=== PATIENT | female | born 2000 | race Caucasian/White ===

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

== ENCOUNTER 2021-04-02 13:17 | Outpatient (REF) | payer MEDICAID, SELFPAY ==
[2021-04-04 16:42] LABS: COVID-19 RT-PCR UVMMC Result Positive (Negative)
== END 2021-04-02 13:18 | disposition home or self-care (01) ==
LOC: LBN 13:17
PROVIDERS: PCP Nurse Practitioner Family; Visit Provider Nurse Practitioner Family
DX: Z20.822 Contact with and (suspected) exposure to COVID-19 (principal); J06.9 Acute upper respiratory infection, unspecified
CPT/HCPCS: U0003

== ENCOUNTER 2021-04-24 16:16 | Emergency (ER) | payer MEDICAID, SELFPAY ==
--- NOTE | 2021-04-24 16:15 | DI.RAD_ITS ---
Exam(s) XR FOOT RT COMPLETE EXAM: XR FOOT RT COMPLETE CLINICAL HISTORY: dorsal pain and swelling after injury. TECHNIQUE: 2D digital imaging was performed of the right foot. Three images were obtained. AP, obl ique and lateral views were obtained. COMPARISON: CR RIGHT FOOT COMPLETE from 03/09/2015 CR RIGHT FOOT COMPLETE from 03/09/2015 FINDINGS: BONES: No acute fracture is present. No bony destructive lesion is seen. JOINTS: No dislocation present. SOFT TISSUE: Normal. IMPRESSION: Unremarkable radiographs of the right foot. DATA REPOSITORY: RADIATION DOSE DELIVERED:
[2021-04-24 16:19] VITALS: BP 133/80; PULSE 76; RESP 18; TEMP 36.6; O2SAT 100
--- NOTE | 2021-04-24 16:30 | ED.GENADUL_ITS ---
Discharge Plan Disposition Patient Disposition: HOME Condition: Stable Discharge Details Clinical Impression: Sprain of foot, right Primary Care Provider: Divine De Los Santos ED Provider: Amarjit Kang Home Meds and New Rx's Prescriptions: Continued dicyclomine 20 mg tablet 20 mg PO TID PRN (Reason: abdominal pain) Qty: 10 RF: 0 medroxyprogesterone [Depo-Provera] 150 mg/mL syringe 150 mg IM ONCE Qty: 1 RF: 2 albuterol sulfate [ProAir HFA] 90 mcg/actuation HFA aerosol inhaler 1 - 2 puff Inhalation DAILY Qty: 1 RF: 2 budesonide-formoterol [Symbicort] 80-4.5 mcg/actuation HFA aerosol inhaler 1 puff Inhalation BID Qty: 1 RF: 2 epinephrine [EpiPen] 0.3 mg/0.3 mL auto-injector 0.3 mg IJ ONCE PRN (Reason: Anaphylaxis) Qty: 1 RF: 1 (DME) Aerochamber MV Spacer See Rx Instructions .ROUTE .MEDSUPPLY Qty: 1 RF: 0 ibuprofen 600 mg tablet 600 mg PO Q6H PRNQty: 20 RF: 0 Discharge Instructions Instructions: Foot Sprain (ED) Additional Instructions: Elevate above the level of the heart to reduce pain and swelling. Apply ice to area to reduce discomfort. May use lace up ankle brace as needed for 5 to 10 days time. Tylenol and/or ibuprofen as needed for pain. Medical Decision Making 20-year-old female presents with right dorsal foot pain after injuring it this weekend and again falling in her driveway. She has been able to ambulate but with ongoing discomfort. She is tender along the dorsum of the right foot with no obvious laxity nor bony point discomfort. For for x-ray to rule out underlying fracture. X-ray is unremarkable. Patient placed in lace up ankle brace that she may use as needed. Discussed home management and she is stable for discharge. HPI General Mode of arrival: ambulatory . Date/Time Provider Initiated Documentation: 04/24/21 16:16 . Limitations to Documentation: no limitations . Information obtained by: patient . History of Present Illness 20 year old F presents to the emergency department with the chief complaint of Right foot pain and injury, described as moderate, Quality is described as dull, and is localized to the right. Patient reports no radiation. Patient started experiencing this day(s) and it has been constant. Rest improves symptom(s), Movement worsens symptoms . Patient notes no other symptoms.. Patient did receive the following treatments prior to arrival, none Related Data Home Medications Medication Instructions Recorded Confirmed inhalational spacing device #1 ea 02/14/20 04/24/21 dicyclomine 20 mg tablet 20 mg PO TID PRN #10 tab 03/16/20 04/24/21 epinephrine 0.3 mg/0.3 mL 0.3 mg IJ ONCE PRN #1 auto.injct 05/24/20 04/24/21 injection, auto-injector ibuprofen 600 mg PO Q6H PRN #20 tab 08/12/20 04/24/21 albuterol sulfate 90 mcg/actuation 1 - 2 puff INHALATION DAILY #1 10/04/20 04/24/21 aerosol inhaler inhaler budesonide-formoterol HFA 80 1 puff INHALATION BID #1 inhaler 10/04/20 04/24/21 mcg-4.5 mcg/actuation aerosol inhaler medroxyprogesterone 150 mg/mL 150 mg IM ONCE #1 syringe 10/04/20 04/24/21 intramuscular syringe Previous Rx's Medication Instructions Recorded inhalational spacing device #1 ea 02/14/20 dicyclomine 20 mg tablet 20 mg PO TID PRN #10 tab 03/16/20 epinephrine 0.3 mg/0.3 mL 0.3 mg IJ ONCE PRN #1 auto.injct 05/24/20 injection, auto-injector ibuprofen 600 mg PO Q6H PRN #20 tab 08/12/20 albuterol sulfate 90 mcg/actuation 1 - 2 puff INHALATION DAILY #1 10/04/20 aerosol inhaler inhaler budesonide-formoterol HFA 80 1 puff INHALATION BID #1 inhaler 10/04/20 mcg-4.5 mcg/actuation aerosol inhaler medroxyprogesterone 150 mg/mL 150 mg IM ONCE #1 syringe 10/04/20 intramuscular syringe Allergies Allergy/AdvReac Type Severity Reaction Status Date / Time tree nut Allergy Severe Verified 04/24/21 16:22 almond Allergy Intermediate Skin Rash Verified 04/24/21 16:22 No Known Drug Allergies Allergy Mild Verified 04/24/21 16:22 shellfish derived Allergy Verified 04/24/21 16:22 General Stated Complaint: Orthopedic RUBEN: 3 Review of Systems Narrative: No other injury. No knee or hip pain. No numbness or tingling. 4 systems reviewed and otherwise negative [facility] Active Problem List Scapular dyskinesis (Acute) Impingement syndrome of left shoulder (Acute) Concussion (Acute) Otitis externa (Acute) SLAP lesion of right shoulder (Acute) Tendinitis of long head of biceps brachii of both shoulders (Acute) Marijuana abuse (Acute) Hematuria (Acute) Depot contraception (Acute) Moderate persistent asthma without complication (Acute 08/23/16) Smoker (Chronic 11/28/17) Depression with anxiety (Chronic 12/25/15) Adolescent idiopathic scoliosis of thoracolumbar region (Chronic 08/23/16) ADHD (attention deficit hyperactivity disorder) (Chronic 11/23/14) Medical History Acute neck pain Chronic abdominal pain Eczema (11/23/14) Fracture of left wrist (08/23/09) Fracture of right clavicle (11/04/04) Sprain of medial collateral ligament of right knee, subsequent encounter (04/22/17) Surgical History ROOF OF MOUTH RECONSTRUCTED Family History Mother Substance abuse several female relatives Neoplasm breast CA Social History Smoking/Tobacco Use Status: Current every day Tobacco Type: cigarettes Smoking risk assessment performed?: Yes Alcohol Intake: current Alcohol Intake frequency: a few times a month Alcohol type: beer and hard liquor Drug use: Daily Substance use type: marijuana Household members: family Sexually active: Yes Do you think of yourself as: straight/heterosexual Current gender identity: female Seatbelt use: sometimes Do you feel safe at home: Yes Do you feel safe in your relationship?: Yes Exam Narrative Exam Narrative: GEN: awake, alert, oriented 3. Pleasant, well groomed, interactive. HEAD: Normocephalic, atraumatic EXT: Full ROM, right proximal dorsum of the foot is tender to palpation. 2+ DP bilaterally. Sensation intact throughout. Normal motor. Neuro: Grossly normal neurologic exam, conversant, interactive. Psych: Speech fluent, thoughts congruent, affect normal Course Vital Signs Vital signs: Vital Signs Temperature 36.6 C 04/24/21 16:19 Pulse 76 04/24/21 16:19 Respiratory Rate 18 04/24/21 16:19 Blood Pressure 133/80 04/24/21 16:19 Pulse Oximetry 100 04/24/21 16:19 Temperature 36.6 C 04/24/21 16:19 Temperature Source Temporal Artery Scan 04/24/21 16:19 Pulse 76 04/24/21 16:19 Respiratory Rate 18 04/24/21 16:19 Respiratory Effort Non-Labored 04/24/21 16:23 Blood Pressure 133/80 04/24/21 16:19 Pulse Oximetry 100 04/24/21 16:19 Oxygen Delivery Method Room Air 04/24/21 16:19 Oxygen Flow Rate 0 04/24/21 16:19 Pain Level 8 04/24/21 16:19 PAWSS Have you Been Recently Intoxicated or Drunk Within the Last 30 days?: No Have you Ever Experienced Previous Episodes of Alcohol Withdrawal?: No Have you ever Experienced Withdrawal Seizures?: No Have you ever Experienced Delirium Tremens(DT)s?: No Have you ever undergone Alcohol Rehabilitation Treatment (i.e, inpt ot outpatient treatment programs)?: No Have you ever Experienced Blackouts?: No Have you ever Combined Alcohol with other Downers within the last 90 days?: No Have you ever Combined Alcohol with any other Substance of Abuse during the last 90 days?: No Positive Blood Alcohol level on Presentation? [PCS.BAL]: No Evidence of Increased Autonomic Activity (i.e. HR>120, tremor, sweating, agitation, nausea)?: No Result: 0
--- NOTE | 2021-04-24 16:56 | DI.VRAD_ITS ---
PROCEDURE INFORMATION: Exam: XR Right Foot Exam date and time: 04/24/2021 4:24 PM Age: 20 years old Clinical indication: Other: Dorsal pain and swelling after injury TECHNIQUE: Imaging protocol: XR Right foot. Views: 3 or more views. COMPARISON: CR RIGHT FOOT COMPLETE 03/09/2015 3:16 PM FINDINGS: Bones/joints: No acute fracture or dislocation Soft tissues: Unremarkable IMPRESSION: No acute fracture or dislocation Dictated and Authenticated by: Maciel Cruz MD. Ordering:KENDY Ocasio MD
== END 2021-04-24 17:16 | disposition home or self-care (01) ==
PROVIDERS: Emergency Provider Emergency Medicine; PCP Nurse Practitioner Family
DX: S93.691A Other sprain of right foot, initial encounter (principal); W00.0XXA Fall on same level due to ice and snow, initial encounter
CPT/HCPCS: 29515; 99283; 73630

== ENCOUNTER 2021-08-10 01:29 | Outpatient (CLI) | payer MEDICAID, SELFPAY ==
--- NOTE | 2021-08-10 13:28 | DI.RAD_ITS ---
Exam(s) XR WRIST LT COMPLETE EXAM: XR WRIST LT COMPLETE CLINICAL HISTORY: LT WRIST PAIN, M25.532. TECHNIQUE: 2D digital imaging was performed of the left wrist. Three images were obtained. PA, obl ique and lateral views were obtained. COMPARISON: CR LEFT HAND COMPLETE from 11/11/2016 FINDINGS: BONES: No acute fracture is present. No bony destructive lesion is seen. JOINTS: The carpal bones are normally aligned. SOFT TISSUE: Normal. IMPRESSION: Unremarkable radiographs of the left wrist. DATA REPOSITORY: RADIATION DOSE DELIVERED:
== END 2021-08-10 01:49 ==
PROVIDERS: PCP Nurse Practitioner Family; Visit Provider Family Medicine
DX: M25.532 Pain in left wrist (principal)
CPT/HCPCS: 73110

== ENCOUNTER 2021-08-22 02:56 | Outpatient (CLI) | payer MEDICAID, SELFPAY ==
[2021-08-22 11:20] LABS: HCG Quant, Pregnancy 1 mIU/mL (1-3)
== END 2021-08-22 02:57 | disposition home or self-care (01) ==
LOC: LBO 02:56
PROVIDERS: PCP Nurse Practitioner Family; Visit Provider Nurse Practitioner Family
DX: N92.5 Other specified irregular menstruation (principal)
CPT/HCPCS: 36415; 84702

== ENCOUNTER → 2021-09-19 00:35 | Outpatient (CLI) | payer MEDICAID, SELFPAY ==
--- NOTE | 2021-09-19 | DI.MRI_ITS ---
Exam(s) MR ORBIT FACIAL NECK WO/W EXAM: MR ORBIT FACIAL NECK WO/W CLINICAL HISTORY: LT CHEEK MASS 1 CM TECHNIQUE: Multiplanar multisequence MRI was performed. CONTRAST MATERIAL: IV Contrast: 12 mL of Magnevist contrast administered. COMPARISON: No exams were available for comparison FINDINGS: ORBITS: The anterior and posterior chambers of the globes are intact. The retrobulbar fat is unremark able. Extraocular muscles are unremarkable. OPTIC NERVES: The intracranial and extracranial portions of the optic nerves are within normal limits . Optic chiasm is within normal limits. No MRI evidence of optic neuritis identified. SOFT TISSUES: The superior opthalmic veins are unremarkable. Remaining soft tissues are unremarkable. OTHER FINDINGS: A marker was placed over the palpable abnormality at the left side of the cheek at th e level of the mandible, anterior to the masseter muscle.. This corresponds to a homogeneous circums cribed nodule measuring 8 millimeters in greatest dimension. The features are consistent with a lymp h node. Parotids/submandibular/thyroid gland: Normal. Lymphadenopathy: There are scattered lymph nodes seen bilaterally level one to level three which are physiologic in nature. Carotids/Jugular: Within normal limits. Soft tissues: The floor the mouth is unremarkable where visualized. The epiglottis and vocal cords are within normal limits where visualized. IMPRESSION: Unremarkable MRI of the brain, orbits face, and neck. Palpable abnormality appears to correspond to a 8 millimeter lymph node without suspicious features. Other scattered lymph nodes are seen on both sides of the neck. No pathologically enlarged lymph no mitch. DATA REPOSITORY:
[2021-09-19] MEDS: Normal Saline Flush 10 ML SYR IVP (15:18)
[2021-09-19] MEDS: Gadoterate meglumine 20 ML VIAL 12 ML IVP (15:20)
== END ==
PROVIDERS: PCP Nurse Practitioner Family; Visit Provider Dentist Oral and Maxillofacial Surgery
DX: R22.0 Localized swelling, mass and lump, head (principal); R59.0 Localized enlarged lymph nodes
CPT/HCPCS: 70543; 82565

== ENCOUNTER 2021-11-22 10:21 | Outpatient (REF) | payer MEDICAID, SELFPAY ==
[2021-11-23 15:45] LABS: Chlamydia Result Negative (Negative); GC Result Negative (Negative)
== END 2021-11-22 10:22 | disposition home or self-care (01) ==
LOC: LBN 10:21
PROVIDERS: PCP Nurse Practitioner Family; Visit Provider Advanced Practice Midwife
DX: Z11.3 Encounter for screening for infections with a predominantly sexual mode of transmission (principal)
CPT/HCPCS: 87491; 87591

== ENCOUNTER 2021-11-26 15:41 | Outpatient (REF) | payer MEDICAID, SELFPAY ==
--- OUTSIDE RECORDS SUMMARY | 2021-11-26 15:44 | XMS_ITS | Clinical Summary ---
:2000 Author Organization [facility] [address] Care Team Providers Name Role Phone Amara Celis MD Primary Care Provider Allergies Active Allergy Reactions Severity Noted Date Comments Marlin High 10/26/2019 Penicillin Nausea And Vomiting 11/10/2015 Shellfish Derived 10/26/2019 Tree Nut High 10/26/2019 Medications Medication Sig Dispensed Refills Start Date End Date Status albuteroL 90 Daily 0 08/21/2015 Active mcg/actuation HFA Aerosol Inhaler medroxyPROGESTERone Inject 150 mg 0 Active (Depo-PROVERA) 150 mg/mL into the muscle Suspension once. Symbicort 80-4.5 INHALE 1 PUFF BY 0 02/11/2020 Active mcg/actuation HFA MOUTH TWICE A DAY Aerosol Inhaler EPINEPHrine 0.3 mg/0.3 INJECT 0.3MG INTO 0 1 Active mL Auto-Injector THE MUSCLE ONCE NEEDED FOR ANAPHYLAXSIS Active Problems Problem Noted Date Adolescent idiopathic scoliosis 11/10/2015 Encounters Date Type Specialty Care Team Description 11/08/2021 Telephone Gastroenterology Santhosh August [facility] 09/03/2021 Hospital Encounter Radiology Maciel Reilly a without vomiting; B, MD RUQ pain from Last 3 Months Family History Medical History Relation Comments Diabetes Neg Hx Social History Tobacco Use Types Packs/Day Years Used Date Current Every Day Smoker 0.5 Smokeless Tobacco: Never Used Alcohol Use Standard Drinks/Week Comments Never 0 (1 standard drink = 0.6 oz pure alcoho l) Alcohol Habits Answer Date Recorded How often do you have a drink containing alcohol? Never 06/16/2020 How many drinks containing alcohol do you have on a typical Not asked day when you are drinking? How often do you have six or more drinks on one occasion? No t asked Comment: Not asked Sex Assigned at Date Recorded Not on file Last Filed Vital Signs Vital Sign Reading Time Taken Comments Blood Pressure 101/80 07/10/2021 10:29 AM EST Pulse 71 07/10/2021 10:29 AM EST Temperature 36.6 ??C (97.9 ??F) 06/16/2020 2:01 PM EST Respiratory Rate 16 06/16/2020 3:50 PM EST Oxygen Saturation 99% 06/16/2020 3:45 PM EST Inhaled Oxygen Concentration - - Weight 64.3 kg (141 lb 12.8 oz) 07/10/2021 10:29 AM EST Height 167.6 cm (5' 6) 07/10/2021 10:29 AM EST Body Mass Index 22.89 07/10/2021 10:29 AM EST Plan of Treatment Upcoming Encounters Date Type Specialty Care Team Description 11/28/2021 Hospital Encounter Radiology Maciel Reilly MD [facility] [place] [address] 11/28/2021 Appointment Radiology Maciel Reilly MD [facility] DR MANDUJANO [place], [place] [address] 02/08/2022 Hospital Encounter Gastroenterology Awilda Israel MD [facility] [address] [place] [address] 02/08/2022 Surgery Gastroenterology Awilda Israel, EGD, UP PER GI ENDOSCOPY [facility] [address] [place], [place] [address] Scheduled Procedures Name Priority Associated Diagnoses Date/Time EGD, UPPER GI ENDOSCOPY Nausea without v omiting 02/08/2022 1:00 PM EDT RUQ pain Health Maintenance Due Date Last Done Comments Covid-19 Vaccine (#1) 2006 Pneumococcal Vaccine: At-Risk 5-64yrs (1 - PCV) 2007 HPV vaccine (1 - 2-dose series) 2012 Chlamydia Screening, female 15-25 2016 HIV screen 2019 Hepatitis C Screening 2019 Lipid Screening 2019 Tdap adult 2020 Tetanus vaccine 2020 Influenza (Flu) vaccine (1 of 1 - Influenza standard 01/17/2022 series) Procedures Procedure Name Priority Date/Time Associated Comments Diagnosis US ABDOMEN LIMITED Routine 09/03/2021 9:37 AM Nausea without R esults for this HEPATOLOGY PROTOCOL EDT vomiting procedure are in RUQ pain the results section. from Last 3 Months Results US Abdomen Limited Hepatology Protocol (09/03/2021 9:37 AM EDT) Anatomical Region Laterality Modality Abdomen Ultrasound Specimen (Source) Anatomical Collection Method Collection Time Re ceived Time Location / / Volume Laterality 09/03/2021 9:22 AM EDT Impressions 09/03/2021 9:47 AM EDT Normal right upper quadrant ultrasound. Specifically, the liver, gallbladder and biliary ductal system are normal. Electronically signed by: Osmel escobedo MD, [facility] ([phone]), at 9:40 AM Thank you for letting us participate in the care of this patient. If you are a [facility] and have any questions regarding this report, please contact the number above. For patients who have ques tions, please contact the [facility] profess[facility] nal that requested your imaging first. ? Osmel Huff, Staff Physician Electronically Signed Final Report ?? 09:47 am Narrative 09/03/2021 9:47 AM EDT Abdominal ? (Signed Final 09/03/2021 09:47 am) PATIENT INFO: ID #: ? [id number] ?: ??[birth year] (21 yrs)(F) Name: ? GRISELDA SHORT ?Visit Date: 09/03/2021 09:22 am PERFORMED BY: Performed By: ? Danya Cornejo RDMS Attending: ?Refugio PAZ, Kofi Curiel. Referred By: ?MACIEL REILLY Location: ? [place] SERVICE(S) PROVIDED: [facility]ABDLIM - Hepatology Protocol - Abdomin al ? [address]32 Limited Survey Single Organ or Quadrant - [id number] INDICATIONS: nausea, RUQ pain COMPARISON: Outside US 10/27/19 ------ LIVER: ------ Right Lobe Length: ?? 12.9 ?? cm Echogenicity/Echotexture: ?? Normal Portal Veins: ?Patent Comment: ?No focal lesion seen. GALLBLADDER: Cholelithiasis: ?No stones visua lized Wall Thickness: ?1. mm Focal Tenderness: ?Negative sonogra phic Galvez's sign BILIARY TRACT: Intrahepatic Ducts: ?? Normal Extrahepatic Ducts: ?? Normal Common Duct Size: ? 2.0 ? mm Procedure Note Osmel Huff MD - 09/03/2021Format ting of this note might be different from the original. Abdominal (Signed Final 09/03/2021 09:4 7 am) PATIENT INFO: ID #: [id number] : [birth year] (21 y rs)(F) Name: GRISELDA SHORT Visit Date: 09:22 am PERFORMED BY: Performed By: Danya Cornejo RDMS Attending: Osmel Huff MD Referred By: MACIEL REILLY Location: [place] [facility] Protocol - Abdomin al 11279 Limited Survey Single Organ or Quadrant - [id number] INDICATIONS: nausea, RUQ pain COMPARISON: Outside US 10/27/19 ------ LIVER: ------ Right Lobe Length: 12.9 cm Echogenicity/Echotexture: Normal Portal Veins: Patent Comment: No focal lesion seen. GALLBLADDER: Cholelithiasis: No stones visualized Wall Thickness: 1. mm Focal Tenderness: Negative sonographic Galvez's sign BILIARY TRACT: Intrahepatic Ducts: Normal Extrahepatic Ducts: Normal Common Duct Size: 2.0 mm IMPRESSION Normal right upper quadrant ultrasound. Specifically, the liver, gallbladder and biliary ductal system are normal. Electronically signed by: Osmel escobedo MD, Radiology [place] ([phone]), at 9:40 AM Thank you for letting us participate in the care of this patient. If you are a [facility] and have any questions regarding this report, please contact the number above. For patients who have ques tions, please contact the [facility] profess[facility] nal that requested your imaging first. Osmel Huff, Staff Physician Electronically Signed Final Report 09/03 09:47 am Maciel Reilly MD IMG US GEN ORDERABLES from Last 3 Months Insurance Payer Benefit Plan / Subscriber ID Effective Dates Phone Addre ss Type Group [place]ICA[place] [id number] 2019-Prese [phone] [address] [facility] [address] [place], [place] [id number] Care Teams Seasoner Hand Relationship Specialty Start Date End Date Amara Celis MD PCP - General Pediatrics 08/30/15 [address] [place] [address]
--- OUTSIDE RECORDS SUMMARY | 2021-11-26 15:44 | XMS_ITS | Encounter Summary ---
:2000 Author Organization [facility] [place] [address] Care Team Providers Name Role Phone Amara Celis MD Primary Care Provider Encounter Details Date Type Department Care Team Description 06/16/2020 Hospital Encounter Gastroenterology at [facility] Laz Vega [facility] [place] [address] [facility] [phone] DR GASTROENTEROLOGY [place], [place] [address] (Wo rk) Social History Tobacco Use Types Packs/Day Years [...] Assigned at Date Recorded Not on file documented as of this encounter Last Filed Vital Signs Vital Sign Reading Time Taken Comments Blood Pressure 113/67 06/16/2020 3:44 PM EST Pulse 58 06/16/2020 3:35 PM EST Temperature 36.6 ??C (97.9 ??F) 06/16/2020 2:01 PM EST Respiratory Rate 16 06/16/2020 3:50 PM EST Oxygen Saturation 99% 06/16/2020 3:45 PM EST Inhaled Oxygen Concentration - - Weight 61.2 kg (135 lb) 06/16/2020 2:01 PM EST Height 167.6 cm (5' 6) 06/16/2020 2:01 PM EST Body Mass Index 21.79 06/16/2020 2:01 PM EST documented in this encounter Discharge Instructions AttachmentsThe following attachments cannot be sent through Care Everywhere. COLONOSCOPY: POST-OP (NORWEGIAN)documented in this encounter Medications at Time of Discharge Medication Sig Dispensed Refills Start Date End Date Symbicort 80-4.5 INHALE 1 PUFF BY 0 02/11/2020 mcg/actuation HFA Aerosol MOUTH TWICE A DAY Inhaler EPINEPHrine 0.3 mg/0.3 mL INJECT 0.3MG INTO 0 10/2020 Auto-Injector THE MUSCLE ONCE NEEDED FOR ANAPHYLAXSIS medroxyPROGESTERone Inject 150 mg into 0 (Depo-PROVERA) 150 mg/mL the muscle once. Suspension albuteroL 90 mcg/actuation Daily 0 HFA Aerosol Inhaler citalopram (CeleXA) 10 mg TAKE ONE TABLET BY 0 07/10/2021 Tablet MOUTH EVERY DAY documented as of this encounter H&P Notes Laz Vega MD - 06/16/2020 2:52 PM EST Patient Name: Ny Short Patient Age: 20 y.o. Birthdate: 2000 Admit date: 06/16/2020 Attending Physician: Laz Vega MD Gastroenterology & Hepatology Pre-Procedure History and Physical Planned Procedure: Colonoscopy: Indication: abdominal pain Patient Active Problem List Diagnosis Code ??? Adolescent idiopathic scoliosis M41.129 Medications: Reviewed in EDH Allergies Allergen Reactions ??? [place] ??? Tree Nut ??? Penicillin Nausea And Vomiting ??? Shellfish Derived Social History/Family History: Reviewed in EDH. No changes Exam: Patient Vitals for the past 24 hrs: Temp Pulse Resp BP SpO2 O2 Device 06/16/20 1401 36.6 ??C (97.9 ??F) 62 18 112/66 99 % RA GEN: NAD, AAOX3 HEENT: NC/AT dryMM, anicteric Chest: CTAB Heart: RRR, nl s1, s2 Abdomen: normal bowel sounds, soft, non tender Assessment and Plan: Proceed with Colonoscopy: ASA Grade: ASA 1 - Normal health patient Mallampati: I (soft palate, uvula, fauces, tonsillar pillars visible) Sedation plan: IV Conscious Sedation Risks and benefits of the procedure were discussed with the patient. Risks discussed including bleeding, infection, reaction to anesthesia, perforation or other intraabdominal trauma, pancreatitis (if applicable), missing a cancer (if applicable) and/or other unforseen complication. Informed Consent signed by patient (or wire rope sales representative). documented in this encounter Plan of Treatment Upcoming Encounters Date Type Specialty Care Team Description 11/28/2021 Hospital Encounter Radiology Maciel Pearson MD [facility] GASTR[facility] [place], [place] [address] 11/28/2021 Appointment Radiology Maciel Pearson MD [facility] DR [place], [place] [address] 02/08/2022 Hospital Encounter Gastroenterology Awilda Israel MD [facility] [address] [place], [place] [address] 02/08/2022 Surgery Gastroenterology Awilda Israel, EGD, UP PER GI MD ENDOSCOPY [facility] [address] [place], [place] [address] Scheduled Procedures Name Priority Associated Diagnoses Date/Time EGD, UPPER GI ENDOSCOPY Nausea without v omiting 02/08/2022 1:00 PM EDT RUQ pain documented as of this encounter Procedures Procedure Name Priority Date/Time Associated Comments Diagnosis COLONOSCOPY, 06/16/2020 3:05 PM abd pain DIAGNOSTIC EST COLONOSCOPY Routine 06/16/2020 2:55 PM Results f or this EST procedure are i n the results section. documented in this encounter Results COLONOSCOPY (06/16/2020 2:55 PM EST) Component Value Ref Test Analysis Performed At Patholo gist Range Method Time Signature COLONOSCOPY [facility] Endoscopy Procedure Date: 06/16/2020 2:55 PM ? Patient Name: Ny Short ? Date of : 2000 ? Age: 20 ? Order #: [id number] ? Instrument Name: [id number]-H190L SHERLYN ? Procedure: ? Colonoscopy Indications: ? Generalized abdominal pain Patient Profile: ? This is a 20 year old female. Refer ? to note in patient chart for ? documentation of history and physical. Providers: ? Laz Vega MD, Shagufta quintero, ? Devan Lopez Referring : ?Amara Celis MD, Jenise Silva ? Maria Elena Medicines: ? Midazolam 6 mg IV, Fentanyl 250 ? micrograms IV, Diphenhydramin e 50 mg ? IV Complications: ? No immediate complications. Procedure: ? Pre-Anesthesia Assessment: ? - Prior to the procedure, a H istory ? and Physical was performed, a nd ? patient medications and aller gies ? were reviewed. The patient's ? tolerance of previous anesthe jessica was ? also reviewed. The risks and benefits ? of the procedure and the jin tion ? options and risks were discus sed with ? the patient. All questions we re ? answered, and informed consen t was ? obtained. Prior Anticoagulant s: The ? patient has taken no previous ? anticoagulant or antiplatelet agents. ? ASA Grade Assessment: I - A n ormal, ? healthy patient. After review ing the ? risks and benefits, the patie nt was ? deemed in satisfactory condit ion to ? undergo the procedure. ? The procedure, indications, b enefits, ? risks and alternatives were e xplained ? to the patient. Specifically ? discussed were potential ? complications including, but not ? limited to, bleeding, perfora tion, ? infection, missing a cancer, and ? adverse medication reactions. The ? patient was placed in the lef t ? lateral decubitus position, a nd a ? digital rectal exam was perfo rmed. ? The Colonoscope was inserted in the ? anus and under direct visuali zation, ? advanced to 20 cm into the il eum. ? Careful inspection was made a s the ? colonoscope was withdrawn. Th e ? colonoscopy was performed wit hout ? difficulty. The patient eden ated the ? procedure. The quality of the bowel ? preparation was good. The ter artemio ? ileum, ileocecal valve, appen diceal ? orifice, and rectum were phot ographed. ? Findings: ? The perianal and digital rectal examinations were ? normal. ? The terminal ileum appeared normal. ? The entire examined colon appeared normal on direct ? and retroflexion views. ? Moderate Sedation: ? Moderate (conscious) sedation was administered by the ? endoscopy nurse and supervised by the endoscopist. ? The patient's oxygen saturation, heart rate, blood ? pressure and response to care were monitored. ? I was present during the intraservice time as ? documented by the sedation RN. Impression: ?- The examined portion of the ileu m ? was normal. ? - The entire examined colon i s normal ? on direct and retroflexion vi ews. ? - No specimens collected. Recommendation: ?- Discharge patient to home. ? - Follow-up with PCP and GI C linic as ? scheduled. ? Attending Participation: ? I personally performed the entire procedure. I was ? present during the intraservice time as documented by ? the sedation RN. ? Dr. Rory Vega Laz Vega MD 06/16/2020 3:56:14 PM Number of Addenda: 0 Note Initiated On: 06/16/2020 2:55 PM Specimen (Source) Anatomical Collection Method Collection Time Re ceived Time Location / / Volume Laterality 06/16/2020 2:55 PM EST Amara Royal MD GENERAL SURGICAL ORDERABLES Performing Organization Address City/State/ZIP Code Phon e Number PROVATION documented in this encounter Visit Diagnoses Not on filedocumented in this encounter Administered Medications Inactive Administered Medications - up to 3 most recent administrations Medication Order MAR Action Action Date Dose Rate Site lactated ringers infusion New Bag 06/16/2020 2:12 PM EST 100 mL/hr 100 mL/hr 100 mL/hr, Intravenous, CONTINUOUS, Starting on Fri06/16/20 at 1415, Until Fri06/16/20 at 1617, Endoscopy (Day of Procedure) documented in this encounter Active and Recently Administered Medications Times are shown in EST. Continuous Medication Order 06/14/2020 06/15/2020 06/16/2020 lactated ringers infusion (CANCELED) 1412 (New Bag - Provider: Sahara Noel RN) 100 mL/hr, at 100 mL/hr, Intravenous, CO NTINUOUS, Starting Fri06/16/20 at 1415, Until Fri06/16/20 at 1617, Endo (Day of Procedure) PRN Medication Order 06/14/2020 06/15/2020 06/16/2020 diphenhydrAMINE (Benadryl) (50 mg/mL) injection (CANCELED) 1506 (Given - Provider: Shagufta Centeno RN)1518 (Given - Provider: Shagufta Centeno RN) ONCE PRN, Starting Fri06/16/20 at 1506, Until Fri06/16/20 at 1820, Intra- Operative (Intra-Procedure), Routine fentaNYL (pf) (50 mcg/mL) multi-dose injection (CANCELED) 1511 (Given - Provider: Shagufta Centeno RN)1514 (Given - Provider: hSagufta Centeno RN)1522 (Given - Provider: Shagufta Centeno RN)1526 (Given - Provider: Shagufta Centeno RN)1529 (Given - Provider: Shagufta Centneo RN) ONCE PRN, Starting Fri06/16/20 at 1511, Until Fri06/16/20 at 1820, Intra- Operative (Intra-Procedure), Routine midazolam (pf) (Versed) (1 mg/mL) multi-dose injection (CANCELED ) 1507 (Given - Provider: Shagufta Centeno RN)1510 (Given - Provider: Shagufta Centeno RN)1514 (Given - Provider: Shagufta Centeno RN)1518 (Given - Provider: Shagufta Centeno RN)1524 (Given - Provider: Shagufta Centeno RN) ONCE PRN, Starting Fri06/16/20 at 1507, Until Fri06/16/20 at 1820, Intra- Operative (Intra-Procedure), Routine 152 7 (Given - Provider: Shagufta Centeno RN) documented in this encounter Care Teams Wigs Salesperson Relationship Specialty Start Date End Date Amara Celis MD PCP - General Pediatrics 08/30/15 [place] [address] documented as of this encounter
--- OUTSIDE RECORDS SUMMARY | 2021-11-26 15:44 | XMS_ITS | Encounter Summary ---
:2000 Author Organization [place] [address] Care Team Providers Name Role Phone Amara Celis MD Primary Care Provider Encounter Details Date Type Department Care Team Description 06/16/2020 Surgery Gastroenterology at [facility] Laz Vega COLONOSCOPY, [facility] Cuauhtemoc [place] [address] [facility] [phone] DR GASTROENTEROLOGY [place], [place] [address] (Wo rk) Social History Tobacco [...] Sign Reading Time Taken Comments Blood Pressure 121/84 06/16/2020 3:30 PM EST Pulse 79 06/16/2020 3:30 PM EST Temperature 36.6 ??C (97.9 ??F) 06/16/2020 2:01 PM EST Respiratory Rate 16 06/16/2020 3:30 PM EST Oxygen Saturation 100% 06/16/2020 3:30 PM EST Inhaled Oxygen Concentration - - Weight 61.2 kg (135 lb) 06/16/2020 2:01 PM EST Height 167.6 cm (5' 6) 06/16/2020 2:01 PM EST Body Mass Index 21.79 06/16/2020 2:01 PM EST documented in this encounter Discharge Instructions AttachmentsThe following attachments cannot be sent through Care Everywhere. COLONOSCOPY: POST-OP (DIVEHI)documented in this encounter Medications at Time of [...] Reviewed in EDH Allergies Allergen Reactions ??? [place] ??? Tree Nut ??? Penicillin Nausea And [...] complication. Informed Consent signed by patient (or mill representative). documented in this encounter Plan of Treatment Upcoming Encounters Date Type Specialty Care Team Description 11/28/2021 Hospital Encounter Radiology Maciel Pearson MD [facility] GASTROENTERNOÉ [place], [place] [address] 11/28/2021 Appointment Radiology Maciel Pearson MD [facility] DR MANDUJAN[address] [place], [place] [address] 02/08/2022 Hospital Encounter Gastroenterology Awilda Israel MD [facility] [address] [place], [place] [address] 02/08/2022 Surgery Gastroenterology Awilda Israel, EGD, UP PER GI ENDOSCOPY [facility] [address] [place], [place] [address] Scheduled Procedures Name Priority Associated [...] Patholo gist Range Method Time Signature COLONOSCOPY [facility] Endoscopy Procedure Date: 06/16/2020 2:55 PM ? Patient Name: Ny Short ? Date of : 2000 ? Age: 20 ? Order #: [id number] ? Instrument Name: [id number]-H190L SHERLYN ? Procedure: [...] MAR Action Action Date Dose Rate Site diphenhydrAMINE (Benadryl) (50 Given 06/16/2020 3:18 PM EST 25 m g mg/mL) injection ONCE PRN, Starting on Fri06/16/20 at 1506, Until Fri06/16/20 at 1820, Intra-Operative (Intra-Procedure), Routine Given 06/16/2020 3:06 PM EST 25 mg fentaNYL (pf) (50 mcg/mL) multi-dose Given 06/16/2020 3:29 PM ES T 50 mcg injection ONCE PRN, Starting on Fri06/16/20 at 1511, Until Fri06/16/20 at 1820, Intra-Operative (Intra-Procedure), Routine Given 06/16/2020 3:26 PM EST 50 mcg Given 06/16/2020 3:22 PM EST 50 mcg lactated ringers infusion New Bag 06/16/2020 2:12 PM EST 100 mL/hr 100 mL/hr 100 mL/hr, Intravenous, CONTINUOUS, Starting on Fri06/16/20 at 1415, Until Fri06/16/20 at 1617, Endoscopy (Day of Procedure) midazolam (pf) (Versed) (1 mg/mL) multi-dose Given 06/16/2020 3: 27 PM EST 1 mg injection ONCE PRN, Starting on Fri06/16/20 at 1507, Until Fri06/16/20 at 1820, Intra-Operative (Intra-Procedure), Routine Given 06/16/2020 3:24 PM EST 1 mg Given 06/16/2020 3:18 PM EST 1 mg documented in this encounter Active and Recently Administered Medications Times are shown in EST. Continuous Medication Order 06/14/2020 06/15/2020 06/16/2020 lactated ringers infusion (CANCELED) 1412 (New Bag - Provider: Sahara Noel, SANDIP) 100 mL/hr, at 100 mL/hr, Intravenous, CO [...] Centeno RN)1514 (Given - Provider: Shagufta Centeno RN)1522 (Given - Provider: Shagufta Centeno RN)1526 (Given - Provider: Shagufta Centeno RN)1529 (Given - Provider: Shagufta Centeno RN) ONCE PRN, Starting Fri06/16/20 at 1511, [...] RN) documented in this encounter Care Teams Cosmetic Sales Advisor Relationship Specialty Start Date End Date Amara Celis MD PCP - General Pediatrics 08/30/15 [place] [address] documented as of this encounter
--- OUTSIDE RECORDS SUMMARY | 2021-11-26 15:44 | XMS_ITS | Encounter Summary ---
:2001 [place] [address] Care Team Providers Name Role Phone Lon Barboza MD Primary Care Provider Encounter Details Date Type Department Care Team Description 08/25/2015 Hospital Encounter Radiology Library at [facility], [place] [address] Social History Tobacco Use Types Packs/Day Years Used Date Never Assessed Alcohol Habits Answer Date Recorded How often [...] on file documented as of this encounter Medications at Time of Discharge Medication Sig Dispensed Refills Start Date End Date albuteroL 90 mcg/actuation HFA Aerosol Daily 0 08/21/2015 Inhaler citalopram (CELEXA) 10 mg Tablet Daily 0 11/30/2019 methylphenidate (RITALIN) 20 mg Tablet Daily 0 04/25/2015 11/30/2019 methylphenidate (CONCERTA) CR 27 mg Daily 0 01/09/2015 11/30/2019 tablet documented as of this encounter Plan of Treatment Upcoming Encounters Date Type Specialty Care Team Description 11/28/2021 Hospital Encounter Radiology Maciel Pearson MD [facility] GASTROENTEROLOGY [place], [place] [address] 11/28/2021 Appointment Radiology Maciel Pearson MD [facility] [place] [address] 02/08/2022 Hospital Encounter Gastroenterology Awilda Isreal MD [facility] Dr [place] [address] 02/08/2022 Surgery Gastroenterology Awilda Israel, EGD, UP PER GI MD ENDOSCOPY [facility] [address] [place] [address] Scheduled Procedures Name Priority Associated Diagnoses Date/Time EGD, UPPER GI ENDOSCOPY Nausea without v omiting 02/08/2022 1:00 PM EDT RUQ pain documented as of this encounter Procedures Procedure Name Priority Date/Time Associated Diagnosis Comme nts FILM LIBRARY Routine 08/25/2015 12:00 AM Pain Results for this STORAGE ONLY DX EDT procedure ar e in SPINE the results section. documented in this encounter Results Film Library- Storage only DX Spine (08/25/2015 12:00 AM EDT) Specimen (Source) Anatomical Location Collection Method / Collectio n Time Received Time / Laterality Volume Narrative TEVIN - 08/30/2015 11:46 AM EDT This exam is for storage only and is aut o-finalizing. Dr [facility] FILM LIBRARY ORDERABLES Performing Organization Address City/State/ZIP Code Phon e Number [place], [place] documented in this encounter Visit Diagnoses Diagnosis Pain Generalized pain Nausea without vomiting RUQ pain Abdominal pain, right upper quadrant documented in this encounter Care Teams Thread Separator Relationship Specialty Start Date End Date Lon Barboza MD PCP - General 04/10/10 08/29/15 [address] [place] [address] documented as of this encounter
--- OUTSIDE RECORDS SUMMARY | 2021-11-26 15:44 | XMS_ITS | Encounter Summary ---
:2001 Author Organization [facility] [place] [address] Care Team Providers Name Role Phone Amara Celis MD Primary Care Provider Reason for Referral Consultation (Routine) - Closed Specialty Diagnoses / Procedures Referred By Contact Refer red To Contact Gastroenterology Diagnoses Lower abdominal pain Jenise Arredondo PA [facility] Endoscopy 4t [facility] D R [facility] [place] [address] [place] [address] Referral ID Status Reason Start Date Expiration Date Visits V isits Requested Authorized [id number] Closed Consult, 04/05/2020 04/05/2021 1 1 Test & Treat Encounter Details Date Type Department Care Team Description 04/05/2020 TH Visit Gastroenterology at [facility] Jenise Arredondo Lower abdominal (TeleHealth) [facility] [place] [address] [place] [address] [place] [address] Social History Tobacco Use Types Packs/Day Years Used Date Passive Smoke Exposure - Never Smoker Alcohol Habits Answer Date Recorded How often [...] on file documented as of this encounter Progress Notes Jenise Arredondo PA - 04/05/2020 8:00 AM EST GASTROENTEROLOGY TELEMEDICINE PROGRAM - ESTABLISHED PATIENT VISIT Chief Complaint: Ny Short is a 19 [address] of [address] Lorena kinsey. provider found here for follow-up of abdominal pain. Detailed history: November 2019 Patient reports abdominal pain which began 1 month ago. Pain tends to be located in lower abdomen, on her right her left side ?? Pain mostly occurs in the middle of the night, and wakes her up from sleep This has been occurring most nights. She did had similar pain 2 years ago. However at that time, her pain was occurring less frequently and was more mild in severity Typically moves bowels 1-2 times per day No diarrhea, constipation, melena or hematochezia ?? Pain improves with time. No heartburn or reflux No change in medication or diet No dysphagia ?? Patient has had an ultrasound of her abdomen along with a transvaginal ultrasound and a CT scan ?? There was thickening of the bladder. Patient reports urinates every 30 minutes. She did see a physician regarding this who ordered testing. A uroscopy was recommended but not completed. ?? No ZIPPER SETTER CHAINSTITCH symptoms, no unusual vaginal bleeding. She is on Depo-Provera and has been on this for 4 years Interval history: She continues to have abdominal pain She is taking dicyclomine twice per day without significant benefit Pain is in lower abdomen. No specific relieving factors Pain is most days and is worse before a bowel movements Bowel pattern slightly changed: moving bowels 2-3 times per day She did see OBGYN recently with a negative workup No hematochezia or melena No nausea or vomiting Review of systems: 14-point review of systems reviewed and negative except as above. Medications: Outpatient Medications Prior to Visit Medication Sig Dispense Refill ??? medroxyPROGESTERone (Depo-PROVERA) 150 mg/mL Suspension Inject 150 mg into the muscle once. ??? albuterol (PROAIR HFA) 90 mcg/actuation HFA Aerosol Inhaler Daily No facility-administered medications prior to visit. Allergies: is allergic to penicillin. Past Medical History Depression with anxiety Moderate persistent asthma Hematuria History of concussion Eczema Chronic abdominal pain ADHD Past Surgical History: Mouth reconstruction surgery December 15 2019- Plans for wisdom teeth removal x4 Family History: family history is not on file. denies family history of colon cancer, IBD, or celiac disease in mother father or other family members Social History: reports that she is a non-smoker but has been exposed to tobacco smoke. She does nothave any smokeless tobacco history on file. Marijuana daily Physical exam: No Physical Examination performed during this telemedicine visit Laboratory studies, imaging, and procedures (my review of prior records): ?? CT 10/21/2019 Abdomen and pelvis with contrast IMPRESSION: 1. No evidence of bowel obstruction or acute bowel inflammation. 2. Thickened urinary bladder jane, which could be secondary to under distention ?? CT abdomen and pelvis with contrast 04/19/2019 Indication: Diffuse abdominal pain IMPRESSION: ?? Negative examination of the abdomen and pelvis. Reports having a transvaginal ultrasound- patient reports it as negative Assessment/Plan: Ms. Short is a 19 y.o. patient with abdominal pain of unclear etiology. She had similar pain 2 years ago which was occurring less frequently and more mild in severity. Her pain has become more persistent and occurs most nights. She has had slight increase in bowel movement frequency ?? She did have transvaginal ultrasound which reports as normal. She also had a CT scan which revealed thickening of her bladder. ?? Unclear if her pain is GI in origin. We did discuss the possibility of ZIPPER SETTER CHAINSTITCH related abdominal pain. She tells me she did follow-up with ZIPPER SETTER CHAINSTITCH. No source of pain identified, though she tells me she was told she would have a difficult time baby to full-term. I did question what the context of this was if she was told she had any abnormalities or irregularities regarding her reproductive organs. She has not found dicyclomine to be especially helpful. We did discuss proceeding with endoscopic evaluation to evaluate for any structural abnormalities which may be contributing to her symptoms. Thiswill also allow us to look for inflammation involving the colon. If colonoscopy is unremarkable, we discussed how her pain may be related to visceral hypersensitivity. Other etiologies should be considered as well such as a urinary cause given abnormality versus ZIPPER SETTER CHAINSTITCH causes. Neuromodulators may be aconsideration, however this up to her PCP She is worried about the possible etiology of her pain and would like to pursue a colonoscopy. I diddiscuss this test in detail including risks, benefits and alternatives. She verbalized understanding Patient verbally consents to this telephone visit and understands that this visit may be billed, similar to a clinic office visit. I provided care to the patient today via telephone call, 15 minutes telephone visit was spent in discussion with patient on above. DIVYA Gomez [facility] [place] [address] documented in this encounter Plan of Treatment Upcoming Encounters Date Type Specialty Care Team Description 11/28/2021 Hospital Encounter Radiology Maciel Pearson MD [facility] [address] [place] [address] 11/28/2021 Appointment Radiology Maciel Pearson MD [facility] [address] [place], [place] [address] 02/08/2022 Hospital Encounter Gastroenterology Awilda Israel MD [facility] [address] [place] [address] 02/08/2022 Surgery Gastroenterology Awilda Israel, EGD, UP PER GI ENDOSCOPY [facility] [address] [place] [address] Scheduled Procedures Name Priority Associated Diagnoses Date/Time EGD, UPPER GI ENDOSCOPY Nausea without v omiting 02/08/2022 1:00 PM EDT RUQ pain Scheduled Referrals Name Type Priority Associated Order Schedule Diagnoses Referral to Outpatient Routine Lower abdominal Ordered: Gastroenterology Referral pain 04/05/2020 documented as of this encounter Visit Diagnoses Diagnosis Lower abdominal pain Abdominal pain, other specified site Nausea without vomiting RUQ pain Abdominal pain, right upper quadrant documented in this encounter Care Teams Informatics Nurse Specialist Relationship Specialty Start Date End Date Amara Celis MD PCP - General Pediatrics 08/30/15 [facility] [place] [address] documented as of this encounter
--- OUTSIDE RECORDS SUMMARY | 2021-11-26 15:44 | XMS_ITS | Encounter Summary ---
:2001 Author Organization [facility] [place] [address] Care Team Providers Name Role Phone Amara Celis MD Primary Care Provider Reason for Visit Reason Onset Date Comments Reminder Appointment 04/05/2020 Encounter Details Date Type Department Care Team Description 04/05/2020 Telephone Gastroenterology at [facility] Dottie Conte, Reminder Appointment [facility] [place] [address] GASTROENTEROLOG [phone] Y DEPT Social History Tobacco Use Types Packs/Day Years [...] on file documented as of this encounter Miscellaneous Notes Telephone Encounter - Dottie Conte CMA - 04/05/2020 8:01 AM EST Called patient to review medications and allergies for their upcoming gastroenterology Type of Appointment: Telehealth appointment. Reach Patient during MA Check: No, Did not leave a message Notes for the provider: Notes for the nurse: Mail box was full, and was unable to leave a message documented in this encounter Plan of Treatment Upcoming Encounters Date Type Specialty Care Team Description 11/28/2021 Hospital Encounter Radiology Maciel Paerson MD [facility] [address] [place], [place] [address] 11/28/2021 Appointment Radiology Maciel Pearson MD [facility] [address] [place], [place] [address] 02/08/2022 Hospital Encounter Gastroenterology Awilda Israel MD [facility] [address] [place], [place] [address] 02/08/2022 Surgery Gastroenterology Awilda Israel, EGD, UP PER GI MD ENDOSCOPY [facility] [place], [place] [address] Scheduled Procedures Name Priority Associated Diagnoses Date/Time EGD, UPPER GI ENDOSCOPY Nausea without v omiting 02/08/2022 1:00 PM EDT RUQ pain documented as of this encounter Visit Diagnoses Not on filedocumented in this encounter Care Teams Rehabilitation Director Relationship Specialty Start Date End Date Amara Celis MD PCP - General Pediatrics 08/30/15 [place] [address] documented as of this encounter
--- OUTSIDE RECORDS SUMMARY | 2021-11-26 15:44 | XMS_ITS | Encounter Summary ---
:2001 Author Organization [facility] [place] [address] Care Team Providers Name Role Phone Amara Celis MD Primary Care Provider Encounter Details Date Type Department Care Team Description 06/12/2021 Telephone Gastroenterology at [facility] Meredith Anderson, [place] [address] Social History Tobacco Use Types Packs/Day [...] this encounter Miscellaneous Notes Telephone Encounter - Meredith Anderson, RN - 06/12/2021 9:38 AM EST Incoming call from Ny stating that she has been having nausea x 1 month. Ny states that she had been on dicyclomine but stopped that. Recently experienced increased nausea and went to [facility] who had her start taking Omeprazole. Omeprazole gave her diarrhea, and gave her the sensation of smelling rotten milk and rotten meat. This medication was then stopped by the same provider. She was then recommended to start Zofran and to have an EGD, states no referral was made as she is seen here. She states the Marko makes food smell bad to her and makes her want to vomit she did have 3-4 days in which she did vomit bile a few times. She states she continues with her same chronic stomach pain, but has increased discomfort in her right abdomen. She is able to drink and eat bland foods. She is able to void and move her bowels as normal. She states that she typically has thick mucous at night while sleeping which she needs a drink of water to help pass, and recently this mucous has been accompanied by acid seeping up into her mouth. She states she does not have heartburn, but does have burning in her belly and throat only like fire. She would like to know if Jenise STOKES would like to see her and if she can order an EGD for her, she would prefer to complete the EGD at if possible. Forwarded for review to Jenise Arredondo documented in this encounter Plan of Treatment Upcoming Encounters Date Type Specialty Care Team Description 11/28/2021 Hospital Encounter Radiology Maciel Pearson MD [facility] [address] [place] [address] 11/28/2021 Appointment Radiology Maciel Pearson MD [facility] [address] [place] [address] 02/08/2022 Hospital Encounter Gastroenterology Awilda Israel MD [facility] [address] [place] [address] 02/08/2022 Surgery Gastroenterology Awilda Israel, EGD, UP PER GI ENDOSCOPY [facility] [address] [place] [address] Scheduled Procedures Name Priority Associated Diagnoses Date/Time EGD, UPPER GI ENDOSCOPY Nausea without v omiting 02/08/2022 1:00 PM EDT RUQ pain documented as of this encounter Visit Diagnoses Not on filedocumented in this encounter Care Teams Heel Dipper Relationship Specialty Start Date End Date Amara Cleis MD PCP - General Pediatrics 08/30/15 [place] [address] documented as of this encounter
--- OUTSIDE RECORDS SUMMARY | 2021-11-26 15:44 | XMS_ITS | Encounter Summary ---
:2001 Author Organization [facility] [place] [address] Care Team Providers Name Role Phone Amara Celis MD Primary Care Provider Encounter Details Date Type Department Care Team Description 07/10/2021 Travel Social History Tobacco Use Types Packs/Day Years [...] on file documented as of this encounter Plan of Treatment Upcoming Encounters Date Type Specialty Care Team Description 11/28/2021 Hospital Encounter Radiology Maciel Pearson MD [facility] [place]STRO[place]OLOGY [place], [place] [address] 11/28/2021 Appointment Radiology Maciel Pearson MD [facility] [address] [place], [place] [address] 02/08/2022 Hospital Encounter Gastroenterology Awilda Israel MD [facility] [address] [place], [place] [address] 02/08/2022 Surgery Gastroenterology Awilda Israel, EGD, UP PER GI MD ENDOSCOPY [facility] [address] [place], [place] [address] Scheduled Procedures Name Priority Associated Diagnoses Date/Time EGD, UPPER GI ENDOSCOPY Nausea without v omiting 02/08/2022 1:00 PM EDT RUQ pain documented as of this encounter Visit Diagnoses Not on filedocumented in this encounter Care Teams Recessing Machine Operator Relationship Specialty Start Date End Date Amara Celis MD PCP - General Pediatrics 08/30/15 [place] [address] documented as of this encounter
--- OUTSIDE RECORDS SUMMARY | 2021-11-26 15:44 | XMS_ITS | Encounter Summary ---
:2001 Author Organization [facility] [address] Care Team Providers Name Role Phone Amara Celis MD Primary Care Provider Encounter Details Date Type Department Care Team Description 11/08/2021 Telephone [place]ology [place] [facility] [place] [address] Social History Tobacco Use Types Packs/Day [...] this encounter Miscellaneous Notes Telephone Encounter - SanthoshAugust - 11/08/2021 10:45 AM EDT Ny Short [id number] Diagnosis/Indication: nausea and dyspepsia 1. Have you ever had a/an Upper Endoscopy before? No If yes, did you have any problems with the procedure? No What type of sedation was used: None 2. Do you take any blood thinners or have you been diagnosed with a bleeding disorder that increasesyour risk of bleeding with procedures? No 3. Do you have a Pacemaker or Defibrillator device? No 4. Are you a diabetic? No 5. Do you have any Allergies to Eggs, Latex or Medications? Yes: see edh 6. Do you take any Oral Iron Supplements (Including multi-vitamins)? No 7. Do you have a history of three or more abdominal surgeries? No 8. Have you had a problem with sedation or anesthesia? No 9. Do you use a c-pap machine or oxygen tank? Neither 10. Do you take prescription narcotic pain medications, including suboxone or methodone? No 11. Do you have a preference regarding the gender of your provider? No Preference 12. Is there any other information you would like to us to note for the provider and nursing team who will perform your case? No 13. Say to patient: You must have a responsible constitution party who will drive you to your procedure, stay on campus for the entire duration of your procedure, and drive you home from your procedure? *Please Verify the height and weight, and adjust if height and/or weight have changed* Estimated body mass index is 22.89 kg/m?? as calculated from the following: Height as of 07/10/21: 167.6 cm (5' 6). Weight as of 07/10/21: 64.3 kg (141 lb 12.8 oz). Age:21 y.o. documented in this encounter Plan of Treatment Upcoming Encounters Date Type Specialty Care Team Description 11/28/2021 Hospital Encounter Radiology Maciel Pearson MD [facility] GASTROENTERNOÉ [place], [place] [address] 11/28/2021 Appointment Radiology Maciel Pearson MD [facility] [address] [place], [place] [address] 02/08/2022 Hospital Encounter Gastroenterology Awilda Israel MD [facility] [address] [place] [address] 02/08/2022 Surgery Gastroenterology Awilda Israel, EGD, UP PER GI ENDOSCOPY [facility] [address] [place] [address] Scheduled Procedures Name Priority Associated Diagnoses Date/Time EGD, UPPER GI ENDOSCOPY Nausea without v omiting 02/08/2022 1:00 PM EDT RUQ pain documented as of this encounter Visit Diagnoses Not on filedocumented in this encounter Care Teams Jewelry Sales Relationship Specialty Start Date End Date Amara Celis MD PCP - General Pediatrics 08/30/15 [place] [address] documented as of this encounter
--- OUTSIDE RECORDS SUMMARY | 2021-11-26 15:44 | XMS_ITS | Encounter Summary ---
:2001 Author Organization [facility] [place] [address] Care Team Providers Name Role Phone Amara Celis MD Primary Care Provider Encounter Details Date Type Department Care Team Description 06/22/2020 Telephone Gastroenterology at [facility] Jenise Healy [facility] [place] [address] Social History Tobacco Use Types Packs/Day [...] this encounter Miscellaneous Notes Telephone Encounter - Jenise Healy - 06/22/2020 1:42 PM EST Call made to patient per in basket request from: DIVYA Pierre Patient needs tele health f/u LVM for patient to call GI clinic to schedule documented in this encounter Plan of Treatment Upcoming Encounters Date Type Specialty Care Team Description 11/28/2021 Hospital Encounter Radiology Maciel Pearson MD [facility] [address] [place], [place] [address] 11/28/2021 Appointment Radiology Maciel Pearson MD [facility] [address] [place], [place] [address] 02/08/2022 Hospital Encounter Gastroenterology Awilda Israel MD [facility] [place], [place] [address] 02/08/2022 Surgery Gastroenterology Awilda Israel, EGD, UP PER GI MD ENDOSCOPY [facility] [place], [place] [address] Scheduled Procedures Name Priority Associated Diagnoses Date/Time EGD, UPPER GI ENDOSCOPY Nausea without v omiting 02/08/2022 1:00 PM EDT RUQ pain documented as of this encounter Visit Diagnoses Not on filedocumented in this encounter Care Teams Garment Patternmaker Relationship Specialty Start Date End Date Amara Celis MD PCP - General Pediatrics 08/30/15 [place] [address] documented as of this encounter
--- OUTSIDE RECORDS SUMMARY | 2021-11-26 15:44 | XMS_ITS | Encounter Summary ---
:2001 Author Organization [facility] [place] [address] Care Team Providers Name Role Phone Amara Celis MD Primary Care Provider Reason for Referral Physical Therapy (Routine) - Specialty Diagnoses / Procedures Referred By Contact Refer red To Contact Physical Therapy Diagnoses Acute low back pain without sciatica, unspecified back pain laterality Shagufta Land APRN [facility] D [place] [address] Referral ID Status Reason Start Date Expiration Date Visits V isits Requested Authorized [id number] Evaluate and 11/10/2015 05/08/2016 12 12 Treat Reason for Visit Reason Comments Scoliosis Consultation (Routine) - Closed Specialty Diagnoses / Procedures Referred By Contact Refer red To Contact Orthopaedics Diagnoses adolescent idiopathic scoliosis of thoracolumber region Amara Celis MD [facility] Orthopaedics [address] [place] [id number] Referral ID Status Reason Start Date Expiration Date Visits V isits Requested Authorized [id number] Closed Consult, 08/31/2015 08/30/2016 1 1 Test [facility] Treat Connection [facility] Encounter Details Date Type Department Care Team Description 11/10/2015 Office Visit Orthopaedics at [facility] Chester Kathleen MD Acute low back pain without sciatica, un specified back pain laterality; [facility] Adolescen t idiopathic scoliosis, unspecified spinal region [place] [address] ORTHOPAEDIC [phone] SURGERY [place] [place] [address]375 Social History Tobacco Use Types Packs/Day Years [...] Sign Reading Time Taken Comments Blood Pressure 129/66 11/10/2015 9:42 AM EDT Pulse 68 11/10/2015 9:42 AM EDT Temperature - - Respiratory Rate - - Oxygen Saturation - - Inhaled Oxygen Concentration - - Weight 53.5 kg (118 lb) 11/10/2015 9:42 AM EDT Height 163.8 cm (5' 4.5) 11/10/2015 9:42 AM EDT Body Mass Index 19.94 11/10/2015 9:42 AM EDT Body Mass Index Percentile 54.67 % 11/10/2015 9:42 AM ED T Growth Chart: [facility] (Girls, 2-20 Years) documented in this encounter Progress Notes Shagufta Ely APRN - 11/10/2015 9:44 AM EDT HPI: Ny is a 15 year old female who presents to clinic today for scoliosis. She presents to clinic today with her father. She notes that she was found to have an asymmetry 3 months ago during a well child visit. This had never been noticed before. She has had a big growth spurt recently. She notes that she does have complaints of low back pain. This is with extended periods of walking and during basketball. She has pain when she extends through her lumbar spine. She does not some leg pain with thisoccurs. She has taken ibuprofen/tylenol for her back pain when this occurs. This does not stop her from her activities. She has no exertional headaches. Review of Systems: Back pain. Constitutionally well. Past Medical History: Previous hospitalizations: None Surgical interventions: None Medications: Updated in [facility] Allergies: Updated in [facility] Family History: Musculoskeletal disorders: PGM and aunt with scoliosis Social History: Lives in [place], [place] with 8 siblings/step siblings Grade: Finished 8th Activities: Basketball Physical Exam: Ny is a healthy appearing, normally proportioned 15 y.o. year old female in no apparent distress. She walks with a coordinated heel to toe gait. She is able to walk on their toes and heels. She is able to single limb stand bilaterally. As she stands, her right shoulder is lower than the left. Pelvis is level and there is no obvious leg length discrepancy. On forward bend, right thoracic and left thoracolumbar prominences are noted. She is able to forward flex, bringing her hands down to the level of her mid tibia. Ny is able to extend through their lumbar spine noting discomfort in her thoracolumbar region and side to side bend with pain going towards the right. She is nontender on palpation of her cervical, thoracic, or lumbar spine. Bilateral lower extremities are well-developed. There is supple range of motion through hips, knees, and ankles. Motor function is 5/5 for hip flexors,quadriceps, hamstrings, tibialis anterior, and gastroc soleus. Sensation is intact to light touch thr oughout. Deep tendon reflexes are 2+ and symmetric. There is no clonus. Umbilical reflexes are symmetric in all four quadrants. X-rays: X-rays today show a right thoracic curve measuring 18 and left thoracolumbar measuring 26. Risser 4. Assessment and Plan: Ny is a 15 year old female with scoliosis and back pain. Discussed the clinical and radiographic findings with them today. Discussed the entity and natural progression of scoliosis. Discussed that scoliosis when present progresses most rapidly during periods of growth. She is reaching skeletal ma turity. Dr. Kathleen has a discussion with them today in regards to her back pain. He recommends movingforward with physical therapy on core strengthening and conditioning. He also recommends using ibuprofen 3 times a day for 3 weeks to see if this helps her back pain. He discusses follow-up on an as needed basis. They are in agreement with this plan and have our contact information if they have any questions or concerns in the interim. The patient was seen and the plan was developed with Dr. Kathleen. documented in this encounter Plan of Treatment Upcoming Encounters Date Type Specialty Care Team Description 11/28/2021 Hospital Encounter Radiology Maciel Pearson MD [facility] GASTROENTERNOÉ [place], [place] [address] 11/28/2021 Appointment Radiology Maciel Pearson MD [facility] DR [address] [place], [place] [address] 02/08/2022 Hospital Encounter Gastroenterology Awilda Israel MD [facility] [address] [place], [place] [address] 02/08/2022 Surgery Gastroenterology Awilda Israel, EGD, UP PER GI MD ENDOSCOPY [facility] [address] [place], [place] [address] Scheduled Procedures Name Priority Associated Diagnoses Date/Time EGD, UPPER GI ENDOSCOPY Nausea without v omiting 02/08/2022 1:00 PM EDT RUQ pain Scheduled Referrals Name Type Priority Associated Diagnoses Order S chedule Referral to Outpatient Referral Routine Acute low back pain O rdered: Physical Therapy without sciatica, 2015 unspecified back pain laterality documented as of this encounter Visit Diagnoses Diagnosis Acute low back pain without sciatica, un specified back pain laterality Adolescent idiopathic scoliosis, unspeci fied spinal region Nausea without vomiting RUQ pain Abdominal pain, right upper quadrant documented in this encounter Care Teams Occupational Therapy Asst Relationship Specialty Start Date End Date Amara Celis MD PCP - General Pediatrics 08/30/15 [place] [address] documented as of this encounter
--- OUTSIDE RECORDS SUMMARY | 2021-11-26 15:44 | XMS_ITS | Encounter Summary ---
:2001 Author Organization [facility] [place] [address] Care Team Providers Name Role Phone Amara Celis MD Primary Care Provider Encounter Details Date Type Department Care Team Description 05/18/2020 Telephone Gastroenterology at [facility] [place] [address] Social History Tobacco Use Types Packs/Day [...] this encounter Miscellaneous Notes Telephone Encounter - Itzel Donato - 05/18/2020 4:07 PM EST Ny Short [id number] Diagnosis/Indication: abd pain 1. Have you ever had a/an Colonoscopy before? No If yes, did you have any problems with the procedure? No What type of sedation was used: None 2. Do you take any Blood Thinners? No 3. Do you have a Pacemaker or Defibrillator device? No 4. Are you a diabetic? No 5. Do you have any Allergies to Eggs, Latex or Medications? No 6. Do you take any Oral Iron Supplements (Including multi-vitamins)? No 7. Do you have a history of three or more abdominal surgeries? No 8. Have you had a problem with sedation or anesthesia? No 9. Do you have a c-pap machine or oxygen tank? Neither 10. Do you take prescription narcotic pain medications, including suboxone or methodone? No 11. Do you have a preference regarding the gender of your provider? Yes: Female 12. Is there any other information you would like to give us to aid in scheduling? Yes: needs a friday 13. Say to patient: You must have a responsible green party who will drive you to your procedure, stay on campus for the entire duration of your procedure, and drive you home from your procedure? *Please Verify the height and weight, and adjust if height and/or weight have changed* Estimated body mass index is 19.94 kg/m?? as calculated from the following: Height as of 11/10/15: 163.8 cm (5' 4.5). Weight as of 11/10/15: 53.5 kg (118 lb). *Delete if not needed* Height: 5'4 Weight: 135 BMI: Age:19 y.o. documented in this encounter Plan of Treatment Upcoming Encounters Date Type Specialty Care Team Description 11/28/2021 Hospital Encounter Radiology Maciel Pearson MD [facility] [address] [place], [place] [address] 11/28/2021 Appointment Radiology Maciel Pearson MD [facility] [address] [place], [place] [address] 02/08/2022 Hospital Encounter Gastroenterology Awilda Israel MD [facility] [address] [place] [address] 02/08/2022 Surgery Gastroenterology Awilda Israel, EGD, UP PER GI ENDOSCOPY [facility] [address] [place] [address] Scheduled Procedures Name Priority Associated Diagnoses Date/Time EGD, UPPER GI ENDOSCOPY Nausea without v omiting 02/08/2022 1:00 PM EDT RUQ pain documented as of this encounter Visit Diagnoses Not on filedocumented in this encounter Care Teams Marketing Education Teacher Relationship Specialty Start Date End Date Amara Celis MD PCP - General Pediatrics 08/30/15 [address] [place] [address] documented as of this encounter
--- OUTSIDE RECORDS SUMMARY | 2021-11-26 15:44 | XMS_ITS | Encounter Summary ---
:2001 Author Organization [facility] [address] Care Team Providers Name Role Phone Amara Celis MD Primary Care Provider Reason for Visit Consultation (Routine) - Closed Specialty Diagnoses / Procedures Referred By Contact Refer red To Contact Gastroenterology Diagnoses CHRONIC ABDOMINAL PAIN Coby Smith APRN [facility] G[facility] 4l [address] [place], [place] [id number] [place] [phone] Fax: Referral ID Status Reason Start Date Expiration Date Visits V isits Requested Authorized [id number] Closed Consult, Test 10/30/2019 10/29/2020 1 1 & [facility] PCP Updated and/or Approved Encounter Details Date Type Department Care Team Description 11/30/2019 TH Visit Gastroenterology [place] [facility] Jenise Arredondo Chronic abdominal (TeleHealth) [facility] [place] [address] [facility] [phone] [place] [address] Social History Tobacco Use Types Packs/Day Years [...] encounter Progress Notes Jenise Arredondo PA - 11/30/2019 11:00 AM EDT GASTROENTEROLOGY TELEHEALTH PROGRAM - NEW PATIENT VISIT Chief Complaint: Ny Short is a 19 y.o. patient referred for consultation by Dr. Smith for abdominal pain History of Present Illness: 19 y.o. female with abdominal pain Patient reports abdominal pain which began 1 month ago. Pain tends to be located in lower abdomen, on her right her left side. Occasionally radiates to lower back or legs. No radiation to her upper abdomen, upper back or shoulder Pain mostly occurs in the middle of the night, and wakes her up from sleep This has been occurring most nights. She has only had 1 episode during the day She did had similar pain 2 years ago. However at that time, her pain was occurring less frequently and was more mild in severity She was having some mild constipation and was started on MiraLAX. She since discontinued as her bowel pattern normalized. Typically moves bowels 1-2 times per day No diarrhea No melena or hematochezia Pain improves with time. Pain lasts typically 30 min- 2 hours Pain at times has caused vomiting No heartburn or reflux No change in medication or diet No dysphagia Patient has had an ultrasound of her abdomen along with a transvaginal ultrasound and a CT scan There was thickening of the bladder. Patient reports urinates every 30 minutes. She did see a physician regarding this who ordered testing. A uroscopy was recommended but not completed. No CASHIER MANAGER symptoms, no unusual vaginal bleeding. She is on Depo-Provera and has been on this for 4 years Review of systems: 14-point review of systems reviewed and negative except as above. Medications: Outpatient Medications Prior to Visit Medication Sig Dispense Refill ??? albuterol (PROAIR HFA) 90 mcg/actuation HFA Aerosol Inhaler Daily ??? citalopram (CELEXA) 10 mg Tablet Daily ??? methylphenidate (RITALIN) 20 mg Tablet Daily ??? methylphenidate (CONCERTA) CR 27 mg tablet Daily No facility-administered medications prior to visit. Allergies: is allergic to penicillin. Past Medical History Depression with anxiety Moderate persistent asthma Hematuria History of concussion Eczema Chronic abdominal pain ADHD Past Surgical History: Mouth reconstruction surgery December 15 2019- Plans for wisdom teeth removal x4 Family History: Non contributory Social History: reports that she is a non-smoker but has been exposed to tobacco smoke. She does nothave any smokeless tobacco history on file. Tobacco Vape- 10 cigarettes per day EtOH- none Illicit drugs- marijuana regularly No Physical Examination performed during this telemedicine visit Laboratory studies, imaging, and procedures (my review of prior records): CT 10/21/2019 Abdomen and pelvis with contrast IMPRESSION: 1. No evidence of bowel obstruction or acute bowel inflammation. 2. Thickened urinary bladder jane, which could be secondary to under distention CT abdomen and pelvis with contrast 04/19/2019 Indication: Diffuse abdominal pain IMPRESSION: Negative examination of the abdomen and pelvis. Reports having a transvaginal ultrasound- patient reports it as negative Assessment/Plan: Ms. Short is a 19 y.o. patient with abdominal pain of unclear etiology. She had similar pain 2 years ago which was occurring less frequently and more mild in severity. Over the last month, her pain has become more persistent. Her pain tends to occur in the middle of the night, awakening her up from bed. Pain is located in her lower abdomen. It is not associated with bowel changes. She did have transvaginal ultrasound which reports as normal. She also had a CT scan which revealed thickening of her bladder. She does urinate very frequently. She tells me she did see a physician regarding this who recommended a uroscopy, however this has not been completed. Question whether her bladder is contributing to her pain. Unclear if her pain is GI in origin given lack of bowel changes and location of pain. I do think we have to be open minded to non-GI causes as above get such as bladder or CASHIER MANAGER causes. I think it certainly worth trying an antispasmodic such as dicyclomine. I would recommend taking this before bedtime. We will also check stool studies to include a fecal calprotectin. If elevated, certainly a colonoscopy would be considered. If normal but her pain persists, we did also review the roleof a colonoscopy to evaluate for inflammatory bowel disease. She would like to start with medicationand stool studies first. We will be in touch with the results of her stool studies. All of her questions today were answered I spent 35 minutes face to face with the patient. 35 minutes were spent on counseling and discussionas of the above during this telemedicine visit. The patient was located in [place] at the time of their visit. DIVYA Gomez [facility] [place] [address] documented in this encounter Plan of Treatment Upcoming Encounters Date Type Specialty Care Team Description 11/28/2021 Hospital Encounter Radiology Maciel Pearson MD [facility] GASTROENTERNOÉ [place], [place] [address] 11/28/2021 Appointment Radiology Maciel Pearson MD [facility] [address], [place] [address] 02/08/2022 Hospital Encounter Gastroenterology Awilda Israel MD [facility] [address] [place] [address] 02/08/2022 Surgery Gastroenterology Awilda Israel, EGD, UP PER GI MD ENDOSCOPY [facility] [address] [place] [address] Scheduled Procedures Name Priority Associated Diagnoses Date/Time EGD, UPPER GI ENDOSCOPY Nausea without v omiting 02/08/2022 1:00 PM EDT RUQ pain documented as of this encounter Visit Diagnoses Diagnosis Chronic abdominal pain Abdominal pain, unspecified site Nausea without vomiting RUQ pain Abdominal pain, right upper quadrant documented in this encounter Care Teams Batch Heat Treat Operator Relationship Specialty Start Date End Date Amara Celis MD PCP - General Pediatrics 08/30/15 [place] [address] documented as of this encounter
--- OUTSIDE RECORDS SUMMARY | 2021-11-26 15:44 | XMS_ITS | Encounter Summary ---
:2001 Author Organization [facility] [place] [address] Care Team Providers Name Role Phone Amara Celis MD Primary Care Provider Encounter Details Date Type Department Care Team Description 04/03/2020 Telephone [place] [facility] Amarjit Gan [facility] [place] [address] Social History Tobacco Use Types Packs/Day [...] this encounter Miscellaneous Notes Telephone Encounter - Amarjit Gan - 04/03/2020 12:59 PM EST The GI Telehealth Educate Team attempted to contact patient to check their readiness for their upcoming telehealth visit in GI. We were unable to reach the patient and left a message. Indira Gan Patient Experience Navigator Section of Gastroenterology and Hepatology documented in this encounter Plan of Treatment Upcoming Encounters Date Type Specialty Care Team Description 11/28/2021 Hospital Encounter Radiology Maciel Pearson MD [facility] DR GASTROENTEROLOGY [place], [place] [address] 11/28/2021 Appointment Radiology Maciel Pearson MD [facility] GASTROENTERNOÉ [place], [place] [address] 02/08/2022 Hospital Encounter Gastroenterology Awilda Israel MD [facility] [address] [place], [place] [address] 02/08/2022 Surgery Gastroenterology Awilda Israel, EGD, UP PER GI MD ENDOSCOPY [facility] [place], [place] [address] Scheduled Procedures Name Priority Associated Diagnoses Date/Time EGD, UPPER GI ENDOSCOPY Nausea without v omiting 02/08/2022 1:00 PM EDT RUQ pain documented as of this encounter Visit Diagnoses Not on filedocumented in this encounter Care Teams Hip Hop Artist Relationship Specialty Start Date End Date Amara Celis MD PCP - General Pediatrics 08/30/15 [facility] [address] documented as of this encounter
--- OUTSIDE RECORDS SUMMARY | 2021-11-26 15:44 | XMS_ITS | Encounter Summary ---
:2001 Author Organization [facility] [place] [address] Care Team Providers Name Role Phone Amara Celis MD Primary Care Provider Encounter Details Date Type Department Care Team Description 09/03/2021 Hospital Encounter Ultrasound at [facility] Maciel Reilly Nausea without vomiting; [facility] MD Dor[address] [place], [place] CENTER [address] GASTROENTEROLOGY [phone] [place] [address] Social History Tobacco Use Types Packs/Day Years [...] once. Suspension albuteroL 90 mcg/actuation Daily 0 6 HFA Aerosol Inhaler documented as of this encounter Plan of Treatment Upcoming Encounters Date Type Specialty Care Team Description 11/28/2021 Hospital Encounter Radiology Maciel Reilly MD [facility] GASTROENTER[place], [place] [address] 11/28/2021 Appointment Radiology Maciel Reilly MD [facility] [address] [place], [place] [address] 02/08/2022 Hospital Encounter Gastroenterology Awilda Israel MD [facility] [address] [place], [place] [address] 02/08/2022 Surgery Gastroenterology Awilda Israel, EGD, UP PER GI MD ENDOSCOPY [facility] [address] [place], [place] [address] Scheduled Procedures Name Priority Associated Diagnoses Date/Time EGD, UPPER GI ENDOSCOPY Nausea without v omiting 02/08/2022 1:00 PM EDT RUQ pain documented as of this encounter Procedures Procedure Name Priority Date/Time Associated Comments Diagnosis US ABDOMEN LIMITED Routine 09/03/2021 9:37 AM Nausea without R esults for this HEPATOLOGY PROTOCOL EDT vomiting procedure are in RUQ pain the results section. documented in this encounter Results US Abdomen Limited Hepatology Protocol (09/03/2021 9:37 AM EDT) Anatomical Region Laterality Modality Abdomen Ultrasound Specimen (Source) Anatomical Collection Method Collection Time Re ceived Time Location / / Volume Laterality 09/03/2021 9:22 AM EDT Impressions 09/03/2021 9:47 AM EDT Normal right upper quadrant ultrasound. Specifically, the liver, gallbladder and biliary ductal system are normal. Electronically signed by: Osmel escobedo MD, [facility] ([phone]), at 9:40 AM Thank you for letting us participate in the care of this patient. If you are a [facility] er and have any questions regarding this report, please contact the number above. For patients who have ques tions, please contact the [facility] that requested your imaging first. ? Osmel Huff, Staff Physician Electronically Signed Final Report ?? 09:47 am Narrative 09/03/2021 9:47 AM EDT Abdominal ? (Signed Final 09/03/2021 09:47 am) PATIENT INFO: ID #: ? [id number] ?: ??[birth year] (21 yrs)(F) Name: ? GRISELDA SHORT ?Visit Date: 09/03/2021 09:22 am PERFORMED BY: Performed By: ? Danya Cornejo RDMS Attending: ?Refugio PAZ, Kofi Arguello Referred By: ?MACIEL REILLY Location: ? [place] SERVICE(S) PROVIDED: UABDLIM - Hepatology Protocol - Abdomin al ? 91020 Limited Survey Single Organ or Quadrant - [id number] INDICATIONS: nausea, RUQ pain COMPARISON: Outside US [...] 09:4 7 am) PATIENT INFO: ID #: [id number] : [birth year] (21 y rs)(F) Name: GRIESLDA SHORT Visit Date: 09:22 am PERFORMED BY: Performed By: Danya Cornejo RDMS Attending: Osmel Huff MD Referred By: MACIEL REILLY Location: [place] SERVICE(S) PROVIDED: UABDLIM - Hepatology Protocol - Abdomin [place] [address] Limited Survey Single Organ or Quadrant - [id number] INDICATIONS: nausea, RUQ pain COMPARISON: Outside US [...] normal. Electronically signed by: Osmel escobedo MD, [facility] ([phone]), at 9:40 AM Thank you for letting us participate in the care of this patient. If you are a [facility] er and have any questions regarding this report, please contact the number above. For patients who have ques tions, please contact the [facility] professio nal that requested your imaging first. Osmel Huff, Staff Physician Electronically Signed Final Report 09/03 09:47 am Maciel Reilly MD [facility] [place] GEN ORDERABLES documented in this encounter Visit Diagnoses Diagnosis Nausea without vomiting RUQ pain Abdominal pain, right upper quadrant Nausea without vomiting RUQ pain Abdominal pain, right upper quadrant documented in this encounter Care Teams Data Quality Consultant Relationship Specialty Start Date End Date Amara Celis MD PCP - General Pediatrics 08/30/15 [place] [address] documented as of this encounter
--- OUTSIDE RECORDS SUMMARY | 2021-11-26 15:44 | XMS_ITS | Encounter Summary ---
:2001 Author Organization [place] [address] Care Team Providers Name Role Phone Amara Celis MD Primary Care Provider Reason for Referral Diagnostic Test (Routine) - Authorized Specialty Diagnoses / Procedures Referred By Contact Refer red To Contact Radiology Diagnoses Nausea without vomiting RUQ pain Jenise Arredondo PA [facility] Rad Nuclear Med Procedures NM Functional Biliary Scan [facility] [place] [address] [place] [address] Referral ID Status Reason Start Expiration Visits Visits Date Date Requested Authorized [id number] Authorized Specialty 07/10/2021 01/07/2023 1 1 Service Requested Encounter Details Date Type Department Care Team Description 07/10/2021 Office Visit Gastroenterology at [facility] Jenise Arredondo Nausea without vomiting; [facility] [place] [address] [facility] [phone] [place] [address] Social History Tobacco Use Types Packs/Day Years [...] Pulse 71 07/10/2021 10:29 AM EST Temperature - - Respiratory Rate - - Oxygen Saturation - - Inhaled Oxygen Concentration - - Weight 64.3 kg (141 lb 12.8 oz) 07/10/2021 10:29 AM EST Height 167.6 cm (5' 6) 07/10/2021 10:29 AM EST Body Mass Index 22.89 07/10/2021 10:29 AM EST documented in this encounter Progress Notes Jenise Arredondo PA - 07/10/2021 10:30 AM EST GASTROENTEROLOGY TELEMEDICINE PROGRAM - ESTABLISHED PATIENT VISIT Chief Complaint: Griselda Short is a 21 [address] Lorena kinsey. provider [...] frequently and was more mild in severity ?? Pain improves with time. No heartburn or reflux ?? Patient has had an ultrasound of her abdomen along with a transvaginal ultrasound and a CT scan ?? There was thickening of the bladder. Patient reports urinates every 30 minutes. She did see a physician regarding this who ordered testing. A uroscopy was recommended but not completed. ?? No SITE DAMAGE PREVENTION TECHNICIAN symptoms, no unusual vaginal bleeding. She is on Depo-Provera and has been on this for 4 years Interval history: 03/2020 She continues to have abdominal pain She is taking dicyclomine twice per day without significant benefit Pain is in lower abdomen. No specific relieving factors Pain is most days and is worse before a bowel movements Bowel pattern slightly changed: moving bowels 2-3 times per day She did see OBGYN recently with a negative workup No hematochezia or melena No nausea or vomiting Interval history 07/10/21 Patient was last seen a year and a half ago for chronic abdominal pain of unclear etiology. At her last appointment we discussed visceral hypersensitivity and abdominal wall pain. We also pursued endoscopic evaluation with a colonoscopy. Colonoscopy approximately 1 year ago was unremarkable She contacted our office last month for new symptoms including nausea. She was seen by her local provider and was started on omeprazole, however this caused her to have loose stools and she discontinued. She was then started on Zofran and provider recommended an EGD- Zofran did not provide benefit She had several tests which were negative She continues to have abdominal pain more localized to her right upper quadrant. At times, her pain radiates to her back and lower abdomen Nausea no longer daily. She is now having reflux on a fairly regular basis Nausea worse with eating No regular NSAID use No weight loss She cut back on marijuana use- she was smoking throughout the day, now only at bedtime. She was ableto discontinue for 5 days Review of systems: 14-point review of systems reviewed and negative except as above. Medications: ??? Symbicort 80-4.5 mcg/actuation HFA Aerosol Inhaler ??? EPINEPHrine 0.3 mg/0.3 mL Auto-Injector ??? medroxyPROGESTERone (Depo-PROVERA) 150 mg/mL Suspension ??? albuteroL 90 mcg/actuation HFA Aerosol Inhaler Allergies: is allergic to almond, tree nut, penicillin, and shellfish derived. Past Medical History Depression with anxiety Moderate persistent asthma Hematuria History of concussion Eczema Chronic abdominal pain ADHD Past Surgical History: Mouth reconstruction surgery [place] teeth Family History: family history is not on file. denies family history of colon cancer, IBD, or celiac disease in mother father or other family members Social History: reports that she has been smoking. She has been smoking about 0.50 packs per day. She has never used smokeless tobacco. She reports current drug use. Frequency: 7.00 times per week. Drug: Marijuana. She reports that she does not drink alcohol. Marijuana daily Physical exam: No Physical Examination performed during this telemedicine visit Laboratory studies, imaging, and procedures (my review of prior records): Colonoscopy 05/2020 Impression: ?- The examined portion of the ileum ?was normal. ?- The entire examined colon is normal ?on direct and retroflexion views. ?- No specimens collected. ?? CT 10/21/2019 Abdomen and pelvis with [...] as negative Assessment/Plan: Ms. Short is a 21y.o. patient who was initially seen for abdominal pain of unclear etiology which hasbeen occurring for over 2 years at this point. She also had similar pain several years ago. Work-up thus far has included CT scan which revealed a thickening of her bladder as well as a transvaginal ultrasound which she reports is normal. We also pursued endoscopic evaluation with a colonoscopy, as above. Colonoscopy was unrevealing. She contacted our office last month for nausea. She was initially tried on a PPI, however this caused adverse effects and she discontinued. Her local provider recommended considering an EGD Today, we spent time discussing gastroenterology and non-GI causes of nausea. We discussed causes of nausea to include acid peptic disease and biliary disease. We also discussed cannabis hyperemesis syndrome in detail. She tells me she has been cutting back on her marijuana use but continues to use cannabis on a daily basis. She was able to discontinue for 5 days. We discussed that she will need to be without cannabis for much longer in order to relieve symptoms associated with cannabis hyperemesis syndrome. Given location of pain will pursue a biliary work-up along with an EGD given acid peptic disease. We discussed proceeding with the following diagnostic studies 1. EGD to evaluate for acid peptic disease 2. Biliary work-up to include abdominal ultrasound and CCK HIDA scan- she will call radiology directly to schedule Recommendations for management will based on above. If work-up is unrevealing recommend working withher primary care regarding her insomnia in order for her to discontinue marijuana entirely. All of her questions today were answered and she is comfortable with this DIVYA Gomez [facility] [place] [address] documented in this encounter Plan of Treatment Upcoming Encounters Date Type Specialty Care Team Description 11/28/2021 Hospital Encounter Radiology Maciel Reilly MD [facility] [place] [address] 11/28/2021 Appointment Radiology Maciel Reilly MD [facility] [address] [place]ERT [place] [address] 02/08/2022 Hospital Encounter Gastroenterology Awilda Israel MD [facility] [address] [place] [address] 02/08/2022 Surgery Gastroenterology Awilda Israel, EGD, UP PER GI ENDOSCOPY [facility] [address] [place] [address] Scheduled Orders Name Type Priority Associated Diagnoses Order S chedule ENDOSCOPY CASE REQUEST: Procedures Routine Nausea without Or dered: 07/10/2021 EGD, UPPER GI ENDOSCOPY vomiting RUQ pain NM Functional Biliary Imaging Routine Nausea without Expe cted: 07/10/2021 Scan vomiting (Approximate), RUQ pain Expires: 2022 Scheduled Procedures Name Priority Associated Diagnoses Date/Time EGD, UPPER GI ENDOSCOPY Nausea without v omiting 02/08/2022 1:00 PM EDT RUQ pain documented as of this encounter Results US Abdomen Limited Hepatology [...] Electronically signed by: Osmel escobedo MD, [facility] [place] ([phone]), at 9:40 AM Thank you for letting us participate in the care of this patient. If you are a the rehabilitation institute er and have any questions regarding this report, please contact the number above. For patients who have ques tions, please [facility] your [facility] first. ? Osmel Huff, Staff Physician Electronically Signed Final Report ?? 09:47 am Narrative 09/03/2021 9:47 AM EDT Abdominal ? (Signed Final 09/03/2021 09:47 am) PATIENT INFO: ID #: ? [id number] ?: ??[birth year] (21 yrs)(F) Name: ? GRISELDA SHORT ?Visit Date: 09/03/2021 09:22 am PERFORMED BY: Performed By: ? Danya Cornejo RDMS Attending: ?Refugio PAZ, Kofi Arguello Referred By: ?MACIEL REILLY Location: ? [place] SERVICE(S) PROVIDED: [facility] - Hepatology Protocol - Abdomin al ? [id number] Limited Survey Single Organ or Quadrant - [id number] INDICATIONS: nausea, RUQ pain COMPARISON: Outside US [...] 09:4 7 am) PATIENT INFO: ID #: [id number] : [birth year] (21 y rs)(F) Name: GRISELDA SHORT Visit Date: 09:22 am PERFORMED BY: Performed By: Danya Cornejo RDMS Attending: Osmel Huff MD Referred By: MACIEL REILLY Location: [place] SERVICE(S) PROVIDED: [facility] - Hepatology Protocol - Abdomin al [id number] Limited Survey Single Organ or Quadrant - [id number] INDICATIONS: nausea, RUQ pain COMPARISON: Outside US [...] normal. Electronically signed by: Osmel escobedo MD, [facility] ([phone]), at 9:40 AM Thank you for letting us participate in the care of this patient. If you are a the rehabilitation institute er and have any questions regarding this report, please contact the number above. For patients who have ques tions, please contact [facility] your [facility]. Osmel Huff, Staff Physician Electronically Signed Final Report 09/03 09:47 am Maciel Reilly MD IMG US GEN ORDERABLES documented in this encounter Visit Diagnoses Diagnosis Nausea without vomiting RUQ pain Abdominal pain, right upper quadrant Nausea without vomiting RUQ pain Abdominal pain, right upper quadrant Nausea without vomiting RUQ pain Abdominal pain, right upper quadrant documented in this encounter Care Teams Shoe Caser Relationship Specialty Start Date End Date Amara Celis MD PCP - General Pediatrics 08/30/15 [address] [facility] [place] [address] documented as of this encounter
--- OUTSIDE RECORDS SUMMARY | 2021-11-26 15:44 | XMS_ITS | Encounter Summary ---
:2001 Author Organization [facility] [place] [address] Care Team Providers Name Role Phone Amara Celis MD Primary Care Provider Encounter Details Date Type Department Care Team Description 03/28/2020 Telephone Gastroenterology at [facility] [place] [address] Social History Tobacco Use Types Packs/Day [...] this encounter Miscellaneous Notes Telephone Encounter - Shukri Deleon RN - 03/28/2020 4:24 PM EST [place] calls asking about her recent stool studies she had done locally. I received those from [facility] and let her know they where normal. She says she is still experiencing abdominal pain and she feelsthe Bentyl does help but does not totally resolve her abdominal pain. She is taking it BID and per pcp continues to fill this for her. She would like to know next steps documented in this encounter Plan of Treatment Upcoming Encounters Date Type Specialty Care Team Description 11/28/2021 Hospital Encounter Radiology Maciel Pearson MD [facility] [address] [place], [place] [address] 11/28/2021 Appointment Radiology Maciel Pearson MD [facility] [address] [place], [place] [address] 02/08/2022 Hospital Encounter Gastroenterology Awilda Israel MD [facility] [address] [place], [place] [address] 02/08/2022 Surgery Gastroenterology Awilda Israel, EGD, UP PER GI [place] [facility]OS[facility] [place] [address] Scheduled Procedures Name Priority Associated Diagnoses Date/Time EGD, UPPER GI ENDOSCOPY Nausea without v omiting 02/08/2022 1:00 PM EDT RUQ pain documented as of this encounter Visit Diagnoses Not on filedocumented in this encounter Care Teams Industrial Insulator Relationship Specialty Start Date End Date Amara Celis MD PCP - General Pediatrics 08/30/15 [place] [address] documented as of this encounter
--- OUTSIDE RECORDS SUMMARY | 2021-11-26 15:45 | XMS_ITS | Encounter Summary ---
:2001 Author Organization [facility] Address [address] [place] [address] Care Team Providers Name Role Phone Wayne Menjivar MD Primary Care Provider Encounter Details Date Type Department Care Team Description 07/06/2020 Lab Requisition [facility] Outr Resulting Lab, Pathology & Laboratory Provider [facility] [address] [place], [place] [address] Social History Tobacco Use Types Packs/Day Years Used Date Never Assessed Sex Assigned at Date Recorded Not on file documented as of this encounter Plan of Treatment Not on filedocumented as of this encounter Procedures Procedure Name Priority Date/Time Associated Diagnosis Comme nts COVID-19 TEST [facility] Today 07/06/2020 9:26 EST LAB PCR COVID-19 TESTING Routine 07/06/2020 9:26 EST Resu lts for this procedure are i n the results section. documented in this encounter Results COVID-19 TEST [facility] LAB PCR (07/06/2020 9:26 EST) Specimen Swab - Entire nasopharynx (body structur e) Performing Organization Address City/State/ZIP Code Phon e Number [facility] [address] [place] [address] SERVICES COVID-19 TESTING (07/06/2020 9:26 EST) COVID-19 rt-PCR Negative Negative [facility] MEDICAL Result Comment: CENTER LABORATORY This test has not been FDA c leared or approved. This test has been authorized by FDA under an EUA for use by authorized laboratories. This test has been authorized only for detection of nucleic acid fro SERVICES m 2019-nCoV, not for any oth er viruses or pathogens. This test is only authorized for the duration of the declaration that circumstances exist justifying the authorization of emergency use of in vitro d iagnostic tests for detectio n and/or diagnosis of 2019-nCoV under section 564(b)(1) of Act, 21 U.S.C ?? 360bbb-3(b) (1), unless the authorization is terminated or revoked sooner. Negative results do not prec lude 2019-nCoV infection and should not be used as the sole basis for treatment or other patient management decisions. Negative results must be combined with clinical observa tions, patient history, and epidemiological informatio n. This test was developed and its performance characteristics determined by [facility]. It has not been cleared or approved by the US Food and Drug Administration. FDA does not require this test to go through premarket FDA review. This t est is used for clinical purposes. It should not be regarded as investigational or for research. This laboratory is certified under the Clinical Laboratory Improvement Amendm ents (CLIA) as qualified to perform high complexity clinical laboratory testing. This test is based on the CD C COVID-19 Emergency Use Authorization (EUA) assay, with minor modification as defined by the FDA Performed on the [employer] 7 Flex RT-PCR System. Performing Lab [facility] Lab [facility] SERVICES Specimen Swab Performing Organization Address City/State/ZIP Code Phon e Number [facility] [address] [place] [address] SERVICES documented in this encounter Visit Diagnoses Not on filedocumented in this encounter Additional Health Concerns Infection Onset Date Last Indicated Resolved Time COVID-19 04/02/2021 04/02/2021 04/22/2021 22:15 EST documented as of this encounter Care Teams Bailiff Relationship Specialty Start Date End Date Wayne Menjivar MD PCP - General 08/20/11 44 [facility] [address] [place] [address] documented as of this encounter
--- OUTSIDE RECORDS SUMMARY | 2021-11-26 15:45 | XMS_ITS | Encounter Summary ---
:2001 Author Organization [facility] Address [address] [place] [address] Care Team Providers Name Role Phone Unavailable Primary Care Provider Unavailable Encounter Details Date Type Department Care Team Description 07/27/[address] [facility] Glaser MD [address] [address] [address] [place], [place] [address] (Wo rk) Social History Tobacco Use Types Packs/Day Years Used Date Never Assessed Sex Assigned at Date Recorded Not on file documented as of this encounter Discharge Disposition Disposition Code Departure Means Destination Auto Discharge documented in this encounter Plan of Treatment Not on filedocumented as of this encounter Visit Diagnoses Not on filedocumented in this encounter
--- OUTSIDE RECORDS SUMMARY | 2021-11-26 15:45 | XMS_ITS | Encounter Summary ---
:2001 Author Organization [facility] Address [address] [place] [address] Care Team Providers Name Role Phone Lon Barboza MD Primary Care Provider Unavailable Reason for Visit Reason Comments ADD Encounter Details Date Type Department Care Team Description 08/19/2011 Office Visit [facility] ADHD ([facility] Zara Avalos MD hyperactivity Psychiatry - [address] [employer] disorder), co [facility] type (Primary Dx) [address] [place] [address] [address] [place], [place] [id number] [place] [id number] Social History Tobacco Use Types Packs/Day Years Used Date Never Assessed Sex Assigned at Date Recorded Not on file documented as of this encounter Last Filed Vital Signs Vital Sign Reading Time Taken Comments Blood Pressure 90/70 08/19/2011 1346 EDT Pulse 88 08/19/2011 1346 EDT Temperature - - Respiratory Rate - - Oxygen Saturation - - Inhaled Oxygen Concentration - - Weight 29.5 kg (65 lb) 08/19/2011 1346 EDT Height 139.7 cm (4' 7) 08/19/2011 1346 EDT Body Mass Index 15.11 08/19/2011 1346 EDT documented in this encounter Patient Instructions Patient InstructionsChester Miles - 08/19/2011 14:38 EDT Next appointment: December 01 at 11:30 AM documented in this encounter Ordered Prescriptions Prescription Sig Dispensed Refills Start Date End Date methylphenidate (CONCERTA) Take 1 Tab by 30 Tab 0 201110/11/2011 36 mg CR tabletIndications: mouth daily with ADHD (attention deficit breakfast. hyperactivity disorder), combined type methylphenidate (CONCERTA) Take 1 Tab by 30 Tab 0 201108/22/2011 36 mg CR tabletIndications: mouth daily with ADHD (attention deficit breakfast. hyperactivity disorder), combined type methylphenidate (CONCERTA) Take 1 Tab by 30 Tab 0 201108/22/2011 36 mg CR tabletIndications: mouth daily with ADHD (attention deficit breakfast. hyperactivity disorder), combined type methylphenidate (CONCERTA) Take 1 Tab by 30 Tab 0 201108/22/2011 36 mg CR tabletIndications: mouth daily with ADHD (attention deficit breakfast. hyperactivity disorder), combined type documented in this encounter Discharge Disposition Disposition Code Departure Means Destination Auto Discharge documented in this encounter Plan of Treatment Not on filedocumented as of this encounter Visit Diagnoses Diagnosis ADHD (attention deficit hyperactivity di sorder), combined type - Primary Attention deficit disorder with hyperact ivity documented in this encounter Discontinued Medications Medication Sig Discontinue Reason Start Date End Date methylphenidate (CONCERTA) Take 1 Tab by Reorder 08/06/2011 08/22/2011 36 mg CR tabletIndications: mouth daily with ADHD (attention deficit breakfast. hyperactivity disorder), combined type methylphenidate (CONCERTA) Take 1 Tab by Reorder 08/22/2011 08/22/2011 36 mg CR tabletIndications: mouth daily with ADHD (attention deficit breakfast. hyperactivity disorder), combined type methylphenidate (CONCERTA) Take 1 Tab by Reorder 09/26/2011 08/22/2011 36 mg CR tabletIndications: mouth daily with ADHD (attention deficit breakfast. hyperactivity disorder), combined type methylphenidate (CONCERTA) Take 1 Tab by Reorder 09/17/2011 08/22/2011 36 mg CR tabletIndications: mouth daily with ADHD (attention deficit breakfast. hyperactivity disorder), combined type documented as of this encounter Care Teams Extension Service Supervisor Relationship Specialty Start Date End Date Lon Barboza MD PCP - General 10/24/08 08/19/11 documented as of this encounter
--- OUTSIDE RECORDS SUMMARY | 2021-11-26 15:45 | XMS_ITS | Encounter Summary ---
:2001 Author Organization [facility] Address [address] [place] [address] Care Team Providers Name Role Phone Lon Barboza MD Primary Care Provider Unavailable Wayne Menjivar MD Primary Care Provider Encounter Details Date Type Department Care Team Description 12/31/2007 Hospital Encounter [facility] - Natanael Glaser MD [address] [address] [address] [place], [place] [address] (Wo rk) Social History [...] documented as of this encounter Care Teams Psych Social Worker Relationship Specialty Start Date End Date Lon Barboza MD PCP - General 10/24/08 08/19/11 Wayne Menjivar MD PCP - General 08/20/[address] [facility] [address] [place], [place] [address] documented as of this encounter
--- OUTSIDE RECORDS SUMMARY | 2021-11-26 15:45 | XMS_ITS | Encounter Summary ---
:2001 Author Organization [facility] Address [address] [place] [address] Care Team Providers Name Role Phone Lon Barboza MD Primary Care Provider Unavailable Wayne Menjivar MD Primary Care Provider Encounter Details Date Type Department Care Team Description 05/04/2007 Hospital Encounter [facility] - Natanael Glaser MD [address] [address] [address] [place], [place] [address] (Wo rk) Social History [...] documented as of this encounter Care Teams Form Coverer Relationship Specialty Start Date End Date Lon Barboza MD PCP - General 10/24/08 08/19/11 Wayne Menjivar MD PCP - General 08/20/11 44 [facility] [address] [place], [place] [address] documented as of this encounter
--- OUTSIDE RECORDS SUMMARY | 2021-11-26 15:45 | XMS_ITS | Encounter Summary ---
:2001 Author Organization [facility] Address [address] [place] [address] Care Team Providers Name Role Phone Wayne Menjivar MD Primary Care Provider Encounter Details Date Type Department Care Team Description 11/22/[address] [facility] Outr Resulting Lab, Pathology & Laboratory Provider [facility] [address] [place] [address] Social History Tobacco Use Types Packs/Day Years Used Date Never Assessed Sex Assigned at Date Recorded Not on file documented as of this encounter Plan of Treatment Not on filedocumented as of this encounter Procedures Procedure Name Priority Date/Time Associated Comments Diagnosis CHLAMYDIA/N. Routine 11/22/2021 9:20 Results for this GONORRHOEAE AMPLIFIED EDT proced ure are in RNA the results section. documented in this encounter Results CHLAMYDIA/N. GONORRHOEAE AMPLIFIED RNA (11/22/2021 9:20 EDT) Pathologist Sig nature Gonococcus Result Negative Negative [facility] Chlamydia Result Negative Negative [facility] Specimen Urine - Urine, Dirty Urine Narrative [facility] - 11/23/2021 15:39 EDT A first catch urine specimen is acceptab le for detection of Gonorrhea and Chlamydia, but might detect up to 10% fewer infecti ons when compared with vaginal and endocervical swab samples. Performing Organization Address City/State/ZIP Code Phon e Number [facility] [address] [place] [address] SERVICES documented in this encounter Visit Diagnoses Not on filedocumented in this encounter Care Teams Animal Tech Relationship Specialty Start Date End Date Wayne Menjivar MD PCP - General 08/20/11 44 [facility] [address] [place] [address] documented as of this encounter
--- OUTSIDE RECORDS SUMMARY | 2021-11-26 15:45 | XMS_ITS | Encounter Summary ---
:2001 Author Organization [facility] Address [address] [place] [address] Care Team Providers Name Role Phone Lon Barboza MD Primary Care Provider Unavailable Reason for Visit Reason Comments Trouble Concentrating Encounter Details Date Type Department Care Team Description 05/28/2010 Office Visit [facility] ADHD ([facility] Zara Avalos MD hyperactivity Psychiatry - [address] disorder), co [facility] type (Primary Dx) 1 [facility] [address] [place], [place] [id number] [place] [id number] Social History Tobacco Use Types Packs/Day Years Used Date Never Assessed Sex Assigned at Date Recorded Not on file documented as of this encounter Patient Instructions Patient InstructionsChester Miles - 05/28/2010 14:11 EST Next appointment: August 27 at 11:30 AM. Here are some redd components to good sleep hygiene: 1) Do not exercise past 1-2 hours before you are planning to go to sleep. 2) No caffinated beverage in the evening. Last caffinated beverage by 2 PM. 3) Sleep in a completely darkened room (in the summer this may require special light blocking shades). 4) Keep a sleep log for 1 week, but after this do not look at any clocks at night. Just set an alarmclock and that is it. 5) No electronic devices or TV for at least 1 hour prior to bedtime. Read a book with a small reading light (LED preferable) which only lights up the page, when you are trying to go to sleep. If you are having extreme reading difficulties, make it a boring book -- history, science, etc--no thrillers, novels, or biographies. 6) If you wake up, and cannot fall back asleep for approx. 20 min.-1 hour, get up, go to a couch, and sit and read with your reading light and then go back to your bed when you are tired (you may continue reading for a little while in your bed). 7) You may use soothing nature sounds type music, or a fan, or white noise generator to get to sleep(knowing that this will make it more difficult for you to sleep if you do not have your technique available). 8) Absolutely no naps during the day if you are having problems falling or staying asleep. documented in this encounter Ordered Prescriptions Prescription Sig Dispensed Refills Start Date End Date methylphenidate (CONCERTA) Take 1 Tab by 30 Tab 0 201005/30/2010 27 mg CR tabletIndications: mouth daily with ADHD (attention deficit breakfast. hyperactivity disorder), combined type methylphenidate (CONCERTA) Take 1 Tab by 30 Tab 0 201005/28/2010 27 mg CR tabletIndications: mouth daily with ADHD (attention deficit breakfast. hyperactivity disorder), combined type methylphenidate (CONCERTA) Take 1 Tab by 30 Tab 0 201005/28/2010 27 mg CR tabletIndications: mouth daily with ADHD [...] Date methylphenidate (CONCERTA) Take 1 Tab by 02/26/2010 05/28/2010 27 mg CR tabletIndications: mouth daily with ADHD (attention deficit breakfast. Please hyperactivity disorder), fill on or after combined type 04/22/10. methylphenidate (CONCERTA) Take 1 Tab by 02/26/2010 05/28/2010 27 mg CR tabletIndications: mouth daily with ADHD (attention deficit breakfast. Please hyperactivity disorder), fill on or after combined type 03/23/10 methylphenidate (CONCERTA) Take 1 Tab by Reorder 05/28/2010 05/28/2010 27 mg CR tabletIndications: mouth daily with ADHD (attention deficit breakfast. hyperactivity disorder), combined type methylphenidate (CONCERTA) Take 1 Tab by Reorder 06/22/2010 05/28/2010 27 mg CR tabletIndications: mouth daily with ADHD (attention deficit breakfast. hyperactivity disorder), combined type documented as of this encounter Care Teams Brusher Hand Relationship Specialty Start Date End Date Lon Barboza MD PCP - General 10/24/08 08/19/11 documented as of this encounter
--- OUTSIDE RECORDS SUMMARY | 2021-11-26 15:45 | XMS_ITS | Encounter Summary ---
:2001 Author Organization [facility] Address [address] [place] [address] Care Team Providers Name Role Phone Lon Barboza MD Primary Care Provider Unavailable Reason for Visit Reason Onset Date Comments Medication Problem 02/07/2011 Encounter Details Date Type Department Care Team Description 02/07/2011 Telephone [facility] Chester Miles, Medication Problem Child Psychiatry - [address] [place], [place] [address] [place] [address] [phone] (Wo rk) Social History Tobacco Use Types Packs/Day Years Used Date Never Assessed Sex Assigned at Date Recorded Not on file documented as of this encounter Ordered Prescriptions Prescription Sig Dispensed Refills Start Date End Date methylphenidate (CONCERTA) Take 1 Tab by 30 Tab 0 201004/08/2011 36 mg CR tabletIndications: mouth daily with ADHD (attention deficit breakfast. hyperactivity disorder), combined type documented in this encounter Plan of Treatment Not on filedocumented as of this encounter Visit Diagnoses Diagnosis ADHD (attention deficit hyperactivity di sorder), combined type - Primary Attention deficit disorder with hyperact ivity documented in this encounter Discontinued Medications Medication Sig Discontinue Reason Start Date End Date lisdexamfetamine (VYVANSE) Take 1 Cap by Alternate therapy 01/29/20 11 02/15/2011 30 mg capsuleIndications: mouth daily with ADHD (attention deficit breakfast. hyperactivity disorder), combined type, Parent-child relational problem documented as of this encounter Care Teams Deckhand Relationship Specialty Start Date End Date Lon Barboza MD PCP - General 10/24/08 08/19/11 documented as of this encounter
--- OUTSIDE RECORDS SUMMARY | 2021-11-26 15:45 | XMS_ITS | Encounter Summary ---
:2001 Author Organization [facility] Address [address] [place] [address] Care Team Providers Name Role Phone Wayne Menjivar MD Primary Care Provider Reason for Visit (Routine/Next Available) - Receiving Office to Obtain Authorization Specialty Diagnoses / Procedures Referred By Contact Refer red To Contact Procedures Unknown, Provider, MR OUTSIDE IMAGES NEURO Phone: Referral ID Status Reason Start Expiration Visits Visits Date Date Requested Authorized [id number] Receiving Office 09/20/2021 1 1 to Obtain Authorization Encounter Details Date Type Department Care Team Description 09/19/2021 Hospital Encounter [facility] [place] [place] Social History Tobacco Use Types Packs/Day Years Used Date Never Assessed Sex Assigned at Date Recorded Not on file documented as of this encounter Medications at Time of Discharge Medication Sig Dispensed Refills Start Date End Date methylphenidate (CONCERTA) 36 Take 1 Tab by 30 Tab 0 mg CR tabletIndications: ADHD mouth daily with (attention deficit breakfast. hyperactivity disorder), combined type documented as of this encounter Discharge Disposition Disposition Code Departure Means Destination Home or Self Care documented in this encounter Plan of Treatment Not on filedocumented as of this encounter Procedures Procedure Name Priority Date/Time Associated Diagnosis Comme nts MR OUTSIDE IMAGES Routine 09/20/2021 13:56 Result s for this NEURO EDT procedure are i n the results section. documented in this encounter Results MR OUTSIDE IMAGES NEURO (09/20/2021 13:56 EDT) Specimen Narrative 09/20/2021 13:56 EDT This is a non-reportable exam. documented in this encounter Visit Diagnoses Not on filedocumented in this encounter Care Teams Secondary School Teacher Relationship Specialty Start Date End Date Wayne Menjivar MD PCP - General 08/20/11 44 [facility] [address] [place] [address] documented as of this encounter
--- OUTSIDE RECORDS SUMMARY | 2021-11-26 15:45 | XMS_ITS | Encounter Summary ---
:2001 Author Organization [facility] Address [address] [place] [address] Care Team Providers Name Role Phone Wayne Menjivar MD Primary Care Provider Reason for Visit Reason Onset Date Comments Medications Refill 11/14/2011 Encounter Details Date Type Department Care Team Description 11/14/2011 Telephone [facility] Chester Miles, Medications Refill Child Psychiatry - [address] 1 [facility] [address] [place], [place] [address] [place] [phone] (Wo rk) Social History Tobacco Use Types [...] methylphenidate (CONCERTA) Take 1 Tab by Reorder 10/11/2011 11/14/2011 36 mg CR tabletIndications: mouth daily with ADHD (attention deficit breakfast. hyperactivity disorder), combined type documented as of this encounter Care Teams Train Planner Relationship Specialty Start Date End Date Wayne Menjivar MD PCP - General 08/20/11 44 [facility] [address] [place] [address] documented as of this encounter
--- OUTSIDE RECORDS SUMMARY | 2021-11-26 15:45 | XMS_ITS | Encounter Summary ---
:2001 Author Organization [facility] Address [address] [place] [address] Care Team Providers Name Role Phone Lon Barboza MD Primary Care Provider Unavailable Reason for Visit Reason Comments Anger Reaction Trouble Concentrating Encounter Details Date Type Department Care Team Description 10/22/2010 [facility] Visit [facility] ADHD ([facility] Zara Avalos MD hyperactivity Psychiatry - [address] disorder), co [facility] type (Primary Dx) [address] [place] [address] [address] [place], [place] [address] [place] [address] Social History Tobacco Use Types Packs/Day Years Used Date Never Assessed Sex Assigned at Date Recorded Not on file documented as of this encounter Patient Instructions Patient InstructionsChester Miles - 10/22/2010 14:37 EDT Next appointment: at 2:30 PM documented in this encounter Ordered Prescriptions Prescription Sig Dispensed Refills Start Date End Date methylphenidate (CONCERTA) Take 1 Tab by 30 Tab 0 201001/03/2011 36 mg CR tabletIndications: mouth daily with ADHD (attention deficit breakfast. hyperactivity disorder), combined type methylphenidate (CONCERTA) Take 1 Tab by 30 Tab 0 201010/22/2010 36 mg CR tabletIndications: mouth daily with ADHD (attention deficit breakfast. hyperactivity disorder), combined type methylphenidate (CONCERTA) Take 1 Tab by 30 Tab 0 201010/22/2010 36 mg CR tabletIndications: mouth daily with [...] methylphenidate (CONCERTA) Take 1 Tab by Reorder 10/18/2010 10/22/2010 36 mg CR tabletIndications: mouth daily with ADHD (attention deficit breakfast. hyperactivity disorder), combined type methylphenidate (CONCERTA) Take 1 Tab by Reorder 10/22/2010 10/22/2010 36 mg CR tabletIndications: mouth daily with ADHD (attention deficit breakfast. hyperactivity disorder), combined type methylphenidate (CONCERTA) Take 1 Tab by Reorder 11/16/2010 10/22/2010 36 mg CR tabletIndications: mouth daily with ADHD (attention deficit breakfast. hyperactivity disorder), combined type documented as of this encounter Care Teams Acid Polymerization Operator Relationship Specialty Start Date End Date Lon Barboza MD PCP - General 10/24/08 08/19/11 documented as of this encounter
--- OUTSIDE RECORDS SUMMARY | 2021-11-26 15:45 | XMS_ITS | Encounter Summary ---
:2001 Author Organization [facility] Address [address] [place] [address] Care Team Providers Name Role Phone Wayne Menjivar MD Primary Care Provider Reason for Visit Reason Onset Date Comments Medications Refill 10/11/2011 See Note Encounter Details Date Type Department Care Team Description 10/11/2011 Telephone [facility] Medications Refill [facility] Zara Avalos MD (See Note) Psychiatry - [address] [facility] [address] [place] [address] [place] [address] [phone] Social History Tobacco Use Types Packs/Day Years Used Date Never Assessed Sex Assigned at Date Recorded Not on file documented as of this encounter Ordered Prescriptions Prescription Sig Dispensed Refills Start Date End Date methylphenidate (CONCERTA) Take 1 Tab by 30 Tab 0 201111/14/2011 36 mg CR tabletIndications: mouth daily with ADHD (attention deficit breakfast. hyperactivity disorder), combined type methylphenidate (CONCERTA) Take 1 Tab by 30 Tab 0 201110/16/2011 36 mg CR tabletIndications: mouth daily with [...] methylphenidate (CONCERTA) Take 1 Tab by Reorder 10/18/2011 10/11/2011 36 mg CR tabletIndications: mouth daily with ADHD (attention deficit breakfast. hyperactivity disorder), combined type methylphenidate (CONCERTA) Take 1 Tab by Reorder 10/11/2011 10/16/2011 36 mg CR tabletIndications: mouth daily with ADHD (attention deficit breakfast. hyperactivity disorder), combined type documented as of this encounter Care Teams Import/Export Analyst Relationship Specialty Start Date End Date Wayne Menjivar MD PCP - General 08/20/[address] [address] documented as of this encounter
--- OUTSIDE RECORDS SUMMARY | 2021-11-26 15:45 | XMS_ITS | Encounter Summary ---
:2001 Author Organization [facility] Address [address] [place] [address] Care Team Providers Name Role Phone Wayne Menjivar MD Primary Care Provider Encounter Details Date Type Department Care Team Description 04/24/2020 Lab Requisition [facility] Outr Resulting Lab, Pathology & Laboratory Provider [facility] [address] [place], [place] [address] Social History Tobacco Use Types Packs/Day Years Used Date Never Assessed Sex Assigned at Date Recorded Not on file documented as of this encounter Plan of Treatment Not on filedocumented as of this encounter Procedures Procedure Name Priority Date/Time Associated Comments Diagnosis DO NOT ORDER Today 04/23/2020 12:34 Results for this STANDALONE - BROAD EST procedure are in COVID TEST the results section. COVID-19 TESTING Routine 04/23/2020 12:34 Results for this EST procedure are i n the results section. documented in this encounter Results DO NOT ORDER STANDALONE - BROAD COVID TEST (04/23/2020 12:34 EST) COVID-19 rt-PCR NEGATIVE Negative [facility] Result Comment: LABORATORY 2019-novel Coronavirus (2019 -nCoV) not detected by the qRT-PCR assay. Consider testing for other respiratory viruses or re-collecting for 2019-nCoV testing. Note: Optimum timing for peak viral levels du ring infections caused by 20 -nCoV have not been determined. Collection of multiple specimens from the same patient may be necessary to detect the virus. Limitations Positive results are indicat portia of active infection with SARS-CoV-2 but do not rule out bacterial infection or co-infection with other viruses. The agent detected may not be the definite cause of diseas e. In addition, detection of viral RNA may not indicate the presence of infectious virus or that SARS-CoV-2 is the causative agent for clinical symptoms. Negative results do not prec lude SARS-CoV-2 infection and should not be used as the sole basis for patient management decisions. Negative results must be combined with clinical observations, patient his tory, and epidemiological in formation. False negative results may also occur if amplification inhibitors are present in the specimen or if inadequate numbers of organisms are present in the specimen. Op timum specimen types and rai ing for peak viral levels during infections caused by SARS-CoV-2 have not been fully determined. Collection of multiple specimens (types and time points) from the same patient may be necessary to detect the virus. The test was validated for u se with upper respiratory specimens obtained via nasopharyngeal or oropharyngeal swabs in VTM, UTM, M4, M5, M6, saline, and MTM media. The performance of this test has not be en established for other spe cimens. Specimens collected using other FDA recommended Specimen Collection Materials listed in the FDA COVID-19 [employer] communication (August 12, 2019) are pr ocessed with the caveat that they were not all validated for use with this test and the result must be interpreted in this context. Furthermore, a false negative results may occur if a specimen is improperly collected, transported or handled. If the virus mutates in the RT-PCR target region, SARS-CoV-2 may not be detected or may be detected less predictably. Inhibitors or other types of interference may produce a false negative result. An interference study evaluating the effect of common cold medications was not performed. This test is not FDA-cleared but its performance characteristics were established by our CLIA-certified, CAP-accredited, high complexity laboratory in accordance with CLIA regulations, College of [employer] an [employer] (CAP) guidel etta (Aug 05, 2019), and FDA guidance (Jul 17, 2019). This test is only for use un timothy the Food and Drug Administration's Emergency Use Authorization. Specimen Swab - Entire nasopharynx (body structur e) Performing Organization Address City/State/ZIP Code Phon e Number [facility] [place] [place] COVID-19 TESTING (04/23/2020 12:34 EST) COVID-19 rt-PCR NEGATIVE Negative [facility] Result Comment: LABORATORY 2019-novel Coronavirus (2019 -nCoV) not detected by the qRT-PCR assay. Consider testing for other respiratory viruses or re-collecting for 2019-nCoV testing. Note: Optimum timing for peak viral levels du ring infections caused by 20 19-nCoV have not been determined. Collection of multiple specimens from the same patient may be necessary to detect the virus. Limitations Positive results are indicat portia of active infection with SARS-CoV-2 but do not rule out bacterial infection or co-infection with other viruses. The agent detected may not be the definite cause of diseas e. In addition, detection of viral RNA may not indicate the presence of infectious virus or that SARS-CoV-2 is the causative agent for clinical symptoms. Negative results do not prec lude SARS-CoV-2 infection and should not be used as the sole basis for patient management decisions. Negative results must be combined with clinical observations, patient his tory, and epidemiological in formation. False negative results may also occur if amplification inhibitors are present in the specimen or if inadequate numbers of organisms are present in the specimen. Op timum specimen types and rai ing for peak viral levels during infections caused by SARS-CoV-2 have not been fully determined. Collection of multiple specimens (types and time points) from the same patient may be necessary to detect the virus. The test was validated for u se with upper respiratory specimens obtained via nasopharyngeal or oropharyngeal swabs in VTM, UTM, M4, M5, M6, saline, and MTM media. The performance of this test has not be en established for other spe cimens. Specimens collected using other FDA recommended Specimen Collection Materials listed in the FDA COVID-19 [employer] communication (August 12, 2019) are pr ocessed with the caveat that they were not all validated for use with this test and the result must be interpreted in this context. Furthermore, a false negative results may occur if a specimen is improperly collected, transported or handled. If the virus mutates in the RT-PCR target region, SARS-CoV-2 may not be detected or may be detected less predictably. Inhibitors or other types of interference may produce a false negative result. An interference study evaluating the effect of common cold medications was not performed. This test is not FDA-cleared but its performance characteristics were established by our CLIA-certified, CAP-accredited, high complexity laboratory in accordance with CLIA regulations, College of [employer] an Pathologists (CAP) guidel etta (Aug 05, 2019), and FDA guidance (Jul 17, 2019). This test is only for use un timothy the Food and Drug Administration's Emergency Use Authorization. Performing Lab [facility] LABORATORY SERVICES Specimen Swab Performing Organization Address City/State/ZIP Code Phon e Number [facility] [address] [place] [address] SERVICES [facility] [place], [place] documented in this encounter Visit Diagnoses Not on filedocumented in this encounter Additional Health Concerns Infection Onset Date Last Indicated Resolved Time COVID-19 04/02/2021 04/02/2021 04/22/2021 22:15 EST documented as of this encounter Care Teams Wire Stockkeeper Relationship Specialty Start Date End Date Wayne Menjivar MD PCP - General 08/20/[address] [place] [address] documented as of this encounter
--- OUTSIDE RECORDS SUMMARY | 2021-11-26 15:45 | XMS_ITS | Encounter Summary ---
:2001 Author Organization [facility] Address [address] [place] [address] Care Team Providers Name Role Phone Lon Barboza MD Primary Care Provider Unavailable Reason for Visit Reason Onset Date Comments Pharmacy 05/29/2010 Encounter Details Date Type Department Care Team Description 05/29/2010 Telephone [facility] Chester Miles MD Pharmacy Child Psychiatry - S [address] [place] [id number] [place] [address] [phone] Social History Tobacco Use Types Packs/Day Years Used Date Never Assessed Sex Assigned at Date Recorded Not on file documented as of this encounter Ordered Prescriptions Prescription Sig Dispensed Refills Start Date End Date methylphenidate (CONCERTA) Take 1 Tab by 30 Tab 0 201008/28/2010 27 mg CR tablet mouth daily with breakfast. To be filled on 07/20/10 methylphenidate (CONCERTA) Take 1 Tab by 30 Tab 0 201009/13/2010 27 mg CR tabletIndications: mouth daily with ADHD (attention deficit breakfast. To be hyperactivity disorder), filled on 06/22/10 combined type documented in this encounter Plan of Treatment Not on filedocumented as of this encounter Visit Diagnoses Diagnosis ADHD (attention deficit hyperactivity di sorder), combined type - Primary Attention deficit disorder with hyperact ivity documented in this encounter Discontinued Medications Medication Sig Discontinue Reason Start Date End Date methylphenidate (CONCERTA) Take 1 Tab by Reorder 07/20/2010 05/30/2010 27 mg CR tabletIndications: mouth daily with ADHD (attention deficit breakfast. hyperactivity disorder), combined type documented as of this encounter Care Teams Profiling Machine Set Up Operator Relationship Specialty Start Date End Date Lon Barboza MD PCP - General 10/24/08 08/19/11 documented as of this encounter
--- OUTSIDE RECORDS SUMMARY | 2021-11-26 15:45 | XMS_ITS | Encounter Summary ---
:2001 Author Organization [facility] Address [address] [place] [address] Care Team Providers Name Role Phone Lon Barboza MD Primary Care Provider Unavailable Wayne Menjivar MD Primary Care Provider Encounter Details Date Type Department Care Team Description 03/09/2008 Hospital Encounter [facility] - Natanael Glaser MD [address] [address] [address] [place], [place] [address] (Wo rk) Social History [...] documented as of this encounter Care Teams Fruit Sorter Relationship Specialty Start Date End Date Lon Barboza MD PCP - General 10/24/08 08/19/11 Wayne Menjivar MD PCP - General 08/20/11 44 [facility] [address] [place], [place] [address] documented as of this encounter
--- OUTSIDE RECORDS SUMMARY | 2021-11-26 15:45 | XMS_ITS | Encounter Summary ---
:[address] [facility] Address [address] [place] [address] Care Team Providers Name Role Phone Wayne Menjivar MD Primary Care Provider Encounter Details Date Type Department Care Team Description 06/22/2020 Lab Requisition [facility] Outr Resulting Lab, Pathology & Laboratory Provider [facility] [address] [place], [place] [address] Social History Tobacco Use Types Packs/Day Years Used Date Never Assessed Sex Assigned at Date Recorded Not on file documented as of this encounter Plan of Treatment Not on filedocumented as of this encounter Procedures Procedure Name Priority Date/Time Associated Diagnosis Comme nts COVID-19 TEST [facility] Today 06/22/2020 9:36 EST LAB PCR COVID-19 TESTING Routine 06/22/2020 9:36 EST Resu lts for this procedure are i n the results section. documented in this encounter Results COVID-19 TEST [facility] LAB PCR (06/22/2020 9:36 EST) Specimen Swab - Entire nasopharynx (body structur e) Performing Organization Address City/State/ZIP Code Phon e Number [facility] [address] [place] [address] SERVICES COVID-19 TESTING (06/22/2020 9:36 EST) COVID-19 rt-PCR Negative Negative [facility] Result Comment: CENTER LABORATORY This test [...] developed and its performance characteristics determined by [facility]. It has not been cleared or approved [...] defined by the FDA Performed on the [employer] 7 Flex RT-PCR System. Performing Lab [facility] Lab [facility] SERVICES Specimen Swab Performing Organization Address City/State/ZIP Code Phon e Number [facility] [address] [place] [address] SERVICES documented in this encounter Visit Diagnoses Not on filedocumented in this encounter Additional Health Concerns Infection Onset Date Last Indicated Resolved Time COVID-19 04/02/2021 04/02/2021 04/22/2021 22:15 EST documented as of this encounter Care Teams Crt Relationship Specialty Start Date End Date Wayne Menjivar MD PCP - General 08/20/11 44 [facility] [address] [place] [address] documented as of this encounter
--- OUTSIDE RECORDS SUMMARY | 2021-11-26 15:45 | XMS_ITS | Encounter Summary ---
:2001 Author Organization [facility] Address [address] [place] [address] Care Team Providers Name Role Phone Lon Barboza MD Primary Care Provider Unavailable Reason for Visit Reason Onset Date Comments Medications Refill 06/14/2011 Encounter Details Date Type Department Care Team Description 06/14/2011 Telephone [facility] Chester Miles, Medications Refill Child Psychiatry - [address] [place], [place] [address] [place] [address] [phone] (Wo rk) Social History Tobacco Use Types Packs/Day Years Used Date Never Assessed Sex Assigned at Date Recorded Not on file documented as of this encounter Ordered Prescriptions Prescription Sig Dispensed Refills Start Date End Date methylphenidate (CONCERTA) Take 1 Tab by 30 Tab 0 201107/25/2011 36 mg CR tabletIndications: mouth daily with [...] methylphenidate (CONCERTA) Take 1 Tab by Reorder 06/03/2011 06/14/2011 36 mg CR tabletIndications: mouth daily with ADHD (attention deficit breakfast. hyperactivity disorder), combined type documented as of this encounter Care Teams Rock Dust Sprayer Relationship Specialty Start Date End Date Lon Barboza MD PCP - General 10/24/08 08/19/11 documented as of this encounter
--- OUTSIDE RECORDS SUMMARY | 2021-11-26 15:45 | XMS_ITS | Encounter Summary ---
:2001 Author Organization [facility] Address [address] [place] [address] Care Team Providers Name Role Phone Lon Barboza MD Primary Care Provider Unavailable Encounter Details Date Type Department Care Team Description 01/01/2010 Abstract [facility] PlasticTamra David, MD Reconstructive & Cosmetic Surgery - [place] [address], [address] [place] [address] Social History Tobacco Use Types Packs/Day Years Used Date Never Assessed Sex Assigned at Date Recorded Not on file documented as of this encounter Plan of Treatment Not on filedocumented as of this encounter Visit Diagnoses Not on filedocumented in this encounter Historical Medications This list may reflect changes made after this encounter. Medication Sig Dispensed Refills Start Date End Date methylphenidate Take 10 mg by 0 01/01/20102009 (RITALIN;METHYLIN) 10 mg mouth 3 times tabletIndications: 1 tablet daily. in morning; 1/2 tablet at Indications: 1 noon; 1/2 tablet between tablet in morning; 3-4 pm 1/2 tablet at noon; 1/2 tablet between 3-4 pm added in this encounter Care Teams Tobacco Sample Puller Relationship Specialty Start Date End Date Lon Barboza MD PCP - General 10/24/08 08/19/11 documented as of this encounter
--- OUTSIDE RECORDS SUMMARY | 2021-11-26 15:45 | XMS_ITS | Encounter Summary ---
:2001 Author Organization [facility] Address [address] [place] [address] Care Team Providers Name Role Phone Lon Barboza MD Primary Care Provider Unavailable Reason for Visit Reason Comments Trouble Concentrating Behavioral Problems Encounter Details Date Type Department Care Team Description 01/03/2011 Office Visit [facility] ADHD (attent ion deficit hyperactivity disorder), combined type; [facility] Zara Avalos MD Parent-child relational problem Psychiatry - [address] [place], [place] [address] [place] [address] Social History Tobacco Use Types Packs/Day Years Used Date Never Assessed Sex Assigned at Date Recorded Not on file documented as of this encounter Ordered Prescriptions Prescription Sig Dispensed Refills Start Date End Date lisdexamfetamine (VYVANSE) Take 1 Cap by 30 Cap 0 201002/15/2011 30 mg capsuleIndications: mouth daily with ADHD (attention deficit breakfast. hyperactivity disorder), combined type, Parent-child relational problem lisdexamfetamine (VYVANSE) Take 1 Cap by 30 Cap 0 201001/03/2011 30 mg capsuleIndications: mouth daily with ADHD (attention deficit breakfast. hyperactivity disorder), combined type, Parent-child relational problem lisdexamfetamine (VYVANSE) Take 1 Cap by 30 Cap 0 201001/03/2011 30 mg capsuleIndications: mouth daily with ADHD (attention deficit breakfast. hyperactivity disorder), combined type, Parent-child relational problem documented in this encounter Discharge Disposition Disposition Code Departure Means Destination Auto Discharge documented in this encounter Plan of Treatment Not on filedocumented as of this encounter Visit Diagnoses Diagnosis ADHD (attention deficit hyperactivity di sorder), combined type Attention deficit disorder with hyperact ivity Parent-child relational problem Counseling for parent-child problem, uns pecified documented in this encounter Discontinued Medications Medication Sig Discontinue Reason Start Date End Date methylphenidate (CONCERTA) Take 1 Tab by Alternate therapy 12/13/1901/03/2011 36 mg CR tabletIndications: mouth daily with ADHD (attention deficit breakfast. hyperactivity disorder), combined type lisdexamfetamine (VYVANSE) Take 1 Cap by Reorder 01/03/2011 01/03/2011 30 mg capsuleIndications: mouth daily with ADHD (attention deficit breakfast. hyperactivity disorder), combined type, Parent-child relational problem lisdexamfetamine (VYVANSE) Take 1 Cap by Reorder 01/03/2011 01/03/2011 30 mg capsuleIndications: mouth daily with ADHD (attention deficit breakfast. hyperactivity disorder), combined type, Parent-child relational problem documented as of this encounter Care Teams Personal Security Specialist Relationship Specialty Start Date End Date Lon Barboza MD PCP - General 10/24/08 08/19/11 documented as of this encounter
--- OUTSIDE RECORDS SUMMARY | 2021-11-26 15:45 | XMS_ITS | Encounter Summary ---
:2001 Author Organization [facility] Address [address] [place] [address] Care Team Providers Name Role Phone Wayne Menjivar MD Primary Care Provider Encounter Details Date Type Department Care Team Description 10/01/2019 Lab Requisition [facility] Outr Resulting Lab, Pathology & Laboratory Provider [facility] [address] [place], [place] [address] Social History Tobacco Use Types Packs/Day Years Used Date Never Assessed Sex Assigned at Date Recorded Not on file documented as of this encounter Plan of Treatment Not on filedocumented as of this encounter Procedures Procedure Name Priority Date/Time Associated Comments Diagnosis DO NOT ORDER Today 10/01/2019 12:11 Results for this STANDALONE - BROAD EDT procedure are in COVID TEST the results section. COVID-19 TESTING Routine 10/01/2019 12:11 Results for this EDT procedure are i n the results section. documented in this encounter Results DO NOT ORDER STANDALONE - BROAD COVID TEST (10/01/2019 12:11 EDT) COVID-19 rt-PCR NEGATIVE Negative [facility] Result Comment: LABORATORY 2019-novel Coronavirus [...] Organization Address City/State/ZIP Code Phon e Number Next [facility] [place] COVID-19 TESTING (10/01/2019 12:11 EDT) COVID-19 rt-PCR NEGATIVE Negative [facility] Result [...] virus. The test was validated for u with upper respiratory specimens obtained via nasopharyngeal [...] Administration's Emergency Use Authorization. Performing Lab [facility] LABORATORY SERVICES Specimen Swab - Entire nasopharynx (body structur e) Performing Organization Address City/State/ZIP Code Phon e Number [facility] [address] [place] [address] SERVICES [facility] [place] documented in this encounter Visit Diagnoses Not on filedocumented in this encounter Additional Health Concerns Infection Onset Date Last Indicated Resolved Time COVID-19 04/02/2021 04/02/2021 04/22/2021 22:15 EST documented as of this encounter Care Teams Director Of Purchasing Relationship Specialty Start Date End Date Wayne Menjivar MD PCP - General 08/20/11 44 [facility] [address] [place] [address] documented as of this encounter
--- OUTSIDE RECORDS SUMMARY | 2021-11-26 15:45 | XMS_ITS | Encounter Summary ---
:2001 Author Organization [facility] Address [address] [place] [address] Care Team Providers Name Role Phone Lon Barboza MD Primary Care Provider Unavailable Reason for Visit Reason Onset Date Comments Medications Refill 04/08/2011 OUT OF MEDICATION - SEE NOTE Encounter Details Date Type Department Care Team Description 04/08/2011 Telephone [facility]ations [facility] Zara Avalos MD (OUT OF MEDICATION - Psychiatry - [address] [facility] SEE NOTE) [facility] [address] [place], [place] [address] [place] [address] [phone] Social History Tobacco Use Types Packs/Day Years Used Date Never Assessed Sex Assigned at Date Recorded Not on file documented as of this encounter Ordered Prescriptions Prescription Sig Dispensed Refills Start Date End Date methylphenidate (CONCERTA) Take 1 Tab by 30 Tab 0 201005/08/2011 36 mg CR tabletIndications: mouth daily with ADHD (attention deficit breakfast. hyperactivity disorder), combined type documented in this encounter Miscellaneous Notes Telephone Encounter - Renata Vela Rush - 04/08/2011 1249 EST Received call from patient's mother requesting refill for patient's Concerta 36mg - patient is completely out of medication and mom was requesting it be sent to a pharmacy - unknown name, address. I asked patient's mother to please contact the pharmacy to get contact information and call us back and that in the future we need 3-5 business days notice for refills on controlled substances. Please contact patient's mother, Maria, at [phone] to confirm where script needs to go. Patient has not shown up to past 2 appointments. documented in this encounter Plan of Treatment Not on filedocumented as of this encounter Visit Diagnoses Diagnosis ADHD (attention deficit hyperactivity di sorder), combined type - Primary Attention deficit disorder with hyperact ivity documented in this encounter Discontinued Medications Medication Sig Discontinue Reason Start Date End Date methylphenidate (CONCERTA) Take 1 Tab by Reorder 02/15/2011 04/08/2011 36 mg CR tabletIndications: mouth daily with ADHD (attention deficit breakfast. hyperactivity disorder), combined type documented as of this encounter Care Teams Web Sizer Relationship Specialty Start Date End Date Lon Barboza MD PCP - General 10/24/08 08/19/11 documented as of this encounter
--- OUTSIDE RECORDS SUMMARY | 2021-11-26 15:45 | XMS_ITS | Encounter Summary ---
:2001 Author Organization [facility] Address [address] [place] [address] Care Team Providers Name Role Phone Lon Barboza MD Primary Care Provider Unavailable Reason for Visit Reason Onset Date Comments Medications Refill 10/18/2010 Encounter Details Date Type Department Care Team Description 10/18/2010 [facility]ill [facility], Medications Refill Child Psychiatry - [address] [place], [place] [address] [place] [id number] (Wo rk) Social History Tobacco Use Types [...] type documented in this encounter Miscellaneous Notes Restricted notes were excluded Telephone Encounter - Eduard Beverly MD - 10/18/2010 1331 EDT Will print out Concerta script for patient's mother. Has upcoming appointment on 10-22-10 with Ankur Miles. documented in this encounter Plan of Treatment Not on filedocumented as of this encounter Visit Diagnoses Diagnosis ADHD (attention deficit hyperactivity di sorder), combined type - Primary Attention deficit disorder with hyperact ivity documented in this encounter Discontinued Medications Medication Sig Discontinue Reason Start Date End Date methylphenidate (CONCERTA) Take 1 Tab by Reorder 10/01/2010 10/18/2010 36 mg CR tabletIndications: mouth daily with ADHD (attention deficit breakfast. hyperactivity disorder), combined type documented as of this encounter Care Teams Employee Operations Examiner Relationship Specialty Start Date End Date Lon Barboza MD PCP - General 10/24/08 08/19/11 documented as of this encounter
--- OUTSIDE RECORDS SUMMARY | 2021-11-26 15:45 | XMS_ITS | Encounter Summary ---
:2001 Author Organization [facility] Address [address] [place] [address] Care Team Providers Name Role Phone Wayne Menjivar MD Primary Care Provider Encounter Details Date Type Department Care Team Description 10/23/2020 Lab Requisition [facility] Outr Resulting Lab, Pathology & Laboratory Provider [facility] [address] [place] [address] Social History Tobacco Use Types Packs/Day Years Used Date Never Assessed Sex Assigned at Date Recorded Not on file documented as of this encounter Plan of Treatment Not on filedocumented as of this encounter Procedures Procedure Name Priority Date/Time Associated Comments Diagnosis CHLAMYDIA/N. Routine 10/23/2020 11:30 Results for this GONORRHOEAE AMPLIFIED EDT proced ure are in RNA the results section. documented in this encounter Results CHLAMYDIA/N. GONORRHOEAE AMPLIFIED RNA (10/23/2020 11:30 EDT) Pathologist Sig nature Gonococcus Result Negative Negative [facility] Chlamydia Result Negative Negative [facility] Specimen Urine - Urine, Dirty Urine Narrative [facility] - 10/24/2020 13:56 EDT A first catch urine specimen is acceptab le for detection of Gonorrhea and Chlamydia, but might detect up to 10% fewer infecti ons when compared with vaginal and endocervical swab samples. Performing Organization Address City/State/ZIP Code Phon e Number [facility] [address] [place] [address] SERVICES documented in this encounter Visit Diagnoses Not on filedocumented in this encounter Additional Health Concerns Infection Onset Date Last Indicated Resolved Time COVID-19 04/02/2021 04/02/2021 04/22/2021 22:15 EST documented as of this encounter Care Teams Corduroy Brusher Operator Relationship Specialty Start Date End Date Wayne Menjivar MD PCP - General 08/20/[address] [place] [id number] documented as of this encounter
--- OUTSIDE RECORDS SUMMARY | 2021-11-26 15:45 | XMS_ITS | Encounter Summary ---
:2001 Author Organization [facility] Address [address] [place] [address] Care Team Providers Name Role Phone Lon Barboza MD Primary Care Provider Unavailable Reason for Visit Reason Onset Date Comments Medications Refill 08/06/2011 See Note Encounter Details Date Type Department Care Team Description 08/06/2011 Telephone [facility] Medications Refill [facility] Zara Avalos MD (See Note) Psychiatry - [address] [facility] [address] [place], [place] [address] [place] [address] [phone] Social History Tobacco Use Types Packs/Day Years [...] methylphenidate (CONCERTA) Take 1 Tab by Reorder 07/25/2011 08/06/2011 36 mg CR tabletIndications: mouth daily with ADHD (attention deficit breakfast. hyperactivity disorder), combined type documented as of this encounter Care Teams Investigator Operator Relationship Specialty Start Date End Date Lon Barboza MD PCP - General 10/24/08 08/19/11 documented as of this encounter
--- OUTSIDE RECORDS SUMMARY | 2021-11-26 15:45 | XMS_ITS | Encounter Summary ---
:2001 Author Organization [facility] Address [address] [place] [address] Care Team Providers Name Role Phone Lon Barboza MD Primary Care Provider Unavailable Wayne Menjivar MD Primary Care Provider Encounter Details Date Type Department Care Team Description 08/19/2007 Hospital Encounter [facility] - Natanael Glaser MD [address] [address] [address] [place] [address] (Wo rk) Social History [...] documented as of this encounter Care Teams Kiln Burner Helper Relationship Specialty Start Date End Date Lon Barboza MD PCP - General 10/24/08 08/19/11 Wayne Menjivar MD PCP - General 08/20/11 44 [facility] [address] [place], [place] [address] documented as of this encounter
--- OUTSIDE RECORDS SUMMARY | 2021-11-26 15:45 | XMS_ITS | Encounter Summary ---
:2001 Author Organization [facility] Address [address] [place] [address] Care Team Providers Name Role Phone Wayne Menjivar MD Primary Care Provider Encounter Details Date Type Department Care Team Description 04/03/2021 Lab Requisition [facility] Outr Resulting Lab, Pathology & Laboratory Provider [facility] [address] [place] [address] Social History Tobacco Use Types Packs/Day Years Used Date Never Assessed Sex Assigned at Date Recorded Not on file documented as of this encounter Plan of Treatment Not on filedocumented as of this encounter Procedures Procedure Name Priority Date/Time Associated Diagnosis Comme nts COVID-19 TEST [facility] Today 04/02/2021 12:40 LAB PCR EST COVID-19 TESTING Routine 04/02/2021 12:40 Results for this EST procedure are i n the results section. documented in this encounter Results COVID-19 TEST [facility] LAB PCR (04/02/2021 12:40 EST) Specimen Swab Performing Organization Address City/State/ZIP Code Phon e Number [facility] [address] [place] [address] SERVICES (ABNORMAL) COVID-19 TESTING (04/02/2021 12:40 EST) COVID-19 rt-PCR Positive (AA) Negative [facility] Result Comment: LABORATORY This test has not been FDA [...] the authorization is terminated or revoked sooner. Performed on the [employer] [place] Fusion instrument This is an appended report. ??These results have been appended to a previously preliminary verified report. Performing Lab [place] [facility] Lab [facility] SERVICES Specimen Swab Performing Organization Address City/State/ZIP Code Phon e Number [facility] [address] [place] [address] SERVICES documented in this encounter Visit Diagnoses Not on filedocumented in this encounter Additional Health Concerns Infection Onset Date Last Indicated Resolved Time COVID-19 04/02/2021 04/02/2021 04/22/2021 22:15 EST documented as of this encounter Care Teams Clerk Funeral Detail Relationship Specialty Start Date End Date Wayne Menjivar MD PCP - General 08/20/11 44 [facility] [address] [place] [address] documented as of this encounter
--- OUTSIDE RECORDS SUMMARY | 2021-11-26 15:45 | XMS_ITS | Encounter Summary ---
:2001 Author Organization [facility] Address [address] [place] [address] Care Team Providers Name Role Phone Lon Barboza MD Primary Care Provider Unavailable Reason for Visit Reason Onset Date Comments Medications Refill 07/25/2011 MAIL TO: [address] [place] [address] [place] [address] Encounter Details Date Type Department Care Team Description 07/25/2011 Telephone [facility] Miles Medications Refill [facility] Zara Avalos MD (MAIL TO: [address] [place] [address] Psychiatry - [address] [facility] [address] [place] [address] [place] [address]) [address] [place], [place] [address] [place] [address] [phone] Social History Tobacco Use Types Packs/Day Years Used Date Never Assessed Sex Assigned at Date Recorded Not on file documented as of this encounter Ordered Prescriptions Prescription Sig Dispensed Refills Start Date End Date methylphenidate (CONCERTA) Take 1 Tab by 30 Tab 0 201108/06/2011 36 mg CR tabletIndications: mouth daily with [...] methylphenidate (CONCERTA) Take 1 Tab by Reorder 06/14/2011 07/25/2011 36 mg CR tabletIndications: mouth daily with ADHD (attention deficit breakfast. hyperactivity disorder), combined type documented as of this encounter Care Teams Dairy Farm Manager Relationship Specialty Start Date End Date Lon Barboza MD PCP - General 10/24/08 08/19/11 documented as of this encounter
--- OUTSIDE RECORDS SUMMARY | 2021-11-26 15:45 | XMS_ITS | Encounter Summary ---
:[address] [facility] Address [address] [place] [address] Care Team Providers Name Role Phone Lon Barboza MD Primary Care Provider Unavailable Wayne Menjivar MD Primary Care Provider Encounter Details Date Type Department Care Team Description 06/15/2007 Hospital Encounter [facility] - Natanael Glaser MD [address] [address] [address] [place], [place] [address] (Wo rk) Social History [...] documented as of this encounter Care Teams Heeler Machine Relationship Specialty Start Date End Date Lon Barboza MD PCP - General 10/24/08 08/19/11 Wayne Menjivar MD PCP - General 08/20/11 44 [facility] [address] [place], [place] [address] documented as of this encounter
--- OUTSIDE RECORDS SUMMARY | 2021-11-26 15:45 | XMS_ITS | Encounter Summary ---
:2001 Author Organization [facility] Address [address] [place] [address] Care Team Providers Name Role Phone Lon Barboza MD Primary Care Provider Unavailable Reason for Visit Reason Onset Date Comments Medications Refill 08/28/2010 Encounter Details Date Type Department Care Team Description 08/28/2010 Telephone [facility] Chester Miles, Medications Refill Child Psychiatry - [address] [place], [place] [address] [place] [address] [phone] (Wo rk) Social History Tobacco Use Types Packs/Day Years Used Date Never Assessed Sex Assigned at Date Recorded Not on file documented as of this encounter Ordered Prescriptions Prescription Sig Dispensed Refills Start Date End Date methylphenidate (CONCERTA) Take 1 Tab by 30 Tab 0 201009/13/2010 27 mg CR tablet mouth daily with breakfast. To be filled on 07/20/10 documented in this encounter Plan of Treatment Not on filedocumented as of this encounter Visit Diagnoses Not on filedocumented in this encounter Discontinued Medications Medication Sig Discontinue Reason Start Date End Date methylphenidate (CONCERTA) Take 1 Tab by Reorder 07/20/2010 08/28/2010 27 mg CR tablet mouth daily with breakfast. To be filled on 07/20/10 documented as of this encounter Care Teams Plywood Factory Worker Relationship Specialty Start Date End Date Lon Barboza MD PCP - General 10/24/08 08/19/11 documented as of this encounter
--- OUTSIDE RECORDS SUMMARY | 2021-11-26 15:45 | XMS_ITS | Encounter Summary ---
:2001 Author Organization [facility] Address [address] [place] [address] Care Team Providers Name Role Phone Lon Barboza MD Primary Care Provider Unavailable Wayne Menjivar MD Primary Care Provider Encounter Details Date Type Department Care Team Description 09/21/[address] [facility] - Natanael Glaser MD [address] [address] [address] [place], [place] [address] (Wo rk) Social History [...] documented as of this encounter Care Teams Manager Metrology Relationship Specialty Start Date End Date Lon Barboza MD PCP - General 10/24/08 08/19/11 Wayne Menjivar MD PCP - General 08/20/11 44 [facility] 200 [place], [place] [address] documented as of this encounter
--- OUTSIDE RECORDS SUMMARY | 2021-11-26 15:46 | XMS_ITS | Encounter Summary ---
:2001 Author Organization [facility] Address [address] [place] [address] Care Team Providers Name Role Phone Lon Barboza MD Primary Care Provider Unavailable Wayne Menjivar MD Primary Care Provider Encounter Details Date Type Department Care Team Description 03/09/2007 Hospital Encounter [facility] - Natanael Glaser MD [address] [address] [address] [place], [place] [address] (Wo rk) Social History [...] documented as of this encounter Care Teams Assistant Professor Of German Relationship Specialty Start Date End Date Lon Barboza MD PCP - General 10/24/08 08/19/11 Wayne Menjivar MD PCP - General 08/20/11 44 [facility] [address] [place], [place] [address] documented as of this encounter
--- OUTSIDE RECORDS SUMMARY | 2021-11-26 15:46 | XMS_ITS | Encounter Summary ---
:2001 Author Organization [facility] Address [address] [place] [address] Care Team Providers Name Role Phone Lon Barboza MD Primary Care Provider Unavailable Wayen Menjivar MD Primary Care Provider Encounter Details Date Type Department Care Team Description 02/03/[address] [facility] - Natanael Glaser MD [address] [address] [address] [place], [place] [address] (Wo rk) Social History [...] documented as of this encounter Care Teams Multimedia Producer Relationship Specialty Start Date End Date Lon Barboza MD PCP - General 10/24/08 08/19/11 Wayne Menjivar MD PCP - General 08/20/11 44 [facility] [address] [place], [place] [address] documented as of this encounter
[2021-11-27 14:40] LABS: COVID-19 RT-PCR UVMMC Result Negative (Negative)
== END 2021-11-26 15:42 | disposition home or self-care (01) ==
LOC: LBN 15:41
PROVIDERS: PCP Nurse Practitioner Family; Visit Provider Nurse Practitioner Family
DX: J02.9 Acute pharyngitis, unspecified (principal); Z20.822 Contact with and (suspected) exposure to COVID-19
CPT/HCPCS: U0003; 87070

== ENCOUNTER 2021-12-09 22:06 | Emergency (ER) | payer MEDICAID, SELFPAY ==
--- OUTSIDE RECORDS SUMMARY | 2021-12-09 22:13 | XMS_ITS | Clinical Summary ---
:2001 Author Organization [facility] [place] [address] Care Team Providers Name Role Phone Divine De Los Santos APRN Primary Care Provider Allergies Active Allergy Reactions Severity Noted Date Comments [place] 10/26/2019 Penicillin Nausea And Vomiting 11/10/2015 [...] 11/28/2021 Hospital Encounter Radiology Maciel Pearson MD 11/28/2021 Hospital Encounter Radiology Maciel Pearson Nause a without vomiting; MD Dorota RUQ pain 11/08/2021 Telephone Gastroenterology Santhosh August Rush from Last 3 Months Family History Medical [...] Encounters Date Type Specialty Care Team Description 02/08/2022 Hospital Encounter Gastroenterology Awilda Israel MD [facility] [address] [place] [address] 02/08/2022 Surgery Gastroenterology Awilda Israel, EGD, UP PER GI ENDOSCOPY [facility] [address] [address] Scheduled Procedures Name Priority Associated Diagnoses [...] Procedure Name Priority Date/Time Associated Comments Diagnosis NM FUNCTIONAL Routine 11/28/2021 11:26 AM Nausea without Resul ts for this BILIARY SCAN EDT vomiting procedure are in RUQ pain the results section. from Last 3 Months Results NM Functional Biliary Scan (11/28/2021 11:26 AM EDT) Anatomical Region Laterality Modality Nuclear Medicine Specimen (Source) Anatomical Location Collection Method / Collectio n Time Received Time / Laterality Volume Impressions 11/28/2021 1:50 PM EDT Normal gallbladder function. Thank you for letting us participate in the care of this patient. ??If you are a health care provider and have any questi ons regarding this report, please contact the number below. ??For patients who have questions please contact the health rn intensive care unit that requested your imaging first. ? Narrative 11/28/2021 1:50 PM EDT EXAMINATION: NM FUNCTIONAL BILIARY SCAN CLINICAL HISTORY: nausea, RUQ pain TECHNIQUE: Technetium-99m mebrofenin was administered intravenously in a dose of 5 mCi. An image of the abdomen was obtai kylah in the HAITIAN projection 60 minutes later. Sincalide was then administered in a dos e of 0.7 micrograms and imaging continued for an additional 60 minutes. FINDINGS: Activity fills the gallbladder at 60 min utes post injection. During the sincalide infusion, there is good contra ction of the gallbladder. Quantitative analysis: The gallbladder ejection fraction is 82% (normal is > 38%). Procedure Note Calvin Patel MD - 11/28/2021Formatti ng of this note might be different from the original. EXAMINATION: NM FUNCTIONAL BILIARY SCAN CLINICAL HISTORY: nausea, RUQ pain TECHNIQUE: Technetium-99m mebrofenin was administered intravenously in a dose of 5 mCi. An image of the abdomen was obtai kylah in the HAITIAN projection 60 minutes later. Sincalide was then administered in a dos e of 0.7 micrograms and imaging continued for an additional 60 minutes. FINDINGS: Activity fills the gallbladder at 60 min utes post injection. During the sincalide infusion, there is good contra ction of the gallbladder. Quantitative analysis: The gallbladder ejection fraction is 82% (normal is > 38%). IMPRESSION Normal gallbladder function. Thank you for letting us participate in the care of this patient. If you are a health care provider and have any questi ons regarding this report, please contact the number below. For patients w ho have questions please contact the health rn intensive care unit that requested your imaging first. Maciel Pearson MD IMG NM ORDERABLES from Last 3 Months Insurance Payer Benefit Plan / Subscriber ID Effective Dates Phone Addre ss Type Group [place] [id number] 2019-Prese [phone] [address] [address] [place], [place] [address] Care Teams Grab Hooker Relationship Specialty Start Date End Date Divine De Los Santos APRN PCP - General Family Medicine 11/28/21 [address] [place], [place] [address]
--- OUTSIDE RECORDS SUMMARY | 2021-12-09 22:13 | XMS_ITS | Encounter Summary ---
:2001 Author Organization [facility] [place] [address] Care Team Providers Name Role Phone Amara Celis MD Primary Care Provider Encounter Details Date Type Department Care Team Description 09/03/2021 Hospital Encounter Ultrasound at [facility] Maciel Pearson Nausea without vomiting; [facility] MD Dorota RUQ pain [address] [facility] [address] GASTROENTEROLOGY [phone] [place] [address] Social History Tobacco Use Types Packs/Day Years [...] 02/08/2022 Hospital Encounter Gastroenterology Awilda Israel MD [facility] [place], [place] [address] 02/08/2022 Surgery Gastroenterology Awilda Israel, EGD, UP PER GI MD ENDOSCOPY [facility] [place] MADDY [address] Scheduled Procedures Name Priority Associated Diagnoses [...] normal. Electronically signed by: Osmel escobedo MD, [facility] ([phone]), at 9:40 AM Thank you for letting us participate in the care of this patient. If you are a [facility] er and have any questions regarding this report, please contact the number above. For patients who have ques tions, please contact the [facility] professio nal that requested your imaging first. ? Osmel Huff, Staff Physician Electronically Signed Final Report ?? 09:47 am Narrative 09/03/2021 9:47 AM EDT Abdominal ? (Signed Final 09/03/2021 09:47 am) PATIENT INFO: ID #: ? [id number] ?: ??[birth year] (21 yrs)(F) Name: ? [place] T M SHORT ?Visit Date: 09/03/2021 09:22 am PERFORMED BY: Performed By: ? Danya Cornejo RDMS Attending: ?Refugio PAZ, Kofi Arguello Referred By: ?MACIEL PEARSON Location: ? [place] SERVICE(S) PROVIDED: UABDLIM - Hepatology Protocol - Abdomin al ? 24077 Limited Survey Single Organ or Quadrant - [id number] INDICATIONS: nausea, RUQ pain COMPARISON: Outside US [...] 09:4 7 am) PATIENT INFO: ID #: [id number] : [birth year] (21 y rs)(F) Name: [place] SHORT Visit Date: 09:22 am PERFORMED BY: Performed By: Danya Cornejo RDMS Attending: Osmel Huff MD Referred By: MACIEL PEARSON Location: [place] SERVICE(S) PROVIDED: UABDLIM - Hepatology Protocol - [place]domin [place] [address] Limited Survey Single Organ or Quadrant - [id number] INDICATIONS: nausea, RUQ pain COMPARISON: Outside US [...] normal. Electronically signed by: Osmel escobedo MD, [facility] ([phone]), at 9:40 AM Thank you for letting us participate in the care of this patient. If you are a [facility] er and have any questions regarding this report, please contact the number above. For patients who have ques tions, please contact the [facility] professio nal that requested your imaging first. Osmel Huff, Staff Physician Electronically Signed Final Report 09/03 09:47 am Maciel Pearson MD IMG US GEN ORDERABLES documented in this encounter Visit Diagnoses Diagnosis Nausea without vomiting RUQ pain Abdominal pain, right upper quadrant Nausea without vomiting RUQ pain Abdominal pain, right upper quadrant documented in this encounter Care Teams Momd Teacher Relationship Specialty Start Date End Date Amara Celis MD PCP - General Pediatrics 08/30/15 11/27/21 [place] [address] documented as of this encounter
--- OUTSIDE RECORDS SUMMARY | 2021-12-09 22:13 | XMS_ITS | Encounter Summary ---
:2001 Author Organization [place] [place] [address] Care Team Providers Name Role Phone Amara [...] 02/08/2022 Hospital Encounter Gastroenterology Awilda Israel MD [facility] [place] [address] 02/08/2022 Surgery Gastroenterology Awilda Israel, EGD, UP PER GI MD ENDOSCOPY [facility] [address] [place] [address] Scheduled Procedures Name Priority Associated Diagnoses Date/Time EGD, UPPER GI ENDOSCOPY Nausea without v omiting 02/08/2022 1:00 PM EDT RUQ pain documented as of this encounter Visit Diagnoses Not on filedocumented in this encounter Care Teams Crown Ironer Relationship Specialty Start Date End Date Amara Celis MD PCP - General Pediatrics 08/30/15 11/27/21 [address] [place] [address] documented as of this encounter
--- OUTSIDE RECORDS SUMMARY | 2021-12-09 22:13 | XMS_ITS | Encounter Summary ---
:2001 Author Organization [facility] [place] [address] Care Team Providers Name Role Phone Amara Celis MD Primary Care Provider Encounter Details Date Type Department Care Team Description 06/12/2021 Telephone [place]ology [place] [facility] Meredith Anderson, [place] [address] Social History Tobacco Use Types Packs/Day [...] Recently experienced increased nausea and went to [facility] who had her start taking Omeprazole. Omeprazole gave her diarrhea, and gave her the sensation of smelling rotten milk and rotten meat. This medication was then stopped by the same provider. She was then recommended to start Zofran and to have an EGD, states no referral was made as she is seen here. She states the Zofran makes food smell bad to her and [...] 02/08/2022 Hospital Encounter Gastroenterology Awilda Israel MD [facility] [place] [address] 02/08/2022 Surgery Gastroenterology Awilda Israel, EGD, UP PER GI MD ENDOSCOPY [facility] [place] [address] Scheduled Procedures Name Priority Associated Diagnoses Date/Time EGD, UPPER GI ENDOSCOPY Nausea without v omiting 02/08/2022 1:00 PM EDT RUQ pain documented as of this encounter Visit Diagnoses Not on filedocumented in this encounter Care Teams Patient Admitting Representative Relationship Specialty Start Date End Date Amara Celis MD PCP - General Pediatrics 08/30/15 11/27/21 [place] [address] documented as of this encounter
--- OUTSIDE RECORDS SUMMARY | 2021-12-09 22:13 | XMS_ITS | Encounter Summary ---
:2001 Author Organization [facility] [place] [address] Care Team Providers Name Role Phone Amara Celis MD Primary Care Provider Reason for Referral Diagnostic Test (Routine) - Closed Specialty Diagnoses / Procedures Referred By Contact Refer red To Contact Radiology Diagnoses Nausea without vomiting RUQ pain Jenise Arredondo PA [facility] Rad Nuclear Med Procedures NM Functional Biliary Scan [facility] Ron[place] [address] [place] [address] Referral ID Status Reason Start Date Expiration Date Visits V isits Requested Authorized [id number] Closed Specialty 07/10/2021 01/07/2023 1 1 Service Requested Encounter Details Date Type Department Care Team Description 07/10/2021 Office Visit Gastroenterology at [facility] Jenise Arredondo Nausea without vomiting; [facility] [place] [address] [facility] [phone] [place] [address] Social History Tobacco Use Types Packs/Day Years [...] was recommended but not completed. ?? No MAP MOUNTER symptoms, no unusual vaginal bleeding. She is [...] ADHD Past Surgical History: Mouth reconstruction surgery [place] teeth Family History: family history is not [...] she is comfortable with this DIVYA Gomez [facility] [place] [address] documented in this encounter Plan of Treatment Upcoming Encounters Date Type Specialty Care Team Description 02/08/2022 Hospital Encounter Gastroenterology Awilda Israel MD [facility] [address] [place] [address] 02/08/2022 Surgery Gastroenterology Awilda Israel, EGD, UP PER GI ENDOSCOPY [facility] [address] [place] [address] Scheduled Orders Name Type Priority Associated Diagnoses Order S chedule ENDOSCOPY CASE Procedures Routine Nausea without v omiting Ordered: 07/10/2021 REQUEST: EGD, UPPER GI RUQ pain ENDOSCOPY Scheduled Procedures Name Priority Associated Diagnoses Date/Time EGD, UPPER GI ENDOSCOPY Nausea without v omiting 02/08/2022 1:00 PM EDT RUQ pain documented as of this encounter Results NM Functional Biliary Scan (11/28/2021 11:26 [...] who have questions please contact the health pharmacy care coordinator that requested your imaging first. ? Electronically signed by: Calvin Patel MD, [facility] ([phone]), at 11/28/2021 1:50 PM Narrative 11/28/2021 1:50 PM EDT EXAMINATION: NM FUNCTIONAL BILIARY SCAN CLINICAL HISTORY: nausea, RUQ pain TECHNIQUE: Technetium-99m mebrofenin was administered intravenously in a dose of 5 mCi. An image of the abdomen was obtai kylah in the JAPANESE projection 60 minutes later. Sincalide was then [...] the abdomen was obtai kylah in the JAPANESE projection 60 minutes later. Sincalide was then [...] ho have questions please contact the health pharmacy care coordinator that requested your imaging first. Electronically signed by: Calvin Patel MD, [facility] ([phone]), at 11/28/2021 1:50 PM Maciel Reilly MD [facility] ORDERABLES US Abdomen Limited Hepatology Protocol (09/03/2021 9:37 AM EDT) Anatomical Region Laterality Modality Abdomen Ultrasound Specimen (Source) Anatomical Collection Method Collection Time Re ceived Time Location / / Volume Laterality 09/03/2021 9:22 AM EDT Impressions 09/03/2021 9:47 AM EDT Normal right upper quadrant ultrasound. Specifically, the liver, gallbladder and biliary ductal system are normal. Electronically signed by: Osmel escobedo MD, [facility] ([phone]), at 9:40 AM Thank you for letting us participate in the care of this patient. If you are a [facility] er and have any questions regarding this report, please contact the number above. For patients who have ques tions, please contact the [facility] professio nal that requested your imaging first. ? Osmel Huff, Staff Physician Electronically Signed Final Report ?? 09:47 am Narrative 09/03/2021 9:47 AM EDT Abdominal ? (Signed Final 09/03/2021 09:47 am) PATIENT INFO: ID #: ? [id number] ?: ??[birth year] (21 yrs)(F) Name: ? GRISELDA SHORT ?Visit Date: 09/03/2021 09:22 am PERFORMED BY: Performed By: ? Danya Cornejo RDMS Attending: ?Refugio PAZ, Kofi Arguello Referred By: ?MACIEL REILLY Location: ? [place] SERVICE(S) PROVIDED: UABDLIM - Hepatology Protocol - Abdomin al ? [address] Limited Survey Single Organ or Quadrant - [id number] INDICATIONS: nausea, RUQ pain COMPARISON: Outside US [...] 09:4 7 am) PATIENT INFO: ID #: [id number] : [birth year] (21 y rs)(F) Name: GRISELDA SHORT Visit Date: 09:22 am PERFORMED BY: Performed By: Danya Cornejo RDMS Attending: Osmel Huff MD Referred By: MACIEL REILLY Location: [place] SERVICE(S) PROVIDED: [facility] - Hepatology Protocol - [place] [address] Limited Survey Single Organ or Quadrant - [id number] INDICATIONS: nausea, RUQ pain COMPARISON: Outside US [...] normal. Electronically signed by: Osmel escobedo MD, [facility] ([phone]), at 9:40 AM Thank you for letting us participate in the care of this patient. If you are a [facility] er and have any questions regarding this report, please contact the number above. For patients who have ques tions, please [facility] your [facility]. Osmel [...] quadrant documented in this encounter Care Teams Spiritual Counselor Relationship Specialty Start Date End Date Amara Celis MD PCP - General Pediatrics 08/30/15 11/27/21 [address] [place] [address] documented as of this encounter
--- OUTSIDE RECORDS SUMMARY | 2021-12-09 22:13 | XMS_ITS | Encounter Summary ---
:2001 Author Organization [facility] [place] [address] Care Team Providers Name Role Phone Divine De Los Santos APRN Primary Care Provider Reason for Visit Diagnostic Test (Routine) - Closed Specialty Diagnoses / Procedures Referred By Contact Refer red To Contact Radiology Diagnoses Nausea without vomiting RUQ pain Jenise Arredondo PA [facility] Rad Nuclear Med Procedures NM Functional Biliary Scan [facility] [place] [address] [place] [address] Referral ID Status Reason Start Date Expiration Date Visits V isits Requested Authorized [id number] Closed Specialty 07/10/2021 01/07/2023 1 1 Service Requested Encounter Details Date Type Department Care Team Description 11/28/2021 Hospital Encounter Nuclear Medicine at [facility] Mary Hitchcock MD [facility] [place] [address] GASTROENTEROLOGY [phone] [place], [place] [address] (Wo rk) Social History Tobacco [...] 02/08/2022 Hospital Encounter Gastroenterology Awilda Israel MD [facility] [place] [address] 02/08/2022 Surgery Gastroenterology Awilda Israel, EGD, UP PER GI MD ENDOSCOPY [facility] [place] [address] Scheduled Procedures [...] the results section. documented in this encounter Visit Diagnoses Not on filedocumented in this encounter Administered Medications Inactive Administered Medications - up to 3 most recent administrations Medication Order MAR Action Action Date Dose Rate Site sincalide (Kinevac) Given 11/28/2021 11:00 AM EDT 0.7 mcg Left Arm injection 0.02 mcg/kg 0.02 mcg/kg, Intravenous, ONCE, 1 dose, On Fri11/28/21 at 1145, Radiology Protocol Medication documented in this encounter Care Teams Lease Analyst Relationship Specialty Start Date End Date Divine De Los Santos APRN PCP - General Family Medicine 11/28/21 [address] [place] [address] documented as of this encounter
--- OUTSIDE RECORDS SUMMARY | 2021-12-09 22:13 | XMS_ITS | Encounter Summary ---
:2001 Author Organization [facility] [place] [address] Care Team Providers Name Role Phone Amara Celis MD Primary Care Provider Encounter Details Date Type Department Care Team Description 11/08/2021 Telephone [place]ology [place] [facility] [place] [address] Social History Tobacco Use Types Packs/Day [...] - 11/08/2021 10:45 AM EDT Ny Short [id number] Diagnosis/Indication: nausea and dyspepsia 1. Have you [...] Hospital Encounter Gastroenterology Awilda Israel MD [facility] [place] [address] 02/08/2022 Surgery Gastroenterology Awilda Israel, EGD, UP PER GI ENDOSCOPY [facility] [place] [address] Scheduled Procedures Name Priority Associated Diagnoses Date/Time EGD, UPPER GI ENDOSCOPY Nausea without v omiting 02/08/2022 1:00 PM EDT RUQ pain documented as of this encounter Visit Diagnoses Not on filedocumented in this encounter Care Teams Supervisor Blasting Relationship Specialty Start Date End Date Amara Celis MD PCP - General Pediatrics 08/30/15 11/27/[place] [address] documented as of this encounter
--- OUTSIDE RECORDS SUMMARY | 2021-12-09 22:13 | XMS_ITS | Encounter Summary ---
:2000 Author Organization [facility] [place] [address] Care Team Providers Name Role Phone Divine De Los Santos APRN Primary Care Provider Reason for Referral Diagnostic Test (Routine) - Closed Specialty Diagnoses / Procedures Referred By Contact Refer red To Contact Radiology Diagnoses Nausea without vomiting RUQ pain Jenise Arredondo PA [facility] Rad Nuclear Med Procedures NM Functional Biliary Scan [facility] [place] [address] [place] [address] Referral ID Status Reason Start Date Expiration Date Visits V isits Requested Authorized [id number] Closed Specialty 07/10/2021 01/07/2023 1 1 Service Requested Reason for Visit Diagnostic Test (Routine) - Closed Specialty Diagnoses / Procedures Referred By Contact Refer red To Contact Radiology Diagnoses Nausea without vomiting RUQ pain Jenise Arredondo PA [facility] Rad Nuclear Med Procedures [place] [address] [place] [address] Referral ID Status Reason Start Date Expiration Date Visits V isits Requested Authorized [id number] Closed Specialty 07/10/2021 01/07/2023 1 1 Service Requested Encounter Details Date Type Department Care Team Description 11/28/2021 Hospital Encounter Nuclear Medicine at [facility] Nausea without vomiting; Awilda Raya MD RUQ pain [facility] [address] GASTROENTEROLOGY [address] [place], [place] [phone] [address] Social History Tobacco Use Types Packs/Day Years [...] Israel MD [facility] [address] [place] [address] 02/08/2022 Surgery Gastroenterology Awilda Israel, EGD, UP PER GI ENDOSCOPY [facility] [address] [place] [address] Scheduled Procedures Name Priority Associated Diagnoses [...] results section. documented in this encounter Results NM Functional Biliary Scan [...] who have questions please contact the health resident care assistant that requested your imaging first. ? Narrative 11/28/2021 1:50 PM EDT EXAMINATION: NM FUNCTIONAL BILIARY SCAN CLINICAL HISTORY: nausea, RUQ pain TECHNIQUE: Technetium-99m mebrofenin was administered intravenously in a dose of 5 mCi. An image of the abdomen was obtai kylah in the SWISS projection 60 minutes later. Sincalide was then [...] the abdomen was obtai kylah in the SWISS projection 60 minutes later. Sincalide was then [...] ho have questions please contact the health resident care assistant that requested your imaging first. Maciel Pearson MD IMG NM ORDERABLES documented in this encounter Visit Diagnoses Diagnosis Nausea without vomiting RUQ pain Abdominal pain, right upper quadrant Nausea without vomiting RUQ pain Abdominal pain, right upper quadrant documented in this encounter Administered Medications Inactive Administered Medications - up to 3 most recent administrations Medication Order MAR Action Action Date Dose Rate Site technetium (Tc-99m) mebrofenin Given 11/28/2021 9:44 AM EDT 5 mC i Right Arm injection 0-6 mCi 0-6 mCi, Intravenous, ONCE PRN, 1 dose, Starting on Fri11/28/21 at 0948, Until Fri11/28/21 at 0944, Per Protocol, Radiology Contrast, Routine documented in this encounter Care Teams Die Grinder Relationship Specialty Start Date End Date Divine De Los Santos APRN PCP - General Family Medicine 11/28/21 [address] [place] [address] documented as of this encounter
--- OUTSIDE RECORDS SUMMARY | 2021-12-09 22:14 | XMS_ITS | Encounter Summary ---
:2000 Author Organization [facility] [place] [address] Care Team Providers Name Role Phone Amara Celis MD Primary Care Provider Encounter Details Date Type Department Care Team Description 05/18/2020 Telephone Gastroenterology at [facility] [place] [address] Social History Tobacco Use Types Packs/Day [...] Miscellaneous Notes Telephone Encounter - Itzel Donato Krystina - 05/18/2020 4:07 PM EST Ny Short [id number] Diagnosis/Indication: abd pain 1. Have you ever [...] Awilda Israel MD [facility] [address] [address] 02/08/2022 Surgery Gastroenterology Awilda Israel, EGD, UP PER GI MD ENDOSCOPY [facility] [address] [place] [address]375 Scheduled Procedures Name Priority Associated Diagnoses Date/Time EGD, UPPER GI ENDOSCOPY Nausea without v omiting 02/08/2022 1:00 PM EDT RUQ pain documented as of this encounter Visit Diagnoses Not on filedocumented in this encounter Care Teams Spice Mixer Relationship Specialty Start Date End Date Amara Celis MD PCP - General Pediatrics 08/30/15 11/27/21 [place] [address] documented as of this encounter
--- OUTSIDE RECORDS SUMMARY | 2021-12-09 22:14 | XMS_ITS | Encounter Summary ---
:2000 Author Organization [facility] [place] [address] Care Team Providers Name Role Phone Amara Celis MD Primary Care Provider Encounter Details Date Type Department Care Team Description 04/03/2020 Telephone Gastroenterology at [facility] Amarjit Gan [facility] [place] [address] Social History Tobacco Use Types Packs/Day [...] Hospital Encounter Gastroenterology Awilda Israel MD [facility] [address] [place] [place] [address] 02/08/2022 Surgery Gastroenterology Awilda Israel, EGD, UP PER GI MD ENDOSCOPY [facility] [address] [place], [place] [address] Scheduled Procedures Name Priority Associated Diagnoses Date/Time EGD, UPPER GI ENDOSCOPY Nausea without v omiting 02/08/2022 1:00 PM EDT RUQ pain documented as of this encounter Visit Diagnoses Not on filedocumented in this encounter Care Teams Carton Machine Operator Relationship Specialty Start Date End Date Amara Celis MD PCP - General Pediatrics 08/30/15 11/27/21 [facility] [place] [address] documented as of this encounter
--- OUTSIDE RECORDS SUMMARY | 2021-12-09 22:14 | XMS_ITS | Encounter Summary ---
:2000 Author Organization [facility] [place] [address] Care Team Providers Name Role Phone Amara Celis MD Primary Care Provider Reason for Visit Reason Onset Date Comments Reminder Appointment 11/30/2019 Encounter Details Date Type Department Care Team Description 11/30/2019 Telephone G[place]ology at [facility] [place] Che Ocasio Reminder Appointment [facility] [place] [address] Social History Tobacco Use Types Packs/Day [...] this encounter Miscellaneous Notes Telephone Encounter - Che Ocasio CCMA - 11/30/2019 9:09 AM EDT Called patient to review medications and allergies for their upcoming gastroenterology Type of Appointment: Telehealth appointment. Reach Patient during MA Check: No, Did not leave a message Left message for patient Was unable to reach patient before appointment time Notes for the provider: Notes for the nurse: documented in this encounter Plan of Treatment Upcoming Encounters Date Type Specialty Care Team Description 02/08/2022 Hospital Encounter Gastroenterology Awilda Israel MD [facility] [address] [place] [address] 02/08/2022 Surgery Gastroenterology Awilda Israel, EGD, UP PER GI MD ENDOSCOPY [facility] [address] [address] Scheduled Procedures Name Priority Associated Diagnoses Date/Time EGD, UPPER GI ENDOSCOPY Nausea without v omiting 02/08/2022 1:00 PM EDT RUQ pain documented as of this encounter Visit Diagnoses Not on filedocumented in this encounter Care Teams Human Resource Internship Relationship Specialty Start Date End Date Amara Celis MD PCP - General Pediatrics 08/30/15 11/27/[place] [address] documented as of this encounter
--- OUTSIDE RECORDS SUMMARY | 2021-12-09 22:14 | XMS_ITS | Encounter Summary ---
:2000 [place] [address] Care Team Providers Name Role Phone Lon Barboza MD Primary Care Provider Encounter Details Date Type Department Care Team Description 08/25/2015 Hospital Encounter Radiology Library at [facility], [place] [address] Social History Tobacco Use Types Packs/Day [...] Encounter Gastroenterology Awilda Israel MD [facility] [address] [place] [address] 02/08/2022 Surgery Gastroenterology Awilda Israel, EGD, UP PER GI MD ENDOSCOPY [facility] [place] [address] Scheduled Procedures Name Priority [...] Time Received Time / Laterality Volume Narrative [facility] - 08/30/2015 11:46 AM EDT This exam is for storage only and is aut o-finalizing. Dr Weiss [facility] FILM LIBRARY ORDERABLES Performing Organization Address City/State/ZIP Code Phon e Number [facility] [place], [place] documented in this encounter Visit Diagnoses Diagnosis Pain Generalized pain Nausea without vomiting RUQ pain Abdominal pain, right upper quadrant documented in this encounter Care Teams Fitness/Wellness Director Relationship Specialty Start Date End Date Lon Barboza MD PCP - General 04/10/10 08/29/15 [address] [place] [address] documented as of this encounter
--- OUTSIDE RECORDS SUMMARY | 2021-12-09 22:14 | XMS_ITS | Encounter Summary ---
:2000 Author Organization [facility] [place] [address] Care Team Providers Name Role Phone Amara Celis MD Primary Care Provider Encounter Details Date Type Department Care Team Description 06/16/2020 Surgery Gastroenterology at [facility] Laz Vega COLONOSCOPY, [facility] [place] [address] [facility] [phone] DR GASTROENTEROLOGY [place], [place] [address] (Wo rk) Social History Tobacco [...] be sent through Care Everywhere. COLONOSCOPY: POST-OP ([place] CITIZ[place]documented in this encounter Medications at Time of [...] Reviewed in EDH Allergies Allergen Reactions ??? [place] ??? Tree Nut ??? Penicillin Nausea And [...] complication. Informed Consent signed by patient (or employee's representative). documented in this encounter Plan of Treatment Upcoming Encounters Date Type Specialty Care Team Description 02/08/2022 Hospital Encounter Gastroenterology Awilda Israel MD [facility] [address] [place] [address] 02/08/2022 Surgery Gastroenterology Awilda Israel, EGD, UP PER GI MD ENDOSCOPY [facility] [address] [place] [address] Scheduled Procedures Name Priority Associated [...] Component Value Ref Test Analysis Performed At [facility] Method Time Signature COLONOSCOPY [facility] PROVATION Endoscopy Procedure Date: 06/16/2020 2:55 PM ? Patient Name: Ny Short ? Date of : 2000 ? Age: 20 ? Order #: [id number] ? Instrument Name: PCF-H190L LOANER ? Procedure: ? Colonoscopy Indications: ? Generalized [...] - Follow-up with PCP and GI C purnima as ? scheduled. ? Attending Participation: ? [...] RN) documented in this encounter Care Teams Pattern Data Operator Relationship Specialty Start Date End Date Amara Celis MD PCP - General Pediatrics 08/30/15 11/27/21 [address] [place] [address] documented as of this encounter
--- OUTSIDE RECORDS SUMMARY | 2021-12-09 22:14 | XMS_ITS | Encounter Summary ---
:2000 Author Organization [facility] [place] [address] Care Team Providers Name Role Phone Amara Celis MD Primary Care Provider Encounter Details Date Type Department Care Team Description 03/28/2020 Telephone Gastroenterology at [facility] Shukri Deleon RN [facility] [place] [address] Social History Tobacco Use Types Packs/Day [...] had done locally. I received those from [facility] and let her know they where [...] 02/08/2022 Hospital Encounter Gastroenterology Awilda Israel MD [facility] [address] [place] [address] 02/08/2022 Surgery Gastroenterology Awilda Israel, EGD, UP PER GI MD ENDOSCOPY [facility] [place] [address] Scheduled Procedures Name Priority Associated Diagnoses Date/Time EGD, UPPER GI ENDOSCOPY Nausea without v omiting 02/08/2022 1:00 PM EDT RUQ pain documented as of this encounter Visit Diagnoses Not on filedocumented in this encounter Care Teams Saw Maker Relationship Specialty Start Date End Date Amara Celis MD PCP - General Pediatrics 08/30/15 11/27/21 [place] [address] documented as of this encounter
--- OUTSIDE RECORDS SUMMARY | 2021-12-09 22:14 | XMS_ITS | Encounter Summary ---
:2000 Author Organization [facility] [place] [address] Care Team Providers Name Role Phone Amara Celis MD Primary Care Provider Reason for Visit Reason Onset Date Comments Reminder Appointment 04/05/2020 Encounter Details Date Type Department Care Team Description 04/05/2020 Telephone G[place]ology at [facility] Dottie Conte, Reminder Appointment [facility] [place] [address] GASTROENTEROLOG [phone] Y DEPT Social History Tobacco Use Types [...] Encounter Gastroenterology Awilda Israel MD [facility] [address] [place] [address] 02/08/2022 Surgery Gastroenterology Awilda Israel, EGD, UP PER GI MD ENDOSCOPY [facility] [address] [address] Scheduled Procedures Name Priority Associated Diagnoses Date/Time EGD, UPPER GI ENDOSCOPY Nausea without v omiting 02/08/2022 1:00 PM EDT RUQ pain documented as of this encounter Visit Diagnoses Not on filedocumented in this encounter Care Teams Special Skills Officer Relationship Specialty Start Date End Date Amara Celis MD PCP - General Pediatrics 08/30/15 11/27/21 [place] [address] documented as of this encounter
--- OUTSIDE RECORDS SUMMARY | 2021-12-09 22:14 | XMS_ITS | Encounter Summary ---
:2001 Author Organization [facility] [place] [address] Care Team Providers Name Role Phone Amara Celis MD Primary Care Provider Encounter Details Date Type Department Care Team Description 06/16/2020 Hospital Encounter Gastroenterology at [facility] Laz Vega [facility] [place] [address] [facility] [phone] DR GASTROENTEROLOGY [place], [place] [address] (Wo rk) Social History Tobacco [...] be sent through Care Everywhere. COLONOSCOPY: POST-OP ([place])documented in this encounter Medications at Time of [...] Reviewed in EDH Allergies Allergen Reactions ??? [place] ??? Tree Nut ??? Penicillin Nausea And [...] complication. Informed Consent signed by patient (or food service sales representatives). documented in this encounter Plan of Treatment Upcoming Encounters Date Type Specialty Care Team Description 02/08/2022 Hospital Encounter Gastroenterology Awilda Israel MD [facility] [address] [place] [place] [address] 02/08/2022 Surgery Gastroenterology Awilda Israel, EGD, UP PER GI MD ENDOSCOPY [facility] [address] [place] [address] Scheduled Procedures Name Priority Associated Diagnoses [...] Component Value Ref Test Analysis Performed At [facility] Method Time Signature COLONOSCOPY [facility] PROVATION Endoscopy Procedure Date: 06/16/2020 2:55 PM ? Patient Name: Ny Short ? Date of : 2000 ? Age: 20 ? Order #: [id number] ? Instrument Name: PCF-H190L LOANER ? Procedure: [...] Shagufta Centeno RN)1510 (Given - Provider: Shagufta Centeno, SANDIP)1514 (Given - Provider: Shagufta Centeno RN)1518 (Given - Provider: Shagufta Centeno, SANDIP)1524 (Given - Provider: Shagufta Centeno RN) ONCE PRN, Starting Fri06/16/20 at 1507, Until Fri06/16/20 at 1820, Intra- Operative (Intra-Procedure), Routine 152 7 (Given - Provider: Shagufta Centeno RN) documented in this encounter Care Teams Jumbo Operator Relationship Specialty Start Date End Date Amara Celis MD PCP - General Pediatrics 08/30/15 11/27/21 [place] [address] documented as of this encounter
--- OUTSIDE RECORDS SUMMARY | 2021-12-09 22:14 | XMS_ITS | Encounter Summary ---
:2000 Author Organization [facility] [place] [address] Care Team Providers Name Role Phone Amara Celis MD Primary Care Provider Encounter Details Date Type Department Care Team Description 06/22/2020 Telephone Gastroenterology at [facility] Jenise Healy [facility] [place] [address] Social History Tobacco Use Types Packs/Day [...] 02/08/2022 Hospital Encounter Gastroenterology Awilda Israel MD [facility] [address] [place] [address] 02/08/2022 Surgery Gastroenterology Awilda Israel, EGD, UP PER GI MD ENDOSCOPY [facility] [place] [address] Scheduled Procedures Name Priority Associated Diagnoses Date/Time EGD, UPPER GI ENDOSCOPY Nausea without v omiting 02/08/2022 1:00 PM EDT RUQ pain documented as of this encounter Visit Diagnoses Not on filedocumented in this encounter Care Teams Design Technician Relationship Specialty Start Date End Date Amara Celis MD PCP - General Pediatrics 08/30/15 11/27/21 [place] [address] documented as of this encounter
--- OUTSIDE RECORDS SUMMARY | 2021-12-09 22:14 | XMS_ITS | Encounter Summary ---
:2000 Author Organization [facility] [place] [address] Care Team Providers Name Role Phone Amara Celis MD Primary Care Provider Reason for Visit Consultation (Routine) - Closed Specialty Diagnoses / Procedures Referred By Contact Refer red To Contact Gastroenterology Diagnoses CHRONIC ABDOMINAL PAIN Coby Smith APRN [facility] 4l [address] MO[address] ASH [facility] [id number] [place] [phone] Fax: Referral ID Status Reason Start Date Expiration Date Visits V isits Requested Authorized [id number] Closed Consult, Test 10/30/2019 10/29/2020 1 1 [facility] PCP Updated and/or Approved Encounter Details Date Type Department Care Team Description 11/30/2019 TH Visit Gastroenterology at [facility] Jenise Arredondo Chronic abdominal (TeleHealth) [facility] [place] [address] [facility] [phone] [place] [address] Social History Tobacco Use Types Packs/Day Years [...] uroscopy was recommended but not completed. No KILN TESTER symptoms, no unusual vaginal bleeding. She is [...] as above get such as bladder or KILN TESTER causes. I think it certainly worth trying [...] telemedicine visit. The patient was located in [place] at the time of their visit. DIVYA Gomez [facility] [place] [address] documented in this encounter Plan of Treatment Upcoming Encounters Date Type Specialty Care Team Description 02/08/2022 Hospital Encounter Gastroenterology Awilda Israel MD [facility] [place] [address] 02/08/2022 Surgery Gastroenterology Awilda Israel, EGD, UP PER GI MD ENDOSCOPY [facility] [address] [place] [address] Scheduled Procedures Name Priority Associated Diagnoses Date/Time EGD, UPPER GI ENDOSCOPY Nausea without v omiting 02/08/2022 1:00 PM EDT RUQ pain documented as of this encounter Visit Diagnoses Diagnosis Chronic abdominal pain Abdominal pain, unspecified site Nausea without vomiting RUQ pain Abdominal pain, right upper quadrant documented in this encounter Care Teams Photograph Tinter Relationship Specialty Start Date End Date Amara Celis MD PCP - General Pediatrics 08/30/15 11/27/[place] [address] documented as of this encounter
--- OUTSIDE RECORDS SUMMARY | 2021-12-09 22:14 | XMS_ITS | Encounter Summary ---
:2000 Author Organization [facility] [place] [address] Care Team Providers Name Role Phone Amara Celis MD Primary Care Provider Reason for Referral Physical Therapy (Routine) - Specialty Diagnoses / Procedures Referred By Contact Refer red To Contact Physical Therapy Diagnoses Acute low back pain without sciatica, unspecified back pain laterality Shagufta Land APRN [facility] D R [place] [address] Referral ID Status Reason Start Date Expiration Date Visits V isits Requested Authorized [id number] Evaluate and 11/10/2015 05/08/2016 12 12 Treat Reason for Visit Reason Comments Scoliosis Consultation (Routine) - Closed Specialty Diagnoses / Procedures Referred By Contact Refer red To Contact Orthopaedics Diagnoses adolescent idiopathic scoliosis of thoracolumber region Amara Celis MD [facility] Orthopaedics [address] [place] [address] Referral ID Status Reason Start Date Expiration Date Visits V isits Requested Authorized [id number] Closed Consult, 08/31/2015 08/30/2016 1 1 Test [facility] Encounter Details Date Type Department Care Team Description 11/10/2015 Office Visit Orthopaedics at [facility] Chester Kathleen MD Acute low back pain without sciatica, un specified back pain laterality; [facility] idiopathic scoliosis, unspecified spinal region [facility] [place] [address] ORTHOPAEDIC [phone] SURGERY [address] [place] [address] Social History Tobacco [...] 11/10/2015 9:42 AM ED T Growth Chart: CDC (Girls, 2-20 Years) documented in this encounter Progress Notes Shagufta Ely, LEYLA - 11/10/2015 9:44 AM EDT HPI: Ny [...] aunt with scoliosis Social History: Lives in [place], [place] with 8 siblings/step siblings Grade: Finished [...] 02/08/2022 Hospital Encounter Gastroenterology Awilda Israel MD [facility] Dr [place] [address] 02/08/2022 Surgery Gastroenterology Awilda Israel, EGD, UP PER GI MD ENDOSCOPY [facility] Dr [place] [address] Scheduled Procedures Name Priority Associated Diagnoses [...] quadrant documented in this encounter Care Teams Employment Consultant Relationship Specialty Start Date End Date Amara Celis MD PCP - General Pediatrics 08/30/15 11/27/[place] [address] documented as of this encounter
--- OUTSIDE RECORDS SUMMARY | 2021-12-09 22:14 | XMS_ITS | Encounter Summary ---
:2001 Author Organization [facility] [place] [address] Care Team Providers Name Role Phone Amara Celis MD Primary Care Provider Reason for Referral Consultation (Routine) - Closed Specialty Diagnoses / Procedures Referred By Contact Refer red To Contact Gastroenterology Diagnoses Lower abdominal pain Jenise Arredondo PA [facility] Endoscopy 4t [facility] D R [facility] [place] [address] [place] [address] Referral ID Status Reason Start Date Expiration Date Visits V isits Requested Authorized [id number] Closed Consult, 04/05/2020 04/05/2021 1 1 Test & Treat Encounter Details Date Type Department Care Team Description 04/05/2020 TH Visit Gastroenterology at [place] Jenise Arredondo Lower abdominal (TeleHealth) [facility] [place] [address] [facility] [phone] [place] [address] Social History Tobacco Use Types Packs/Day Years [...] was recommended but not completed. ?? No ARMHOLE PRESSER symptoms, no unusual vaginal bleeding. She is [...] origin. We did discuss the possibility of ARMHOLE PRESSER related abdominal pain. She tells me she did follow-up with ARMHOLE PRESSER. No source of pain identified, though she [...] as a urinary cause given abnormality versus ARMHOLE PRESSER causes. Neuromodulators may be aconsideration, however this [...] discussion with patient on above. DIVYA Gomez [facility] [place] [phone] documented in this encounter Plan of Treatment Upcoming Encounters Date Type Specialty Care Team Description 02/08/2022 Hospital Encounter Gastroenterology Awilda Israel MD [facility] MADDY Bassett 0375 02/08/2022 Surgery Gastroenterology Awilda Israel, EGD, UP PER GI MD ENDOSCOPY [facility] MADDY Bassett 0375 Scheduled Procedures Name [...] quadrant documented in this encounter Care Teams Briar Wood Sorter Relationship Specialty Start Date End Date Amara Celis MD PCP - General Pediatrics 08/30/15 11/27/21 [place] [address] documented as of this encounter
--- OUTSIDE RECORDS SUMMARY | 2021-12-09 22:15 | XMS_ITS | Encounter Summary ---
:2001 Author Organization [facility] Address [address] [place] [address] Care Team Providers Name Role Phone Wayne Menjivar MD Primary Care Provider Encounter Details Date Type Department Care Team Description 11/26/2021 Lab Requisition [facility] Outr Resulting Lab, Pathology & Laboratory Provider [facility] [address] [place] [address] Social History Tobacco Use Types Packs/Day Years Used Date Never Assessed Sex Assigned at Date Recorded Not on file documented as of this encounter Plan of Treatment Not on filedocumented as of this encounter Procedures Procedure Name Priority Date/Time Associated Diagnosis Comme nts COVID-19 TEST [facility] Today 11/26/2021 11:02 LAB PCR EDT COVID-19 TESTING Routine 11/26/2021 11:02 Results for this EDT procedure are i n the results section. documented in this encounter Results COVID-19 TEST [facility] LAB PCR (11/26/2021 11:02 EDT) Specimen Swab Performing Organization Address City/State/ZIP Code Phon e Number [facility] [address] [place] [address] SERVICES COVID-19 TESTING (11/26/2021 11:02 EDT) COVID-19 rt-PCR Negative Negative [facility] Result Comment: CENTER LABORATORY This [...] tions, patient history, and epidemiological informatio n. Testing was performed using the joselin SARS-CoV-2 assay ([employer] on the Joselin 6800 System Performing Lab Joselin 6800 [facility] Lab [facility] SERVICES Specimen Swab Performing Organization Address City/State/ZIP Code Phon e Number [facility] [address] [place] [address] SERVICES documented in this encounter Visit Diagnoses Not on filedocumented in this encounter Care Teams Account Technician Relationship Specialty Start Date End Date Wayne Menjivar MD PCP - General 08/20/11 44 [facility] [address] [place] [address] documented as of this encounter
--- OUTSIDE RECORDS SUMMARY | 2021-12-09 22:15 | XMS_ITS | Encounter Summary ---
:2001 Author Organization [facility] Address [address] [place] [address] Care Team Providers Name Role Phone Lon Barboza MD Primary Care Provider Unavailable Reason for Visit Reason Onset Date Comments Pharmacy 05/29/2010 Encounter Details Date Type Department Care Team Description 05/29/2010 Telephone [facility] Chester Miles MD Pharmacy Child Psychiatry - [address] [place] [id number] [place] [address] [phone] Social History Tobacco Use Types Packs/Day Years [...] documented as of this encounter Care Teams Senior Accountant Relationship Specialty Start Date End Date Lon Barboza MD PCP - General 10/24/08 08/19/11 documented as of this encounter
--- OUTSIDE RECORDS SUMMARY | 2021-12-09 22:15 | XMS_ITS | Encounter Summary ---
:2001 Author Organization [facility] Address [address] [place] [address] Care Team Providers Name Role Phone Wayne Menjivar MD Primary Care Provider Encounter Details Date Type Department Care Team Description 10/01/[address] [facility] Outr Resulting Lab, Pathology & Laboratory Provider [facility] [address] [place], [place] [address] Social History Tobacco Use Types Packs/Day Years [...] (10/01/2019 12:11 EDT) COVID-19 rt-PCR NEGATIVE Negative [facility] Result Comment: LABORATORY 2019-novel [...] Organization Address City/State/ZIP Code Phon e Number [facility] [place] [place] COVID-19 TESTING (10/01/2019 12:11 EDT) COVID-19 [...] Administration's Emergency Use Authorization. Performing Lab [facility] LABORATORY SERVICES Specimen Swab - Entire nasopharynx (body structur e) Performing Organization Address City/State/ZIP Code Phon e Number [facility] [address] [place] [address] SERVICES [facility] [place], [place] documented in this encounter Visit Diagnoses Not on filedocumented in this encounter Additional Health Concerns Infection Onset Date Last Indicated Resolved Time COVID-19 04/02/2021 04/02/2021 04/22/2021 22:15 EST documented as of this encounter Care Teams Car Salter Relationship Specialty Start Date End Date Wayne Menjivar MD PCP - General 08/20/11 44 [facility] [address] [place] [address] documented as of this encounter
--- OUTSIDE RECORDS SUMMARY | 2021-12-09 22:15 | XMS_ITS | Encounter Summary ---
:2001 Author Organization [facility] Address [address] [place] [address] Care Team Providers Name Role Phone Lon Barboza MD Primary Care Provider Unavailable Reason for Visit Reason Comments Trouble Concentrating Encounter Details Date Type Department Care Team Description 05/08/2011 Office Visit [facility] Miles ADHD ([facility] Zara Avalos MD hyperactivity Psychiatry - [address] [place] disorder), co [facility] type (Primary Dx) [address] [place] [address] [address] [place], [place] [address] [place] [address] Social History Tobacco Use Types Packs/Day Years Used Date Never Assessed Sex Assigned at Date Recorded Not on file documented as of this encounter Last Filed Vital Signs Vital Sign Reading Time Taken Comments Blood Pressure 98/58 05/08/2011 1139 EST Pulse 92 05/08/2011 1139 EST Temperature - - Respiratory Rate - - Oxygen Saturation - - Inhaled Oxygen Concentration - - Weight 28.1 kg (62 lb) 05/08/2011 1139 EST Height 135.9 cm (4' 5.5) 05/08/2011 1139 EST Body Mass Index 15.23 05/08/2011 1139 EST documented in this encounter Patient Instructions Patient InstructionsChester Miles - 05/08/2011 12:05 EST Next appointment: at 10:00 AM documented in this encounter Ordered Prescriptions Prescription Sig Dispensed Refills Start Date End Date methylphenidate (CONCERTA) Take 1 Tab by 30 Tab 0 201106/14/2011 36 mg CR tabletIndications: mouth daily with ADHD (attention deficit breakfast. hyperactivity disorder), combined type methylphenidate (CONCERTA) Take 1 Tab by 30 Tab 0 201005/08/2011 36 mg CR tabletIndications: mouth daily with ADHD (attention deficit breakfast. hyperactivity disorder), combined type documented in this encounter Miscellaneous Notes Scanned Note-Null - Plastic Molding Operator, Scan - 05/21/2011 1076 EST documented in this encounter Plan of Treatment Not on filedocumented as of this encounter Visit Diagnoses Diagnosis ADHD (attention deficit hyperactivity di sorder), combined type - Primary Attention deficit disorder with hyperact ivity documented in this encounter Discontinued Medications Medication Sig Discontinue Reason Start Date End Date methylphenidate (CONCERTA) Take 1 Tab by Reorder 04/08/2011 05/08/2011 36 mg CR tabletIndications: mouth daily with ADHD (attention deficit breakfast. hyperactivity disorder), combined type methylphenidate (CONCERTA) Take 1 Tab by Reorder 05/08/2011 05/08/2011 36 mg CR tabletIndications: mouth daily with ADHD (attention deficit breakfast. hyperactivity disorder), combined type documented as of this encounter Care Teams Service Observer Relationship Specialty Start Date End Date Lon Barboza MD PCP - General 10/24/08 08/19/11 documented as of this encounter
--- OUTSIDE RECORDS SUMMARY | 2021-12-09 22:15 | XMS_ITS | Encounter Summary ---
:2001 Author Organization [facility] Address [address] [place] [address] Care Team Providers Name Role Phone Lon Barboza MD Primary Care Provider Unavailable Reason for Visit Reason Onset Date Comments Medications Refill 10/18/2010 Encounter Details Date Type Department Care Team Description 10/18/[facility], Medications Refill Child Psychiatry - [address] [place], [place] [address] [place] [id number] (Wo rk) Social History Tobacco Use Types [...] documented as of this encounter Care Teams Nuclear Operator Relationship Specialty Start Date End Date Lon Barboza MD PCP - General 10/24/08 08/19/11 documented as of this encounter
--- OUTSIDE RECORDS SUMMARY | 2021-12-09 22:15 | XMS_ITS | Encounter Summary ---
:2001 Author Organization [facility] Address [address] [place] [address] Care Team Providers Name Role Phone Lon Barboza MD Primary Care Provider Unavailable Reason for Visit Reason Comments Impulsivity Encounter Details Date Type Department Care Team Description 02/26/2010 Office Visit [facility] ADHD ([facility] Zara Avalos MD hyperactivity Psychiatry - [address] [place] disorder), co [facility] type (Primary Dx) [address] [place] [address] [address] [place], [place] [address] [place] [address] Social History Tobacco Use Types Packs/Day Years Used Date Never Assessed Sex Assigned at Date Recorded Not on file documented as of this encounter Last Filed Vital Signs Vital Sign Reading Time Taken Comments Blood Pressure 110/65 02/26/2010 0200 EDT Pulse 112 02/26/2010 0200 EDT Temperature - - Respiratory Rate - - Oxygen Saturation - - Inhaled Oxygen Concentration - - Weight 24.5 kg (54 lb) 02/26/2010 0200 EDT Height 127 cm (4' 2) 02/26/2010 0200 EDT Body Mass Index 15.19 02/26/2010 0200 EDT documented in this encounter Ordered Prescriptions Prescription Sig Dispensed Refills Start Date End Date methylphenidate (CONCERTA) Take 1 Tab by 30 Tab 0 200905/28/2010 27 mg CR tabletIndications: mouth daily with ADHD (attention deficit breakfast. Please hyperactivity disorder), fill on or after combined type 04/22/10. methylphenidate (CONCERTA) Take 1 Tab by 30 Tab 0 200905/28/2010 27 mg CR tabletIndications: mouth daily with ADHD (attention deficit breakfast. Please hyperactivity disorder), fill on or after combined type 03/23/10 documented in this encounter Plan of Treatment Not on filedocumented as of this encounter Visit Diagnoses Diagnosis ADHD (attention deficit hyperactivity di sorder), combined type - Primary Attention deficit disorder with hyperact ivity documented in this encounter Discontinued Medications Medication Sig Discontinue Reason Start Date End Date methylphenidate (CONCERTA) Take 1 Tab by 02/22/2010 02/26/2010 27 mg CR tabletIndications: mouth daily with Attention deficit disorder breakfast. with hyperactivity(314.01) documented as of this encounter Care Teams Skilled Trades Teacher Relationship Specialty Start Date End Date Lon Barboza MD PCP - General 10/24/08 08/19/11 documented as of this encounter
--- OUTSIDE RECORDS SUMMARY | 2021-12-09 22:15 | XMS_ITS | Clinical Summary ---
:2001 Author Organization [facility] Address [address] [place] [address] Care Team Providers Name Role Phone Wayne Menjivar MD Primary Care Provider Allergies No known active allergies Medications Medication Sig Dispensed Refills Start Date End Date Status methylphenidate Take 1 Tab by 30 Tab 0 11/14/2011 Active (CONCERTA) 36 mg CR mouth daily tabletIndications: ADHD with breakfast. (attention deficit hyperactivity disorder), combined type Active Problems Problem Noted Date Attention deficit hyperactivity disorder, combined typ e 11/17/2006 Parent/child conflict 11/17/2006 Encounters Date Type Specialty Care Team Description 11/26/2021 Lab Requisition Clinical Laboratory Outr Resulting Lab , Provider 11/22/2021 Lab Requisition Clinical Laboratory Outr Resulting Lab , Provider 09/19/2021 Hospital Encounter from Last 3 Months Social History Tobacco Use Types Packs/Day Years [...] Body Mass Index 15.11 08/19/2011 1346 EDT Plan of Treatment Health Maintenance Due Date Last Done Comments Hepatitis C Screen 2001 COVID-19 Vaccine (#1) 2001 Procedures Procedure Name Priority Date/Time Associated Comments Diagnosis COVID-19 TEST [facility] Today 11/26/2021 11:02 LAB PCR EDT COVID-19 TESTING Routine 11/26/2021 11:02 Results for this EDT procedure are i n the results section. CHLAMYDIA/N. Routine 11/22/2021 9:20 Results for this GONORRHOEAE AMPLIFIED EDT proced ure are in RNA the results section. MR OUTSIDE IMAGES Routine 09/20/2021 13:56 Result s for this NEURO EDT procedure are i n the results section. from Last 3 Months Results COVID-19 TEST [facility] LAB PCR (11/26/2021 11:02 EDT) Specimen Swab Performing Organization Address City/[facility] [address]/ZIP Code Phon e Number [facility] [address] [place] [address] SERVICES COVID-19 TESTING (11/26/2021 11:02 EDT) COVID-19 rt-PCR Negative Negative [facility] Result Comment: CENTER LABORATORY This [...] was performed using the joselin SARS-CoV-2 assay ([employer] on the Joselin 6800 System Performing Lab Joselin 6800 [facility] Lab [facility] SERVICES Specimen Swab Performing Organization Address City/[facility] [address]/ZIP Code Phon e Number [facility] [address] [place] [address] SERVICES CHLAMYDIA/N. GONORRHOEAE AMPLIFIED RNA (11/22/2021 9:20 EDT) Pathologist Sig nature Gonococcus Result Negative Negative [facility] SERVICES Chlamydia Result Negative Negative [facility] SERVICES Specimen Urine - Urine, Initial Void Narrative [facility] SERVICES - 11/23/2021 15:39 EDT A first catch urine specimen is acceptab le for detection of Gonorrhea and Chlamydia, but might detect up to 10% fewer infecti ons when compared with vaginal and endocervical swab samples. Performing Organization Address City/State/ZIP Code Phon e Number [facility] [address] [place] [address] SERVICES MR OUTSIDE IMAGES NEURO (09/20/2021 13:56 EDT) Specimen Narrative 09/20/2021 13:56 EDT This is a non-reportable exam. from Last 3 Months Care Teams Ear Nose Throat Physician Relationship Specialty Start Date End Date Wayne Menjivar MD PCP - General 08/20/[address] [place] [address] [address] [place], [place] [id number]
--- OUTSIDE RECORDS SUMMARY | 2021-12-09 22:15 | XMS_ITS | Encounter Summary ---
:2001 Author Organization [facility] Address [address] [place] [address] Care Team Providers Name Role Phone Lon Barboza MD Primary Care Provider Unavailable Reason for Visit Reason Comments Anger Reaction Trouble Concentrating Encounter Details Date Type Department Care Team Description 10/22/2010 Office Visit [facility] ADHD ([facility] Zara Avalos MD hyperactivity Psychiatry - [address] [place] disorder), co [facility] type (Primary Dx) [address] [place] [address] [address] [place], [place] [id number] [place] [address] Social History Tobacco Use Types Packs/Day Years [...] documented as of this encounter Care Teams Hadoop Admin Relationship Specialty Start Date End Date Lon Barboza MD PCP - General 10/24/08 08/19/11 documented as of this encounter
--- OUTSIDE RECORDS SUMMARY | 2021-12-09 22:15 | XMS_ITS | Encounter Summary ---
:2001 Author Organization [facility] Address [address] [place] [address] Care Team Providers Name Role Phone Wayne Menjivar MD Primary Care Provider Encounter Details Date Type Department Care Team Description 07/06/2020 Lab Requisition [facility] Outr Resulting Lab, Pathology & Laboratory Provider [facility] [address] [place], [place] [address] Social History Tobacco Use Types Packs/Day Years Used Date Never Assessed Sex Assigned at Date Recorded Not on file documented as of this encounter Plan of Treatment Not on filedocumented as of this encounter Procedures Procedure Name Priority Date/Time Associated Diagnosis Comme nts COVID-19 TEST [facility] Today 07/06/2020 9:26 EST LAB PCR COVID-19 TESTING Routine 07/06/2020 9:26 EST Resu lts for this procedure are i n the results section. documented in this encounter Results COVID-19 TEST [facility] LAB PCR (07/06/2020 9:26 EST) Specimen Swab - Entire nasopharynx (body structur e) Performing Organization Address City/State/ZIP Code Phon e Number [facility] [address] [place] [address] SERVICES COVID-19 TESTING (07/06/2020 9:26 EST) COVID-19 rt-PCR Negative Negative [facility] Result Comment: CENTER LABORATORY This [...] developed and its performance characteristics determined by [facility]. It has not been cleared or [...] defined by the FDA Performed on the SmartRxo 7 Flex RT-PCR System. Performing Lab [facility] Lab [facility] SERVICES Specimen Swab Performing Organization Address City/State/ZIP Code Phon e Number [facility] [address] [place] [address] SERVICES documented in this encounter Visit Diagnoses Not on filedocumented in this encounter Additional Health Concerns Infection Onset Date Last Indicated Resolved Time COVID-19 04/02/2021 04/02/2021 04/22/2021 22:15 EST documented as of this encounter Care Teams Cvir Tech Relationship Specialty Start Date End Date Wayne Menjivar MD PCP - General 08/20/11 44 [facility] [address] [place] [address] documented as of this encounter
--- OUTSIDE RECORDS SUMMARY | 2021-12-09 22:15 | XMS_ITS | Encounter Summary ---
:2001 Author Organization [facility] Address [address] [place] [address] Care Team Providers Name Role Phone Wayne Menjivar MD Primary Care Provider Encounter Details Date Type Department Care Team Description 11/22/2021 Lab Requisition [facility] Outr Resulting Lab, Pathology & Laboratory Provider [facility] [address] [place] [address] Social History Tobacco Use Types Packs/Day Years [...] Pathologist Sig nature Gonococcus Result Negative Negative [facility] SERVICES Chlamydia Result Negative Negative [facility] SERVICES Specimen Urine - Urine, Initial Void Narrative [facility] SERVICES - 11/23/2021 15:39 EDT A first catch urine specimen is acceptab le for detection of Gonorrhea and Chlamydia, but might detect up to 10% fewer infecti ons when compared with vaginal and endocervical swab samples. Performing Organization Address City/State/ZIP Code Phon e Number [facility] [address] [place] [address] SERVICES documented in this encounter Visit Diagnoses Not on filedocumented in this encounter Care Teams Greenhouse Laborer Relationship Specialty Start Date End Date Wayne Menjivar MD PCP - General 08/20/11 44 [facility] [address] [place] [address] documented as of this encounter
--- OUTSIDE RECORDS SUMMARY | 2021-12-09 22:15 | XMS_ITS | Encounter Summary ---
:2001 Author Organization [facility] Address [address] [place] [address] Care Team Providers Name Role Phone Lon Barboza MD Primary Care Provider Unavailable Wayne Menjivar MD Primary Care Provider Encounter Details Date Type Department Care Team Description 07/20/2007 Hospital Encounter [facility] - Natanael Glaser MD [address] [address] [address] [place], [place] [address] (Wo rk) Social History [...] documented as of this encounter Care Teams Second Ride Fare Collector Relationship Specialty Start Date End Date Lon Barboza MD PCP - General 10/24/08 08/19/11 Wayne Menjivar MD PCP - General 08/20/11 44 [facility] [address] [place], [place] [address] documented as of this encounter
--- OUTSIDE RECORDS SUMMARY | 2021-12-09 22:15 | XMS_ITS | Encounter Summary ---
:2001 Author Organization [facility] Address [address] [place] [address] Care Team Providers Name Role Phone Lon Barboza MD Primary Care Provider Unavailable Wayne Menjivar MD Primary Care Provider Encounter Details Date Type Department Care Team Description 03/09/2008 Hospital Encounter [facility] - Natanael Glaser MD [address] [address] [address] [place], [place] [address] (Wo rk) Social History [...] documented as of this encounter Care Teams Medication Coordinator Relationship Specialty Start Date End Date Lon Barboza MD PCP - General 10/24/08 08/19/11 Wayne Menjivar MD PCP - General 08/20/11 44 [facility] [address] [place], [place] [address] documented as of this encounter
--- OUTSIDE RECORDS SUMMARY | 2021-12-09 22:15 | XMS_ITS | Encounter Summary ---
:2001 Author Organization [facility] Address [address] [place] [address] Care Team Providers Name Role Phone Wayne Menjivar MD Primary Care Provider Encounter Details Date Type Department Care Team Description 11/01/2019 Lab Requisition [facility] Outr Resulting Lab, Pathology & Laboratory Provider [facility] [address] [place], [place] [address] Social History Tobacco Use Types Packs/Day Years Used Date Never Assessed Sex Assigned at Date Recorded Not on file documented as of this encounter Plan of Treatment Not on filedocumented as of this encounter Procedures Procedure Name Priority Date/Time Associated Comments Diagnosis CHLAMYDIA/N. Routine 11/01/2019 9:40 Results for this GONORRHOEAE AMPLIFIED EDT proced ure are in RNA the results section. documented in this encounter Results CHLAMYDIA/N. GONORRHOEAE AMPLIFIED RNA (11/01/2019 9:40 EDT) Pathologist Sig nature Gonococcus Result Negative Negative [facility] Chlamydia Result Negative Negative [facility] Specimen Urine - Urine, Initial Void Narrative [facility] - 11/03/2019 8:51 EDT A first catch urine specimen is acceptab le for detection of Gonorrhea and Chlamydia, but might detect up to 10% fewer infecti ons when compared with vaginal and endocervical swab samples. Performing Organization Address City/State/ZIP Code Phon e Number [facility] [address] [place] [address] SERVICES documented in this encounter Visit Diagnoses Not on filedocumented in this encounter Additional Health Concerns Infection Onset Date Last Indicated Resolved Time COVID-19 04/02/2021 04/02/2021 04/22/2021 22:15 EST documented as of this encounter Care Teams Sawmill Worker Relationship Specialty Start Date End Date Wayne Menjivar MD PCP - General 08/20/[address] [place] [address] documented as of this encounter
--- OUTSIDE RECORDS SUMMARY | 2021-12-09 22:15 | XMS_ITS | Encounter Summary ---
:2001 Author Organization [facility] Address [address] [place] [address] Care Team Providers Name Role Phone Lon Barboza MD Primary Care Provider Unavailable Encounter Details Date Type Department Care Team Description 01/01/2010 Abstract [facility] PlasticTamra David, MD Reconstructive & Cosmetic Surgery - [address], [address] [place] [address] Social History Tobacco Use Types [...] pm added in this encounter Care Teams Chain Offbearer Relationship Specialty Start Date End Date Lon Barboza MD PCP - General 10/24/08 08/19/11 documented as of this encounter
--- OUTSIDE RECORDS SUMMARY | 2021-12-09 22:15 | XMS_ITS | Encounter Summary ---
:2001 Author Organization [facility] Address [address] [place] [address] Care Team Providers Name Role Phone Wayne Menjivar MD Primary Care Provider Reason for Visit Reason Onset Date Comments Medications Refill 10/11/2011 See Note Encounter Details Date Type Department Care Team Description 10/11/2011 Telephone [facility] Medications Refill [facility] Zara Avalos MD (See Note) Psychiatry - S [address] [facility] [address] [place] [address] [place] [address] [phone] Social History Tobacco Use Types Packs/Day Years [...] documented as of this encounter Care Teams Progressive Care Unit Registered Nurse Relationship Specialty Start Date End Date Wayne Menjivar MD PCP - General 08/20/[address] [place] [address] documented as of this encounter
--- OUTSIDE RECORDS SUMMARY | 2021-12-09 22:15 | XMS_ITS | Encounter Summary ---
:2001 Author Organization [facility] Address [address] [place] [address] Care Team Providers Name Role Phone Lon Barboza MD Primary Care Provider Unavailable Reason for Visit Reason Onset Date Comments Medications Refill 07/25/2011 MAIL TO: [address] [place] [address] [place] [address] Encounter Details Date Type Department Care Team Description 07/25/2011 Telephone [facility] Medications Refill [facility] Zara Avalos MD (MAIL TO: [address] [place] [address] Psychiatry - S [address] [facility] [address] [place] [address] [place] [address]) [address] [place], [place] [address] [place] [address] [phone] Social History Tobacco Use Types Packs/Day Years [...] documented as of this encounter Care Teams Propellant Charge Zone Assembler Relationship Specialty Start Date End Date Lon Barboza MD PCP - General 10/24/08 08/19/11 documented as of this encounter
--- OUTSIDE RECORDS SUMMARY | 2021-12-09 22:15 | XMS_ITS | Encounter Summary ---
:2001 Author Organization [facility] Address [address] [place] [address] Care Team Providers Name Role Phone Lon Barboza MD Primary Care Provider Unavailable Reason for Visit Reason Comments ADD Encounter Details Date Type Department Care Team Description 08/19/2011 Office Visit [facility] ADHD ([facility] Zara Avalos MD hyperactivity Psychiatry - [address] [place] disorder), co [facility] type (Primary Dx) [address] [place] [address] [address] [place], [place] [address] [place] [phone] Social History Tobacco Use Types Packs/Day Years [...] documented as of this encounter Care Teams Hand Cutter Apprentice Relationship Specialty Start Date End Date Lon Barboza MD PCP - General 10/24/08 08/19/11 documented as of this encounter
--- OUTSIDE RECORDS SUMMARY | 2021-12-09 22:15 | XMS_ITS | Encounter Summary ---
:2001 Author Organization [facility] Address [address] [place] [address] Care Team Providers Name Role Phone Unavailable Primary Care Provider Unavailable Encounter Details Date Type Department Care Team Description 07/27/2008 Hospital Encounter [facility] - Natanael Glaser MD [address] [address] [address] [place], [place] [address] (Wo rk) Social History [...]
--- OUTSIDE RECORDS SUMMARY | 2021-12-09 22:15 | XMS_ITS | Encounter Summary ---
:2001 Author Organization Health system Address [address] [place] [address] Care Team Providers Name Role Phone Lon Barboza MD Primary Care Provider Unavailable Wayne Menjivar MD Primary Care Provider Encounter Details Date Type Department Care Team Description 06/15/2007 Hospital Encounter [facility] - Natanael Glaser MD [address] [address] [address] [place], [place] [address] (Wo rk) Social History [...] documented as of this encounter Care Teams Daycare Teacher Relationship Specialty Start Date End Date Lon Barboza MD PCP - General 10/24/08 08/19/11 Wayne Menjivar MD PCP - General 08/20/11 44 [facility] 200 [place], [place] [address] documented as of this encounter
--- OUTSIDE RECORDS SUMMARY | 2021-12-09 22:15 | XMS_ITS | Encounter Summary ---
:2001 Author Organization [facility] Address [address] [place] [address] Care Team Providers Name Role Phone Lon Barboza MD Primary Care Provider Unavailable Wayne Menjivar MD Primary Care Provider Encounter Details Date Type Department Care Team Description 03/09/2007 Hospital Encounter [facility] - Natanael Glaser MD [address] [address] [address] [place], [place] [address] (Wo rk) Social History [...] documented as of this encounter Care Teams Textile Machine Maintenance Mechanic Relationship Specialty Start Date End Date Lon Barboza MD PCP - General 10/24/08 08/19/11 Wayne Menjivar MD PCP - General 08/20/11 44 [facility] 200 [place], [place] [address] documented as of this encounter
--- OUTSIDE RECORDS SUMMARY | 2021-12-09 22:15 | XMS_ITS | Encounter Summary ---
:2001 Author Organization [facility] Address [address] [place] [address] Care Team Providers Name Role Phone Lon Barboza MD Primary Care Provider Unavailable Wayne Menjivar MD Primary Care Provider Encounter Details Date Type Department Care Team Description 02/03/2007 Hospital Encounter [facility] - Natanael Glaser MD [address] [address] [address] [place], [place] [address] (Wo rk) Social History [...] documented as of this encounter Care Teams Welder Boilermaker Relationship Specialty Start Date End Date Lon Barboza MD PCP - General 10/24/08 08/19/11 Wayne Menjivar MD PCP - General 08/20/11 44 [facility] 200 [place], [place] [address] documented as of this encounter
--- OUTSIDE RECORDS SUMMARY | 2021-12-09 22:15 | XMS_ITS | Encounter Summary ---
:2001 Author Organization [facility] Address [address] [place] [address] Care Team Providers Name Role Phone Wayne Menjivar MD Primary Care Provider Reason for Visit (Routine/Next Available) - Receiving Office to Obtain Authorization Specialty Diagnoses / Procedures Referred By Contact Refer red To Contact Procedures Unknown, Provider, MR OUTSIDE IMAGES NEURO Phone: Referral ID Status Reason Start Expiration Visits Visits Date Date Requested Authorized [id number] Receiving Office 09/20/2021 1 1 to Obtain Authorization Encounter Details Date Type Department Care Team Description 09/19/2021 Hospital Encounter [facility] [place] Social History Tobacco [...] on filedocumented in this encounter Care Teams Core Blower Operator Relationship Specialty Start Date End Date Wayne Menjivar MD PCP - General 08/20/[address] [address] documented as of this encounter
--- OUTSIDE RECORDS SUMMARY | 2021-12-09 22:15 | XMS_ITS | Encounter Summary ---
:2001 Author Organization [facility] Address [address] [place] [address] Care Team Providers Name Role Phone Wayne Menjivar MD Primary Care Provider Encounter Details Date Type Department Care Team Description 10/23/2020 Lab Requisition [facility] Outr Resulting Lab, Pathology & Laboratory Provider [facility] [address] [place] [address] Social History Tobacco Use Types Packs/Day Years [...] Pathologist Sig nature Gonococcus Result Negative Negative [facility] Chlamydia Result Negative Negative [facility] Specimen Urine - Urine, Initial Void Narrative [facility] - 10/24/2020 13:56 EDT A first catch urine specimen is acceptab le for detection of Gonorrhea and Chlamydia, but might detect up to 10% fewer infecti ons when compared with vaginal and endocervical swab samples. Performing Organization Address City/State/ZIP Code Phon e Number [facility] [address] [place] [address] SERVICES documented in this encounter Visit Diagnoses Not on filedocumented in this encounter Additional Health Concerns Infection Onset Date Last Indicated Resolved Time COVID-19 04/02/2021 04/02/2021 04/22/2021 22:15 EST documented as of this encounter Care Teams Cook Fast Food Relationship Specialty Start Date End Date Wayne Menjivar MD PCP - General 08/20/[address] [place] [id number] documented as of this encounter
--- OUTSIDE RECORDS SUMMARY | 2021-12-09 22:15 | XMS_ITS | Encounter Summary ---
:2001 Author Organization [facility] Address [address] [place] [address] Care Team Providers Name Role Phone Lon Barboza MD Primary Care Provider Unavailable Wayne Menjivar MD Primary Care Provider Encounter Details Date Type Department Care Team Description 09/21/2007 Hospital Encounter [facility] - Natanael Glaser MD [address] [address] [address] [place], [place] [address] (Wo rk) Social History [...] documented as of this encounter Care Teams Waxer Operator Relationship Specialty Start Date End Date Lon Barboza MD PCP - General 10/24/08 08/19/11 Wayne Menjivar MD PCP - General 08/20/11 44 [facility] 200 [place], [place] [address] documented as of this encounter
--- OUTSIDE RECORDS SUMMARY | 2021-12-09 22:15 | XMS_ITS | Encounter Summary ---
:[address] [facility] Address [address] [place] [address] Care Team Providers Name Role Phone Lon Barboza MD Primary Care Provider Unavailable Reason for Visit Reason Comments Trouble Concentrating Behavioral Problems Encounter Details Date Type Department Care Team Description 01/03/2011 Office Visit [facility] ADHD (attent ion deficit hyperactivity disorder), combined type; [facility] Zara Avalos MD Parent-child relational problem Psychiatry - S [address] [place], [place] [address] [place] [address] Social History Tobacco Use Types Packs/Day Years [...] documented as of this encounter Care Teams Leather Stretcher Relationship Specialty Start Date End Date Lon Barboza MD PCP - General 10/24/08 08/19/11 documented as of this encounter
--- OUTSIDE RECORDS SUMMARY | 2021-12-09 22:15 | XMS_ITS | Encounter Summary ---
:2001 Author Organization [facility] Address [address] [place] [address] Care Team Providers Name Role Phone Lon Barboza MD Primary Care Provider Unavailable Reason for Visit Reason Onset Date Comments Medications Refill 08/28/2010 Encounter Details Date Type Department Care Team Description 08/28/2010 Telephone [facility], Medications Refill Child Psychiatry - S [address] [place], [place] [address] [place] [address] [phone] (Wo rk) Social History Tobacco Use Types [...] documented as of this encounter Care Teams Fuel Quality Tech Relationship Specialty Start Date End Date Lon Barboza MD PCP - General 10/24/08 08/19/11 documented as of this encounter
--- OUTSIDE RECORDS SUMMARY | 2021-12-09 22:15 | XMS_ITS | Encounter Summary ---
:2001 Author Organization [facility] Address [address] [place] [address] Care Team Providers Name Role Phone Wayne Menjivar MD Primary Care Provider Encounter Details Date Type Department Care Team Description 04/24/2020 Lab Requisition [facility] Outr Resulting Lab, Pathology & Laboratory Provider [facility] [address] [place], [place] [address] Social History Tobacco Use Types Packs/Day Years [...] (04/23/2020 12:34 EST) COVID-19 rt-PCR NEGATIVE Negative [facility] Result Comment: LABORATORY 2019-novel Coronavirus [...] Address City/State/ZIP Code Phon e Number [facility] [place] [place] COVID-19 TESTING (04/23/2020 12:34 EST) COVID-19 [...] Administration's Emergency Use Authorization. Performing Lab [facility] LABORATORY SERVICES Specimen Swab Performing Organization Address City/State/ZIP Code Phon e Number [facility] [address] [place] [address] SERVICES [facility] [place], [place] documented in this encounter Visit Diagnoses Not on filedocumented in this encounter Additional Health Concerns Infection Onset Date Last Indicated Resolved Time COVID-19 04/02/2021 04/02/2021 04/22/2021 22:15 EST documented as of this encounter Care Teams Stick Feeder Relationship Specialty Start Date End Date Wayne Menjivar MD PCP - General 08/20/[address] [place] [id number] documented as of this encounter
--- OUTSIDE RECORDS SUMMARY | 2021-12-09 22:15 | XMS_ITS | Encounter Summary ---
:2001 Author Organization [facility] Address [address] [place] [address] Care Team Providers Name Role Phone Lon Barboza MD Primary Care Provider Unavailable Reason for Visit Reason Onset Date Comments Medication Problem 02/07/2011 Encounter Details Date Type Department Care Team Description 02/07/2011 Telephone [facility] Miles, Medication Problem Child Psychiatry - S [address] [place], [place] [address] [place] [address] [phone] (Wo rk) Social History Tobacco Use Types [...] documented as of this encounter Care Teams Neurosurgeon Relationship Specialty Start Date End Date Lon Barboza MD PCP - General 10/24/08 08/19/11 documented as of this encounter
--- OUTSIDE RECORDS SUMMARY | 2021-12-09 22:15 | XMS_ITS | Encounter Summary ---
:2001 Author Organization [facility] Address [address] [place] [address] Care Team Providers Name Role Phone Lon Barboza MD Primary Care Provider Unavailable Reason for Visit Reason Comments Trouble Concentrating Encounter Details Date Type Department Care Team Description 05/28/2010 Office Visit [facility] ADHD ([facility] Zara Avalos MD hyperactivity Psychiatry - [address] [place] disorder), co [facility] type (Primary Dx) 1 [facility] [address] [place], [place] [address] [place] [address] Social History Tobacco Use Types Packs/Day Years [...] documented as of this encounter Care Teams Detective Bureau Chief Relationship Specialty Start Date End Date Lon Barboza MD PCP - General 10/24/08 08/19/11 documented as of this encounter
--- OUTSIDE RECORDS SUMMARY | 2021-12-09 22:15 | XMS_ITS | Encounter Summary ---
:2001 Author Organization [facility] Address [address] [place] [address] Care Team Providers Name Role Phone Lon Barboza MD Primary Care Provider Unavailable Wayne Menjivar MD Primary Care Provider Encounter Details Date Type Department Care Team Description 11/23/2007 Hospital Encounter [facility] - Natanael Glaser MD [address] [address] [address] [place], [place] [address] (Wo rk) Social History [...] documented as of this encounter Care Teams Bag Machine Operator Relationship Specialty Start Date End Date Lon Barboza MD PCP - General 10/24/08 08/19/11 Wayne Menjivar MD PCP - General 08/20/11 44 [facility] 200 [place], [place] [address] documented as of this encounter
--- OUTSIDE RECORDS SUMMARY | 2021-12-09 22:15 | XMS_ITS | Encounter Summary ---
:2001 Author Organization [facility] Address [address] [place] [address] Care Team Providers Name Role Phone Wayne Menjivar MD Primary Care Provider Reason for Visit Reason Onset Date Comments Medications Refill 11/14/2011 Encounter Details Date Type Department Care Team Description 11/14/2011 Telephone [facility], Medications Refill Child Psychiatry - S [address] 1 [facility] [address] [place], [place] [address] [place] [phone] (Wo rk) Social History Tobacco Use Types [...] documented as of this encounter Care Teams Ruby Developer Relationship Specialty Start Date End Date Wayne Menjivar MD PCP - General 08/20/11 44 [facility] 200 [place] [address] documented as of this encounter
--- OUTSIDE RECORDS SUMMARY | 2021-12-09 22:15 | XMS_ITS | Encounter Summary ---
:2001 Author Organization [facility] Address [address] [place] [address] Care Team Providers Name Role Phone Lon Barboza MD Primary Care Provider Unavailable Reason for Visit Reason Onset Date Comments Medications Refill 06/14/2011 Encounter Details Date Type Department Care Team Description 06/14/2011 Telephone [facility] Miles, Medications Refill Child Psychiatry - S [address] [place], [place] [address] [place] [address] [phone] (Wo rk) Social History Tobacco Use Types [...] documented as of this encounter Care Teams Automobile Accessories Installer Relationship Specialty Start Date End Date Lon Barboza MD PCP - General 10/24/08 08/19/11 documented as of this encounter
--- OUTSIDE RECORDS SUMMARY | 2021-12-09 22:15 | XMS_ITS | Encounter Summary ---
:2001 Author Organization [facility] Address [address] [place] [address] Care Team Providers Name Role Phone Wayne Menjivar MD Primary Care Provider Encounter Details Date Type Department Care Team Description 06/22/2020 Lab Requisition [facility] Outr Resulting Lab, Pathology & Laboratory Provider [facility] [address] [place], [place] [address] Social History Tobacco Use Types Packs/Day Years Used Date Never Assessed Sex Assigned at Date Recorded Not on file documented as of this encounter Plan of Treatment Not on filedocumented as of this encounter Procedures Procedure Name Priority Date/Time Associated Diagnosis Comme nts COVID-19 TEST [facility] Today 06/22/2020 9:36 EST LAB PCR COVID-19 TESTING Routine 06/22/2020 9:36 EST Resu lts for this procedure are i n the results section. documented in this encounter Results COVID-19 TEST [facility] LAB PCR (06/22/2020 9:36 EST) Specimen Swab - Entire nasopharynx (body structur e) Performing Organization Address City/State/ZIP Code Phon e Number [facility] [address] [place] [address] SERVICES COVID-19 TESTING (06/22/2020 9:36 EST) COVID-19 rt-PCR Negative Negative [facility] Result Comment: CENTER LABORATORY This [...] developed and its performance characteristics determined by [facility]. It has not been cleared or [...] defined by the FDA Performed on the Superblyo 7 Flex RT-PCR System. Performing Lab [facility] Lab [facility] Specimen Swab Performing Organization Address City/State/ZIP Code Phon e Number [facility] [address] [place] [address] SERVICES documented in this encounter Visit Diagnoses Not on filedocumented in this encounter Additional Health Concerns Infection Onset Date Last Indicated Resolved Time COVID-19 04/02/2021 04/02/2021 04/22/2021 22:15 EST documented as of this encounter Care Teams Dcs Engineer Relationship Specialty Start Date End Date Wayne Menjivar MD PCP - General 08/20/11 44 [facility] 200 [place] [address] documented as of this encounter
[2021-12-09 22:26] VITALS: BP 118/77; PULSE 95; RESP 16; TEMP 36.9; O2SAT 97
--- NOTE | 2021-12-09 22:49 | ED.GENADUL_ITS ---
Discharge Plan Disposition Patient Disposition: HOME Condition: Stable Discharge Details Clinical Impression: Pharyngitis, Acute viral syndrome Primary Care Provider: Divine De Los Santos ED Provider: Carla Sandoval Home Meds and New Rx's Prescriptions: New lidocaine HCl [Lidocaine Viscous] 2 % solution 1 applic mucous membrane TID PRNQty: 100 0RF dexamethasone [Decadron] 4 mg tablet 4 mg PO DAILY Qty: 3 0RF Continued medroxyprogesterone [Depo-Provera] 150 mg/mL syringe 150 mg IM ONCE Qty: 1 2RF albuterol sulfate [ProAir HFA] 90 mcg/actuation HFA aerosol inhaler 1 - 2 puff Inhalation DAILY Qty: 1 2RF epinephrine [EpiPen] 0.3 mg/0.3 mL auto-injector 0.3 mg IJ ONCE PRN (Reason: Anaphylaxis) Qty: 1 1RF citalopram 40 mg tablet 40 mg PO DAILY (DME) Aerochamber MV Spacer See Rx Instructions .ROUTE .MEDSUPPLY Qty: 1 0RF Rx Instructions: As directed Discharge Instructions Instructions: Pharyngitis (ED), Viral Syndrome (ED) Additional Instructions: Take Decadron as prescribed Your COVID as this evening, take your next dose tomorrow Take Tylenol 650 mg every 4-6 for pain Return earlier should you have new or worsening complaints isolate until your COVID test returned, you will receive a call if it is positive this evening Use viscous lidocaine and follow-up as needed with new or worsening complaints Referrals: Divine De Los Santos [Primary Care Provider] - Medical Decision Making Pending COVID test Vitals stable Maintaining secretions, given Decadron and viscous lidocaine for home NAD Return precautions discussed and patient expressed understanding no indication to repeat patient's strep test, she was treated for strep as patient Medical Records Medical records reviewed: Yes I reviewed the patient's medical records. Lab Data Lab results reviewed: Yes I reviewed the patient's lab results. HPI General Date/Time Provider Initiated Documentation: 12/09/21 22:28 . HPI Narrative: This is a 21-year-old female presents with report of sore throat and myalgia. T-max of 101 yesterday. Denies chance of , chest pain, shortness of breath. States she was just treated for strep but presents today secondary to worsening sore throat. Denies any headache. Took Tylenol prior to arrival probation. Had a COVID test that was negative prior to arrival. Related Data Home Medications Medication Instructions Recorded Confirmed inhalational spacing device #1 ea 02/14/20 11/22/21 (Aerochamber MV spacer) epinephrine 0.3 mg/0.3 mL 0.3 mg (0.3 mL) IJ ONCE PRN 05/24/20 12/09/21 injection, auto-injector (EpiPen) Anaphylaxis ##1 albuterol sulfate 90 mcg/actuation 1 - 2 puff inhalation DAILY ##1 10/04/20 12/09/21 aerosol inhaler (ProAir HFA) medroxyprogesterone 150 mg/mL 150 mg IM ONCE #1 SYRG 10/04/20 11/22/21 intramuscular syringe (Depo-Provera) citalopram 40 mg tablet 40 mg PO DAILY 11/22/21 12/09/21 dexamethasone 4 mg tablet 4 mg PO DAILY #3 tabs 12/09/21 (Decadron) lidocaine HCl 2 % mucosal solution 1 applic mucous membrane TID PRN 12/09/21 (Lidocaine Viscous) #100 mL Previous Rx's Medication Instructions Recorded inhalational spacing device #1 ea 02/14/20 (Aerochamber MV spacer) epinephrine 0.3 mg/0.3 mL 0.3 mg (0.3 mL) IJ ONCE PRN 05/24/20 injection, auto-injector (EpiPen) Anaphylaxis ##1 albuterol sulfate 90 mcg/actuation 1 - 2 puff inhalation DAILY ##1 10/04/20 aerosol inhaler (ProAir HFA) medroxyprogesterone 150 mg/mL 150 mg IM ONCE #1 SYRG 10/04/20 intramuscular syringe (Depo-Provera) dexamethasone 4 mg tablet 4 mg PO DAILY #3 tabs 12/09/21 (Decadron) lidocaine HCl 2 % mucosal solution 1 applic mucous membrane TID PRN 12/09/21 (Lidocaine Viscous) #100 mL Allergies Allergy/AdvReac Type Severity Reaction Status Date / Time tree nut Allergy Severe Verified 12/09/21 22:30 almond Allergy Intermediate Skin Rash Verified 12/09/21 22:30 No Known Drug Allergies Allergy Mild Verified 12/09/21 22:30 shellfish derived Allergy Verified 12/09/21 22:30 General Stated Complaint: Sorethroat RUBEN: 3 Review of Systems All systems reviewed & are unremarkable except as noted in HPI and below PFSH All Active Problems (Updated 12/09/21 @ 22:53 by DIVYA Lawson) Pharyngitis (Acute) Acute viral syndrome (Acute) Screening examination for STD (sexually transmitted disease) (Acute) Sprain of foot, right (Acute) Scapular dyskinesis (Acute) Impingement syndrome of left shoulder (Acute) Concussion (Acute) Otitis externa (Acute) SLAP lesion of right shoulder (Acute) Tendinitis of long head of biceps brachii of both shoulders (Acute) Marijuana abuse (Acute) Hematuria (Acute) seen by Urology but declined hematuria workup Depot contraception (Acute) Moderate persistent asthma without complication (Acute 08/23/16) Smoker (Chronic 11/28/17) Now using e-sigs about 3 times a day (06/2018) Depression with anxiety (Chronic 12/25/15) Adolescent idiopathic scoliosis of thoracolumbar region (Chronic 08/23/16) ADHD (attention deficit hyperactivity disorder) (Chronic 11/23/14) Active Problem List Scapular dyskinesis (Acute) Impingement syndrome of left shoulder (Acute) Concussion (Acute) Otitis externa (Acute) SLAP lesion of right shoulder (Acute) Tendinitis of long head of biceps brachii of both shoulders (Acute) Marijuana abuse (Acute) Hematuria (Acute) Depot contraception (Acute) Moderate persistent asthma without complication (Acute 08/23/16) Smoker (Chronic 11/28/17) Depression with anxiety (Chronic 12/25/15) Adolescent idiopathic scoliosis of thoracolumbar region (Chronic 08/23/16) ADHD (attention deficit hyperactivity disorder) (Chronic 11/23/14) Medical History Acute neck pain Chronic abdominal pain Eczema (11/23/14) Fracture of left wrist (08/23/09) Fracture of right clavicle (11/04/04) Sprain of medial collateral ligament of right knee, subsequent encounter (04/22/17) Surgical History ROOF OF MOUTH RECONSTRUCTED Family History Mother Substance abuse several female relatives Neoplasm breast CA Social History Smoking/Tobacco Use Status: Current every day Tobacco Type: cigarettes Smoking risk assessment performed?: Yes Alcohol Intake: current Alcohol Intake frequency: a few times a month Alcohol type: beer and hard liquor Drug use: Daily Substance use type: marijuana Household members: family Sexually active: Yes Do you think of yourself as: straight/heterosexual Current gender identity: female Seatbelt use: sometimes Do you feel safe at home: Yes Do you feel safe in your relationship?: Yes Exam Const General: cooperative, comfortable and no acute distress HENMT Other: Uvula midline, oropharynx patent, no trismus, maintaining secretions Eyes Pupils: PERRL Resp Effort & Inspection: normal respiratory effort Auscultation: clear to auscultation bilaterally Cardio Rate: regular rate Rhythm: regular rhythm GI Inspection: normal to inspection Skin General skin exam: no rashes or lesions noted Neuro General: patient alert and patient oriented x3 Sensory Exam: no sensory deficits noted Course Vital Signs Vital signs: Vital Signs Temperature 36.9 C 12/09/21 22:26 Pulse 95 H 12/09/21 22:26 Respiratory Rate 16 12/09/21 22:26 Blood Pressure 118/77 12/09/21 22:26 Pulse Oximetry 97 12/09/21 22:26 Temperature 36.9 C 12/09/21 22:26 Temperature Source Temporal Artery Scan 12/09/21 22:26 Pulse 95 H 12/09/21 22:26 Respiratory Rate 16 12/09/21 22:26 Respiratory Effort 12/09/21 22:26 Blood Pressure 118/77 12/09/21 22:26 Blood Pressure Position Sitting 12/09/21 22:26 Pulse Oximetry 97 12/09/21 22:26 Oxygen Delivery Method Room Air 12/09/21 22:26 Oxygen Flow Rate 0 12/09/21 22:26 Pain Level 8 12/09/21 22:26 PAWSS Have you Been Recently Intoxicated or Drunk Within the Last 30 days?: Yes Have you Ever Experienced Previous Episodes of Alcohol Withdrawal?: No Have you ever Experienced Withdrawal Seizures?: No Have you ever Experienced Delirium Tremens(DT)s?: No Have you ever undergone Alcohol Rehabilitation Treatment (i.e, inpt ot outpatient treatment programs)?: No Have you ever Experienced Blackouts?: No Have you ever Combined Alcohol with other Downers within the last 90 days?: No Have you ever Combined Alcohol with any other Substance of Abuse during the last 90 days?: No Positive Blood Alcohol level on Presentation? [PCS.BAL]: No Evidence of Increased Autonomic Activity (i.e. HR>120, tremor, sweating, agitation, nausea)?: No Result: 1
[2021-12-09] MEDS: Dexamethasone 4 MG TAB PO (22:55)
[2021-12-09] MEDS: Lidocaine 2% Viscous 15 ML CUP PO (22:55)
[2021-12-09 23:19] LABS: Source Nasal/Nares
[2021-12-10 00:04] LABS: COVID-19 PCR Negative (Negative)
== END 2021-12-09 23:01 | disposition home or self-care (01) ==
PROVIDERS: Emergency Provider Physician Assistant; PCP Nurse Practitioner Family
DX: J02.9 Acute pharyngitis, unspecified (principal); B34.9 Viral infection, unspecified; F17.210 Nicotine dependence, cigarettes, uncomplicated; Z20.822 Contact with and (suspected) exposure to COVID-19
CPT/HCPCS: 87635; 99283; 99284; J8540

== ENCOUNTER 2021-12-13 15:55 | Outpatient (REF) | payer MEDICAID, SELFPAY ==
[2021-12-15 11:51] LABS: COVID-19 RT-PCR UVMMC Result Negative (Negative)
== END 2021-12-13 15:56 | disposition home or self-care (01) ==
LOC: LBN 15:55
PROVIDERS: PCP Nurse Practitioner Family; Visit Provider Physician Assistant Medical
DX: J02.9 Acute pharyngitis, unspecified (principal); J35.1 Hypertrophy of tonsils; Z20.822 Contact with and (suspected) exposure to COVID-19
CPT/HCPCS: U0003; 87070

== ENCOUNTER 2021-12-23 15:09 | Emergency (ER) | payer MEDICAID, SELFPAY ==
[2021-12-23 15:14] VITALS: BP 131/75; PULSE 83; RESP 18; TEMP 36.5; O2SAT 97
--- NOTE | 2021-12-23 15:15 | DI.RAD_ITS ---
Exam(s) XR CHEST 2V PA LATERAL EXAM: XR CHEST 2V PA LATERAL CLINICAL HISTORY: pain trauma TECHNIQUE: 2D digital imaging was performed. COMPARISON: CR XR PORTABLE CHEST AP from 04/23/2020 FINDINGS: MEDIASTINUM: Normal. HEART: Normal. PULMONARY VASCULATURE: Normal. LUNGS: Clear. PLEURAL SPACE: No pleural effusion or pneumothorax. BONE:Unremarkable for age. IMPRESSION: No acute abnormality. DATA REPOSITORY: RADIATION DOSE DELIVERED:
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
--- NOTE | 2021-12-23 15:55 | DI.VRAD_ITS ---
PROCEDURE INFORMATION: Exam: XR Chest Exam date and time: 12/23/2021 3:40 PM Age: 21 years old Clinical indication: Other: Right sided rib pain TECHNIQUE: Imaging protocol: Radiologic exam of the chest. Views: 2 views. COMPARISON: CR XR PORTABLE CHEST AP 04/23/2020 2:10 PM FINDINGS: Lungs: Unremarkable. No consolidation. Pleural spaces: Unremarkable. No pleural effusion. No pneumothorax. Heart/Mediastinum: Unremarkable. No cardiomegaly. Bones/joints: Unremarkable. IMPRESSION: No acute findings. Dictated and Authenticated by: Ayaan Gonsalez MD. Ordering:BRIAN Jones MD
== END 2021-12-23 16:08 | disposition home or self-care (01) ==
PROVIDERS: Emergency Provider Emergency Medicine; PCP Nurse Practitioner Family
DX: S20.211A Contusion of right front wall of thorax, initial encounter (principal); F17.210 Nicotine dependence, cigarettes, uncomplicated; F17.290 Nicotine dependence, other tobacco product, uncomplicated; W18.30XA Fall on same level, unspecified, initial encounter
CPT/HCPCS: 99283; 71046; 99282

== ENCOUNTER 2022-03-24 12:58 | Emergency (ER) | payer MEDICAID, SELFPAY ==
--- NOTE | 2022-03-24 13:30 | DI.CT_ITS ---
Exam(s) CT HEAD CERVICAL SPINE WO EXAM: CT HEAD CERVICAL SPINE WO CLINICAL HISTORY: trauma. TECHNIQUE: Imaging Protocol: Axial computed tomography images with coronal and sagittal reformatted images were created and reviewed COMPARISON: CT CT HEAD CERVICAL SPINE WO from 06/24/2019 FINDINGS: BRAIN: There are no skull fractures nor fluid in the visualized paranasal sinuses. There is no evidence of intracranial hemorrhage, mass effect, or shift of midline structures. There are no extra-axial fluid collections. The ventricles are not enlarged or shifted and there is no blo od within the ventricular system nor within the basal cisterns. CERVICAL SPINE: There is no evidence of fracture nor listhesis. No significant prevertebral soft tissue swelling. There is no significant facet joint malalignment. No significant osseous lesions evident. IMPRESSION: No acute intracranial findings on this noninfused CT scan of the brain. No evidence of cervical spine fracture, malalignment, nor acute compromise of the cervical spinal can al. RADIATION DOSE DELIVERED: 941.05mGy.cm Total DLP DATA REPOSITORY: All CT scans at this facility are submitted to the National Radiology Data Registry (NRDR) Dose Index Registry (DIR) with the [employer] (ACR). RADIATION OPTIMIZATION: All CT scans at this facility use at least one of these dose optimization te chniques: automated exposure control; mA and/or kV adjustment per patient size (includes targeted exa ms where dose is matched to clinical indication); or iterative reconstruction.
--- NOTE | 2022-03-24 13:30 | DI.RAD_ITS ---
Exam(s) XR HAND LT COMPLETE EXAM: XR HAND LT COMPLETE CLINICAL HISTORY: trauma. TECHNIQUE: 2D digital imaging was performed. COMPARISON: CR LEFT HAND COMPLETE from 11/11/2016 FINDINGS: 3 views No fracture or dislocation. No radiopaque foreign body. Bone density normal. No osseous lesions. IMPRESSION: No significant osseous findings. DATA REPOSITORY: RADIATION DOSE DELIVERED:
--- NOTE | 2022-03-24 13:30 | DI.RAD_ITS ---
Exam(s) XR FOREARM LT EXAM: XR FOREARM LT CLINICAL HISTORY: trauma. TECHNIQUE: 2D digital imaging was performed. COMPARISON: No exams were available for comparison FINDINGS: 3 views No fractures evident. No radiopaque foreign body. No osseous lesions. IMPRESSION: No significant osseous findings. DATA REPOSITORY: RADIATION DOSE DELIVERED:
--- NOTE | 2022-03-24 13:30 | DI.RAD_ITS ---
Exam(s) XR WRIST LT COMPLETE EXAM: XR WRIST LT COMPLETE CLINICAL HISTORY: trauma. TECHNIQUE: 2D digital imaging was performed. COMPARISON: CR XR WRIST LT COMPLETE from 08/10/2021 FINDINGS: 3 views No fracture, dislocation nor significant ulnar variance. Scaphoid unremarkable. Scapholunate distan ce is normal. No radiopaque foreign body. No osseous lesions. IMPRESSION: No fracture evident. DATA REPOSITORY: RADIATION DOSE DELIVERED:
--- NOTE | 2022-03-24 13:30 | DI.CT_ITS ---
Exam(s) CT CHEST/ABD/PEL W EXAM: CT CHEST/ABD/PEL W CLINICAL HISTORY: trauma, right rib , RLQ, and right hip pain.. TECHNIQUE: Imaging Protocol: Axial computed tomography images with coronal and sagittal reformatted images were created and reviewed CONTRAST MATERIAL: Intravenous: Omnipaque 350 Contrast volume:100 ml Oral: None COMPARISON: CT CT ABDOMEN PELVIS W from 10/21/2019 FINDINGS: CHEST: LUNGS: No infiltrates nor lung contusion. No pleural effusions. No pneumothorax.. No incidental no dules. MEDIASTINUM: No sternal fracture nor mediastinal hematoma. No incidental adenopathy. CARDIAC: Heart size is normal. There is no pericardial effusion.Thoracic aorta appears unremarkable. No hematoma. No dissection. OSSEOUS: No fractures.. ABDOMEN: There is no ascites. No evidence of bowel wall nor mesenteric hematoma. LIVER: No laceration or subcapsular hematoma. No incidental focal findings in the liver. GALLBLADDER/BILIARY: No obvious gallbladder pathology. CBD is not dilated. PANCREAS: No evidence of pancreatic mass nor dilatation of the pancreatic duct. SPLEEN: Spleen normal size. No laceration. No perisplenic fluid. Splenic and portal veins are andrade nt. ADRENALS: There are no significant adrenal masses. KIDNEYS: No evidence of renal laceration nor subcapsular hematoma. No other focal findings in the ki dneys.. No hydronephrosis. ABDOMINAL AORTA: Abdominal aorta is not enlarged. LYMPH NODES: There is no retroperitoneal nor paraaortic adenopathy. ABDOMINAL WALL: No evidence of significant anterior abdominal wall nor inguinal hernia. No evidence of subcutaneous bruising. GI: There is no evidence of bowel obstruction.No evidence of bowel wall hematoma nor mesenteric hemat abdoul. PELVIS: LYMPH NODES: There is no intrapelvic nor inguinal adenopathy. No intrapelvic hematoma. GI: No evidence of appendicitis.No evidence of sigmoid diverticulitis. URINARY BLADDER: Intact. Unremarkable. REPRODUCTIVE: Uterus and ovaries unremarkable. No free fluid in the pelvis. OSSEOUS: No fractures. No significant osseous lesions. Sacroiliac joints unremarkable. IMPRESSION: 1. No significant trauma sequelae in the chest, abdomen, pelvis. 2. No incidental abnormal findings. 3. No fractures nor incidental bone lesions. RADIATION DOSE DELIVERED: 1,165.37mGy.cm Total DLP DATA REPOSITORY: All CT scans at this facility are submitted to the National Radiology Data Registry (NRDR) Dose Index Registry (DIR) with the [employer] (ACR). RADIATION OPTIMIZATION: All CT scans at this facility use at least one of these dose optimization te chniques: automated exposure control; mA and/or kV adjustment per patient size (includes targeted exa ms where dose is matched to clinical indication); or iterative reconstruction.
[2022-03-24 13:38] VITALS: BP 104/76; PULSE 54; RESP 18; TEMP 37; O2SAT 99
[2022-03-24] MEDS: Normal Saline 1,000 ML 1000 ML IV (14:20)
[2022-03-24 14:22] LABS: Abs Immature Grans 0.02 10^3/uL (0.0-0.06); Absolute Basophil Count 0.03 10^3/uL (0.0-0.2); Absolute Eosinophil Count 0.03 10^3/uL (0.0-0.7); Absolute Lymphocyte Count 2.03 10^3/uL (1.2-3.4); Absolute Monocyte Count 0.81 10^3/uL (0.1-0.8); Absolute Neutrophil Count 4.26 10^3/uL (1.2-6.7); Basophils % 0.4; Eosinophils % 0.4; HCT 37.1 % (36.0-46.0); HGB 12.5 g/dL (11.2-15.7); Immature Grans % 0.3; Lymphocytes % 28.3; MCH 28.8 pg (27.0-33.0); MCHC 33.7 % (32.0-36.0); MCV 86 fL (80-95); MPV 8.5 fL (8.0-11.0); Monocytes % 11.3; Neutrophils % 59.3; Platelet Count 298 10^3/uL (130-400); RBC 4.34 10^6/uL (3.93-5.22); RDW 11.9 % (11.7-14.6); RDW-SD 37.2 fL; WBC 7.18 10^3/uL (4.4-10.8)
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
[2022-03-24 14:23] LABS: Bilirubin Negative (Negative); Blood Negative (Negative); Clarity Clear (Clear); Glucose Negative (Negative); Ketones Negative (Negative); Leukocyte Esterase Negative (Negative); Nitrite Negative (Negative); Urobilinogen 0.2 EU/dL (Up TO 0.2)
[2022-03-24 14:40] LABS: ALT 20 U/L (14-59); AST 25 U/L (15-37); Albumin 4.1 g/dL (3.4-5.0); Alkaline Phosphatase 81 U/L (46-116); BUN 11 mg/dL (7-18); Bilirubin, Total 0.6 mg/dL (0.2-1.0); CREATININE 0.8 mg/dL (0.55-1.02); Chloride 106 mmol/L (98-107); Estimated GFR 108.11 (mL/min/1.73m2); Glucose 90 mg/dL (74-106); Magnesium 1.9 mg/dL (1.8-2.4); Potassium 3.8 mmol/L (3.5-5.1); Sodium 142 mmol/L (136-145); Total Protein 7.4 g/dL (6.4-8.2); Troponin I < 50 ng/L (<or=60)
[2022-03-24] MEDS: Omnipaque 350 MG/ML 100 ML BTL IJ (15:12)
[2022-03-24] MEDS: Normal Saline Flush 10 ML SYR IVP (15:13)
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
[2022-03-24] MEDS: Ketorolac 15 MG/ML VIAL IVP (15:44)
[2022-03-24] MEDS: Prochlorperazine 10 MG/2 ML VIAL 5 MG IVP (15:44)
== END 2022-03-24 16:28 | disposition home or self-care (01) ==
PROVIDERS: Nurse Practitioner Family; Emergency Provider Physician Assistant; PCP Nurse Practitioner Family
DX: S50.812A Abrasion of left forearm, initial encounter (principal); S60.512A Abrasion of left hand, initial encounter; S20.311A Abrasion of right front wall of thorax, initial encounter; V86.56XA Driver of dirt bike or motor/cross bike injured in nontraffic accident, initial encounter; G89.11 Acute pain due to trauma; R10.11 Right upper quadrant pain; R10.31 Right lower quadrant pain
CPT/HCPCS: 74177; 80053; 81025; 96361; 96374; 96375; 99285; 70450; 71260; 72125; 73090; 73110; 73130; 81003; 83735; 84484; 85025; 99284; J0780; J1885; J3490

== ENCOUNTER 2022-06-16 11:05 | Emergency (ER) | payer MEDICAID, SELFPAY ==
[2022-06-16 11:11] VITALS: BP 141/71; PULSE 89; RESP 19; TEMP 36.8; O2SAT 99
[2022-06-16] MEDS: Ketorolac 15 MG/ML VIAL IVP (12:16)
[2022-06-16] MEDS: Ondansetron 4 MG/2 ML VIAL IVP (12:16)
[2022-06-16] MEDS: Lactated Ringers 1,000 ML 1000 ML IV (12:20)
[2022-06-16 12:29] VITALS: BP 106/70; PULSE 64; RESP 18; TEMP 36.8; O2SAT 99
[2022-06-16 12:34] LABS: Abs Immature Grans 0.01 10^3/uL (0.0-0.06); Absolute Basophil Count 0.01 10^3/uL (0.0-0.2); Absolute Eosinophil Count 0.06 10^3/uL (0.0-0.7); Absolute Lymphocyte Count 0.82 10^3/uL (1.2-3.4); Absolute Monocyte Count 0.47 10^3/uL (0.1-0.8); Absolute Neutrophil Count 2.09 10^3/uL (1.2-6.7); Basophils % 0.3; Eosinophils % 1.7; HCT 44.6 % (36.0-46.0); Immature Grans % 0.3; Lymphocytes % 23.7; MCH 28.6 pg (27.0-33.0); MCHC 33.6 % (32.0-36.0); MCV 85 fL (80-95); MPV 8.5 fL (8.0-11.0); Monocytes % 13.6; Neutrophils % 60.4; Platelet Count 235 10^3/uL (130-400); RBC 5.25 10^6/uL (3.93-5.22); RDW 11.7 % (11.7-14.6); RDW-SD 36.3 fL; WBC 3.46 10^3/uL (4.4-10.8)
[2022-06-16 12:46] LABS: ALT 19 U/L (14-59); AST 20 U/L (15-37); Alkaline Phosphatase 79 U/L (46-116); Anion Gap 7.9 mmol/L (3-11); BUN 10 mg/dL (7-18); Bilirubin, Total 0.4 mg/dL (0.2-1.0); CO2 28.1 mmol/L (21.0-32.0); CREATININE 0.8 mg/dL (0.55-1.02); Calcium 9.2 mg/dL (8.5-10.1); Chloride 103 mmol/L (98-107); Estimated GFR 107.44 (mL/min/1.73m2); Glucose 94 mg/dL (74-106); Potassium 3.4 mmol/L (3.5-5.1); Sodium 139 mmol/L (136-145); Total Protein 7.7 g/dL (6.4-8.2)
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
--- NOTE | 2022-06-16 13:20 | NUR.NOTE ---
Nursing Note: PT ABLE TO EAT POPSICLE AND KEEP IT DOWN, STATES FEELS OK, PROVIDER AWARE.
[2022-06-16 13:30] VITALS: BP 101/60; PULSE 70; RESP 18; TEMP 36.9; O2SAT 99
== END 2022-06-16 13:30 | disposition home or self-care (01) ==
PROVIDERS: Emergency Provider Physician Assistant; PCP Nurse Practitioner Family
DX: R11.2 Nausea with vomiting, unspecified (principal); M79.10 Myalgia, unspecified site; R50.9 Fever, unspecified; Z20.822 Contact with and (suspected) exposure to COVID-19
CPT/HCPCS: 36415; 80053; 81025; 96361; 96374; 96375; 99284; 85025; J1885; J2405

== ENCOUNTER 2022-07-30 16:21 | Outpatient (REF) | payer MEDICAID, SELFPAY ==
[2022-07-30 21:06] LABS: Iron 197 ug/dL (50-170)
== END 2022-07-30 16:22 | disposition home or self-care (01) ==
LOC: NCHCN 16:21
PROVIDERS: PCP Nurse Practitioner Family; Visit Provider Nurse Practitioner Family
DX: R79.89 Other specified abnormal findings of blood chemistry (principal); Z00.00 Encounter for general adult medical examination without abnormal findings
CPT/HCPCS: 83540

== ENCOUNTER 2022-09-04 16:18 | Outpatient (REF) | payer MEDICAID, SELFPAY ==
--- NOTE | 2022-09-04 15:45 | PAPFT_PTH ---
PATIENT: Ny Short LOC: [facility] U#:[id number] AGE/SX: 22/F ROOM: RE09/04/[address]: Batsheva Sim NP : 2000 BED: DIS: 09/04/2022 SPEC #: [id number] RECD: 09/04/22 17:41 STATUS: [facility] REQ #: [id number] MAURILIO: 09/04/22 15:[address]: Batsheva Sim NP DEPT: [facility] Cytology RECD BY: Carla Costa ENTERED: 09/04/22 17:42 SP TYPE: PAPFT OTHR DR: Divine De Los Santos Tissues: 1 - CX/ENDOCX FOR PAP SMEARS Procedures: PAP THIN PREP/UVM Screening Comments: [id number] (CHLAMYDIA/GC)
[2022-09-05 15:58] LABS: Chlamydia Result Negative (Negative); GC Result Negative (Negative)
== END 2022-09-04 16:19 | disposition home or self-care (01) ==
LOC: LBN 16:18
PROVIDERS: PCP Nurse Practitioner Family; Visit Provider Nurse Practitioner Women's Health
DX: Z11.3 Encounter for screening for infections with a predominantly sexual mode of transmission (principal); Z12.4 Encounter for screening for malignant neoplasm of cervix
CPT/HCPCS: 87491; 87591; 88142

== ENCOUNTER 2022-09-11 02:53 | Outpatient (CLI) | payer MEDICAID, SELFPAY ==
[2022-09-12 09:23] LABS: Hepatitis C Ab w Rflx HCV PCR Negative (Negative)
[2022-09-12 09:44] LABS: HIV-1/2 Ag & Ab Screen Negative (Negative)
[2022-09-12 23:42] LABS: Syphilis IgG w/Reflex Nonreactive (Nonreactive)
== END 2022-09-11 02:54 | disposition home or self-care (01) ==
LOC: LBO 02:53
PROVIDERS: PCP Nurse Practitioner Family; Visit Provider Nurse Practitioner Women's Health
DX: Z11.3 Encounter for screening for infections with a predominantly sexual mode of transmission (principal); Z11.4 Encounter for screening for human immunodeficiency virus [HIV]; Z11.59 Encounter for screening for other viral diseases
CPT/HCPCS: 36415; 86803; 87389; 86780

== ENCOUNTER 2022-12-08 17:38 | Emergency (ER) | payer MEDICAID, SELFPAY ==
[2022-12-08 17:42] VITALS: BP 114/84; PULSE 75; RESP 18; TEMP 36.8; O2SAT 98
[2022-12-08 18:07] LABS: Bilirubin Negative (Negative); Blood Large (Negative); Clarity Sl Cloudy (Clear); Glucose Negative (Negative); Ketones Trace mg/dL (Negative); Leukocyte Esterase Trace (Negative); Nitrite Negative (Negative); Specific Gravity 1.025 (1.005-1.025); Urobilinogen >=8.0 mg/dL (Up to 0.2); pH 7.5 (5-8)
[2022-12-08 18:22] LABS: Bacteria Rare HPF (Negative); C & S Indicated? Yes; Casts Negative LPF (Negative); Crystals Negative HPF (Negative); Epithelial Cells Rare HPF (Negative); Mucus Negative (Negative); RBC 20-50 HPF (0-2)
--- NOTE | 2022-12-08 19:22 | ED.GENADUL_ITS ---
Discharge Plan Disposition Patient Disposition: Home Condition: Stable Discharge Details Clinical Impression: Urinary tract infection Primary Care Provider: Divine De Los Santos ED Provider: Jhony Sim Home Meds and New Rx's Prescriptions: New cephalexin 500 mg tablet 500 mg PO QID Qty: 28 0RF phenazopyridine [Pyridium] 200 mg tablet 200 mg PO TID PRNQty: 6 0RF Continued medroxyprogesterone [Depo-Provera] 150 mg/mL syringe 150 mg IM ONCE Qty: 1 2RF albuterol sulfate [ProAir HFA] 90 mcg/actuation HFA aerosol inhaler 1 - 2 puff Inhalation DAILY Qty: 1 2RF epinephrine [EpiPen] 0.3 mg/0.3 mL auto-injector 0.3 mg IJ ONCE PRN (Reason: Anaphylaxis) Qty: 1 1RF citalopram 40 mg tablet 40 mg PO DAILY (DME) Aerochamber MV Spacer See Rx Instructions .ROUTE .MEDSUPPLY Qty: 1 0RF Rx Instructions: As directed famotidine 20 mg tablet 20 mg PO DAILY albuterol sulfate [Ventolin HFA] 90 mcg/actuation HFA aerosol inhaler 2 puff INHALATION PRN PRN Patient Comments: INHALE ONE TO TWO PUFFS BY MOUTH EVERY DAY NEEDED prochlorperazine maleate [Compazine] 10 mg tablet 10 mg PO Q8H PRNQty: 10 0RF Discharge Instructions Instructions: Urinary Tract Infection in Women (ED) Additional Instructions: if pain is not improving within 5 days follow up with your primary care provider if you feel more ill, have persistent vomiting or fevers return to the emergency department Medical Decision Making 22 yo female comes in with 2 days of burning with urination and frequency, along with lower back pain. Denies fevers, chills, abdominal pain n/v. She has had uti's in the past and states this feels similar to this. She arrives stable and appears well on exam. She has no cva tenderness, no abdominal tenderness. She has ua consistent with a uti, stable for outpatient management. Will start her on cephalexin, advised to f/u with her pcp and return precautions given Differential Diagnosis Differential Diagnosis: cystitis, pyelo HPI General Mode of arrival: ambulatory . Date/Time Provider Initiated Documentation: 12/08/22 19:16 . Limitations to Documentation: no limitations . Information obtained by: patient . History of Present Illness 22 year old F presents to the emergency department with the chief complaint of dysuria, described as moderate, Patient started experiencing this day(s) (2) and it has been constant. No relieving factors improve symptom(s), No exacerbating factors reported . Patient notes no other symptoms.. Patient did receive the following treatments prior to arrival, none Related Data Home Medications Medication Instructions Recorded Confirmed inhalational spacing device #1 ea 02/14/20 12/08/22 (Aerochamber MV spacer) epinephrine 0.3 mg/0.3 mL 0.3 mg (0.3 mL) IJ ONCE PRN 05/24/20 12/08/22 injection, auto-injector (EpiPen) Anaphylaxis ##1 albuterol sulfate 90 mcg/actuation 1 - 2 puff inhalation DAILY ##1 10/04/20 12/08/22 aerosol inhaler (ProAir HFA) medroxyprogesterone 150 mg/mL 150 mg IM ONCE #1 SYRG 10/04/20 12/08/22 intramuscular syringe (Depo-Provera) citalopram 40 mg tablet 40 mg PO DAILY 11/22/21 12/08/22 famotidine 20 mg tablet 20 mg PO DAILY 12/28/21 01/15/22 albuterol sulfate 90 mcg/actuation 2 puff inhalation PRN PRN 06/16/22 12/08/22 aerosol inhaler (Ventolin HFA) prochlorperazine maleate 10 mg 10 mg PO Q8H PRN #10 tabs 06/16/22 tablet (Compazine) cephalexin 500 mg tablet 500 mg PO QID #28 tabs 12/08/22 phenazopyridine 200 mg tablet 200 mg PO TID PRN 6 doses #6 tabs 12/08/22 (Pyridium) Previous Rx's Medication Instructions Recorded inhalational spacing device #1 ea 02/14/20 (Aerochamber MV spacer) epinephrine 0.3 mg/0.3 mL 0.3 mg (0.3 mL) IJ ONCE PRN 05/24/20 injection, auto-injector (EpiPen) Anaphylaxis ##1 albuterol sulfate 90 mcg/actuation 1 - 2 puff inhalation DAILY ##1 10/04/20 aerosol inhaler (ProAir HFA) medroxyprogesterone 150 mg/mL 150 mg IM ONCE #1 SYRG 10/04/20 intramuscular syringe (Depo-Provera) prochlorperazine maleate 10 mg 10 mg PO Q8H PRN #10 tabs 06/16/22 tablet (Compazine) cephalexin 500 mg tablet 500 mg PO QID #28 tabs 12/08/22 phenazopyridine 200 mg tablet 200 mg PO TID PRN 6 doses #6 tabs 12/08/22 (Pyridium) Allergies Allergy/AdvReac Type Severity Reaction Status Date / Time 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 Intermediate Skin Rash Verified 06/16/22 11:14 No Known Drug Allergies Allergy Mild Verified 01/15/22 08:57 shellfish derived Allergy Verified 06/16/22 11:14 General Stated Complaint: Urinary RUBEN: 4 Review of Systems All systems reviewed & are unremarkable except as noted in HPI and below Constitutional Constitutional: Denies chills, Denies fever(s) and Denies weakness Cardiovascular Cardiovascular: Denies chest pain and Denies dyspnea Respiratory Respiratory: Denies cough and Denies dyspnea Gastrointestinal Gastrointestinal: Denies abdominal pain, Denies nausea and Denies vomiting Integumentary/Breasts Skin/Breast: Denies rash Neurologic Neurologic: Denies weakness PFSH All Active Problems (Updated 12/08/22 @ 19:22 by Jhony Sim MD) Urinary tract infection (Acute) Yeast pharyngitis (Acute) Screening examination for STD (sexually transmitted disease) (Acute) Sprain of foot, right (Acute) Scapular dyskinesis (Acute) Impingement syndrome of left shoulder (Acute) Concussion (Acute) Otitis externa (Acute) SLAP lesion of right shoulder (Acute) Tendinitis of long head of biceps brachii of both shoulders (Acute) Marijuana abuse (Acute) Hematuria (Acute) seen by Urology but declined hematuria workup Depot contraception (Acute) Moderate persistent asthma without complication (Acute 08/23/16) Smoker (Chronic 11/28/17) Now using e-sigs about 3 times a day (06/2018) Depression with anxiety (Chronic 12/25/15) Adolescent idiopathic scoliosis of thoracolumbar region (Chronic 08/23/16) ADHD (attention deficit hyperactivity disorder) (Chronic 11/23/14) Medical History Acute neck pain Chronic abdominal pain Eczema (11/23/14) Fracture of left wrist (08/23/09) Fracture of right clavicle (11/04/04) Sprain of medial collateral ligament of right knee, subsequent encounter (04/22/17) Surgical History ROOF OF MOUTH RECONSTRUCTED Family History Mother Substance abuse several female relatives Neoplasm breast CA Social History Smoking/Tobacco Use Status: Never Smoking risk assessment performed?: Yes Alcohol Intake: current Alcohol Intake frequency: a few times a month Alcohol type: beer and hard liquor Drug use: Occasionally Substance use type: does not use and marijuana Household members: family Housing: house Sexually active: Yes Do you think of yourself as: straight/heterosexual Current gender identity: female Seatbelt use: sometimes Do you feel safe at home: Yes Do you feel safe in your relationship?: Yes Female Reproductive History Menstrual control method: progesterone injection History History 0 Para Hx # Term Pregnancies Multiple births Hx # Pregnancies Ectopic pregnancies AB induced Hx Number of Living Children AB spontaneous Exam Const General: no acute distress Orientation: alert HENMT Head: normal to inspection Ears: external ears normal General nose exam: external nose normal Mouth: moist mucous membranes Eyes General: appearance normal, both eyes and all related structures Neck Neck: normal visual inspection Resp Effort & Inspection: normal respiratory effort and able to speak in complete sentences Cardio Rate: regular rate GI Palpation: soft and nontender Back/Spine/Pelvis Back: no CVA tenderness Skin General skin exam: no rashes or lesions noted Neuro General: patient alert and patient oriented x3 Extrem General: normal to inspection Psych Mental Status: mental status grossly normal Course Vital Signs Vital signs: Vital Signs Temperature 36.8 C 12/08/22 17:42 Pulse 75 12/08/22 17:42 Respiratory Rate 18 12/08/22 17:42 Blood Pressure 114/84 12/08/22 17:42 Pulse Oximetry 98 12/08/22 17:42 Temperature 36.8 C 12/08/22 17:42 Temperature Source Oral 12/08/22 17:42 Pulse 75 12/08/22 17:42 Respiratory Rate 18 12/08/22 17:42 Respiratory Effort Normal, Non-Labored 12/08/22 17:45 Blood Pressure 114/84 12/08/22 17:42 Blood Pressure Position Sitting 12/08/22 17:42 Pulse Oximetry 98 12/08/22 17:42 Oxygen Delivery Method Room Air 12/08/22 17:42 Oxygen Flow Rate 0 12/08/22 17:42 Lab/Test Results Lab/Test Results: 12/08/22 18:00 Urine - Reflex from Ua Urine Culture - Pending Laboratory Tests Range/Units 12/08/22 18:00 Urine Color (Yellow) Yellow Urine Clarity (Clear) Sl Cloudy Urine pH (5-8) 7.5 Ur Specific [place] (1.005-1.025) 1.025 Urine Protein (Negative) mg/dL >=300 H Urine Ketones (Negative) mg/dL Trace H Urine Blood (Negative) Large H Urine Nitrite (Negative) Negative Urine Bilirubin (Negative) Negative Urine Urobilinogen (Up to 0.2) mg/dL >=8.0 H Ur Leukocyte Esterase (Negative) Trace H Urine RBC (0-2) HPF 20-50 H Urine WBC (0-5) HPF 10-20 H Ur Epithelial Cells (Negative) HPF Rare Urine Crystals (Negative) HPF Negative Urine Bacteria (Negative) HPF Rare Urine Casts (Negative) LPF Negative Urine Mucus (Negative) Negative Ur Culture Indicated? Yes Urine Glucose (Negative) mg/dL Negative POC- Test(urine) Negative
[2022-12-08] MEDS: Phenazopyridine 200 MG TAB PO (19:29)
[2022-12-08] MEDS: Cephalexin 500 MG CAP PO (19:29)
--- NOTE | 2022-12-11 08:30 | NUR.NOTE ---
Nursing Note: in chart for antibiotics
== END 2022-12-08 19:29 | disposition home or self-care (01) ==
PROVIDERS: Emergency Provider Emergency Medicine; PCP Nurse Practitioner Family
DX: N39.0 Urinary tract infection, site not specified (principal)
CPT/HCPCS: 81025; 87077; 99283; 81003; 81015; 87086; 87186

== ENCOUNTER 2022-12-12 09:50 | Outpatient (REF) | payer MEDICAID, SELFPAY ==
[2022-12-14 13:04] LABS: Chlamydia Result Negative (Negative); GC Result Negative (Negative)
== END 2022-12-12 09:51 | disposition home or self-care (01) ==
LOC: LBN 09:50
PROVIDERS: PCP Nurse Practitioner Family; Visit Provider Obstetrics & Gynecology
DX: Z11.3 Encounter for screening for infections with a predominantly sexual mode of transmission (principal); N94.9 Unspecified condition associated with female genital organs and menstrual cycle
CPT/HCPCS: 87491; 87591; 87480; 87510; 87660

== ENCOUNTER 2023-01-10 20:56 | Outpatient (REF) | payer MEDICAID, SELFPAY | END 2023-01-10 20:57 | disposition home or self-care (01) | LOC: LBN 20:56 | PROVIDERS: PCP Nurse Practitioner Family; Visit Provider Physician Assistant | DX: J02.9 Acute pharyngitis, unspecified (principal) | CPT/HCPCS: 87070 ==

== ENCOUNTER 2023-02-11 16:13 | Emergency (ER) | payer MEDICAID, SELFPAY ==
--- NOTE | 2023-02-11 16:15 | W.ED.GENAD ---
Discharge Plan Disposition Patient Disposition: Home Discharge Details Clinical Impression: Traumatic ecchymosis of left foot Primary Care Provider: Divine De Los Santos ED Provider: Chester Jeronimo Home Meds and New Rx's Prescriptions: Continued medroxyprogesterone [Depo-Provera] 150 mg/mL syringe 150 mg IM ONCE Qty: 1 2RF albuterol sulfate [ProAir HFA] 90 mcg/actuation HFA aerosol inhaler 1 - 2 puff Inhalation DAILY Qty: 1 2RF epinephrine [EpiPen] 0.3 mg/0.3 mL auto-injector 0.3 mg IJ ONCE PRN (Reason: Anaphylaxis) Qty: 1 1RF citalopram 40 mg tablet 20 mg PO DAILY (DME) Aerochamber MV Spacer See Rx Instructions .ROUTE .MEDSUPPLY Qty: 1 0RF Rx Instructions: As directed famotidine [Pepcid] 20 mg tablet 20 mg PO DAILY Patient Comments: Pt states not taking ML 02/11/23 metronidazole 500 mg tablet 500 mg PO BID Qty: 14 0RF Patient Comments: Pt states not taking ML 02/11/23 albuterol sulfate [Ventolin HFA] 90 mcg/actuation HFA aerosol inhaler 2 puff INHALATION PRN PRN Patient Comments: INHALE ONE TO TWO PUFFS BY MOUTH EVERY DAY NEEDED prochlorperazine maleate [Compazine] 10 mg tablet 10 mg PO Q8H PRNQty: 10 0RF Patient Comments: Pt states not taking ML 02/11/23 phenazopyridine [Pyridium] 200 mg tablet 200 mg PO TID PRNQty: 6 0RF Patient Comments: Pt states not taking ML 02/11/23 budesonide-formoterol [Symbicort] 80-4.5 mcg/actuation HFA aerosol inhaler 1 puff INHALATION BID Patient Comments: INHALE 1 PUFF BY MOUTH TWICE A DAY Discharge Instructions Instructions: Contusion in Adults (ED) Additional Instructions: You were seen in the emergency department for your foot pain. Your x-ray showed no sign of any breaks in your foot. Please elevate your foot. Please return to the emergency department if your foot becomes markedly more swollen develop any fevers or if you have any other concerns. For your pain please take medications as follows: 1. Take acetaminophen (Tylenol), 500 mg tabs every 6 hours 2. Take ibuprofen (Advil), 400 mg every 6 hours. HPI General Date/Time Provider Initiated Documentation: 02/11/23 16:15. HPI Narrative: HPI This is a 22-year-old female arriving via private vehicle in the setting of left foot pain. Patient reports that she works in [place] at the [employer]. She reports that one of her residents inadvertently ran over her left foot yesterday. She reported that the patient weighed 220 pounds and the patient's wheelchair was to 220 pounds. Patient took acetaminophen at 11:30 AM. She did not hit her head. She has not been nauseous nor vomiting. No dysuria nor frequency. Exam General: Well-appearing in no acute distress speaking in complete sentences. Head: Normocephalic, atraumatic. Eye: Extraocular eye movements intact. No conjunctival injection. No scleral icterus. Ear, nose, mouth, throat: Grossly normal inspection. Normal voice, handling secretions normally. Neck: Trachea midline. Cardiovascular: Well-perfused distal extremities. Respiratory: Nonlabored respiration. Gastrointestinal: Nondistended abdomen. Musculoskeletal: Over the dorsal surface of the left midfoot there is an approximately 6 cm x 2 cm ecchymotic band. No fluctuance. No erythema. Patient is able to dorsi and plantarflex with 3 out of 5 strength on the left. No pain out of proportion. Left foot has less than 2-second cap refill in the left toes. 2+ left PT and DP pulses. Skin: Normal for age and race, grossly normal temperature and turgor. No acute rash. Neurologic: Alert and appropriate, no apparent acute deficits. Psychiatric: Mood and manner are appropriate. Grooming and personal hygiene are appropriate. MDM This is an overall very well-appearing normothermic and not tachycardic 22-year-old female with left foot ecchymosis concerning for fracture versus contusion given injury with wheelchair yesterday. Will obtain plain films and treat patient with a walking boot weightbearing as tolerated assuming that the patient does not have any acute osseous abnormalities. If she does have any fractures we will touch base with podiatry. No pain out of proportion to suggest necrotizing soft tissue infection. No left lateral foot pain to suggest with lida injury. Patient does have tenderness to her ankles but no obvious ecchymosis to the ankle so will defer ankle x-rays at this point time. No midfoot instability to suggest Lisfranc injury. No erythema to suggest cellulitis. No fluctuance to suggest abscess. No proximal tibial tenderness to suggest Maisonneuve injury. 5:30 PM Plain films read as no acute osseous abnormalities in the left foot. I advised patient wear her walking boot. She declined. I advised acetaminophen and ibuprofen. I offered her a work note which she declined. We will proceed with empiric trial of expectant outpatient management. Chronic conditions affecting the care of the patient: N/A History obtained from an outside historian: N/A [place] [facility] [place] [place] Medications: N/A Social determinants of health affecting disposition: N/A Management discussed with: N/A Treatment/interventions considered: N/A Response to therapies provided: N/A Related Data Home Medications Medication Instructions Recorded Confirmed inhalational spacing device #1 ea 02/14/20 02/11/23 (Aerochamber MV spacer) epinephrine 0.3 mg/0.3 mL 0.3 mg (0.3 mL) IJ ONCE PRN 05/24/20 02/11/23 injection, auto-injector (EpiPen) Anaphylaxis ##1 albuterol sulfate 90 mcg/actuation 1 - 2 puff inhalation DAILY ##1 10/04/20 02/11/23 aerosol inhaler (ProAir HFA) medroxyprogesterone 150 mg/mL 150 mg IM ONCE #1 SYRG 10/04/20 02/11/23 intramuscular syringe (Depo-Provera) citalopram 40 mg tablet 20 mg PO DAILY 11/22/21 02/11/23 famotidine 20 mg tablet (Pepcid) 20 mg PO DAILY 12/28/21 01/10/23 albuterol sulfate 90 mcg/actuation 2 puff inhalation PRN PRN 06/16/22 02/11/23 aerosol inhaler (Ventolin HFA) prochlorperazine maleate 10 mg 10 mg PO Q8H PRN #10 tabs 06/16/22 12/12/22 tablet (Compazine) phenazopyridine 200 mg tablet 200 mg PO TID PRN 6 doses #6 tabs 12/08/22 12/12/22 (Pyridium) metronidazole 500 mg tablet 500 mg PO BID #14 tabs 12/12/22 budesonide-formoterol HFA 80 1 puff inhalation BID 02/11/23 02/11/23 mcg-4.5 mcg/actuation aerosol inhaler (Symbicort) Previous Rx's Medication Instructions Recorded inhalational spacing device #1 ea 02/14/20 (Aerochamber MV spacer) epinephrine 0.3 mg/0.3 mL 0.3 mg (0.3 mL) IJ ONCE PRN 05/24/20 injection, auto-injector (EpiPen) Anaphylaxis ##1 albuterol sulfate 90 mcg/actuation 1 - 2 puff inhalation DAILY ##1 10/04/20 aerosol inhaler (ProAir HFA) medroxyprogesterone 150 mg/mL 150 mg IM ONCE #1 SYRG 10/04/20 intramuscular syringe (Depo-Provera) prochlorperazine maleate 10 mg 10 mg PO Q8H PRN #10 tabs 06/16/22 tablet (Compazine) phenazopyridine 200 mg tablet 200 mg PO TID PRN 6 doses #6 tabs 12/08/22 (Pyridium) metronidazole 500 mg tablet 500 mg PO BID #14 tabs 12/12/22 Allergies Allergy/AdvReac Type Severity Reaction Status Date / Time 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 02/11/23 16:34 for tree nut allergy almond Allergy Intermediate Skin Rash Verified 02/11/23 16:34 No Known Drug Allergies Allergy Mild Verified 02/11/23 16:34 shellfish derived Allergy Verified 02/11/23 16:34 fluoxetine AdvReac Psychosis Unverified 02/11/23 16:34 General RUBEN: 4 PFSH All Active Problems (Updated 02/11/23 @ 16:58 by Chester Jeronimo MD) ADHD (attention deficit hyperactivity disorder) (Chronic 11/23/14) Adolescent idiopathic scoliosis of thoracolumbar region (Chronic 08/23/16) Depression with anxiety (Chronic 12/25/15) Smoker (Chronic 11/28/17) Now using e-sigs about 3 times a day (06/2018) Moderate persistent asthma without complication (Acute 08/23/16) Hematuria (Acute) seen by Urology but declined hematuria workup Marijuana abuse (Acute) Tendinitis of long head of biceps brachii of both shoulders (Acute) SLAP lesion of right shoulder (Acute) Otitis externa (Acute) Impingement syndrome of left shoulder (Acute) Scapular dyskinesis (Acute) Traumatic ecchymosis of left foot (Acute) Medical History Acute neck pain Chronic abdominal pain Concussion Depot contraception Eczema (11/23/14) Fracture of left wrist (08/23/09) Fracture of right clavicle (11/04/04) Sprain of medial collateral ligament of right knee, subsequent encounter (04/22/17) Surgical History ROOF OF MOUTH RECONSTRUCTED Family History Mother Substance abuse several female relatives Neoplasm breast CA Social History Smoking/Tobacco Use Status: Never Smoking risk assessment performed?: Yes Alcohol Intake: current Alcohol Intake frequency: a few times a month Alcohol type: beer and hard liquor Drug use: Occasionally Substance use type: does not use and marijuana Household members: family Housing: house Sexually active: Yes Do you think of yourself as: straight/heterosexual Current gender identity: female Seatbelt use: sometimes Do you feel safe at home: Yes Do you feel safe in your relationship?: Yes Female Reproductive History Menstrual control method: progesterone injection History History 0 Para Hx # Term Pregnancies Multiple births Hx # Pregnancies Ectopic pregnancies AB induced Hx Number of Living Children AB spontaneous
[2023-02-11 16:17] VITALS: BP 131/81; PULSE 70; RESP 18; TEMP 36.6; O2SAT 99
--- NOTE | 2023-02-11 17:05 | DI.RAD_ITS ---
Exam(s) XR FOOT LT COMPLETE EXAM: XR FOOT LT COMPLETE CLINICAL HISTORY: Anterior foot pain status post crush injury. TECHNIQUE: 2D digital imaging was performed. COMPARISON: CR,XR XR FOOT RT COMPLETE from 04/24/2021 FINDINGS: 3 views No evidence of fracture nor diastasis of the Lisfranc joint. Bone density normal. No osseous lesion s. No erosions. No radiopaque foreign body. IMPRESSION: No acute osseous findings in the foot. DATA REPOSITORY: RADIATION DOSE DELIVERED:
--- NOTE | 2023-02-11 19:43 | DI.VRAD_ITS ---
PROCEDURE INFORMATION: Exam: XR Left Foot Exam date and time: 02/11/2023 4:48 PM Age: 22 years old Clinical indication: Other: Pain TECHNIQUE: Imaging protocol: Radiologic exam of the left foot. Views: 3 or more views. COMPARISON: MR LOWER JOINT LT WO 02/09/2019 2:31 PM FINDINGS: Bones/joints: There is no evidence of acute fracture in any of the visualized osseous structures.. There is no evidence of malalignment or dislocation of any visualized joint. Soft tissues: Normal. IMPRESSION: 1. There is no evidence of acute fracture in any of the visualized osseous structures.. 2. There is no evidence of malalignment or dislocation of any visualized joint. Dictated and Authenticated by: Ayaan Gonsalez MD. Ordering:DILCIA Briggs MD
== END 2023-02-11 17:41 | disposition home or self-care (01) ==
PROVIDERS: Emergency Provider Emergency Medicine; PCP Nurse Practitioner Family
DX: S90.32XA Contusion of left foot, initial encounter (principal); V09.9XXA Pedestrian injured in unspecified transport accident, initial encounter; Y93.F9 Activity, other caregiving; Y92.89 Other specified places as the place of occurrence of the external cause; Y99.0 Civilian activity done for income or pay
CPT/HCPCS: 73630; 99283

== ENCOUNTER 2023-03-06 10:57 | Emergency (ER) | payer MEDICAID, SELFPAY ==
[2023-03-06 11:00] VITALS: BP 121/81; PULSE 74; RESP 14; TEMP 37.1; O2SAT 98
[2023-03-06 11:08] VITALS: RESP 15
--- NOTE | 2023-03-06 11:27 | ED.GENADUL_ITS ---
Discharge Plan Disposition Patient Disposition: Home Discharge Details Clinical Impression: Medication side effect, Altered awareness, transient Primary Care Provider: Divine De Los Santos ED Provider: Jesus Isaac Home Meds and New Rx's Prescriptions: Continued medroxyprogesterone [Depo-Provera] 150 mg/mL syringe 150 mg IM ONCE Qty: 1 2RF albuterol sulfate [ProAir HFA] 90 mcg/actuation HFA aerosol inhaler 1 - 2 puff Inhalation DAILY Qty: 1 2RF epinephrine [EpiPen] 0.3 mg/0.3 mL auto-injector 0.3 mg IJ ONCE PRN (Reason: Anaphylaxis) Qty: 1 1RF (DME) Aerochamber MV Spacer See Rx Instructions .ROUTE .MEDSUPPLY Qty: 1 0RF Rx Instructions: As directed albuterol sulfate [Ventolin HFA] 90 mcg/actuation HFA aerosol inhaler 2 puff INHALATION PRN PRN Patient Comments: INHALE ONE TO TWO PUFFS BY MOUTH EVERY DAY NEEDED budesonide-formoterol [Symbicort] 80-4.5 mcg/actuation HFA aerosol inhaler 1 puff INHALATION BID Patient Comments: INHALE 1 PUFF BY MOUTH TWICE A DAY Discontinued famotidine [Pepcid] 20 mg tablet 20 mg PO DAILY Patient Comments: Pt states not taking ML 02/11/23 metronidazole 500 mg tablet 500 mg PO BID Qty: 14 0RF Patient Comments: Pt states not taking ML 02/11/23 prochlorperazine maleate [Compazine] 10 mg tablet 10 mg PO Q8H PRNQty: 10 0RF Patient Comments: Pt states not taking ML 02/11/23 phenazopyridine [Pyridium] 200 mg tablet 200 mg PO TID PRNQty: 6 0RF Patient Comments: Pt states not taking ML 02/11/23 citalopram 20 mg tablet 20 mg PO ONCE Patient Comments: TAKE ONE TABLET BY MOUTH EVERY DAY acetylcysteine 600 mg capsule 600 mg PO ONCE Patient Comments: TAKE 2 CAPSULES BY MOUTH EVERY MORNING AND AN ADDITIONAL 2 CAPS IN THE AFTEROON OR EARLY EVENING NEEDED FOR ANXIETY Discharge Instructions Instructions: Hallucinations (ED) Additional Instructions: Please contact your primary care physician to arrange follow-up. Call today to arrange timely follow-up. Return to the ER immediately for any worsening or new concerning symptoms. Stand Alone Forms: Work Release Referrals: Divine De Los Santos [Primary Care Provider] - Medical Decision Making 1135 -- 22yo female with history of anxiety and depression, recently started N-acetylcysteine and restarted citalopram yesterday, now with hallucinations today. Concern for potential side effect of medication versus psychosis. Patient does have adverse reaction to fluoxetine noted in medical record of psychosis. Patient is neurologically intact. No indication of substance intoxication. -- Patient reassessed and resting comfortably. 1425 --patient reassessed and resting comfortably. Patient notes she is feeling little better. Patient denies suicidal or homicidal ideation. She denies hallucinations at this time. I spoke with the patient's PCP and psychiatrist at [facility]. They will ensure close outpatient follow-up. Plan for discharge. Disposition decision was made weighing the risks and benefits of hospitalization versus outpatient treatment, the risk for further decompensation, and the patient's wishes. The patient was stable and requested discharge. Prior to discharge, my usual and customary return precautions were reviewed with the patient - this included follow-up instructions and reason to return to the emergency department if condition worsens, does not improve as expected, or other new concerns arise. HPI General Mode of arrival: ambulatory . Date/Time Provider Initiated Documentation: 03/06/23 11:10 . Limitations to Documentation: no limitations . Information obtained by: patient . HPI Narrative: 22-year-old female with history of anxiety and depression, presents with concern for medication side effect. Patient notes she restarted taking Celexa and started taking acetylcysteine yesterday. This morning she notes that she is feeling like she is in a dream. She states that she drove to work today and does not remember much of her drive. Currently she describes feeling like she is asleep and that everything else is fake and that she is in a dream. She states everything seems to be moving faster than she is. She is concerned that this may be a reaction to new medication. Patient chronically smokes marijuana on a daily basis to help her go to sleep at night. No other drug use. No recent alcohol use. Related Data Home Medications Medication Instructions Recorded Confirmed inhalational spacing device #1 ea 02/14/20 03/06/23 (Aerochamber MV spacer) epinephrine 0.3 mg/0.3 mL 0.3 mg (0.3 mL) IJ ONCE PRN 05/24/20 03/06/23 injection, auto-injector (EpiPen) Anaphylaxis ##1 albuterol sulfate 90 mcg/actuation 1 - 2 puff inhalation DAILY ##1 10/04/20 03/06/23 aerosol inhaler (ProAir HFA) medroxyprogesterone 150 mg/mL 150 mg IM ONCE #1 SYRG 10/04/20 03/06/23 intramuscular syringe (Depo-Provera) albuterol sulfate 90 mcg/actuation 2 puff inhalation PRN PRN 06/16/22 03/06/23 aerosol inhaler (Ventolin HFA) budesonide-formoterol HFA 80 1 puff inhalation BID 02/11/23 03/06/23 mcg-4.5 mcg/actuation aerosol inhaler (Symbicort) Previous Rx's Medication Instructions Recorded inhalational spacing device #1 ea 02/14/20 (Aerochamber MV spacer) epinephrine 0.3 mg/0.3 mL 0.3 mg (0.3 mL) IJ ONCE PRN 05/24/20 injection, auto-injector (EpiPen) Anaphylaxis ##1 albuterol sulfate 90 mcg/actuation 1 - 2 puff inhalation DAILY ##1 10/04/20 aerosol inhaler (ProAir HFA) medroxyprogesterone 150 mg/mL 150 mg IM ONCE #1 SYRG 10/04/20 intramuscular syringe (Depo-Provera) Allergies Allergy/AdvReac Type Severity Reaction Status Date / Time 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 03/06/23 11:20 for tree nut allergy almond Allergy Intermediate Skin Rash Verified 03/06/23 11:20 No Known Drug Allergies Allergy Mild Verified 02/11/23 16:34 shellfish derived Allergy Verified 03/06/23 11:20 fluoxetine AdvReac Psychosis Unverified 03/06/23 11:20 General Stated Complaint: GenMedical RUBEN: 3 Review of Systems All systems reviewed & are unremarkable except as noted in HPI and below Constitutional Constitutional: Denies fever(s) Psychiatric Psychiatric: Reports as per HPI and Reports depression PFSH All Active Problems (Updated 03/06/23 @ 14:28 by Jesus Isaac MD) Altered awareness, transient (Acute) Medication side effect (Acute) Traumatic ecchymosis of left foot (Acute) Scapular dyskinesis (Acute) Impingement syndrome of left shoulder (Acute) Otitis externa (Acute) SLAP lesion of right shoulder (Acute) Tendinitis of long head of biceps brachii of both shoulders (Acute) Marijuana abuse (Acute) Hematuria (Acute) seen by Urology but declined hematuria workup Moderate persistent asthma without complication (Acute 08/23/16) Smoker (Chronic 11/28/17) Now using e-sigs about 3 times a day (06/2018) Depression with anxiety (Chronic 12/25/15) Adolescent idiopathic scoliosis of thoracolumbar region (Chronic 08/23/16) ADHD (attention deficit hyperactivity disorder) (Chronic 11/23/14) Medical History Acute neck pain Chronic abdominal pain Concussion Depot contraception Eczema (11/23/14) Fracture of left wrist (08/23/09) Fracture of right clavicle (11/04/04) Sprain of medial collateral ligament of right knee, subsequent encounter (04/22/17) Surgical History ROOF OF MOUTH RECONSTRUCTED Family History Mother Substance abuse several female relatives Neoplasm breast CA Social History Smoking/Tobacco Use Status: Never Smoking risk assessment performed?: Yes Alcohol Intake: current Alcohol Intake frequency: a few times a month Alcohol type: beer and hard liquor Drug use: Occasionally Substance use type: does not use and marijuana Household members: family Housing: house Sexually active: Yes Do you think of yourself as: straight/heterosexual Current gender identity: female Seatbelt use: sometimes Do you feel safe at home: Yes Do you feel safe in your relationship?: Yes Female Reproductive History Menstrual control method: progesterone injection History History 0 Para Hx # Term Pregnancies Multiple births Hx # Pregnancies Ectopic pregnancies AB induced Hx Number of Living Children AB spontaneous Exam Const General: cooperative and no acute distress HENMT Mouth: moist mucous membranes Eyes Conjunctivae: normal conjunctivae Sclera: normal sclerae Neck Neck: trachea midline and supple Resp Auscultation: clear to auscultation bilaterally, no rales, no rhonchi and no wheezes Cardio Rate: regular rate and not tachycardic Rhythm: regular rhythm Skin General skin exam: no rashes or lesions noted Neuro General: patient alert, patient awake and tone normal Extrem General: no edema Psych Appearance: grossly normal Mental Status: mental status grossly normal Speech and Movement: speech and movement normal Affect: normal affect Attitude: cooperative Thought Content: abnormal Insight: insight good Course Vital Signs Vital signs: Vital Signs Temperature 37.1 C 03/06/23 11:00 Pulse 74 03/06/23 11:00 Respiratory Rate 14 03/06/23 11:00 Blood Pressure 121/81 03/06/23 11:00 Pulse Oximetry 98 03/06/23 11:00 Temperature 37.1 C 03/06/23 11:00 Temperature Source Skin 03/06/23 11:00 Pulse 74 03/06/23 11:00 Respiratory Rate 15 03/06/23 11:08 Respiratory Effort Normal 03/06/23 11:08 Respiratory Depth Normal 03/06/23 11:08 Respiratory Pattern Normal 03/06/23 11:08 Blood Pressure 121/81 03/06/23 11:00 Blood Pressure Position Sitting 03/06/23 11:00 Pulse Oximetry 98 03/06/23 11:00 Oxygen Delivery Method Room Air 03/06/23 11:00 Oxygen Flow Rate 0 03/06/23 11:00 Pain Level 0 03/06/23 11:00 PAWSS Have you Been Recently Intoxicated or Drunk Within the Last 30 days?: Yes Have you Ever Experienced Previous Episodes of Alcohol Withdrawal?: No Have you ever Experienced Withdrawal Seizures?: No Have you ever Experienced Delirium Tremens(DT)s?: No Have you ever undergone Alcohol Rehabilitation Treatment (i.e, inpt ot outpatient treatment programs)?: No Have you ever Experienced Blackouts?: No Have you ever Combined Alcohol with other Downers within the last 90 days?: No Have you ever Combined Alcohol with any other Substance of Abuse during the last 90 days?: No Positive Blood Alcohol level on Presentation? [PCS.BAL]: No Evidence of Increased Autonomic Activity (i.e. HR>120, tremor, sweating, agitation, nausea)?: No Result: 1
[2023-03-06 14:53] LABS: *AMPHETAMINES SCREEN URINE Negative (Negative); *BARBITURATES SCREEN URINE Negative (Negative); *BENZODIAZEPINES SCREEN URINE Negative (Negative); Cannabinoids THC Negative (Negative); Cocaine Screen,Urine Negative (Negative); METHADONE URINE SCREEN Negative (Negative); OPIATES URINE SCREEN Negative (Negative)
[2023-03-06 14:55] LABS: Tricyclic Antidepressants Negative (Negative)
== END 2023-03-06 14:40 | disposition home or self-care (01) ==
PROVIDERS: Emergency Provider Student in an Organized Health Care Education/Training Program; PCP Nurse Practitioner Family
DX: R44.3 Hallucinations, unspecified (principal); T50.915A Adverse effect of multiple unspecified drugs, medicaments and biological substances, initial encounter; F41.9 Anxiety disorder, unspecified; F32.A Depression, unspecified; Z79.899 Other long term (current) drug therapy
CPT/HCPCS: 80307; 99283; 99284

== ENCOUNTER 2023-07-23 18:30 | Outpatient (REF) | payer MEDICAID, SELFPAY ==
[2023-07-23 20:59] LABS: Bilirubin Negative (Negative); Blood Negative (Negative); Clarity Turbid (Clear); Glucose Negative (Negative); Ketones Trace mg/dL (Negative); Leukocyte Esterase Negative (Negative); Nitrite Negative (Negative); Urobilinogen 0.2 mg/dL (Up to 0.2); pH 8.5 (5-8)
== END 2023-07-23 18:31 | disposition home or self-care (01) ==
LOC: NCHCN 18:30
PROVIDERS: PCP Nurse Practitioner Family; Visit Provider Family Medicine
DX: R39.15 Urgency of urination (principal)
CPT/HCPCS: 81003

== ENCOUNTER 2023-10-29 16:46 | Emergency (ER) | payer MEDICAID, SELFPAY ==
--- NOTE | 2023-10-29 16:45 | RT.EKG_ITS ---
APPROVED REPORT Exam: Resting ECG Reason for Exam: chest pain Patient Location: E HR:90 bpm ECG Measurements Heart Rate 90 AXIS NC 109 P 48 QRSd 74 QRS 40 QT 351 T 11 QTc 431 Conclusion Sinus rhythm...normal P axis, V-rate 60- 99 Narrow complex normal sinus rhythm at a rate of 90. Short NC interval at 109 ms. QTc within normal limits. Normal axis. No ST segment abnormalities. T wave inversion in lead III. No obvious delta wave.
[2023-10-29 16:48] VITALS: BP 126/71; PULSE 93; RESP 18; TEMP 37.1; O2SAT 99
--- NOTE | 2023-10-29 17:02 | ED.GENADUL_ITS ---
Discharge Plan Disposition Patient Disposition: Home Condition: Stable Discharge Details Clinical Impression: Anxiety Primary Care Provider: Divine De Los Santos ED Provider: Ian Collazo Home Meds and New Rx's Prescriptions: Continued medroxyprogesterone [Depo-Provera] 150 mg/mL syringe 150 mg IM ONCE Qty: 1 2RF albuterol sulfate [ProAir HFA] 90 mcg/actuation HFA aerosol inhaler 1 - 2 puff Inhalation DAILY Qty: 1 2RF epinephrine [EpiPen] 0.3 mg/0.3 mL auto-injector 0.3 mg IJ ONCE PRN (Reason: Anaphylaxis) Qty: 1 1RF (DME) Aerochamber MV Spacer See Rx Instructions .ROUTE .MEDSUPPLY Qty: 1 0RF Rx Instructions: As directed albuterol sulfate [Ventolin HFA] 90 mcg/actuation HFA aerosol inhaler 2 puff INHALATION PRN PRN Patient Comments: INHALE ONE TO TWO PUFFS BY MOUTH EVERY DAY NEEDED budesonide-formoterol [Symbicort] 80-4.5 mcg/actuation HFA aerosol inhaler 1 puff INHALATION BID Patient Comments: INHALE 1 PUFF BY MOUTH TWICE A DAY Discharge Instructions Instructions: Anxiety, Adult ED Additional Instructions: You were seen in the emergency department for your diffuse chest pain ongoing for 2 days, this is likely anxiety or costochondritis which is musculoskeletal chest pain in between the ribs. Your cardiac workup is negative, your EKG shows no dynamic changes, we tested cardiac enzymes which test for damage to the cardiac muscle cells which was negative, we ruled out a blood clot in the lungs, there is no sign of infection on your labs, your electrolytes are all normal. You do have chronic GERD we did give you an acid reflux medicine called famotidine which is an [id number] pill. You could try this twice per day for 2 weeks to see if it relieves your heartburn symptoms. You can take Tylenol and ibuprofen as needed and apply gentle heat to your rib cage for trial of relief of musculoskeletal chest pain, otherwise I believe your symptoms are related to anxiety. Please return to the emergency department for any severe increase in chest pain especially with exertional onset with shortness of breath, dizziness, visual changes, near fainting, nausea or weakness. Referrals: Divine De Los Santos [Primary Care Provider] - [facility] General Date/Time Provider Initiated Documentation: 10/29/23 17:02 . HPI Narrative: 23 year-old female presents to ED today by POV/ambulating with a chief complaint of intermittent palpitations, and chest pain for the past 2 days- patient equates this with emotionally stressful triggers, and has history of anxiety. Quality described as diffuse chest burning- does note that she vomited and questions if she has a pulled muscle in her chest, no radiation to dizziness, paleness, near syncope, fever, URI, shortness of breath, exertional onset. Severity is described as mild to moderate. Palliating factors include nothing specific attempted, hasn't taken anxiety meds. Provoking factors include nothing specific- has noted some tachycardia on apple watch with anxious events like getting pulled over. Events leading up to the incident/Associated Symptoms: Patient questions as well. Patient not anticoagulated. Related Data Home Medications Medication Instructions Recorded Confirmed inhalational spacing device #1 ea 02/14/20 03/06/23 (Aerochamber MV spacer) epinephrine 0.3 mg/0.3 mL 0.3 mg (0.3 mL) IJ ONCE PRN 05/24/20 03/06/23 injection, auto-injector (EpiPen) Anaphylaxis ##1 albuterol sulfate 90 mcg/actuation 1 - 2 puff inhalation DAILY ##1 10/04/20 03/06/23 aerosol inhaler (ProAir HFA) medroxyprogesterone 150 mg/mL 150 mg IM ONCE #1 SYRG 10/04/20 03/06/23 intramuscular syringe (Depo-Provera) albuterol sulfate 90 mcg/actuation 2 puff inhalation PRN PRN 06/16/22 03/06/23 aerosol inhaler (Ventolin HFA) budesonide-formoterol HFA 80 1 puff inhalation BID 02/11/23 03/06/23 mcg-4.5 mcg/actuation aerosol inhaler (Symbicort) Previous Rx's Medication Instructions Recorded inhalational spacing device #1 ea 02/14/20 (Aerochamber MV spacer) epinephrine 0.3 mg/0.3 mL 0.3 mg (0.3 mL) IJ ONCE PRN 05/24/20 injection, auto-injector (EpiPen) Anaphylaxis ##1 albuterol sulfate 90 mcg/actuation 1 - 2 puff inhalation DAILY ##1 10/04/20 aerosol inhaler (ProAir HFA) medroxyprogesterone 150 mg/mL 150 mg IM ONCE #1 SYRG 10/04/20 intramuscular syringe (Depo-Provera) Allergies Allergy/AdvReac Type Severity Reaction Status Date / Time shellfish derived Allergy Severe Anaphylaxis Verified 10/29/23 16:54 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 SKIN: Warm, pink, dry, intact, without rashes/lesions/ulcerations. HEAD: Normocephalic, atraumatic, normal hair distribution for gender/age. EYES: Pupils PERRLA, EOMs intact without nystagmus, normal conjunctiva, no exudates on lids/lashes. ENT: Nares patent, no circumoral cyanosis, no facial swelling NECK: Supple, trachea midline, painless cervical ROM. LUNGS/CHEST: Lungs CTA bilaterally- no rhonchi/rales/wheezes diffusely, non- labored respirations, normal A/P diameter, symmetrical expansion, no chest wall deformity HEART (CV/PV): Regular rate and rhythm without murmur, no peripheral edema, no JVD. ABDOMEN: Soft, non-distended, no guarding, no tenderness. MSK: Normal ROM, no swelling/deformity to bilateral UEs or LEs, moving all extremities without weakness, no cyanosis, spine midline without tenderness, normal curvature. NEURO: Mental Status AAOx4 - alert to person, place, time, events No facial droop, no forehead involvement. Motor: No focal weakness - strength 5/5 in bilateral UEs and LEs, proximal and distal, symmetric. Sensory: sensation intact to light touch globally. Gait normal: patient ambulated without ataxia into ED room. PSYCH: euthymic, cooperative, pleasant, appropriate speech Course Vital Signs Vital signs: Vital Signs Temperature 37.1 C 10/29/23 16:48 Pulse 93 H 10/29/23 16:48 Respiratory Rate 18 10/29/23 16:48 Blood Pressure 126/71 10/29/23 16:48 Pulse Oximetry 99 10/29/23 16:48 Temperature 37.1 C 10/29/23 16:48 Pulse 93 H 10/29/23 16:48 Respiratory Rate 18 10/29/23 16:48 Blood Pressure 126/71 10/29/23 16:48 Pulse Oximetry 99 10/29/23 16:48 Pain Level 8 10/29/23 16:48 Medical Decision Making This dictation utilizes [id number]-[id number] dictation software and may contain unedited grammatical errors. 23 year-old female presents to ED today by POV/ambulating with a chief complaint of intermittent palpitations, and chest pain for the past 2 days- patient equates this with emotionally stressful triggers, and has history of anxiety. Quality described as diffuse chest burning- does note that she vomited and que stions if she has a pulled muscle in her chest, no radiation to dizziness, paleness, near syncope, fever, URI, shortness of breath, exertional onset. Severity is described as mild to moderate. Palliating factors include nothing specific attempted, hasn't taken anxiety meds. Provoking factors include nothing specific- has noted some tachycardia on apple watch with anxious events like getting pulled over. Events leading up to the incident/Associated Symptoms: Patient questions as well. Patients' medical history: Anxiety, marijuana use, smoker, ADHD. Family and social history: noncontributory, no FHx of early cardiac disease. Pertinent exam findings / vital signs include cardiopulmonary exam, neuro intact, benign abdomen, no respiratory distress, nontoxic vitals. Differential / pathologies of concern include ACS, anxiety, GERD, costochondritis, PE, , electrolyte abnormality, transient arrhythmia. Diagnostic studies of: -CBC, CMP, D-dimer, TSH, urine , troponin, EKG. -CBC shows no abnormality -D-dimer negative -CMP unremarkable -BNP negative -Troponin negative with reliable onset -Lipase negative -Urine negative -EKG shows sinus rhythm at 90 bpm with P waves followed by narrow complex QRS, normal axis, good R wave progression, normal QT QTc, does have T wave inversions in V2 that are similar to priors, P wave is slightly shortened from prior Interventions of: -Trial of p.o. famotidine for relief, not effective. ED Course/Assessment/Plan: 23-year-old female presents with periods of palpitations subjectively reported by her Apple Watch as well as anxiety surrounding immensely getting pulled over. She endorses possibility of , her cardiac workup is negative, D-dimer is negative, urine is negative, lipase is negative do not suspect biliary colic with benign abdomen, counseled on her nondynamic EKG from priors and the unlikely cause of her chest pain is coronary syndrome, counseled on likely anxiety, counseled on taking her anxiety meds and following up with her primary care provider for possible event monitoring at some point in the future for her reported arrhythmias that are intermittent and sparse. Strict return criteria for any severe increase in chest pain especially with exertion of onset, lightheadedness, near syncope, respiratory distress, nausea, weakness. Findings not consistent with acute coronary syndrome, PE, biliary colic, electrolyte abnormality, persistent arrhythmia, . Disposition of Anxiety. Patient verbalized understanding of the plan and return to ED criteria and engaged in shared decision making. Medical Records Medical records reviewed: Yes I reviewed the patient's medical records. Lab Data Lab results reviewed: Yes I reviewed the patient's lab results. Labs: Laboratory Tests Range/Units 10/29/23 17:24 WBC (4.4-10.8) 10^3/uL 6.72 RBC (3.93-5.22) 10^6/uL 4.98 Hgb (11.2-15.7) g/dL 14.0 Hct (36.0-46.0) % 42.2 MCV (80-95) fL 85 MCH (27.0-33.0) pg 28.1 MCHC (32.0-36.0) % 33.2 RDW (11.7-14.6) % 11.6 L Plt Count (130-400) 10^3/uL 341 MPV (8.0-11.0) fL 8.4 Immature Gran % % 0.3 Neutrophils % % 67.0 Lymphocytes % % 23.1 Monocytes % % 8.8 Eosinophils % % 0.4 Basophils % % 0.4 Nucleated RBC % (0.0-0.3) % 0.0 Absolute Neutrophils (1.2-6.7) 10^3/uL 4.50 Absolute Lymphocytes (1.2-3.4) 10^3/uL 1.55 Absolute Monocytes (0.1-0.8) 10^3/uL 0.59 Absolute Eosinophils (0.0-0.7) 10^3/uL 0.03 Absolute Basophils (0.0-0.2) 10^3/uL 0.03 D-Dimer (<500) ng/mlFEU 99 Sodium (136-145) mmol/L 141 Potassium (3.5-5.1) mmol/L 3.5 Chloride (98-107) mmol/L 102 Carbon Dioxide (21.0-32.0) mmol/L 26.3 Anion Gap (3-11) mmol/L 12.7 H BUN (7-18) mg/dL 17 Creatinine (0.55-1.02) mg/dL 0.9 Est GFR (CKD-EPI 2020) (mL/min/1.73m2) 92.70 Glucose (74-106) mg/dL 94 Calcium (8.5-10.1) mg/dL 8.9 Total Bilirubin (0.2-1.0) mg/dL 0.4 AST (15-37) U/L 17 ALT (14-59) U/L 29 Alkaline Phosphatase (46-116) U/L 87 Troponin I (< or =60) ng/L < 50 NT-Pro-B Natriuret Pep (<300) pg/mL 10 Total Protein (6.4-8.2) g/dL 8.3 H Albumin (3.4-5.0) g/dL 4.3 Lipase (16-77) U/L 37 TSH (0.36-3.74) uIU/mL 3.07 Quality:SDOH Health Related Social Needs: No Data to Display PFSH All Active Problems (Updated 10/29/23 @ 18:16 by DIVYA Elizabeth) Anxiety (Chronic) Scapular dyskinesis (Acute) Impingement syndrome of left shoulder (Acute) Otitis externa (Acute) SLAP lesion of right shoulder (Acute) Tendinitis of long head of biceps brachii of both shoulders (Acute) Marijuana abuse (Acute) Hematuria (Acute) seen by Urology but declined hematuria workup Moderate persistent asthma without complication (Acute 08/23/16) Smoker (Chronic 11/28/17) Now using e-sigs about 3 times a day (06/2018) Depression with anxiety (Chronic 12/25/15) Adolescent idiopathic scoliosis of thoracolumbar region (Chronic 08/23/16) ADHD (attention deficit hyperactivity disorder) (Chronic 11/23/14) Medical History Acute neck pain Chronic abdominal pain Concussion Depot contraception Eczema (11/23/14) Fracture of left wrist (08/23/09) Fracture of right clavicle (11/04/04) Sprain of medial collateral ligament of right knee, subsequent encounter (04/22/17) Surgical History ROOF OF MOUTH RECONSTRUCTED Family History Mother Substance abuse several female relatives Neoplasm breast CA Social History Smoking/Tobacco Use Status: Never Smoking risk assessment performed?: Yes Alcohol Intake: current Alcohol Intake frequency: a few times a month Alcohol type: beer and hard liquor Drug use: Occasionally Substance use type: does not use and marijuana Household members: family Housing: house Sexually active: Yes Do you think of yourself as: straight/heterosexual Current gender identity: female Seatbelt use: sometimes Do you feel safe at home: Yes Do you feel safe in your relationship?: Yes Female Reproductive History Menstrual control method: progesterone injection History History 0 Para Hx # Term Pregnancies Multiple births Hx # Pregnancies Ectopic pregnancies AB induced Hx Number of Living Children AB spontaneous
[2023-10-29] MEDS: Famotidine 20 MG TAB PO (17:20)
[2023-10-29 17:42] LABS: Abs Immature Grans 0.02 10^3/uL (0.0-0.06); Absolute Basophil Count 0.03 10^3/uL (0.0-0.2); Absolute Eosinophil Count 0.03 10^3/uL (0.0-0.7); Absolute Lymphocyte Count 1.55 10^3/uL (1.2-3.4); Absolute Monocyte Count 0.59 10^3/uL (0.1-0.8); Basophils % 0.4 %; Eosinophils % 0.4 %; HCT 42.2 % (36.0-46.0); Immature Grans % 0.3 %; Lymphocytes % 23.1 %; MCH 28.1 pg (27.0-33.0); MCHC 33.2 % (32.0-36.0); MCV 85 fL (80-95); MPV 8.4 fL (8.0-11.0); Monocytes % 8.8 %; Platelet Count 341 10^3/uL (130-400); RBC 4.98 10^6/uL (3.93-5.22); RDW 11.6 % (11.7-14.6); RDW-SD 35.7 fL; WBC 6.72 10^3/uL (4.4-10.8)
[2023-10-29 17:55] VITALS: RESP 15
[2023-10-29 17:57] VITALS: PULSE 99
[2023-10-29 18:09] LABS: ALT 29 U/L (14-59); AST 17 U/L (15-37); Albumin 4.3 g/dL (3.4-5.0); Alkaline Phosphatase 87 U/L (46-116); Anion Gap 12.7 mmol/L (3-11); BUN 17 mg/dL (7-18); Bilirubin, Total 0.4 mg/dL (0.2-1.0); CO2 26.3 mmol/L (21.0-32.0); CREATININE 0.9 mg/dL (0.55-1.02); Calcium 8.9 mg/dL (8.5-10.1); Chloride 102 mmol/L (98-107); Glucose 94 mg/dL (74-106); Lipase 37 U/L (16-77); NT-proBNP 10 pg/mL (<300); Potassium 3.5 mmol/L (3.5-5.1); Sodium 141 mmol/L (136-145); TSH (W/Ref FT4) 3.07 uIU/mL (0.36-3.74); Total Protein 8.3 g/dL (6.4-8.2)
[2023-10-29 18:10] LABS: Troponin I < 50 ng/L (< or =60)
[2023-10-29 18:12] LABS: D-Dimer 99 ng/mlFEU (<500)
[2023-10-29 18:24] VITALS: BP 126/71; PULSE 95; RESP 15; TEMP 37.1
== END 2023-10-29 18:24 | disposition home or self-care (01) ==
PROVIDERS: Emergency Provider Physician Assistant; PCP Nurse Practitioner Family
DX: R07.9 Chest pain, unspecified (principal); F41.9 Anxiety disorder, unspecified; K21.9 Gastro-esophageal reflux disease without esophagitis
CPT/HCPCS: 80053; 81025; 83690; 93005; 99284; 83880; 84443; 84484; 85025; 85379; 93010

== ENCOUNTER 2023-11-05 16:45 | Outpatient (REF) | payer MEDICAID, SELFPAY ==
[2023-11-05 22:30] LABS: TSH (W/Ref FT4) 1.68 uIU/mL (0.36-3.74)
== END 2023-11-05 17:00 | disposition home or self-care (01) ==
LOC: NCHCN 16:45
PROVIDERS: PCP Nurse Practitioner Family; Visit Provider Nurse Practitioner Family
DX: F41.9 Anxiety disorder, unspecified (principal)
CPT/HCPCS: 84443

== ENCOUNTER 2023-11-12 15:32 | Emergency (ER) | payer MEDICAID, SELFPAY ==
[2023-11-12 15:44] VITALS: BP 143/94; PULSE 100; RESP 14; TEMP 36.8; O2SAT 100
[2023-11-12 16:04] VITALS: BP 143/94; PULSE 100; RESP 14; TEMP 36.8; O2SAT 100
--- NOTE | 2023-11-12 16:17 | W.ED.GENAD ---
Discharge Plan Disposition Patient Disposition: Home Condition: Improving Discharge Details Chief Complaint: Abd Prob Clinical Impression: Abdominal pain Primary Care Provider: Divine De Los Santos ED Provider: Armand Spence Home Meds and New Rx's Prescriptions: No Action albuterol sulfate [ProAir HFA] 90 mcg/actuation HFA aerosol inhaler 1 - 2 puff Inhalation DAILY Qty: 1 2RF epinephrine [EpiPen] 0.3 mg/0.3 mL auto-injector 0.3 mg IJ ONCE PRN (Reason: Anaphylaxis) Qty: 1 1RF (DME) Aerochamber MV Spacer See Rx Instructions .ROUTE .MEDSUPPLY Qty: 1 0RF Rx Instructions: As directed albuterol sulfate [Ventolin HFA] 90 mcg/actuation HFA aerosol inhaler 2 puff INHALATION PRN PRN Patient Comments: INHALE ONE TO TWO PUFFS BY MOUTH EVERY DAY NEEDED buspirone 5 mg tablet 5 mg PO DAILY Patient Comments: TAKE ONE TABLET BY MOUTH EVERY DAY DIRECTED budesonide-formoterol [Symbicort] 80-4.5 mcg/actuation HFA aerosol inhaler 1 puff INHALATION BID Patient Comments: INHALE 1 PUFF BY MOUTH TWICE A DAY Discharge Instructions Instructions: Abdominal Pain, Adult ED Additional Instructions: Please follow-up tomorrow for next day ultrasound right upper quadrant. Please contact your primary care provider for close follow-up. Please return to the emergency room for any worsening symptoms HPI General Date/Time Provider Initiated Documentation: 11/12/23 15:47. HPI Narrative: 23-year-old female presents with several days of right upper abdominal discomfort, nausea vomiting and constipation, although was able to pass a hard stool today, was evaluated at [facility] within the last 48 hours had a normal [address] scan of her abdomen and was discharged home, patient endorses yellow-tinged stool and yellow-tinged emesis over the last day. However has been able to eat a cup of rice and is drinking liquids without issue. Related Data Home Medications Medication Instructions Recorded Confirmed inhalational spacing device #1 ea 02/14/20 11/12/23 (Aerochamber MV spacer) epinephrine 0.3 mg/0.3 mL 0.3 mg (0.3 mL) IJ ONCE PRN 05/24/20 11/12/23 injection, auto-injector (EpiPen) Anaphylaxis ##1 albuterol sulfate 90 mcg/actuation 1 - 2 puff inhalation DAILY ##1 10/04/20 11/12/23 aerosol inhaler (ProAir HFA) albuterol sulfate 90 mcg/actuation 2 puff inhalation PRN PRN 06/16/22 11/12/23 aerosol inhaler (Ventolin HFA) budesonide-formoterol HFA 80 1 puff inhalation BID 02/11/23 11/12/23 mcg-4.5 mcg/actuation aerosol inhaler (Symbicort) buspirone 5 mg tablet 5 mg PO DAILY 11/12/23 11/12/23 Previous Rx's Medication Instructions Recorded inhalational spacing device #1 ea 02/14/20 (Aerochamber MV spacer) epinephrine 0.3 mg/0.3 mL 0.3 mg (0.3 mL) IJ ONCE PRN 05/24/20 injection, auto-injector (EpiPen) Anaphylaxis ##1 albuterol sulfate 90 mcg/actuation 1 - 2 puff inhalation DAILY ##1 10/04/20 aerosol inhaler (ProAir HFA) Allergies Allergy/AdvReac Type Severity Reaction Status Date / Time shellfish derived Allergy Severe Anaphylaxis Verified 11/12/23 15:48 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 11/12/23 15:48 for tree nut allergy almond Allergy Intermediate Skin Rash Verified 11/12/23 15:48 acetylcysteine [From NAC] AdvReac Intermediate Other (See Verified 11/12/23 15:48 Comment) fluoxetine AdvReac Psychosis Unverified 11/12/23 15:48 General Stated Complaint: Abd Prob RUBEN: 3 Review of Systems Narrative: Review of Systems Constitutional: negative Eyes: negative ENT: negative Cardiovascular: negative Respiratory: negative Gastrointestinal: Abdominal pain nausea constipation : negative Musculoskeletal: negative Skin: negative Neurologic: negative Psych: negative Exam Narrative Exam Narrative: Physical Examination General: alert, awake, cooperative, resting comfortably, no acute distress HEENT: normocephalic, atraumatic; PERRL, EOM intact, conjunctiva normal; no nasal discharge; moist mucous membranes, oral and pharyngeal mucosa normal, tolerating secretions Neck: supple, trachea midline; full ROM Chest: normal to inspection Respiratory: normal respiratory effort, speaking in full sentences, clear to auscultation, no wheezing, rales or rhonchi Cardiac: regular rate, regular rhythm, S1S2 intact, no murmurs rubs or gallops GI: abdomen soft, non-tender, non-distended; no palpable mass or hepatosplenomegaly Skin: no lesions, rashes or trauma appreciated Neuro: AAOx3, normal speech, moving all extremities Extremities: No peripheral edema Psych: Appropriate mood and affect Course Vital Signs Vital signs: Vital Signs Temperature 36.8 C 11/12/23 15:44 Pulse 100 H 11/12/23 15:44 Respiratory Rate 14 11/12/23 15:44 Blood Pressure 143/94 H 11/12/23 15:44 Pulse Oximetry 100 11/12/23 15:44 Temperature 36.8 C 11/12/23 16:04 Temperature Source Oral 11/12/23 16:04 Pulse 100 H 11/12/23 16:04 Respiratory Rate 14 11/12/23 16:04 Respiratory Effort Normal 11/12/23 16:03 Blood Pressure 143/94 H 11/12/23 16:04 Blood Pressure Position Sitting 11/12/23 16:04 Pulse Oximetry 100 11/12/23 16:04 Oxygen Delivery Method Room Air 11/12/23 16:04 Oxygen Flow Rate 0 11/12/23 16:04 Pain Level 7 11/12/23 16:04 Medical Decision Making 23-year-old female presents with several days of abdominal discomfort nausea vomiting and constipation although patient had a hard bowel movement earlier today, patient tolerating bowl of rice at home and has been able to tolerate liquids, no acute distress resting comfortably abdomen soft nontender nondistended nonperitoneal, afebrile nontoxic normotensive; given recent normal workup at [facility] including a normal CT abdomen pelvis I counseled patient extensively regarding my reluctance to pursue further imaging with CT given her age I do not want to put her at increased risk for malignancy later in life, given benign examination nontoxic patient will coordinate next day right upper quadrant ultrasound given patient symptomatology however at this juncture will obtain basic labs to assess bilirubin liver function kidney function will obtain urinalysis urine test offered patient IV fluid and meds however patient says she would rather take oral fluids. Low suspicion for cholecystitis bowel obstruction malignancy pyelonephritis or other serious bacterial infection, must consider biliary colic versus gastritis versus symptomatic constipation 17: 16 resting comfortably no acute distress no vomiting in department nonperitoneal, tolerate p.o., labs unremarkable, patient be given next day ultrasound for right upper quadrant/biliary ultrasound. Home care instruction strict return precautions given Quality:SDOH Health Related Social Needs: No Data to Display PFSH All Active Problems (Updated 11/12/23 @ 17:17 by Armand Spence MD) Abdominal pain (Acute) Anxiety (Chronic) Scapular dyskinesis (Acute) Impingement syndrome of left shoulder (Acute) Otitis externa (Acute) SLAP lesion of right shoulder (Acute) Tendinitis of long head of biceps brachii of both shoulders (Acute) Marijuana abuse (Acute) Hematuria (Acute) seen by Urology but declined hematuria workup Moderate persistent asthma without complication (Acute 08/23/16) Smoker (Chronic 11/28/17) Now using e-sigs about 3 times a day (06/2018) Depression with anxiety (Chronic 12/25/15) Adolescent idiopathic scoliosis of thoracolumbar region (Chronic 08/23/16) ADHD (attention deficit hyperactivity disorder) (Chronic 11/23/14) Medical History Acute neck pain Chronic abdominal pain Concussion Depot contraception Eczema (11/23/14) Fracture of left wrist (08/23/09) Fracture of right clavicle (11/04/04) Sprain of medial collateral ligament of right knee, subsequent encounter (04/22/17) Surgical History ROOF OF MOUTH RECONSTRUCTED Family History Mother Substance abuse several female relatives Neoplasm breast CA Social History Smoking/Tobacco Use Status: Never Smoking risk assessment performed?: Yes Alcohol Intake: former Drug use: Occasionally Substance use type: does not use and marijuana Household members: family Housing: house Sexually active: Yes Do you think of yourself as: straight/heterosexual Current gender identity: female Seatbelt use: sometimes Do you feel safe at home: Yes Do you feel safe in your relationship?: Yes Female Reproductive History Menstrual control method: progesterone injection History History 0 Para Hx # Term Pregnancies Multiple births Hx # Pregnancies Ectopic pregnancies AB induced Hx Number of Living Children AB spontaneous
[2023-11-12 16:35] LABS: Abs Immature Grans 0.02 10^3/uL (0.0-0.06); Absolute Basophil Count 0.03 10^3/uL (0.0-0.2); Absolute Eosinophil Count 0.03 10^3/uL (0.0-0.7); Absolute Lymphocyte Count 1.53 10^3/uL (1.2-3.4); Absolute Neutrophil Count 5.09 10^3/uL (1.2-6.7); Basophils % 0.4 %; Eosinophils % 0.4 %; HCT 39.5 % (36.0-46.0); HGB 13.4 g/dL (11.2-15.7); Immature Grans % 0.3 %; MCH 28.6 pg (27.0-33.0); MCHC 33.9 % (32.0-36.0); MCV 84 fL (80-95); MPV 8.4 fL (8.0-11.0); Monocytes % 8.2 %; Neutrophils % 69.7 %; Platelet Count 297 10^3/uL (130-400); RBC 4.68 10^6/uL (3.93-5.22); RDW 11.4 % (11.7-14.6); RDW-SD 35.1 fL
[2023-11-12 16:36] LABS: Bilirubin Negative (Negative); Blood Negative (Negative); Clarity Clear (Clear); Glucose Negative (Negative); Ketones 40 mg/dL (Negative); Leukocyte Esterase Negative (Negative); Nitrite Negative (Negative); Urobilinogen 0.2 mg/dL (Up to 0.2)
[2023-11-12 16:53] LABS: ALT 18 U/L (14-59); AST 16 U/L (15-37); Albumin 4.3 g/dL (3.4-5.0); Alkaline Phosphatase 81 U/L (46-116); Anion Gap 10.8 mmol/L (3-11); BUN 9 mg/dL (7-18); Bilirubin, Total 0.45 mg/dL (0.2-1.0); CO2 25.2 mmol/L (21.0-32.0); CREATININE 0.8 mg/dL (0.55-1.02); Calcium 9.2 mg/dL (8.5-10.1); Chloride 103 mmol/L (98-107); Estimated GFR 106.77 (mL/min/1.73m2); Glucose 81 mg/dL (74-106); Lipase 32 U/L (16-77); Potassium 3.4 mmol/L (3.5-5.1); Sodium 139 mmol/L (136-145); Total Protein 7.9 g/dL (6.4-8.2)
[2023-11-12 17:22] VITALS: BP 103/77; PULSE 70; RESP 19; TEMP 37.2; O2SAT 96
== END 2023-11-12 17:27 | disposition home or self-care (01) ==
PROVIDERS: Emergency Provider Emergency Medicine; PCP Nurse Practitioner Family
DX: R10.9 Unspecified abdominal pain (principal)
CPT/HCPCS: 36415; 80053; 81025; 83690; 99283; 81003; 85025; 99284

== ENCOUNTER → 2023-11-13 09:05 | Outpatient (CLI) | payer MEDICAID, SELFPAY ==
--- NOTE | 2023-11-13 12:10 | DI.US_ITS ---
Exam(s) US ABDOMEN LIMITED EXAM: US ABDOMEN LIMITED CLINICAL HISTORY: RUQ PAIN TECHNIQUE: Ultrasound abdomen performed using standard protocol. COMPARISON: US US ABD PELV TRANSVAG NON-OB from 10/27/2019 FINDINGS: PANCREAS: Normal where visualized. LIVER: The liver is unchanged in appearance. No evidence of a hepatic mass. Hepatopetal flow in the Portal Vein. The liver measures in 12.2 cm length. No evidence of a hepatic mass. GALLBLADDER: No evidence of cholelithiasis. No evidence of wall thickening. No pericholecystic fluid identified. BILIARY SYSTEM: Common bile duct measures < 7 mm. No intrahepatic biliary ductal dilation. DAVALOS'S SIGN: Negative. RIGHT KIDNEY: Kidney is normal in size. No evidence of renal calculi. No evidence of hydronephrosis. No renal mass or cyst identified. ASCITES: None seen. IMPRESSION: No evidence of cholelithiasis or acute cholecystitis. DATA REPOSITORY:
== END ==
PROVIDERS: PCP Nurse Practitioner Family; Visit Provider Emergency Medicine
DX: R10.11 Right upper quadrant pain (principal)
CPT/HCPCS: 76705

== ENCOUNTER 2023-12-22 18:23 | Outpatient (REF) | payer MEDICAID, SELFPAY | END 2023-12-22 18:24 | disposition home or self-care (01) | LOC: LBN 18:23 | PROVIDERS: PCP Nurse Practitioner Family; Visit Provider Nurse Practitioner Family | DX: J02.9 Acute pharyngitis, unspecified (principal) | CPT/HCPCS: 87070 ==

== ENCOUNTER 2024-03-15 16:06 | Outpatient (REF) | payer MEDICAID, SELFPAY | END 2024-03-15 16:07 | disposition home or self-care (01) | LOC: LBN 16:06 | PROVIDERS: PCP Nurse Practitioner Family; Visit Provider Nurse Practitioner Family | DX: N30.01 Acute cystitis with hematuria (principal) | CPT/HCPCS: 87086 ==

== ENCOUNTER 2024-05-23 13:06 | Emergency (ER) | payer MEDICAID, SELFPAY ==
[2024-05-23 13:08] VITALS: BP 115/77; PULSE 107; RESP 15; TEMP 36.7; O2SAT 99
[2024-05-23 13:43] LABS: Abs Immature Grans 0.02 10^3/uL (0.0-0.06); Absolute Basophil Count 0.02 10^3/uL (0.0-0.2); Absolute Eosinophil Count 0.09 10^3/uL (0.0-0.7); Absolute Lymphocyte Count 1.67 10^3/uL (1.2-3.4); Absolute Monocyte Count 0.77 10^3/uL (0.1-0.8); Absolute Neutrophil Count 3.73 10^3/uL (1.2-6.7); Basophils % 0.3 %; Eosinophils % 1.4 %; HCT 39.6 % (36.0-46.0); HGB 13.5 g/dL (11.2-15.7); Immature Grans % 0.3 %; Lymphocytes % 26.5 %; MCH 28.7 pg (27.0-33.0); MCHC 34.1 % (32.0-36.0); MCV 84 fL (80-95); MPV 8.5 fL (8.0-11.0); Monocytes % 12.2 %; Neutrophils % 59.3 %; Platelet Count 294 10^3/uL (130-400); RBC 4.71 10^6/uL (3.93-5.22); RDW 11.9 % (11.7-14.6); RDW-SD 36.1 fL
--- NOTE | 2024-05-23 13:46 | W.ED.GENAD ---
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 Clinical Impression: Vaginal bleeding during Primary Care Provider: Divine De Los Santos ED Provider: Ian Ramirez Home Meds and New Rx's Prescriptions: No Action albuterol sulfate [ProAir HFA] 90 mcg/actuation HFA aerosol inhaler 1 - 2 puff Inhalation DAILY Qty: 1 2RF polyethylene glycol 3350 [Miralax] 17 gram/dose powder 17 g PO DAILY epinephrine [EpiPen] 0.3 mg/0.3 mL auto-injector 0.3 mg IJ ONCE PRN (Reason: Anaphylaxis) Qty: 1 1RF (DME) Aerochamber MV Spacer See Rx Instructions .ROUTE .MEDSUPPLY Qty: 1 0RF Rx Instructions: As directed albuterol sulfate [Ventolin HFA] 90 mcg/actuation HFA aerosol inhaler 2 puff INHALATION PRN PRN Patient Comments: INHALE ONE TO TWO PUFFS BY MOUTH EVERY DAY NEEDED buspirone 5 mg tablet 5 mg PO DAILY Patient Comments: TAKE ONE TABLET BY MOUTH EVERY DAY DIRECTED omeprazole 40 mg capsule,delayed release(DR/EC) 40 mg PO DAILY Patient Comments: TAKE ONE CAPSULE BY MOUTH EVERY DAY 30 MINUTES BEFORE A MEAL budesonide-formoterol [Symbicort] 80-4.5 mcg/actuation HFA aerosol inhaler 1 puff INHALATION BID Patient Comments: INHALE 1 PUFF BY MOUTH TWICE A DAY Discharge Instructions Instructions: Bleeding in Early ED Additional Instructions: At this time your beta-hCG levels suggest that your is less than 11 weeks and development. Please follow-up closely with your obstetrics installment agent your scheduled appointment this week, as well as for your ultrasound tomorrow. Please avoid any pelvic intercourse until you are cleared by your obstetrics provider. Please drink plenty fluids and stay well-hydrated. If you notice any worsening of your symptoms, or any new symptoms such as vomiting, diarrhea, fever, chills, shortness of breath, chest pain, numbness, weakness, or fainting , please return immediately to the emergency department for reevaluation. Please follow up with your primary care provider as soon as possible for reassessment and reevaluation. As always, it was a pleasure participating in your medical care today. Referrals: Divine De Los Santos [Primary Care Provider] - HPI General Date/Time Provider Initiated Documentation: 05/23/24 13:22. HPI Narrative: 23-year-old female who is a G3, P0 who presents today for evaluation of vaginal bleeding. Patient states that she discovered she was about 10 days ago on . She has had cramping since then but no bleeding. Last episode of intercourse was about a week ago. She believes that she is currently about 11 weeks but may be earlier. Last night she had cramping which was worse than normal whilst resting and sleeping, then this morning she noticed that she had some bloody discharge in her underwear. She states that since then the cramping has notably diminished as has the bleeding, but was concerned. She contacted her cotton washer whom she has not yet been able to establish care with, and it was recommended she come to the ER for further assessment appropriately so. She does have an ultrasound scheduled for tomorrow for staging. She has no other complaints at this time. She denies any fever chills vomiting or diarrhea. She is COVID-positive but feels like she is getting over that infection. Related Data Home Medications ?Medication ?Instructions ?Recorded ?Confirmed inhalational spacing device #1 ea 02/14/20 05/23/24 (Aerochamber MV spacer) epinephrine 0.3 mg/0.3 mL 0.3 mg (0.3 mL) IJ ONCE PRN 05/24/20 05/23/24 injection, auto-injector (EpiPen) Anaphylaxis ##1 albuterol sulfate 90 mcg/actuation 1 - 2 puff inhalation DAILY ##1 10/04/20 05/23/24 aerosol inhaler (ProAir HFA) albuterol sulfate 90 mcg/actuation 2 puff inhalation PRN PRN 06/16/22 05/23/24 aerosol inhaler (Ventolin HFA) budesonide-formoterol HFA 80 1 puff inhalation BID 02/11/23 05/23/24 mcg-4.5 mcg/actuation aerosol inhaler (Symbicort) buspirone 5 mg tablet 5 mg PO DAILY 11/12/23 05/23/24 polyethylene glycol 3350 17 17 g PO DAILY 12/16/23 05/23/24 gram/dose oral powder (Miralax) omeprazole 40 mg capsule,delayed 40 mg PO DAILY 05/23/24 05/23/24 release Previous Rx's ?Medication ?Instructions ?Recorded inhalational spacing device #1 ea 02/14/20 (Aerochamber MV spacer) epinephrine 0.3 mg/0.3 mL 0.3 mg (0.3 mL) IJ ONCE PRN 05/24/20 injection, auto-injector (EpiPen) Anaphylaxis ##1 albuterol sulfate 90 mcg/actuation 1 - 2 puff inhalation DAILY ##1 10/04/20 aerosol inhaler (ProAir HFA) Allergies Allergy/AdvReac Type Severity Reaction Status Date / Time shellfish derived Allergy Severe Anaphylaxis Verified 05/23/24 13:13 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 3.ENT: Atraumatic external nose and ears. Moist MM. Neck: Symmetric, trachea midline, No thyromegaly. 4.CVS: +S1/S2, Peripheral pulses 2+ and equal in all extremities. Brisk capillary refill in all extremities. 5.RESP: Unlabored respiratory effort. Clear to auscultation bilaterally. No wheezes rales or rhonchi 6.GI: Soft, Nontender/Nondistended, No hepatosplenomegaly. No guarding or rebound. Vaginal exam was performed with female nurse Alisson at bedside. Cervix appears to be slightly atypical in shape feeling slightly elongated rather than completely circular, however it does appear closed on palpation. Uterus appears to be anteverted on palpation with a slightly retroverted cervix. Minimal brown blood is noted. 7.MSK: Normocephalic/Atraumatic, Extremities w/o deformity or ttp No cyanosis or clubbing, Normal movement of all extremities 8.Skin: Warm, Dry. No rashes or lesions. 9.Neuro: network operations specialist II-XII grossly intact. Sensation grossly intact, no focal neurologic deficits. 10.Psych: (AAO) x3. Appropriate mood and affect Course Vital Signs Vital signs: Vital Signs Temperature 36.7 C 05/23/24 13:08 Pulse 107 H 05/23/24 13:08 Respiratory Rate 15 05/23/24 13:08 Blood Pressure 115/77 05/23/24 13:08 Pulse Oximetry 99 05/23/24 13:08 Temperature 36.7 C 05/23/24 13:08 Temperature Source Oral 05/23/24 13:08 Pulse 107 H 05/23/24 13:08 Respiratory Rate 15 05/23/24 13:08 Blood Pressure 115/77 05/23/24 13:08 Blood Pressure Position Sitting 05/23/24 13:08 Pulse Oximetry 99 05/23/24 13:08 Oxygen Delivery Method Room Air 05/23/24 13:08 Oxygen Flow Rate 0 05/23/24 13:08 Lab/Test Results Lab/Test Results: Laboratory Tests Range/Units 05/23/24 13:25 Sodium Cancelled Potassium Cancelled Chloride Cancelled Carbon Dioxide Cancelled Anion Gap Cancelled BUN Cancelled Creatinine Cancelled Est GFR (CKD-EPI 2020) Cancelled Glucose Cancelled Calcium Cancelled Total Bilirubin Cancelled AST Cancelled ALT Cancelled Alkaline Phosphatase Cancelled Total Protein Cancelled Albumin Cancelled Beta HCG, Quant Cancelled POC- Test(urine) Positive Medical Decision Making 23-year-old female who is a G3, P0 who presents today for evaluation of vaginal bleeding. Patient states that she discovered she was about 10 days ago on . She has had cramping since then but no bleeding. Last episode of intercourse was about a week ago. She believes that she is currently about 11 weeks but may be earlier. Last night she had cramping which was worse than normal whilst resting and sleeping, then this morning she noticed that she had some bloody discharge in her underwear. She states that since then the cramping has notably diminished as has the bleeding, but was concerned. She contacted her cotton washer whom she has not yet been able to establish care with, and it was recommended she come to the ER for further assessment appropriately so. She does have an ultrasound scheduled for tomorrow for staging. She has no other complaints at this time. She denies any fever chills vomiting or diarrhea. She is COVID-positive but feels like she is getting over that infection. Soft, Nontender/Nondistended, No hepatosplenomegaly. No guarding or rebound. Vaginal exam was performed with female nurse Alisson at bedside. Cervix appears to be slightly atypical in shape feeling slightly elongated rather than completely circular, however it does appear closed on palpation. Uterus appears to be anteverted on palpation with a slightly retroverted cervix. Minimal brown blood is noted. Bedside limited ultrasound was performed, I difficulty visualizing the uterus with a high degree of focality, but there appears to be an intrauterine pole, I am not able to visualize or differentiate a heart rate. Pending Rh status hemoglobin and hCG level. Suspect threatened miscarriage, however we will monitor closely and reassess. 2:52 PM Blood work shows Rh+ status, hemoglobin stable, beta-hCG is 5295, will recommend continued trending. She will follow-up closely with her obstetrics installment agent. She has an ultrasound scheduled for tomorrow transvaginal for further assessment. Recommend pelvic rest. Patient stable for discharge. Discussed red flags for which to return. I have extensively reviewed the treatment plan and discharge instructions with the patient. I have addressed all patient concerns at this time. The patient was made aware of what symptoms to monitor for that would warrant a return to the emergency department. Discussed the plan with the patient, they demonstrate verbal understanding and agreement with our assessment and plan at this time. The documentation in this chart was dictated using [employer] dictation software. Please excuse any dictation errors. Quality:SDOH Health Related Social Needs: No Data to Display PFSH All Active Problems (Updated 05/23/24 @ 14:54 by Ian Ramirez DO) Vaginal bleeding during (Acute) (Acute) Scapular dyskinesis (Acute) Impingement syndrome of left shoulder (Acute) Otitis externa (Acute) SLAP lesion of right shoulder (Acute) Tendinitis of long head of biceps brachii of both shoulders (Acute) Marijuana abuse (Acute) Hematuria (Acute) seen by Urology but declined hematuria workup Moderate persistent asthma without complication (Acute 08/23/16) Smoker (Chronic 11/28/17) Now using e-sigs about 3 times a day (06/2018) Depression with anxiety (Chronic 12/25/15) Adolescent idiopathic scoliosis of thoracolumbar region (Chronic 08/23/16) ADHD (attention deficit hyperactivity disorder) (Chronic 11/23/14) Medical History Acute neck pain Chronic abdominal pain Concussion Depot contraception Eczema (11/23/14) Fracture of left wrist (08/23/09) Fracture of right clavicle (11/04/04) Sprain of medial collateral ligament of right knee, subsequent encounter (04/22/17) Surgical History ROOF OF MOUTH RECONSTRUCTED Family History Mother Substance abuse several female relatives Neoplasm breast CA Social History Smoking/Tobacco Use Status: Never Smoking risk assessment performed?: Yes Alcohol Intake: former Drug use: Occasionally Substance use type: does not use and marijuana Household members: family Housing: house Sexually active: Yes Do you think of yourself as: straight/heterosexual Current gender identity: female Seatbelt use: sometimes Do you feel safe at home: Yes Do you feel safe in your relationship?: Yes Female Reproductive History Menstrual control method: none History History 0 Para Hx # Term Pregnancies Multiple births Hx # Pregnancies Ectopic pregnancies AB induced Hx Number of Living Children AB spontaneous POCUS Exam (ED) Limited OB Exam DATE OF EXAM:: 05/23/24 TIME OF EXAM:: 14:12 PROVIDER THAT PERFORMED THE STUDY: Ian Ramirez IS THIS A REPEAT EXAM DURING THIS ENCOUNTER: No Type of Exam: Pelvic OB Trans Abdominal REASON FOR EXAM: Vaginal Bleeding VISUALIZED STRUCTURES: Uterus PERTINENT FINDINGS/IMPRESSION: other ( sac appeared to be visualized, however visual fidelity was limited secondary to transabdominal approach. No heart rate could be identified) impression: sac appeared to be visualized, however visual fidelity was limited secondary to transabdominal approach. No heart rate could be identified Exam Complete.
[2024-05-23 14:32] LABS: ALT 14 U/L (14-59); AST 15 U/L (15-37); Albumin 3.7 g/dL (3.4-5.0); Alkaline Phosphatase 78 U/L (46-116); Anion Gap 6.1 mmol/L (3-11); BUN 8 mg/dL (7-18); Bilirubin, Total 0.25 mg/dL (0.2-1.0); CO2 26.9 mmol/L (21.0-32.0); CREATININE 0.8 mg/dL (0.55-1.02); Chloride 105 mmol/L (98-107); Estimated GFR 106.77 (mL/min/1.73m2); Glucose 96 mg/dL (74-106); Potassium 3.4 mmol/L (3.5-5.1); Sodium 138 mmol/L (136-145); Total Protein 7.5 g/dL (6.4-8.2)
[2024-05-23 14:50] LABS: HCG Quant, Pregnancy 5295 mIU/mL (1-3)
[2024-05-23 15:04] VITALS: BP 114/69; PULSE 96; TEMP 37.1; O2SAT 95
== END 2024-05-23 15:05 | disposition home or self-care (01) ==
PROVIDERS: Emergency Provider Student in an Organized Health Care Education/Training Program; PCP Nurse Practitioner Family
DX: O46.91 Antepartum hemorrhage, unspecified, first trimester (principal)
CPT/HCPCS: 36415; 76815; 80053; 81025; 86900; 86901; 99284; 84702; 85025; 99283

== ENCOUNTER 2024-05-24 02:11 | Outpatient (CLI) | payer MEDICAID, SELFPAY ==
--- NOTE | 2024-05-24 09:00 | DI.US_ITS ---
Exam(s) US OB 1ST TRIMESTER EXAM: US OB 1ST TRIMESTER CLINICAL HISTORY: dating and vIABILITY,Z34.90. COMPARISON: US US PELVIS TRANSVAGINAL from 11/10/2020 US POCUS EXAM from 05/23/2024 TECHNIQUE: Transabdominal Transvaginal first trimester obstetrical ultrasound performed. FINDINGS: There is a single intrauterine gestational sac present. Due to its size is at of range for dating. The yolk sac is visualized. No pole is seen at this time. There is a small adjacent subchorio shi hemorrhage present. Pelvic Measurments Uterus: 7.5 long by 4.2 AP by 4.8 transverse cm Rt Ovary: 2.8 x 2.8 x 1.7 cm Lt Ovary: 1.8 x 1.4 x 2.2 cm The ovaries are unremarkable. There is normal blood flow to the ovaries. IMPRESSION: There is an intrauterine gestation present. Due to its size, dating cannot occur at this time. The yolk sac is visualized. The pole is not seen at this time. Follow-up with serial beta hCG and repeat obstetrical ultrasound is recommended. DATA REPOSITORY:
== END 2024-05-24 02:31 ==
LOC: DI 02:11
PROVIDERS: PCP Nurse Practitioner Family; Visit Provider Advanced Practice Midwife
DX: Z34.91 Encounter for supervision of normal pregnancy, unspecified, first trimester (principal); Z3A.01 Less than 8 weeks gestation of pregnancy
CPT/HCPCS: 76801

== ENCOUNTER 2024-05-25 03:34 | Outpatient (CLI) | payer MEDICAID, SELFPAY ==
[2024-05-25 10:16] LABS: HCG Quant, Pregnancy 8633 mIU/mL (1-3)
== END 2024-05-25 03:35 | disposition home or self-care (01) ==
LOC: LBO 03:35
PROVIDERS: PCP Nurse Practitioner Family; Visit Provider Advanced Practice Midwife
DX: O46.91 Antepartum hemorrhage, unspecified, first trimester (principal); Z34.91 Encounter for supervision of normal pregnancy, unspecified, first trimester
CPT/HCPCS: 36415; 84702

== ENCOUNTER 2024-05-28 13:11 | Outpatient (CLI) | payer MEDICAID, SELFPAY ==
[2024-06-01 15:49] LABS: HCG Quant, Pregnancy 14344 mIU/mL (1-3)
== END 2024-05-28 13:12 | disposition home or self-care (01) ==
LOC: LBO 13:12
PROVIDERS: PCP Nurse Practitioner Family; Visit Provider Advanced Practice Midwife
DX: O46.91 Antepartum hemorrhage, unspecified, first trimester (principal)
CPT/HCPCS: 36415; 84702

== ENCOUNTER 2024-06-01 11:12 | Emergency (ER) | payer MEDICAID, SELFPAY ==
[2024-06-01] VITALS (10 sets, daily range): BP systolic 84–120; BP diastolic 54–79; PULSE 67–90; RESP 12–20; TEMP 36.5; O2SAT 87–100
--- NOTE | 2024-06-01 11:45 | DI.US_ITS ---
Exam(s) US OB 1ST TRIMESTER EXAM: US OB 1ST TRIMESTER CLINICAL HISTORY: recent miscarraige, ?retained contents. COMPARISON: US US OB 1ST TRIMESTER from 05/24/2024 TECHNIQUE: Transabdominal Transvaginal first trimester obstetrical ultrasound performed. FINDINGS: Sonographic images demonstrate a single intrauterine gestation. A yolk sac and pole are seen. Minimal amount of subchorionic hemorrhage. Sonographically assessed gestational age based upon crown-rump length of 5.7 mm is: 6+ 2 weeks Estimated date of delivery based on this ultrasound is: 23 January 2025 Estimated date of delivery based upon LMP: Unknown. heart rate motion is Dopplered at: 153 bpm. No free fluid identified. Both ovaries appear sonographically normal. Pelvic Measurments Uterus: 7.5 x 4.7 x 5.2 cm Rt Ovary: 3.3 x 3.9 x 2.0 cm Lt Ovary: 2.4 x 1.0 x 2.1 cm IMPRESSION: Single live intrauterine gestation measuring 6+ 2 weeks. Trace subchorionic hemorrhage. DATA REPOSITORY:
--- NOTE | 2024-06-01 11:45 | RT.EKG_ITS ---
APPROVED REPORT Exam: Resting ECG Reason for Exam: dizziness Patient Location: E HR:70 bpm ECG Measurements Heart Rate 70 AXIS GA 138 P 39 QRSd 79 QRS 54 QT 391 T 31 QTc 424 Conclusion Sinus rhythm...normal P axis, V-rate 60- 99 No STEMI
[2024-06-01 11:56] LABS: Lactate 0.8 mmol/L (0.6-1.4)
[2024-06-01 11:58] LABS: Abs Immature Grans 0.03 10^3/uL (0.0-0.06); Absolute Basophil Count 0.02 10^3/uL (0.0-0.2); Absolute Eosinophil Count 0.05 10^3/uL (0.0-0.7); Absolute Lymphocyte Count 1.62 10^3/uL (1.2-3.4); Absolute Monocyte Count 0.58 10^3/uL (0.1-0.8); Absolute Neutrophil Count 4.48 10^3/uL (1.2-6.7); Basophils % 0.3 %; Eosinophils % 0.7 %; HGB 13.4 g/dL (11.2-15.7); Immature Grans % 0.4 %; Lymphocytes % 23.9 %; MCHC 33.5 % (32.0-36.0); MCV 84 fL (80-95); MPV 8.3 fL (8.0-11.0); Monocytes % 8.6 %; Neutrophils % 66.1 %; Platelet Count 317 10^3/uL (130-400); RBC 4.78 10^6/uL (3.93-5.22); RDW 11.7 % (11.7-14.6); RDW-SD 35.6 fL; WBC 6.78 10^3/uL (4.4-10.8)
[2024-06-01 12:17] LABS: ALT 18 U/L (14-59); AST 16 U/L (15-37); Albumin 3.8 g/dL (3.4-5.0); Alkaline Phosphatase 73 U/L (46-116); BUN 8 mg/dL (7-18); Bilirubin, Total 0.35 mg/dL (0.2-1.0); CREATININE 0.6 mg/dL (0.55-1.02); Chloride 102 mmol/L (98-107); Estimated GFR 130.07 (mL/min/1.73m2); Glucose 91 mg/dL (74-106); Potassium 3.6 mmol/L (3.5-5.1); Sodium 138 mmol/L (136-145); Total Protein 7.6 g/dL (6.4-8.2)
[2024-06-01 12:27] LABS: TSH (W/Ref FT4) 2.04 uIU/mL (0.36-3.74)
[2024-06-01 12:33] LABS: Magnesium 1.8 mg/dL (1.8-2.4); Troponin I < 4 ng/L (<or=51)
[2024-06-01 12:40] LABS: Bilirubin Negative (Negative); Blood Moderate (Negative); Clarity Sl Cloudy (Clear); Glucose Negative (Negative); Ketones Negative (Negative); Leukocyte Esterase Trace (Negative); Nitrite Negative (Negative); Specific Gravity <= 1.005 (1.005-1.025); Urobilinogen 0.2 mg/dL (Up to 0.2)
--- NOTE | 2024-06-01 12:40 | ED.GENADUL_ITS ---
Discharge Plan Disposition Patient Disposition: Home Condition: Stable Discharge Details Clinical Impression: Primary Care Provider: Divine De Los Santos ED Provider: Ian Collazo Home Meds and New Rx's Prescriptions: Continued albuterol sulfate [ProAir HFA] 90 mcg/actuation HFA aerosol inhaler 1 - 2 puff Inhalation DAILY Qty: 1 2RF polyethylene glycol 3350 [Miralax] 17 gram/dose powder 17 g PO DAILY epinephrine [EpiPen] 0.3 mg/0.3 mL auto-injector 0.3 mg IJ ONCE PRN (Reason: Anaphylaxis) Qty: 1 1RF (DME) Aerochamber MV Spacer See Rx Instructions .ROUTE .MEDSUPPLY Qty: 1 0RF Rx Instructions: As directed albuterol sulfate [Ventolin HFA] 90 mcg/actuation HFA aerosol inhaler 2 puff INHALATION PRN PRN Patient Comments: INHALE ONE TO TWO PUFFS BY MOUTH EVERY DAY NEEDED buspirone 5 mg tablet 5 mg PO DAILY Patient Comments: TAKE ONE TABLET BY MOUTH EVERY DAY DIRECTED omeprazole 40 mg capsule,delayed release(DR/EC) 40 mg PO DAILY Patient Comments: TAKE ONE CAPSULE BY MOUTH EVERY DAY 30 MINUTES BEFORE A MEAL M-Lalo Plus 27 mg iron- 1 mg tablet 1 tab PO DAILY Patient Comments: TAKE ONE TABLET BY MOUTH EVERY DAY budesonide-formoterol [Symbicort] 80-4.5 mcg/actuation HFA aerosol inhaler 1 puff INHALATION BID Patient Comments: INHALE 1 PUFF BY MOUTH TWICE A DAY Discharge Instructions Instructions: - The Second Month Additional Instructions: You were seen in the emergency department for your vaginal bleeding and possible miscarriage over the weekend, but there appears to be a 6-week +2-day fetus with a heartbeat in your wound. Your other blood work is all benign, your hCG is pending as well as your screening for yeast and bacterial vaginosis, you can check these on your portal and follow-up with your women's health provider. Congratulations, return to the ER for any further vaginal bleeding or any severe abdominal pain or any other emergent concerns. Referrals: Divine De Los Santos [Primary Care Provider] - Discharge Data Discharge Date/Time-TO BE ENTERED AT DEPARTURE: 06/01/24 14:05 HPI General Date/Time Provider Initiated Documentation: 06/01/24 11:27 . HPI Narrative: 23 year-old female presents to ED today by POV/ambulating, with a chief complaint of likely miscarriage over the weekend, with vaginal bleeding, and some clear/whitish discharge and foul odor from vagina. Quality described as generalized lower abdominal pain- urged to come in to check for retained contents via phone triage, no radiation to fevers, dysuria, flank pain, nausea, vomiting, gross vaginal bleeding, patient is monogamous and actively trying to get with her partner. Severity is described as moderate. Palliating factors include nothing specific. Provoking factors include nothing specific. Patient not anticoagulated. Related Data Home Medications ?Medication ?Instructions ?Recorded ?Confirmed inhalational spacing device #1 ea 02/14/20 06/01/24 (Aerochamber MV spacer) epinephrine 0.3 mg/0.3 mL 0.3 mg (0.3 mL) IJ ONCE PRN 05/24/20 06/01/24 injection, auto-injector (EpiPen) Anaphylaxis ##1 albuterol sulfate 90 mcg/actuation 1 - 2 puff inhalation DAILY ##1 10/04/20 06/01/24 aerosol inhaler (ProAir HFA) albuterol sulfate 90 mcg/actuation 2 puff inhalation PRN PRN 06/16/22 06/01/24 aerosol inhaler (Ventolin HFA) budesonide-formoterol HFA 80 1 puff inhalation BID 02/11/23 06/01/24 mcg-4.5 mcg/actuation aerosol inhaler (Symbicort) buspirone 5 mg tablet 5 mg PO DAILY 11/12/23 06/01/24 polyethylene glycol 3350 17 17 g PO DAILY 12/16/23 06/01/24 gram/dose oral powder (Miralax) omeprazole 40 mg capsule,delayed 40 mg PO DAILY 05/23/24 06/01/24 release vitamin with calcium 1 tab PO DAILY 06/01/24 06/01/24 no.72-iron 27 mg-folic acid 1 mg tablet (M- Plus) Previous Rx's ?Medication ?Instructions ?Recorded inhalational spacing device #1 ea 02/14/20 (Aerochamber MV spacer) epinephrine 0.3 mg/0.3 mL 0.3 mg (0.3 mL) IJ ONCE PRN 05/24/20 injection, auto-injector (EpiPen) Anaphylaxis ##1 albuterol sulfate 90 mcg/actuation 1 - 2 puff inhalation DAILY ##1 10/04/20 aerosol inhaler (ProAir HFA) Allergies Allergy/AdvReac Type Severity Reaction Status Date / Time shellfish derived Allergy Severe Anaphylaxis Verified 05/23/24 13:13 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 SKIN: Warm, pink, dry, intact, without rashes/lesions/ulcerations. HEAD: Normocephalic, atraumatic, normal hair distribution for gender/age. EYES: Normal conjunctiva, no exudates on lids/lashes. ENT: Nares patent, no circumoral cyanosis, no facial swelling NECK: Supple, trachea midline, painless cervical ROM. LUNGS/CHEST: Lungs CTA bilaterally, non-labored respirations, normal A/P diameter, symmetrical expansion, no chest wall deformity HEART (CV/PV): Regular rate and rhythm without murmur, no peripheral edema, no JVD. ABDOMEN: Soft, non-distended, no guarding, L suprapubic tenderness without peritoneal signs- pelvic exam deferred at patients' preference. MSK: Normal ROM, no swelling/deformity to bilateral UEs or LEs, moving all extremities without weakness, no cyanosis, spine midline without tenderness, normal curvature. NEURO: Mental Status AAOx4 - alert to person, place, time, events No facial droop, no forehead involvement. Motor: No focal weakness - strength 5/5 in bilateral UEs and LEs, proximal and distal, symmetric. Sensory: sensation intact to light touch globally. Gait normal: patient ambulated without ataxia into ED room. PSYCH: euthymic, cooperative, pleasant, appropriate speech Course Vital Signs Vital signs: Vital Signs Temperature 36.5 C 06/01/24 11:24 Pulse 90 06/01/24 11:24 Respiratory Rate 16 06/01/24 11:24 Blood Pressure 111/79 06/01/24 11:24 Pulse Oximetry 98 06/01/24 11:24 Temperature 36.5 C 06/01/24 11:24 Pulse 68 06/01/24 12:30 Pulse 73 06/01/24 12:30 Respiratory Rate 18 06/01/24 12:30 Blood Pressure 120/67 06/01/24 12:30 Blood Pressure Mean 81 06/01/24 12:30 Blood Pressure Position Sitting 06/01/24 11:24 Pulse Oximetry 100 06/01/24 12:30 Oxygen Delivery Method Nasal Cannula 06/01/24 11:24 Pain Level 5 06/01/24 11:48 Lab/Test Results Lab/Test Results: 06/01/24 12:31 Vaginal Vaginitis Screen - Pending Laboratory Tests Range/Units 06/01/24 11:46 WBC (4.4-10.8) 10^3/uL 6.78 RBC (3.93-5.22) 10^6/uL 4.78 Hgb (11.2-15.7) g/dL 13.4 Hct (36.0-46.0) % 40.0 MCV (80-95) fL 84 MCH (27.0-33.0) pg 28.0 MCHC (32.0-36.0) % 33.5 RDW (11.7-14.6) % 11.7 Plt Count (130-400) 10^3/uL 317 MPV (8.0-11.0) fL 8.3 Immature Gran % % 0.4 Neutrophils % % 66.1 Lymphocytes % % 23.9 Monocytes % % 8.6 Eosinophils % % 0.7 Basophils % % 0.3 Nucleated RBC % (0.0-0.3) % 0.0 Absolute Neutrophils (1.2-6.7) 10^3/uL 4.48 Absolute Lymphocytes (1.2-3.4) 10^3/uL 1.62 Absolute Monocytes (0.1-0.8) 10^3/uL 0.58 Absolute Eosinophils (0.0-0.7) 10^3/uL 0.05 Absolute Basophils (0.0-0.2) 10^3/uL 0.02 VBG Lactate (0.6-1.4) mmol/L 0.8 Sodium (136-145) mmol/L 138 Potassium (3.5-5.1) mmol/L 3.6 Chloride (98-107) mmol/L 102 Carbon Dioxide (21.0-32.0) mmol/L 28.0 Anion Gap (3-11) mmol/L 8.0 BUN (7-18) mg/dL 8 Creatinine (0.55-1.02) mg/dL 0.6 Est GFR (CKD-EPI 2020) (mL/min/1.73m2) 130.07 Glucose (74-106) mg/dL 91 Calcium (8.5-10.1) mg/dL 9.0 Magnesium (1.8-2.4) mg/dL 1.8 Total Bilirubin (0.2-1.0) mg/dL 0.35 AST (15-37) U/L 16 ALT (14-59) U/L 18 Alkaline Phosphatase (46-116) U/L 73 Troponin I (<or=51) ng/L < 4 Total Protein (6.4-8.2) g/dL 7.6 Albumin (3.4-5.0) g/dL 3.8 TSH (0.36-3.74) uIU/mL 2.04 Medical Decision Making This dictation utilizes [id number] dictation software and may contain unedited grammatical errors. 23 year-old female presents to ED today by POV/ambulating, with a chief complaint of likely miscarriage over the weekend, with vaginal bleeding, and some clear/whitish discharge and foul odor from vagina. Quality described as generalized lower abdominal pain- urged to come in to check for retained contents via phone triage, no radiation to fevers, dysuria, flank pain, nausea, vomiting, gross vaginal bleeding, patient is monogamous and actively trying to get with her partner. Severity is described as moderate. Palliating factors include nothing specific. Provoking factors include nothing specific. Patients' medical history: Vaginal bleeding during , history of hematuria. Family and social history: Noncontributory. Pertinent exam findings / vital signs include mild left lower abdominal pain, benign cardiopulmonary status, neuro intact, nontoxic vitals. Pelvic exam deferred to Women's Health provider at patient's preference Differential / pathologies of concern include threatened , incomplete , retained contents, vaginitis, . Diagnostic studies of: -CBC, CMP, lactate, magnesium, troponin, TSH, beta-hCG quantitative, UA, NG GC, vaginal pathogen screen, US obstetric. -CBC shows no leukocytosis or anemia -Lactate negative -CMP shows no acute abnormality -Troponin negative -T[place] [address] -UA is benign -NG GC negative -Vaginal pathogen screen negative -Ultrasound shows a single live fetus with heartbeat at 6 weeks 2 days with trace subchorionic hemorrhage likely threatened Interventions of: -None. ED Course/Assessment/Plan: 23-year-old female presents with what she thought was a miscarriage over the weekend with some scant vaginal bleeding, has a live gestational fetus with heartbeat 6 weeks 2 days, trace subchorionic hemorrhage, advised that she still may have a miscarriage. Beta-hCG is looking good, UA shows no signs of infection, Vach path screen is negative, no signs of sepsis or profound anemia indicating hemorrhage, patient will follow-up with her women's health provider, strict return criteria for further bleeding especially symptomatic blood loss from vagina. Findings not consistent with completed , infection, PID, STI, UTI. Disposition of . Patient verbalized understanding of the plan and return to ED criteria and engaged in shared decision making. Medical Records Medical records reviewed: Yes I reviewed the patient's medical records. Imaging Data Radiologic Study: Attestation: I personally reviewed and interpreted this imaging study as follows: Imaging: Ultrasound Radiologist's impression: EXAM: US OB 1ST TRIMESTER CLINICAL HISTORY: recent miscarraige, ?retained contents. COMPARISON: US US OB 1ST TRIMESTER from 05/24/2024 TECHNIQUE: Transabdominal Transvaginal first trimester obstetrical ultrasound performed. FINDINGS: Sonographic images demonstrate a single intrauterine gestation. A yolk sac and pole are seen. Minimal amount of subchorionic hemorrhage. Sonographically assessed gestational age based upon crown-rump length of 5.7 mm is: 6+ 2 weeks Estimated date of delivery based on this ultrasound is: 23 January 2025 Estimated date of delivery based upon LMP: Unknown. heart rate motion is Dopplered at: 153 bpm. No free fluid identified. Both ovaries appear sonographically normal. Pelvic Measurments Uterus: 7.5 x 4.7 x 5.2 cm Rt Ovary: 3.3 x 3.9 x 2.0 cm Lt Ovary: 2.4 x 1.0 x 2.1 cm IMPRESSION: Single live intrauterine gestation measuring 6+ 2 weeks. Trace subchorionic hemorrhage. Lab Data Lab results reviewed: Yes I reviewed the patient's lab results. Labs: 06/01/24 13:05 Vaginal Vaginitis Screen - Final Laboratory Tests Range/Units 06/01/24 06/01/24 06/01/24 11:46 12:03 12:31 WBC (4.4-10.8) 10^3/uL 6.78 RBC (3.93-5.22) 10^6/uL 4.78 Hgb (11.2-15.7) g/dL 13.4 Hct (36.0-46.0) % 40.0 MCV (80-95) fL 84 MCH (27.0-33.0) pg 28.0 MCHC (32.0-36.0) % 33.5 RDW (11.7-14.6) % 11.7 Plt Count (130-400) 10^3/uL 317 MPV (8.0-11.0) fL 8.3 Immature Gran % % 0.4 Neutrophils % % 66.1 Lymphocytes % % 23.9 Monocytes % % 8.6 Eosinophils % % 0.7 Basophils % % 0.3 Nucleated RBC % (0.0-0.3) % 0.0 Absolute Neutrophils (1.2-6.7) 10^3/uL 4.48 Absolute Lymphocytes (1.2-3.4) 10^3/uL 1.62 Absolute Monocytes (0.1-0.8) 10^3/uL 0.58 Absolute Eosinophils (0.0-0.7) 10^3/uL 0.05 Absolute Basophils (0.0-0.2) 10^3/uL 0.02 VBG Lactate (0.6-1.4) mmol/L 0.8 Sodium (136-145) mmol/L 138 Potassium (3.5-5.1) mmol/L 3.6 Chloride (98-107) mmol/L 102 Carbon Dioxide (21.0-32.0) mmol/L 28.0 Anion Gap (3-11) mmol/L 8.0 BUN (7-18) mg/dL 8 Creatinine (0.55-1.02) mg/dL 0.6 Est GFR (CKD-EPI 2020) (mL/min/1.73m2) 130.07 Glucose (74-106) mg/dL 91 Calcium (8.5-10.1) mg/dL 9.0 Magnesium (1.8-2.4) mg/dL 1.8 Total Bilirubin (0.2-1.0) mg/dL 0.35 AST (15-37) U/L 16 ALT (14-59) U/L 18 Alkaline Phosphatase (46-116) U/L 73 Troponin I (<or=51) ng/L < 4 Total Protein (6.4-8.2) g/dL 7.6 Albumin (3.4-5.0) g/dL 3.8 TSH (0.36-3.74) uIU/mL 2.04 Beta HCG, Quant (1-3) mIU/mL 38135 H Urine Color (Yellow) Yellow Urine Clarity (Clear) Sl Cloudy Urine pH (5-8) 6.0 Ur Specific [place] (1.005-1.025) <= 1.005 Urine Protein (Neg-Trace) mg/dL Negative Urine Ketones (Negative) mg/dL Negative Urine Blood (Negative) Moderate H Urine Nitrite (Negative) Negative Urine Bilirubin (Negative) Negative Urine Urobilinogen (Up to 0.2) mg/dL 0.2 Ur Leukocyte Esterase (Negative) Trace H Urine RBC (0-2) HPF 0-2 Urine WBC (0-5) HPF 3-5 Ur Epithelial Cells (Negative) HPF Moderate Urine Crystals (Negative) HPF Negative Urine Bacteria (Negative) HPF Few Urine Casts (Negative) LPF Negative Urine Mucus (Negative) Negative Ur Culture Indicated? No Urine Glucose (Negative) mg/dL Negative Chlamydia DNA Probe (Negative) Negative Chlamydia/GC DNA Source Not Applicable N.gonorrhoeae DNA Probe (Negative) Negative Quality:SDOH Health Related Social Needs: No Data to Display PFSH All Active Problems (Updated 06/01/24 @ 14:33 by Nisa Olguin CNM) (Acute) Vaginal bleeding during (Acute) Dizziness (Acute) Scapular dyskinesis (Acute) Impingement syndrome of left shoulder (Acute) Otitis externa (Acute) SLAP lesion of right shoulder (Acute) Tendinitis of long head of biceps brachii of both shoulders (Acute) Marijuana abuse (Acute) Hematuria (Acute) seen by Urology but declined hematuria workup Moderate persistent asthma without complication (Acute 08/23/16) Smoker (Chronic 11/28/17) Now using e-sigs about 3 times a day (06/2018) Depression with anxiety (Chronic 12/25/15) Adolescent idiopathic scoliosis of thoracolumbar region (Chronic 08/23/16) ADHD (attention deficit hyperactivity disorder) (Chronic 11/23/14) Medical History (Updated 06/01/24 @ 14:33 by Nisa Olguin CNM) Concussion Chronic abdominal pain Acute neck pain Depot contraception Fracture of left wrist (08/23/09) Fracture of right clavicle (11/04/04) Sprain of medial collateral ligament of right knee, subsequent encounter (04/22/17) Eczema (11/23/14) Surgical History ROOF OF MOUTH RECONSTRUCTED Family History Mother Substance abuse several female relatives Neoplasm breast CA Social History Smoking/Tobacco Use Status: Never Smoking risk assessment performed?: Yes Alcohol Intake: former Drug use: Occasionally Substance use type: does not use Household members: family Housing: house Sexually active: Yes Do you think of yourself as: straight/heterosexual Current gender identity: female Seatbelt use: sometimes Do you feel safe at home: Yes Do you feel safe in your relationship?: Yes Female Reproductive History Menstrual control method: none History History 0 Para Hx # Term Pregnancies Multiple births Hx # Pregnancies Ectopic pregnancies AB induced Hx Number of Living Children AB spontaneous
[2024-06-01 12:49] LABS: Bacteria Few HPF (Negative); C & S Indicated? No; Casts Negative LPF (Negative); Crystals Negative HPF (Negative); Epithelial Cells Moderate HPF (Negative); Mucus Negative (Negative); RBC 0-2 HPF (0-2)
[2024-06-01 14:28] LABS: HCG Quant, Pregnancy 24809 mIU/mL (1-3)
[2024-06-02 12:50] LABS: Chlamydia Result Negative (Negative); GC Result Negative (Negative)
== END 2024-06-01 14:05 | disposition home or self-care (01) ==
PROVIDERS: Emergency Provider Physician Assistant; PCP Nurse Practitioner Family
DX: O20.9 Hemorrhage in early pregnancy, unspecified (principal); Z3A.01 Less than 8 weeks gestation of pregnancy
CPT/HCPCS: 80053; 87491; 87591; 93005; 99285; 76801; 81003; 81015; 83605; 83735; 84443; 84484; 84702; 85025; 87480; 87510; 87660; 93010; 99284

== ENCOUNTER 2024-06-17 02:27 | Outpatient (CLI) | payer MEDICAID, SELFPAY ==
--- NOTE | 2024-06-17 07:15 | DI.US_ITS ---
Exam(s) US OB 1ST TRIMESTER EXAM: US OB 1ST TRIMESTER CLINICAL HISTORY: threatened AB,VAG BLEEDING,o46.90. COMPARISON: No exams were available for comparison TECHNIQUE: Transabdominal Transvaginal first trimester obstetrical ultrasound performed. FINDINGS: There is a single living intrauterine gestation. Estimated sonographic age based on crown-rump lengt h is 8 weeks 3 days. The yolk sac was visualized. heart motion was identified. The heart rate is 167 beats p er minute. Note is made of a small subchorionic hemorrhage measuring 1.6 x 0.5 x 1.3 cm. Pelvic Measurments Uterus: 8.5 long by 4.9 AP by 6.7 transverse cm Rt Ovary: 3.6 x 2.0 x 1.5 cm Lt Ovary: 2.5 x 0.9 x 1.3 cm Heart Rate: 167BPM IMPRESSION: 1. Single live intrauterine gestation as above. 2. Small 1.6 x 0.5 x 1.3 cm subchorionic hemorrhage. DATA REPOSITORY:
== END 2024-06-17 02:47 ==
LOC: DI 02:27
PROVIDERS: PCP Nurse Practitioner Family; Visit Provider Advanced Practice Midwife
DX: O46.91 Antepartum hemorrhage, unspecified, first trimester (principal); Z3A.11 11 weeks gestation of pregnancy
CPT/HCPCS: 76801

== ENCOUNTER 2024-07-08 01:12 | Outpatient (CLI) | payer MEDICAID, SELFPAY ==
[2024-07-08 11:21] LABS: Panorama Kit Sent via Fed Ex
[2024-07-08 11:27] LABS: Abs Immature Grans 0.04 10^3/uL (0.0-0.06); Absolute Basophil Count 0.02 10^3/uL (0.0-0.2); Absolute Eosinophil Count 0.03 10^3/uL (0.0-0.7); Absolute Lymphocyte Count 1.49 10^3/uL (1.2-3.4); Absolute Monocyte Count 0.55 10^3/uL (0.1-0.8); Absolute Neutrophil Count 3.95 10^3/uL (1.2-6.7); Basophils % 0.3 %; Eosinophils % 0.5 %; HCT 36.9 % (36.0-46.0); HGB 12.4 g/dL (11.2-15.7); Immature Grans % 0.7 %; Lymphocytes % 24.5 %; MCH 28.2 pg (27.0-33.0); MCHC 33.6 % (32.0-36.0); MCV 84 fL (80-95); MPV 8.3 fL (8.0-11.0); Platelet Count 249 10^3/uL (130-400); RDW 12.2 % (11.7-14.6); RDW-SD 37.2 fL; WBC 6.08 10^3/uL (4.4-10.8)
[2024-07-08 14:16] LABS: Lab Add On Test DONE
[2024-07-08 19:34] LABS: Hepatitis B Surface Ag Negative (Negative)
[2024-07-08 19:46] LABS: HIV-1/2 Ag & Ab Screen Negative (Negative)
[2024-07-08 20:04] LABS: Hepatitis C Ab w Rflx HCV PCR Negative (Negative)
[2024-07-09 10:18] LABS: Varicella IgG Antibody Positive (See Note)
[2024-07-09 10:29] LABS: Rubella IgG Ab (UVM) Positive (See Note)
[2024-07-12 15:35] LABS: Syphilis IgG w/Reflex Nonreactive (Nonreactive)
[2024-07-13 13:04] LABS: Factor V Leiden(R506Q) Mut Negative (Negative)
== END 2024-07-08 01:13 | disposition home or self-care (01) ==
LOC: LBO 01:12
PROVIDERS: PCP Nurse Practitioner Family; Visit Provider Advanced Practice Midwife
DX: Z34.91 Encounter for supervision of normal pregnancy, unspecified, first trimester (principal); Z83.2 Family history of diseases of the blood and blood-forming organs and certain disorders involving the immune mechanism; Z82.79 Family history of other congenital malformations, deformations and chromosomal abnormalities
CPT/HCPCS: 36415; 81241; 86787; 86803; 86850; 86900; 86901; 87340; 87389; 85025; 86762; 86780

== ENCOUNTER 2024-07-08 11:06 | Outpatient (REF) | payer MEDICAID, SELFPAY ==
[2024-07-09 12:02] LABS: Chlamydia Result Negative (Negative); GC Result Negative (Negative)
== END 2024-07-08 11:07 | disposition home or self-care (01) ==
LOC: LBN 11:06
PROVIDERS: PCP Nurse Practitioner Family; Visit Provider Advanced Practice Midwife
DX: Z34.91 Encounter for supervision of normal pregnancy, unspecified, first trimester (principal)
CPT/HCPCS: 87491; 87591; 87086

== ENCOUNTER 2024-07-10 02:47 | Emergency (ER) | payer MEDICAID, SELFPAY ==
[2024-07-10 02:53] VITALS: BP 118/86; PULSE 78; RESP 16; TEMP 36.8; O2SAT 99
[2024-07-10 03:17] LABS: Bilirubin Negative (Negative); Blood Moderate (Negative); Clarity Clear (Clear); Glucose Negative (Negative); Ketones Negative (Negative); Leukocyte Esterase Negative (Negative); Nitrite Negative (Negative); Specific Gravity >= 1.030 (1.005-1.025); Urobilinogen 0.2 mg/dL (Up to 0.2)
--- NOTE | 2024-07-10 03:17 | ED.GENADUL_ITS ---
Discharge Plan Disposition Patient Disposition: Home Condition: Stable Discharge Details Clinical Impression: Vaginal bleeding before 22 weeks gestation Primary Care Provider: Divine De Los Santos ED Provider: Dianna Purcell Home Meds and New Rx's Prescriptions: No Action albuterol sulfate [ProAir HFA] 90 mcg/actuation HFA aerosol inhaler 1 - 2 puff Inhalation DAILY Qty: 1 2RF polyethylene glycol 3350 [Miralax] 17 gram/dose powder 17 g PO DAILY epinephrine [EpiPen] 0.3 mg/0.3 mL auto-injector 0.3 mg IJ ONCE PRN (Reason: Anaphylaxis) Qty: 1 1RF (DME) Aerochamber MV Spacer See Rx Instructions .ROUTE .MEDSUPPLY Qty: 1 0RF Rx Instructions: As directed ondansetron 4 mg tablet,disintegrating 4 mg PO Q6H PRN (Reason: nausea and vomiting) Qty: 30 4RF albuterol sulfate [Ventolin HFA] 90 mcg/actuation HFA aerosol inhaler 2 puff INHALATION PRN PRN Patient Comments: INHALE ONE TO TWO PUFFS BY MOUTH EVERY DAY NEEDED buspirone 5 mg tablet 5 mg PO DAILY Patient Comments: TAKE ONE TABLET BY MOUTH EVERY DAY DIRECTED omeprazole 40 mg capsule,delayed release(DR/EC) 40 mg PO DAILY Patient Comments: TAKE ONE CAPSULE BY MOUTH EVERY DAY 30 MINUTES BEFORE A MEAL budesonide-formoterol [Symbicort] 80-4.5 mcg/actuation HFA aerosol inhaler 1 puff INHALATION BID Patient Comments: INHALE 1 PUFF BY MOUTH TWICE A DAY Discharge Instructions Instructions: Bleeding in Early ED Additional Instructions: You were seen in the emergency department today for evaluation of vaginal bleeding in early . In our department you had a full physical examination performed including an ultrasound that showed a heart rate and excellent movement, and a pelvic examination that showed that your cervix is closed. You do have a small amount of bleeding and should monitor this, and return to the emergency department immediately if you have saturated through a pad in less than an hour for more than 2 hours in a row. Additionally, you should return if you develop sudden or severe abdominal pain, nausea or vomiting that prevents you from taking medications, or fever. Please follow-up with the midwives team on Friday or Friday, and thank you for allowing us to be part of your care Stand Alone Forms: Work Release HPI General Mode of arrival: ambulatory . Date/Time Provider Initiated Documentation: 07/10/24 02:50 . Limitations to Documentation: no limitations . Information obtained by: patient, family and old records reviewed . HPI Narrative: HPI: This is a 24-year-old female patient, at 11 weeks 6 days gestation, presenting for evaluation of vaginal bleeding. The patient reports that she has had intermittent vaginal bleeding throughout this , was diagnosed with a subchorionic hemorrhage. Denies she woke up with a significant amount of blood coming from her vagina, presented immediately to the hospital after calling her assistant secretary. She states that she is not experiencing abdominal pain, does have some round ligament pain that has been present, states that she has been using Zofran to manage nausea during this . She is otherwise not been informed of any anticipated complications, her last 2 pregnancies ended in miscarriage. She is being worked up for factor V Leiden given a family history of same. The patient has not had fevers or chills, has not noted any passage of clots or parts, is A+ blood type on recent type and screen in May 2024 Exam: Gen: Awake and alert, in no apparent distress HEENT: Non-icteric sclera Neck: Supple Lungs: No apparent respiratory distress, normal respiratory effort. CV: Appears well perfused, heart with regular rate and rhythm, strong distal pulses Abdomen: Non-distended, soft, nontender to palpation with uterus palpable in the suprapubic region : Pelvic examination supervised by SANDIP Trevino, showing normal external genitalia, with scant to moderate amount of dark red blood in the posterior fornix. Cervical os is closed, no cervical motion tenderness or adnexal tenderness on bimanual examination. MSK: Moves 4 extremities without apparent limitation in ROM Skin: Visualized skin without rashes, cyanosis. Neuro: Normal Gait, no obvious focal deficits or facial asymmetry. Speaks in full, clear sentences. Psych: Appropriate for situation. MDM: This is a 24-year-old female patient presenting for evaluation of vaginal bleeding in early . Differential includes but is not limited to subchorionic hemorrhage, certainly considered miscarriage including threatened , complete , inevitable . No fever to suggest septic . Considered placenta previa, coagulopathy, no trauma reported. Ultrasound performed as noted below, showing a single live fetus with heart activity appreciated. I do note what appears to be a small subchorionic hemorrhage, unknown if this is new or changed from prior. ED Course: The patient's pelvic examination is reassuring against inevitable , and I did reach out to OB to discuss any additional workup or management that they recommend, and they feel that the patient has been adequately worked up and can safely follow-up with midwives on Friday or Friday. The patient did endorse some concern earlier this week for urinary tract infection, states that she had a urinalysis performed that was noninfectious. I did repeat a urinalysis today, though the patient reports that she neglected to clean and so this would be considered a dirty catch. However, I note only blood consistent with her vaginal bleeding, rare bacteria and no evidence for pyuria, nitrites, or leukocyte esterase. This patient should have a repeat urinalysis done by her outpatient providers with culture sent for any persistent asymptomatic bacteriuria. At this time, the patient has had a full medical evaluation and is safe for discharge to home. They are hemodynamically stable, ambulatory, and tolerating PO. They are understanding of the follow-up plan and return precautions. They left our facility without incident. Dianna Purcell MD Related Data Home Medications ?Medication ?Instructions ?Recorded ?Confirmed inhalational spacing device #1 ea 02/14/20 07/10/24 (Aerochamber MV spacer) epinephrine 0.3 mg/0.3 mL 0.3 mg (0.3 mL) IJ ONCE PRN 05/24/20 07/10/24 injection, auto-injector (EpiPen) Anaphylaxis ##1 albuterol sulfate 90 mcg/actuation 1 - 2 puff inhalation DAILY ##1 10/04/20 07/10/24 aerosol inhaler (ProAir HFA) albuterol sulfate 90 mcg/actuation 2 puff inhalation PRN PRN 06/16/22 07/10/24 aerosol inhaler (Ventolin HFA) budesonide-formoterol HFA 80 1 puff inhalation BID 02/11/23 07/10/24 mcg-4.5 mcg/actuation aerosol inhaler (Symbicort) buspirone 5 mg tablet 5 mg PO DAILY 11/12/23 07/10/24 polyethylene glycol 3350 17 17 g PO DAILY 12/16/23 07/10/24 gram/dose oral powder (Miralax) omeprazole 40 mg capsule,delayed 40 mg PO DAILY 05/23/24 07/10/24 release ondansetron 4 mg disintegrating 4 mg PO Q6H PRN nausea and 07/05/24 07/10/24 tablet vomiting #30 tabs Previous Rx's ?Medication ?Instructions ?Recorded inhalational spacing device #1 ea 02/14/20 (Aerochamber MV spacer) epinephrine 0.3 mg/0.3 mL 0.3 mg (0.3 mL) IJ ONCE PRN 05/24/20 injection, auto-injector (EpiPen) Anaphylaxis ##1 albuterol sulfate 90 mcg/actuation 1 - 2 puff inhalation DAILY ##1 10/04/20 aerosol inhaler (ProAir HFA) ondansetron 4 mg disintegrating 4 mg PO Q6H PRN nausea and 07/05/24 tablet vomiting #30 tabs Allergies Allergy/AdvReac Type Severity Reaction Status Date / Time shellfish derived Allergy Severe Anaphylaxis Verified 07/10/24 02:52 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 Intermediate Skin Rash Verified 07/10/24 02:52 acetylcysteine (From NAC) AdvReac Intermediate Other (See Verified 07/10/24 02:52 Comment) fluoxetine AdvReac Psychosis Unverified 07/10/24 02:52 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 Course Vital Signs Vital signs: Vital Signs Temperature 36.8 C 07/10/24 02:53 Pulse 78 07/10/24 02:53 Respiratory Rate 16 07/10/24 02:53 Blood Pressure 118/86 07/10/24 02:53 Pulse Oximetry 99 07/10/24 02:53 Temperature 36.8 C 07/10/24 02:53 Temperature Source Temporal Artery Scan 07/10/24 02:53 Pulse 78 07/10/24 02:53 Respiratory Rate 16 07/10/24 02:53 Blood Pressure 118/86 07/10/24 02:53 Blood Pressure Position Sitting 07/10/24 02:53 Pulse Oximetry 99 07/10/24 02:53 Oxygen Delivery Method Room Air 07/10/24 02:53 Oxygen Flow Rate 0 07/10/24 02:53 Pain Level 0 07/10/24 02:53 Medical Decision Making Quality:SDOH Health Related Social Needs: No Data to Display PFSH All Active Problems Vaginal bleeding before 22 weeks gestation (Acute) Depression (Chronic) Anxiety (Chronic) (Acute) Smoker (Chronic 11/28/17) Vapes 1 pod per week (07/08/2024) Medical History (Updated 07/10/24 @ 03:24 by Dianna Purcell MD) Family history of congenital heart defect cousin and FOB's cousin Family history of factor V Leiden mutation Marijuana abuse Stopped 10/17/2023 Impingement syndrome of left shoulder SLAP lesion of right shoulder Tendinitis of long head of biceps brachii of both shoulders Otitis externa Scapular dyskinesis Adolescent idiopathic scoliosis of thoracolumbar region (08/23/16) ADHD (attention deficit hyperactivity disorder) (11/23/14) Moderate persistent asthma without complication (08/23/16) Hematuria seen by Urology but declined hematuria workup Concussion Chronic abdominal pain Acute neck pain Depot contraception Fracture of left wrist (08/23/09) Fracture of right clavicle (11/04/04) Sprain of medial collateral ligament of right knee, subsequent encounter (04/22/17) Eczema (11/23/14) Surgical History (Updated 07/08/24 @ 10:39 by Jessica Frost) [place] teeth removed ROOF OF MOUTH RECONSTRUCTED Family History Mother Substance abuse several female relatives Neoplasm breast CA Social History Smoking/Tobacco Use Status: Never Smoking risk assessment performed?: Yes Alcohol Intake: former Drug use: Occasionally Substance use type: does not use Household members: family Housing: house Sexually active: Yes Do you think of yourself as: straight/heterosexual Current gender identity: female Seatbelt use: sometimes Do you feel safe at home: Yes Do you feel safe in your relationship?: Yes Female Reproductive History Menstrual control method: none History History 3 Para Hx # Term Pregnancies Multiple births Hx # Pregnancies Ectopic pregnancies AB induced Hx Number of Living Children AB spontaneous 2 POCUS Exam (ED) Limited OB Exam DATE OF EXAM:: 07/10/24 TIME OF EXAM:: 03:05 PROVIDER THAT PERFORMED THE STUDY: Dianna Purcell IS THIS A REPEAT EXAM DURING THIS ENCOUNTER: No Type of Exam: Pelvic OB Trans Abdominal REASON FOR EXAM: Vaginal Bleeding VISUALIZED STRUCTURES: Poll, Gestational sac and Uterus PERTINENT FINDINGS/IMPRESSION: cardiac activity and other impression: Question subchorionic hemorrhage, excellent movement Exam Complete.
[2024-07-10 03:20] LABS: Bacteria Few HPF (Negative); Crystals Negative HPF (Negative); Epithelial Cells Moderate HPF (Negative); Mucus Trace (Negative); WBC 0-2 HPF (0-5)
[2024-07-10 03:21] LABS: C & S Indicated? No; Casts Negative LPF (Negative)
== END 2024-07-10 03:27 | disposition home or self-care (01) ==
PROVIDERS: Emergency Provider Emergency Medicine; PCP Nurse Practitioner Family
DX: O20.9 Hemorrhage in early pregnancy, unspecified (principal)
CPT/HCPCS: 76815; 99284; 81003; 81015; 99283

== ENCOUNTER 2024-07-12 11:12 | Outpatient (REF) | payer MEDICAID, SELFPAY | END 2024-07-12 11:13 | disposition home or self-care (01) | LOC: LBN 11:12 | PROVIDERS: PCP Nurse Practitioner Family; Visit Provider Advanced Practice Midwife | DX: O20.9 Hemorrhage in early pregnancy, unspecified (principal); O26.899 Other specified pregnancy related conditions, unspecified trimester; R10.2 Pelvic and perineal pain; B96.89 Other specified bacterial agents as the cause of diseases classified elsewhere | CPT/HCPCS: 87086; 87480; 87510; 87660 ==

== ENCOUNTER 2024-07-15 09:32 | Emergency (ER) | payer MEDICAID, SELFPAY ==
[2024-07-15 09:54] VITALS: BP 107/69; PULSE 115; RESP 17; TEMP 37; O2SAT 98
[2024-07-15 10:40] VITALS: BP 119/63; PULSE 111; RESP 20; O2SAT 95
[2024-07-15 11:12] LABS: Abs Immature Grans 0.04 10^3/uL (0.0-0.06); Absolute Basophil Count 0.02 10^3/uL (0.0-0.2); Absolute Lymphocyte Count 0.18 10^3/uL (1.2-3.4); Absolute Monocyte Count 0.51 10^3/uL (0.1-0.8); Absolute Neutrophil Count 4.45 10^3/uL (1.2-6.7); Basophils % 0.4 %; HCT 34.3 % (36.0-46.0); HGB 11.7 g/dL (11.2-15.7); Immature Grans % 0.8 %; Lymphocytes % 3.5 %; MCH 28.1 pg (27.0-33.0); MCHC 34.1 % (32.0-36.0); MCV 83 fL (80-95); MPV 8.3 fL (8.0-11.0); Monocytes % 9.8 %; Neutrophils % 85.5 %; Platelet Count 210 10^3/uL (130-400); RBC 4.16 10^6/uL (3.93-5.22); RDW 12.4 % (11.7-14.6); RDW-SD 37.2 fL
[2024-07-15] MEDS: Lactated Ringers 1,000 ML 1000 ML IV ×2 (11:27→13:05)
[2024-07-15 11:30] LABS: ALT 32 U/L (14-59); AST 28 U/L (15-37); Albumin 3.3 g/dL (3.4-5.0); Alkaline Phosphatase 69 U/L (46-116); Anion Gap 10.3 mmol/L (3-11); BUN 6 mg/dL (7-18); Bilirubin, Total 0.28 mg/dL (0.2-1.0); CO2 22.7 mmol/L (21.0-32.0); CREATININE 0.5 mg/dL (0.55-1.02); Calcium 8.9 mg/dL (8.5-10.1); Chloride 102 mmol/L (98-107); Estimated GFR 135.07 (mL/min/1.73m2); Glucose 88 mg/dL (74-106); Lipase 28 U/L (<78); Potassium 3.5 mmol/L (3.5-5.1); Sodium 135 mmol/L (136-145); Total Protein 7.4 g/dL (6.4-8.2)
[2024-07-15 11:43] VITALS: BP 106/68; PULSE 100; TEMP 36.6; O2SAT 99
[2024-07-15] MEDS: Acetaminophen 500 MG TAB 1000 MG PO (13:05)
[2024-07-15] MEDS: Metoclopramide 10 MG/2 ML VIAL IVP (13:06)
--- NOTE | 2024-07-15 13:38 | W.ED.GENAD ---
Discharge Plan Disposition Patient Disposition: Home Condition: Good Discharge Details Clinical Impression: Nausea and vomiting, Dehydration Primary Care Provider: Divine De Los Santos ED Provider: Ian Ramirez Home Meds and New Rx's Prescriptions: No Action albuterol sulfate [ProAir HFA] 90 mcg/actuation HFA aerosol inhaler 1 - 2 puff Inhalation DAILY Qty: 1 2RF polyethylene glycol 3350 [Miralax] 17 gram/dose powder 17 g PO DAILY epinephrine [EpiPen] 0.3 mg/0.3 mL auto-injector 0.3 mg IJ ONCE PRN (Reason: Anaphylaxis) Qty: 1 1RF (DME) Aerochamber MV Spacer See Rx Instructions .ROUTE .MEDSUPPLY Qty: 1 0RF Rx Instructions: As directed ondansetron 4 mg tablet,disintegrating 4 mg PO Q6H PRN (Reason: nausea and vomiting) Qty: 30 4RF docusate sodium [Colace] 100 mg capsule 100 mg PO BID Qty: 60 6RF albuterol sulfate [Ventolin HFA] 90 mcg/actuation HFA aerosol inhaler 2 puff INHALATION PRN PRN Patient Comments: INHALE ONE TO TWO PUFFS BY MOUTH EVERY DAY NEEDED buspirone 5 mg tablet 5 mg PO BID Patient Comments: TAKE ONE TABLET BY MOUTH DIRECTED omeprazole 40 mg capsule,delayed release(DR/EC) 40 mg PO DAILY Patient Comments: TAKE ONE CAPSULE BY MOUTH EVERY DAY 30 MINUTES BEFORE A MEAL budesonide-formoterol [Symbicort] 80-4.5 mcg/actuation HFA aerosol inhaler 1 puff INHALATION BID Patient Comments: INHALE 1 PUFF BY MOUTH TWICE A DAY Discharge Instructions Instructions: Nausea and Vomiting, Adult ED Additional Instructions: At this time you have been rehydrated and you are able to tolerate fluids well. Please continue to drink plenty of fluids. If you notice any worsening of your symptoms, or any new symptoms such as vomiting, diarrhea, fever, chills, shortness of breath, chest pain, numbness, weakness, or fainting , please return immediately to the emergency department for reevaluation. Please follow up with your primary care provider as soon as possible for reassessment and reevaluation. As always, it was a pleasure participating in your medical care today. Stand Alone Forms: Work Release Discharge Data Discharge Date/Time-TO BE ENTERED AT DEPARTURE: 07/15/24 13:49 HPI General Date/Time Provider Initiated Documentation: 07/15/24 09:33. HPI Narrative: 24-year-old female who is currently 12 weeks , presents today for nausea and vomiting. She states that this began last night and she feels like she has not been able to keep anything down. She feels like she is getting dehydrated. She has had this with previous pregnancies, she has oral Zofran at home but this has not been helping. She denies any focal abdominal pain. She did have some pain yesterday in her generalized abdomen but this is resolved. She denies any vaginal bleeding. She has not had a bowel movement today, but she has been taking stool softeners. No other complaints at this time. No other modifying factors. No hematemesis, no blood in her stool. She is still passing gas. Related Data Home Medications ?Medication ?Instructions ?Recorded ?Confirmed inhalational spacing device #1 ea 02/14/20 07/15/24 (Aerochamber MV spacer) epinephrine 0.3 mg/0.3 mL 0.3 mg (0.3 mL) IJ ONCE PRN 05/24/20 07/15/24 injection, auto-injector (EpiPen) Anaphylaxis ##1 albuterol sulfate 90 mcg/actuation 1 - 2 puff inhalation DAILY ##1 10/04/20 07/15/24 aerosol inhaler (ProAir HFA) albuterol sulfate 90 mcg/actuation 2 puff inhalation PRN PRN 06/16/22 07/15/24 aerosol inhaler (Ventolin HFA) budesonide-formoterol HFA 80 1 puff inhalation BID 02/11/23 07/15/24 mcg-4.5 mcg/actuation aerosol inhaler (Symbicort) polyethylene glycol 3350 17 17 g PO DAILY 12/16/23 07/15/24 gram/dose oral powder (Miralax) omeprazole 40 mg capsule,delayed 40 mg PO DAILY 05/23/24 07/15/24 release ondansetron 4 mg disintegrating 4 mg PO Q6H PRN nausea and 07/05/24 07/15/24 tablet vomiting #30 tabs buspirone 5 mg tablet 5 mg PO BID 07/12/24 07/15/24 docusate sodium 100 mg capsule 100 mg PO BID #60 caps 07/14/24 07/15/24 (Colace) Previous Rx's ?Medication ?Instructions ?Recorded inhalational spacing device #1 ea 02/14/20 (Aerochamber MV spacer) epinephrine 0.3 mg/0.3 mL 0.3 mg (0.3 mL) IJ ONCE PRN 05/24/20 injection, auto-injector (EpiPen) Anaphylaxis ##1 albuterol sulfate 90 mcg/actuation 1 - 2 puff inhalation DAILY ##1 10/04/20 aerosol inhaler (ProAir HFA) ondansetron 4 mg disintegrating 4 mg PO Q6H PRN nausea and 07/05/24 tablet vomiting #30 tabs docusate sodium 100 mg capsule 100 mg PO BID #60 caps 07/14/24 (Colace) Allergies Allergy/AdvReac Type Severity Reaction Status Date / Time shellfish derived Allergy Severe Anaphylaxis Verified 07/15/24 09:57 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 07/15/24 09:57 for tree nut allergy almond Allergy Intermediate Skin Rash Verified 07/15/24 09:57 acetylcysteine (From NAC) AdvReac Intermediate Other (See Verified 07/15/24 09:57 Comment) fluoxetine AdvReac Psychosis Unverified 07/15/24 09:57 General Stated Complaint: Abd Prob RUBEN: 3 Exam Narrative Exam Narrative: 1.Const: Well-nourished, Well-developed, appearing stated age 2.Eyes: PERRL, no conjunctival injection, and symmetrical lids. 3.ENT: Atraumatic external nose and ears. Dry MM. Neck: Symmetric, trachea midline, No thyromegaly. 4.CVS: +S1/S2, Peripheral pulses 2+ and equal in all extremities. Brisk capillary refill in all extremities. 5.RESP: Unlabored respiratory effort. Clear to auscultation bilaterally. No wheezes rales or rhonchi 6.GI: Soft, Nontender/Nondistended, No hepatosplenomegaly. No guarding or rebound. Bowel sounds present 7.MSK: Normocephalic/Atraumatic, Extremities w/o deformity or ttp No cyanosis or clubbing, Normal movement of all extremities 8.Skin: Warm, Dry. No rashes or lesions. 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 Sensation grossly intact, no focal neurologic deficits. 10.Psych: (AAO) x3. Appropriate mood and affect Course Vital Signs Vital signs: Vital Signs Temperature 37.0 C 07/15/24 09:54 Pulse 115 H 07/15/24 09:54 Respiratory Rate 17 07/15/24 09:54 Blood Pressure 107/69 07/15/24 09:54 Pulse Oximetry 98 07/15/24 09:54 Temperature 36.6 C 07/15/24 11:43 Temperature Source Oral 07/15/24 11:43 Pulse 100 H 07/15/24 11:43 Respiratory Rate 20 07/15/24 10:40 Blood Pressure 106/68 07/15/24 11:43 Blood Pressure Position Sitting 07/15/24 11:43 Pulse Oximetry 99 07/15/24 11:43 Oxygen Delivery Method Room Air 07/15/24 11:43 Oxygen Flow Rate 0 07/15/24 10:40 Pain Level 10 07/15/24 11:43 Lab/Test Results Lab/Test Results: Laboratory Tests Range/Units 07/15/24 11:04 WBC (4.4-10.8) 10^3/uL 5.20 RBC (3.93-5.22) 10^6/uL 4.16 Hgb (11.2-15.7) g/dL 11.7 Hct (36.0-46.0) % 34.3 L MCV (80-95) fL 83 MCH (27.0-33.0) pg 28.1 MCHC (32.0-36.0) % 34.1 RDW (11.7-14.6) % 12.4 Plt Count (130-400) 10^3/uL 210 MPV (8.0-11.0) fL 8.3 Immature Gran % % 0.8 Neutrophils % % 85.5 Lymphocytes % % 3.5 Monocytes % % 9.8 Eosinophils % % 0.0 Basophils % % 0.4 Nucleated RBC % (0.0-0.3) % 0.0 Absolute Neutrophils (1.2-6.7) 10^3/uL 4.45 Absolute Lymphocytes (1.2-3.4) 10^3/uL 0.18 L Absolute Monocytes (0.1-0.8) 10^3/uL 0.51 Absolute Eosinophils (0.0-0.7) 10^3/uL 0.00 Absolute Basophils (0.0-0.2) 10^3/uL 0.02 Sodium (136-145) mmol/L 135 L Potassium (3.5-5.1) mmol/L 3.5 Chloride (98-107) mmol/L 102 Carbon Dioxide (21.0-32.0) mmol/L 22.7 Anion Gap (3-11) mmol/L 10.3 BUN (7-18) mg/dL 6 L Creatinine (0.55-1.02) mg/dL 0.5 L Est GFR (CKD-EPI 2020) (mL/min/1.73m2) 135.07 Glucose (74-106) mg/dL 88 Calcium (8.5-10.1) mg/dL 8.9 Total Bilirubin (0.2-1.0) mg/dL 0.28 AST (15-37) U/L 28 ALT (14-59) U/L 32 Alkaline Phosphatase (46-116) U/L 69 Total Protein (6.4-8.2) g/dL 7.4 Albumin (3.4-5.0) g/dL 3.3 L Lipase (<78) U/L 28 Medical Decision Making 24-year-old female who is currently 12 weeks , presents today for nausea and vomiting. She states that this began last night and she feels like she has not been able to keep anything down. She feels like she is getting dehydrated. She has had this with previous pregnancies, she has oral Zofran at home but this has not been helping. She denies any focal abdominal pain. She did have some pain yesterday in her generalized abdomen but this is resolved. She denies any vaginal bleeding. She has not had a bowel movement today, but she has been taking stool softeners. No other complaints at this time. No other modifying factors. No hematemesis, no blood in her stool. She is still passing gas. Exam demonstrates well-appearing female, dry mucous membranes, nontender appropriately gravid abdomen. No vaginal discharge or bleeding to suggest miscarriage. No distention to suggest obstruction. Bowel sounds are still present. Suspect potential mild constipation. She is taking MiraLAX. Patient states that her symptomatology does appear quite consistent with her previous pregnancies for the nausea and vomiting. She did take COVID and flu test yesterday which was negative. We will place an IV, rehydrate, give IV Reglan, monitor closely and reassess. Patient Zofran. 1 PM Laboratory workup has returned normal, no white count bandemia or left shift. Electrolytes are normal. Renal function normal. No evidence of hypokalemia. No evidence of anion gap. Lipase is normal suggesting no evidence of pancreatitis. On reassessment patient is doing much better. She is tolerating p.o. well. She tolerated medications p.o., she is drinking soda, and feels much better. IV fluids is not finished, but she states that she would like to leave now and does not want a wait for them to complete. Since she is tolerating p.o. well, shows no signs of an acute surgical abdomen, and no longer shows any signs of dehydration of significance, I do feel that discharge is reasonable. Patient does have Zofran for home use still already. Discussed red flags for which to return. Symptoms inconsistent at this time with ectopic , obstruction, acute surgical abdomen, or other life-threatening surgical etiology. Discussed red flags which are here. I have extensively reviewed the treatment plan and discharge instructions with the patient. I have addressed all patient concerns at this time. The patient was made aware of what symptoms to monitor for that would warrant a return to the emergency department. Discussed the plan with the patient, they demonstrate verbal understanding and agreement with our assessment and plan at this time. The documentation in this chart was dictated using popexpert dictation software. Please excuse any dictation errors. Quality:SDOH Health Related Social Needs: No Data to Display PFSH All Active Problems Dehydration (Acute) Nausea and vomiting (Acute) Pelvic pain affecting (Acute) Vaginal bleeding before 22 weeks gestation (Acute) Depression (Chronic) Anxiety (Chronic) (Acute) Smoker (Chronic 11/28/17) Vapes 1 pod per week (07/08/2024) Medical History (Updated 07/15/24 @ 17:56 by Ian Ramirez DO) Family history of congenital heart defect cousin and FOB's cousin Family history of factor V Leiden mutation Marijuana abuse Stopped 10/17/2023 Impingement syndrome of left shoulder SLAP lesion of right shoulder Tendinitis of long head of biceps brachii of both shoulders Otitis externa Scapular dyskinesis Adolescent idiopathic scoliosis of thoracolumbar region (08/23/16) ADHD (attention deficit hyperactivity disorder) (11/23/14) Moderate persistent asthma without complication (08/23/16) Hematuria seen by Urology but declined hematuria workup Concussion Chronic abdominal pain Acute neck pain Depot contraception Fracture of left wrist (08/23/09) Fracture of right clavicle (11/04/04) Sprain of medial collateral ligament of right knee, subsequent encounter (04/22/17) Eczema (11/23/14) Surgical History (Updated 07/08/24 @ 10:39 by Jessica Frost) [place] teeth removed ROOF OF MOUTH RECONSTRUCTED Family History Mother Substance abuse several female relatives Neoplasm breast CA Social History Smoking/Tobacco Use Status: Never Smoking risk assessment performed?: Yes Alcohol Intake: former Drug use: Occasionally Substance use type: does not use Household members: family Housing: house Sexually active: Yes Do you think of yourself as: straight/heterosexual Current gender identity: female Seatbelt use: sometimes Do you feel safe at home: Yes Do you feel safe in your relationship?: Yes Female Reproductive History Menstrual control method: none History History 3 Para Hx # Term Pregnancies Multiple births Hx # Pregnancies Ectopic pregnancies AB induced Hx Number of Living Children AB spontaneous 2
[2024-07-15 13:41] VITALS: BP 105/66; PULSE 92; RESP 15; O2SAT 97
== END 2024-07-15 13:49 | disposition home or self-care (01) ==
PROVIDERS: Emergency Provider Student in an Organized Health Care Education/Training Program; PCP Nurse Practitioner Family
DX: E86.0 Dehydration; O21.9 Vomiting of pregnancy, unspecified
CPT/HCPCS: 36415; 80053; 83690; 96361; 96374; 99284; 85025; 99283; J2765

== ENCOUNTER 2024-08-16 10:49 | Outpatient (CLI) | payer MEDICAID, SELFPAY ==
--- NOTE | 2024-08-16 10:00 | DI.US_ITS ---
Exam(s) US OB F/U FACIAL/LVOT/RVOT EXAM: US OB F/U FACIAL/LVOT/RVOT CLINICAL HISTORY: bleeding,cramping at 17 weeks. TECHNIQUE: Transabdominal obstetrical ultrasound performed. COMPARISON: No exams were available for comparison FINDINGS: Number of fetuses: 1 position: Varied throughout the examination. Placental location: There is a grade 1 posterior placenta. The placental tip is 4.4 cm from the inte rnal os. No sonographic evidence to suggest placental abruption is seen. Cervical length: 3.4 cm. The cervix is intact. Heart Rate: 150 bpm Amniotic fluid index: Visually, amount of fluid is within normal limits. IMPRESSION: 1. Single live intrauterine gestation as above. 2. There is no evidence of a placental abruption. There is no evidence of placenta previa. The plac ental tip is 4.4 cm from the internal os. 3. The cervical length is 3.4 cm. The cervix is intact sonographically. DATA REPOSITORY:
== END 2024-08-16 11:09 ==
LOC: DI 10:51
PROVIDERS: PCP Nurse Practitioner Family; Visit Provider Advanced Practice Midwife
DX: O26.892 Other specified pregnancy related conditions, second trimester; R10.2 Pelvic and perineal pain; Z3A.17 17 weeks gestation of pregnancy
CPT/HCPCS: 76815

== ENCOUNTER 2024-08-19 10:51 | Outpatient (REF) | payer MEDICAID, SELFPAY ==
[2024-08-19 15:40] LABS: Iron 120 ug/dL (50-170); Total Iron Binding Capacity 330 ug/dL (250-450); Transferrin Sat 36 % (15-50)
[2024-08-19 17:12] LABS: Ferritin 89 ng/mL (8-252)
== END 2024-08-19 10:52 | disposition home or self-care (01) ==
LOC: NCHCN 10:51
PROVIDERS: PCP Nurse Practitioner Family; Visit Provider Nurse Practitioner Family
DX: Z34.82 Encounter for supervision of other normal pregnancy, second trimester (principal); Z3A.15 15 weeks gestation of pregnancy
CPT/HCPCS: 82728; 83540; 83550

== ENCOUNTER 2024-08-25 08:52 | Emergency (ER) | payer MEDICAID, SELFPAY ==
[2024-08-25] VITALS (23 sets, daily range): BP systolic 106–114; BP diastolic 60–78; PULSE 63–83; RESP 10–23; TEMP 36.6; O2SAT 98–100
--- NOTE | 2024-08-25 09:19 | ED.GENADUL_ITS ---
Discharge Plan Disposition Patient Disposition: Home Condition: Stable Discharge Details Clinical Impression: Abdominal pain affecting , Constipation Primary Care Provider: Divine De Los Santos ED Provider: Dianna Purcell Home Meds and New Rx's Prescriptions: No Action albuterol sulfate [ProAir HFA] 90 mcg/actuation HFA aerosol inhaler 1 - 2 puff Inhalation DAILY Qty: 1 2RF polyethylene glycol 3350 [Miralax] 17 gram/dose powder 17 g PO DAILY epinephrine [EpiPen] 0.3 mg/0.3 mL auto-injector 0.3 mg IJ ONCE PRN (Reason: Anaphylaxis) Qty: 1 1RF (DME) Aerochamber MV Spacer See Rx Instructions .ROUTE .MEDSUPPLY Qty: 1 0RF Rx Instructions: As directed docusate sodium [Colace] 100 mg capsule 100 mg PO BID Qty: 60 6RF metoclopramide HCl [Reglan] 10 mg tablet 10 mg PO Q6H PRN (Reason: nausea and vomiting) Qty: 20 1RF bisacodyl 10 mg suppository 10 mg MS DAILY PRN (Reason: constipation) Qty: 12 0RF albuterol sulfate [Ventolin HFA] 90 mcg/actuation HFA aerosol inhaler 2 puff INHALATION PRN PRN Patient Comments: INHALE ONE TO TWO PUFFS BY MOUTH EVERY DAY NEEDED buspirone 5 mg tablet 5 mg PO BID Patient Comments: TAKE ONE TABLET BY MOUTH DIRECTED omeprazole 40 mg capsule,delayed release(DR/EC) 40 mg PO DAILY Patient Comments: TAKE ONE CAPSULE BY MOUTH EVERY DAY 30 MINUTES BEFORE A MEAL budesonide-formoterol [Symbicort] 80-4.5 mcg/actuation HFA aerosol inhaler 1 puff INHALATION BID Patient Comments: INHALE 1 PUFF BY MOUTH TWICE A DAY Discharge Instructions Instructions: Abdominal Pain, Adult ED Additional Instructions: You were seen in the emergency department today for evaluation of abdominal pain. In our department you had a full physical examination performed, had laboratory studies that were very reassuring, received IV fluids for some mild dehydration. Your abdominal examination was quite reassuring and your baby looks very healthy on ultrasound. As we discussed, you are potentially experiencing pain due to bowel gas and constipation and I do recommend that you continue to take your prescribed Colace and use your suppository as needed for ongoing constipation. You can continue to use Tylenol for pain, and should follow-up at all your scheduled appointments. As we discussed, there is a lower likelihood of early appendicitis based on your labs and your vital signs, but certainly if your pain continues to be severe in the right lower quadrant of your abdomen, you develop nausea or vomiting, fever, or other concerning symptoms you should be reevaluated for this condition. Please follow-up with your primary care provider in the next few days to discuss this visit and any symptoms that change, worsen, or persist. Thank you for allowing us to be part of your care. Stand Alone Forms: Work Release HPI General Mode of arrival: ambulatory . Date/Time Provider Initiated Documentation: 08/25/24 08:54 . Limitations to Documentation: no limitations . Information obtained by: patient, RN/MD and old records reviewed . HPI Narrative: HPI: This is a 24 y/o F patient, at 18 weeks gestation, hx of 2 early miscarriages, presenting for RLQ abd pain. This started suddenly at 0300am, and woke her from sleep. She states that the pain waxes and wanes but never resolved entirely. Associated with nausea, no vomiting. The pt reports taking tylenol at 0300, no other medicines. She reports a low-grade elevation in temp to 99F. No associated dysuria, last stool 0300, taking miralax as prescribed. No hx of abdominal surgery, no vaginal discharge or bleeding, movement preserved. Exam: Gen: Awake and alert, in no apparent distress HEENT: Non-icteric sclera Neck: Supple Lungs: No apparent respiratory distress, normal respiratory effort. CV: Appears well perfused, strong distal pulses, regular rate and rhythm Abdomen: Gravid, uterine fundus palpable 2-3 centimeters below the umbilicus, non-tender. Tenderness to palpation RLQ without rigidity, rebound, or guarding. No other tenderness, no overlying skin changes. MSK: Moves 4 extremities without apparent limitation in ROM Skin: Visualized skin without rashes, cyanosis. Neuro: Normal Gait, no obvious focal deficits or facial asymmetry. Speaks in full, clear sentences. Psych: Appropriate for situation. MDM: This is a 24 y/o F patient presenting for RLQ abd pain in . Differentials include but are not limited to appendicitis, -related discomfort, constipation/bowel gas. No mechanism for placentae abruptio, no vaginal bleeding or discharge nor loss of movement to suggest loss. No symptoms suggestive of bowel obstruction, UTI. Hemodynamically stable, no HTN or fever here in the ED. I performed a bedside US which shows a mobile fetus with an appropriate HR of 146. No subchorionic hemmorhages noted. No intrapelvic free fluid. We will obtain an IV and labs to include CBC, CMP, lipase, magnesium, and provide a dose of intravenous Tylenol. ED Course: I independently interpreted the laboratory studies, which show no significant leukocytosis, anemia, or thrombocytopenia. The chemistry panel is without evidence of electrolyte abnormality, kidney dysfunction, or liver injury. Urinalysis with trace ketones consistent with volume depletion, a liter of IV fluid was provided. The patient's abdominal examination remains benign, she states the pain has migrated towards the left side and feels like a gas bubble, states that she is improved overall. I did discuss her case with MANUFA[employer]UR[employer] SERVICE REPRESENTATIVE, and I feel that the patient is unlikely to be experiencing acute appendicitis given her lack of white blood cell count, fever, ability to tolerate p.o. intake, and her reassuring examination. Certainly this could be collections representative of her baseline constipation and bowel gas. I did chromosomal disorders counselor the patient on symptoms of appendici tis and recommended reevaluation by her outpatient providers in the next few days. At this time, the patient has had a full medical evaluation and is safe for discharge to home. They are hemodynamically stable, ambulatory, and tolerating PO. They are understanding of the follow-up plan and return precautions. They left our facility without incident. Dianna Purcell MD Related Data Home Medications ?Medication ?Instructions ?Recorded ?Confirmed inhalational spacing device #1 ea 02/14/20 08/25/24 (Aerochamber MV spacer) epinephrine 0.3 mg/0.3 mL 0.3 mg (0.3 mL) IJ ONCE PRN 05/24/20 08/25/24 injection, auto-injector (EpiPen) Anaphylaxis ##1 albuterol sulfate 90 mcg/actuation 1 - 2 puff inhalation DAILY ##1 10/04/20 08/25/24 aerosol inhaler (ProAir HFA) albuterol sulfate 90 mcg/actuation 2 puff inhalation PRN PRN 06/16/22 08/25/24 aerosol inhaler (Ventolin HFA) budesonide-formoterol HFA 80 1 puff inhalation BID 02/11/23 08/25/24 mcg-4.5 mcg/actuation aerosol inhaler (Symbicort) polyethylene glycol 3350 17 17 g PO DAILY 12/16/23 08/25/24 gram/dose oral powder (Miralax) omeprazole 40 mg capsule,delayed 40 mg PO DAILY 05/23/24 08/25/24 release buspirone 5 mg tablet 5 mg PO BID 07/12/24 08/25/24 docusate sodium 100 mg capsule 100 mg PO BID #60 caps 07/14/24 08/25/24 (Colace) bisacodyl 10 mg rectal suppository 10 mg MS DAILY PRN constipation 07/16/24 08/25/24 #12 ea metoclopramide HCl 10 mg tablet 10 mg PO Q6H PRN nausea and 07/16/24 08/25/24 (Reglan) vomiting #20 tabs Previous Rx's ?Medication ?Instructions ?Recorded inhalational spacing device #1 ea 02/14/20 (Aerochamber MV spacer) epinephrine 0.3 mg/0.3 mL 0.3 mg (0.3 mL) IJ ONCE PRN 05/24/20 injection, auto-injector (EpiPen) Anaphylaxis ##1 albuterol sulfate 90 mcg/actuation 1 - 2 puff inhalation DAILY ##1 10/04/20 aerosol inhaler (ProAir HFA) docusate sodium 100 mg capsule 100 mg PO BID #60 caps 07/14/24 (Colace) bisacodyl 10 mg rectal suppository 10 mg MS DAILY PRN constipation 07/16/24 #12 ea metoclopramide HCl 10 mg tablet 10 mg PO Q6H PRN nausea and 07/16/24 (Reglan) vomiting #20 tabs Allergies Allergy/AdvReac Type Severity Reaction Status Date / Time shellfish derived Allergy Severe Anaphylaxis Verified 08/02/24 10:32 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 08/02/24 10:32 for tree nut allergy almond Allergy Intermediate Skin Rash Verified 08/02/24 10:32 acetylcysteine (From NAC) AdvReac Intermediate Other (See Verified 08/02/24 10:32 Comment) fluoxetine AdvReac Psychosis Unverified 08/02/24 10:32 General Stated Complaint: Abd Prob RUBEN: 3 Course Vital Signs Vital signs: Vital Signs Pulse 67 08/25/24 08:57 Respiratory Rate 10 L 08/25/24 08:57 Blood Pressure 114/67 08/25/24 08:57 Pulse Oximetry 100 08/25/24 08:57 Pulse 67 08/25/24 08:57 Respiratory Rate 10 L 08/25/24 08:57 Blood Pressure 114/67 08/25/24 08:57 Blood Pressure Position Supine 08/25/24 08:57 Pulse Oximetry 100 08/25/24 08:57 Oxygen Delivery Method Room Air 08/25/24 08:57 Oxygen Flow Rate 0 08/25/24 08:57 Pain Level 8 08/25/24 08:57 Medical Decision Making Quality:SDOH Health Related Social Needs: No Data to Display PFSH All Active Problems Constipation (Acute) Abdominal pain affecting (Acute) Second trimester bleeding (Acute) Pelvic pain affecting (Acute) Depression (Chronic) Anxiety (Chronic) (Acute) Smoker (Chronic 11/28/17) Vapes 1 pod per week (07/08/2024) Medical History (Updated 08/25/24 @ 10:52 by Dianna Purcell MD) Family history of congenital heart defect cousin and FOB's cousin Family history of factor V Leiden mutation Marijuana abuse Stopped 10/17/2023 Impingement syndrome of left shoulder SLAP lesion of right shoulder Tendinitis of long head of biceps brachii of both shoulders Otitis externa Scapular dyskinesis Adolescent idiopathic scoliosis of thoracolumbar region (08/23/16) ADHD (attention deficit hyperactivity disorder) (11/23/14) Moderate persistent asthma without complication (08/23/16) Hematuria seen by Urology but declined hematuria workup Concussion Chronic abdominal pain Acute neck pain Depot contraception Fracture of left wrist (08/23/09) Fracture of right clavicle (11/04/04) Sprain of medial collateral ligament of right knee, subsequent encounter (04/22/17) Eczema (11/23/14) Surgical History (Updated 07/08/24 @ 10:39 by Jessica Frost) [place] teeth removed ROOF OF MOUTH RECONSTRUCTED Family History Mother Substance abuse several female relatives Neoplasm breast CA Social History Smoking/Tobacco Use Status: Never Smoking risk assessment performed?: Yes Alcohol Intake: former Drug use: Occasionally Substance use type: does not use Household members: family Housing: house Sexually active: Yes Do you think of yourself as: straight/heterosexual Current gender identity: female Seatbelt use: sometimes Do you feel safe at home: Yes Do you feel safe in your relationship?: Yes Female Reproductive History Menstrual control method: none History History 3 Para Hx # Term Pregnancies Multiple births Hx # Pregnancies Ectopic pregnancies AB induced Hx Number of Living Children AB spontaneous 2 POCUS Exam (ED) Limited OB Exam DATE OF EXAM:: 08/25/24 TIME OF EXAM:: 09:20 PROVIDER THAT PERFORMED THE STUDY: Dianna Purcell IS THIS A REPEAT EXAM DURING THIS ENCOUNTER: No Type of Exam: Pelvic OB Trans Abdominal REASON FOR EXAM: Abdominal Pain VISUALIZED STRUCTURES: Poll, Gestational sac and Uterus PERTINENT FINDINGS/IMPRESSION: cardiac activity and No apparent abnormalities Exam Complete.
[2024-08-25 09:34] LABS: Abs Immature Grans 0.07 10^3/uL (0.0-0.06); Absolute Basophil Count 0.03 10^3/uL (0.0-0.2); Absolute Eosinophil Count 0.02 10^3/uL (0.0-0.7); Absolute Monocyte Count 0.51 10^3/uL (0.1-0.8); Absolute Neutrophil Count 4.23 10^3/uL (1.2-6.7); Basophils % 0.5 %; Eosinophils % 0.3 %; HCT 32.7 % (36.0-46.0); HGB 11.1 g/dL (11.2-15.7); Immature Grans % 1.2 %; Lymphocytes % 18.5 %; MCH 28.8 pg (27.0-33.0); MCHC 33.9 % (32.0-36.0); MCV 85 fL (80-95); MPV 8.2 fL (8.0-11.0); Monocytes % 8.6 %; Neutrophils % 70.9 %; Platelet Count 265 10^3/uL (130-400); RBC 3.86 10^6/uL (3.93-5.22); RDW-SD 39.5 fL; WBC 5.96 10^3/uL (4.4-10.8)
[2024-08-25] MEDS: ACETAMINOPHEN 1,000 MG/100 ML BAG 400 MG IVPB (09:44)
[2024-08-25 09:54] LABS: ALT 21 U/L (14-59); AST 17 U/L (15-37); Albumin 2.8 g/dL (3.4-5.0); Alkaline Phosphatase 57 U/L (46-116); BUN 5 mg/dL (7-18); Bilirubin, Total 0.3 mg/dL (0.2-1.0); CREATININE 0.4 mg/dL (0.55-1.02); Calcium 8.3 mg/dL (8.5-10.1); Chloride 105 mmol/L (98-107); Estimated GFR 142.54 (mL/min/1.73m2); Glucose 83 mg/dL (74-106); Lipase 35 U/L (<78); Magnesium 1.6 mg/dL (1.8-2.4); Potassium 3.6 mmol/L (3.5-5.1); Sodium 137 mmol/L (136-145); Total Protein 6.5 g/dL (6.4-8.2)
[2024-08-25] MEDS: Lactated Ringers 1,000 ML 1000 ML IV (10:27)
[2024-08-25 10:36] LABS: Bilirubin Negative (Negative); Blood Negative (Negative); Clarity Clear (Clear); Glucose Negative (Negative); Ketones Trace mg/dL (Negative); Leukocyte Esterase Negative (Negative); Nitrite Negative (Negative); pH 7.5 (5-8)
== END 2024-08-25 12:20 | disposition home or self-care (01) ==
PROVIDERS: Emergency Provider Emergency Medicine; PCP Nurse Practitioner Family
DX: O26.899 Other specified pregnancy related conditions, unspecified trimester (principal); K59.00 Constipation, unspecified; Z3A.18 18 weeks gestation of pregnancy; R10.32 Left lower quadrant pain
CPT/HCPCS: 36415; 76815; 80053; 83690; 96361; 96374; 99284; 99285; 81003; 83735; 85025; J0131

== ENCOUNTER 2024-09-02 13:42 | Outpatient (REF) | payer MEDICAID, SELFPAY ==
[2024-09-02 15:58] LABS: *AMPHETAMINES SCREEN URINE Negative (Negative); *BARBITURATES SCREEN URINE Negative (Negative); *BENZODIAZEPINES SCREEN URINE Negative (Negative); Cannabinoids THC Negative (Negative); Cocaine Screen,Urine Negative (Negative); METHADONE URINE SCREEN Negative (Negative); OPIATES URINE SCREEN Negative (Negative)
[2024-09-02 15:59] LABS: Tricyclic Antidepressants Negative (Negative)
[2024-09-03 11:38] LABS: Fentanyl Scr w/Rfx Confirm Negative ng/mL (<1)
[2024-09-08 09:24] LABS: Buprenorphine Negative ng/mL (Cutoff: 5.0); Norbuprenorphine Negative ng/mL (Cutoff: 2.5)
== END 2024-09-02 13:43 | disposition home or self-care (01) ==
LOC: LBN 13:42
PROVIDERS: PCP Nurse Practitioner Family; Visit Provider Advanced Practice Midwife
DX: Z34.91 Encounter for supervision of normal pregnancy, unspecified, first trimester (principal); F12.10 Cannabis abuse, uncomplicated
CPT/HCPCS: 80307; 80348

== ENCOUNTER 2024-10-26 14:41 | Outpatient (REF) | payer MEDICAID, SELFPAY ==
[2024-10-26 16:22] LABS: Bilirubin Negative (Negative); Blood Negative (Negative); Clarity Turbid (Clear); Glucose 100 mg/dL (Negative); Ketones Negative (Negative); Leukocyte Esterase Negative (Negative); Nitrite Negative (Negative); Specific Gravity >= 1.030 (1.005-1.025); Urobilinogen 0.2 mg/dL (Up to 0.2)
[2024-10-26 17:15] LABS: Bacteria Negative HPF (Negative); C & S Indicated? No; Crystals Many Amorphous HPF (Negative); Epithelial Cells Few HPF (Negative); Mucus Trace (Negative); RBC Negative HPF (0-2); WBC Negative HPF (0-5)
== END 2024-10-26 14:42 | disposition home or self-care (01) ==
LOC: LBN 14:41
PROVIDERS: Advanced Practice Midwife; PCP Nurse Practitioner Family; Visit Provider Advanced Practice Midwife
DX: R30.0 Dysuria (principal)
CPT/HCPCS: 81003; 81015

== ENCOUNTER 2024-10-31 18:49 | Outpatient (CLI) | payer MEDICAID, SELFPAY ==
[2024-10-31 19:30] VITALS: BP 106/57; RESP 18; TEMP 36.9; O2SAT 81
--- NOTE | 2024-10-31 19:41 | W.PM.OBHPL1 ---
Date of service: 10/31/24 Time of Service: 19:42 Assessment and Plan Assessment and plan (1) Fall from chair: Status: Acute Assessment and plan: P: - recommended continuous monitoring until 4 hours after the fall (the fall occurred at 1800) - if regular contractions develop, or with VB or non-reassuring surveillance, labs and further monitoring or intervention could become necessary, though this is clinically unlikely given the mild nature of the fall (2) 28 weeks gestation of : Status: Acute (3) Decreased movement affecting management of in third trimester: Status: Acute Assessment and plan: P: - reassuirng surveillance for gestational age with initial monitoring OB-HPI Labor/Delivery History of Present Illness Reason for Visit: maternal abdominal trauma Chief Complaint: Other (maternal abdominal trauma with decreased movement). KAYLAN Calculator Estimated Delivery Date Method Current WG Current Estimate 01/23/25 Ultrasound #1 28w 0d Other Estimates 01/24/25 Ultrasound #2 27w 6d History of Present Expected Delivery Route/Plan - CNM FOB- Sukumar Luis (first baby) Specific Issues/Plan 1. Bleeding in first trimester - viable 6 +2 week IUP identified by US in ED 06/01/24 1a. 06/17/24 again confirms SIUP size consistent with dating, 8w3d, small sub chorionic hemorrhage 1b. Second trimester bleeding. No previa, cervical length 3.4, cervical length requested at level 2 [place] [facility] [place] 2. constipation - taking miralax daily. Stopped due to gassiness, now takes colace PO daily. 3. Flu and covid in 1st trimester. 4. Anxiety and depression-buspirone 5 mg QD. Takes 10 mg BID at times of stress. 5. cfDNA- low risk; CF/SMA declines; AFP declined 6. FH of congenital heart defects: Level 2 US @ 20 wks booked for 09/03/24 7. FH Factor V Leiden (2 paternal aunts had Factor V Leiden, one had a blood clot); Factor V Mutation-neg 8. Tobacco use/vaping, has decreased from 1/day to 1 pod/wk : counseled 9. 5P's positive -stopped marijuana and alcohol 10/17/2023: UDS ordered- neg, repeat at 28 weeks___ 10. Maternal history of gestational hypertension- ASA recommended daily. Narrative: Ny is a 24 year old G3PO at 28 weeks gestation who presents to L&D after sustaining a fall. She describes that she was trying to sit down on a chair on her patio, and that the chair was close to 6 ledge and one of the chair legs slipped down this ledge. The arm of the chair bumped strongly into her right side near the lateral portion of her ribs, then she caught herself on the ground with both hands. There was no frontal impact. Since the fall, she feels the movement are smaller. She denies VB / cramps / contractions / LOF. She is joined for this visit by her partner Sukumar. Placenta is know to be posterior. Blood type is A+. Review of Systems Narrative: General: feels well Abdomen: no current pain OB: +FM though movements feels smaller than usual, denies VB, denies LOF, denies cramps / contractions PFSH All Active Problems Decreased movement affecting management of in third trimester (Acute) 28 weeks gestation of (Acute) Fall from chair (Acute) Dysuria (Acute) Second trimester bleeding (Acute) Pelvic pain affecting (Acute) Depression (Chronic) Anxiety (Chronic) (Acute) Smoker (Chronic 11/28/17) Vapes 1 pod per week (07/08/2024) Medical History Family history of congenital heart defect cousin and FOB's cousin Family history of factor V Leiden mutation Marijuana abuse Stopped 10/17/2023 Impingement syndrome of left shoulder SLAP lesion of right shoulder Tendinitis of long head of biceps brachii of both shoulders Otitis externa Scapular dyskinesis Adolescent idiopathic scoliosis of thoracolumbar region (08/23/16) ADHD (attention deficit hyperactivity disorder) (11/23/14) Moderate persistent asthma without complication (08/23/16) Hematuria seen by Urology but declined hematuria workup Concussion Chronic abdominal pain Acute neck pain Depot contraception Fracture of left wrist (08/23/09) Fracture of right clavicle (11/04/04) Sprain of medial collateral ligament of right knee, subsequent encounter (04/22/17) Eczema (11/23/14) Surgical History [place] teeth removed ROOF OF MOUTH RECONSTRUCTED Family History Mother Substance abuse several female relatives Neoplasm breast CA Social History Smoking/Tobacco Use Status: Never Smoking risk assessment performed?: Yes Alcohol Intake: former Drug use: Occasionally Substance use type: does not use Household members: family Housing: house Sexually active: Yes Do you think of yourself as: straight/heterosexual Current gender identity: female Seatbelt use: sometimes Do you feel safe at home: Yes Do you feel safe in your relationship?: Yes Female Reproductive History Menstrual control method: none History History 3 Para Hx # Term Pregnancies Multiple births Hx # Pregnancies Ectopic pregnancies AB induced Hx Number of Living Children AB spontaneous 2 Meds Allergies and Home Medications Allergies Allergy/AdvReac Type Severity Reaction Status Date / Time shellfish derived Allergy Severe Anaphylaxis Verified 10/08/24 08:35 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 10/08/24 08:35 for tree nut allergy almond Allergy Intermediate Skin Rash Verified 10/08/24 08:35 acetylcysteine (From NAC) AdvReac Intermediate Other (See Verified 10/08/24 08:35 Comment) fluoxetine AdvReac Psychosis Unverified 10/08/24 08:35 Home Medications ?Medication ?Instructions ?Recorded ?Confirmed ?Type inhalational spacing device #1 ea 02/14/20 09/02/24 Rx (Aerochamber MV spacer) epinephrine 0.3 mg/0.3 mL 0.3 mg (0.3 mL) IJ ONCE PRN 05/24/20 09/02/24 Rx injection, auto-injector (EpiPen) Anaphylaxis ##1 albuterol sulfate 90 mcg/actuation 1 - 2 puff inhalation DAILY ##1 10/04/20 09/02/24 Rx aerosol inhaler (ProAir HFA) albuterol sulfate 90 mcg/actuation 2 puff inhalation PRN PRN 06/16/22 09/02/24 History aerosol inhaler (Ventolin HFA) budesonide-formoterol HFA 80 1 puff inhalation BID 02/11/23 09/02/24 History mcg-4.5 mcg/actuation aerosol inhaler (Symbicort) polyethylene glycol 3350 17 17 g PO DAILY 12/16/23 09/02/24 History gram/dose oral powder (Miralax) omeprazole 40 mg capsule,delayed 40 mg PO DAILY 05/23/24 09/02/24 History release buspirone 5 mg tablet 5 mg PO BID 07/12/24 09/02/24 History docusate sodium 100 mg capsule 100 mg PO BID #60 caps 07/14/24 09/02/24 Rx (Colace) bisacodyl 10 mg rectal suppository 10 mg MD DAILY PRN constipation 07/16/24 09/02/24 Rx #12 ea metoclopramide HCl 10 mg tablet 10 mg PO Q6H PRN nausea and 07/16/24 09/02/24 Rx (Reglan) vomiting #20 tabs Exam Physical Exam Narrative: General: NAD Integument: no abrasion or ecchymosis on abdomen in site of trauma Abdomen: gravid, NT : no contractions palpated Psych: A&O x 4 Fetus: 140s baseline, moderate variability, + accels (10x10), no decels Detailed Labor and Delivery Exam Bright Score: Cervical Points Exam 0 1 2 3 Dilation Closed 1-2cm 3-4 cm 5-6cm Effacement 0-30% 40-50% 60-70% 80% Consistency Firm Medium Soft Station -3 -2 -1,0 +1,+2 Position Posterior Mid Anterior Risk Assessment Risks Reviewed Risks Reviewed Upon Admission: No
[2024-10-31 19:57] VITALS: BP 106/57; PULSE 81
--- NOTE | 2024-10-31 21:54 | DSE_ITS ---
Date of service: 10/31/24 Time of Service: 22:03 DS: Diagnosis Discharge Diagnosis (1) Fall from chair: Status: Acute Asessment and Plan: P: - reassuring maternal and status until 4 hours after the fall without clinical evidence for abruption (as there is no vaginal bleeding, uterine tenderness or contractions) - Ny was discharged home, and given precautions to call if 3rd trimester warning signs develop, particularly in the next 24 hours - F/U for routine care, or sooner PRN (2) 28 weeks gestation of : Status: Acute (3) Decreased movement affecting management of in third trimester: Status: Acute Asessment and Plan: P: - reassuring surveillance Discharge Plan Disposition Condition: Stable Discharge Details Reason For Visit: maternal abdominal trauma Attending Provider: Cyn Wilburn Primary Care Provider: Divine De Los Santos Home Meds and New Rx's Prescriptions: No Action albuterol sulfate [ProAir HFA] 90 mcg/actuation HFA aerosol inhaler 1 - 2 puff Inhalation DAILY Qty: 1 2RF polyethylene glycol 3350 [Miralax] 17 gram/dose powder 17 g PO DAILY epinephrine [EpiPen] 0.3 mg/0.3 mL auto-injector 0.3 mg IJ ONCE PRN (Reason: Anaphylaxis) Qty: 1 1RF (DME) Aerochamber MV Spacer See Rx Instructions .ROUTE .MEDSUPPLY Qty: 1 0RF Rx Instructions: As directed docusate sodium [Colace] 100 mg capsule 100 mg PO BID Qty: 60 6RF metoclopramide HCl [Reglan] 10 mg tablet 10 mg PO Q6H PRN (Reason: nausea and vomiting) Qty: 20 1RF bisacodyl 10 mg suppository 10 mg AR DAILY PRN (Reason: constipation) Qty: 12 0RF albuterol sulfate [Ventolin HFA] 90 mcg/actuation HFA aerosol inhaler 2 puff INHALATION PRN PRN Patient Comments: INHALE ONE TO TWO PUFFS BY MOUTH EVERY DAY NEEDED buspirone 5 mg tablet 5 mg PO BID Patient Comments: TAKE ONE TABLET BY MOUTH DIRECTED omeprazole 40 mg capsule,delayed release(DR/EC) 40 mg PO DAILY Patient Comments: TAKE ONE CAPSULE BY MOUTH EVERY DAY 30 MINUTES BEFORE A MEAL budesonide-formoterol [Symbicort] 80-4.5 mcg/actuation HFA aerosol inhaler 1 puff INHALATION BID Patient Comments: INHALE 1 PUFF BY MOUTH TWICE A DAY Discharge Data Discharge Date/Time-TO BE ENTERED AT DEPARTURE: 10/31/24 22:00 DS: Summary Time Spent with Patient providing and/or coordinating discharge services: Less than 30 minutes Status at Discharge Functional status at discharge: independent ambulation Overall status at discharge: patient is back to baseline Mental Status: mental status grossly normal Speech and Movement: speech and movement normal Mood: congruent mood Affect: normal affect Exam Psych Mental Status: mental status grossly normal Speech and Movement: speech and movement normal Mood: congruent mood Affect: normal affect DS: Data Vitals/I&O Vitals and I&O: Vital Signs Temperature 98.4 F 10/31/24 19:30 Temperature Source Tympanic 10/31/24 19:30 Pulse 81 10/31/24 19:57 Respiratory Rate 18 10/31/24 19:30 Blood Pressure 106/57 L 10/31/24 19:57 Blood Pressure Mean 73 10/31/24 19:30 Pulse Oximetry 81 L 10/31/24 19:30 Oxygen Delivery Method Room Air 10/31/24 19:30 Oxygen Flow Rate 0 10/31/24 19:30 PE: General: NAD Abdomen: NT, gravid : no contractions by palpation nor by tocodynamometer FHTs: 135 baseline, moderate variability, + accels, no decels PFSH All Active Problems Decreased movement affecting management of in third trimester (Acute) 28 weeks gestation of (Acute) Fall from chair (Acute) Dysuria (Acute) Second trimester bleeding (Acute) Pelvic pain affecting (Acute) Depression (Chronic) Anxiety (Chronic) (Acute) Smoker (Chronic 11/28/17) Vapes 1 pod per week (07/08/2024) Medical History Family history of congenital heart defect cousin and FOB's cousin Family history of factor V Leiden mutation Marijuana abuse Stopped 10/17/2023 Impingement syndrome of left shoulder SLAP lesion of right shoulder Tendinitis of long head of biceps brachii of both shoulders Otitis externa Scapular dyskinesis Adolescent idiopathic scoliosis of thoracolumbar region (08/23/16) ADHD (attention deficit hyperactivity disorder) (11/23/14) Moderate persistent asthma without complication (08/23/16) Hematuria seen by Urology but declined hematuria workup Concussion Chronic abdominal pain Acute neck pain Depot contraception Fracture of left wrist (08/23/09) Fracture of right clavicle (11/04/04) Sprain of medial collateral ligament of right knee, subsequent encounter (04/22/17) Eczema (11/23/14) Surgical History [place] teeth removed ROOF OF MOUTH RECONSTRUCTED Family History Mother Substance abuse several female relatives Neoplasm breast CA Social History Smoking/Tobacco Use Status: Never Smoking risk assessment performed?: Yes Alcohol Intake: former Drug use: Occasionally Substance use type: does not use Household members: family Housing: house Sexually active: Yes Do you think of yourself as: straight/heterosexual Current gender identity: female Seatbelt use: sometimes Do you feel safe at home: Yes Do you feel safe in your relationship?: Yes Female Reproductive History Menstrual control method: none History History 3 Para Hx # Term Pregnancies Multiple births Hx # Pregnancies Ectopic pregnancies AB induced Hx Number of Living Children AB spontaneous 2 Time Spent with Patient Time Spent with Patient: <45 minutes Time was spent: preparing to see the patient(eg.review tests), obtaining and/or reviewing separately otained hiistory, ordering medications,tests, procedures, indepentently interpreting results and counseling the patient
[2024-10-31 21:58] VITALS: BP 106/57; PULSE 81; TEMP 36.9
== END 2024-10-31 22:00 ==
LOC: BCD 18:52 → OBS 19:02
PROVIDERS: PCP Nurse Practitioner Family; Visit Provider Advanced Practice Midwife
DX: W07.XXXA Fall from chair, initial encounter (principal); Z3A.28 28 weeks gestation of pregnancy; O36.8130 Decreased fetal movements, third trimester, not applicable or unspecified
CPT/HCPCS: 59025; G0378

== ENCOUNTER 2024-11-05 10:48 | Outpatient (CLI) | payer MEDICAID, SELFPAY ==
--- NOTE | 2024-11-05 | DI.US_ITS ---
Exam(s) US OB OFELIA WEIGHT EXAM: US OB OFELIA WEIGHT CLINICAL HISTORY: recent maternal fall with impact to right side. TECHNIQUE: Transabdominal obstetrical ultrasound performed. COMPARISON: US US OB 1ST TRIMESTER from 06/17/2024 US POCUS EXAM from 07/10/2024 US US OB F/U FACIAL/LVOT/RVOT from 08/16/2024 US POCUS EXAM from 08/25/2024 FINDINGS:: Number of fetuses: 1 position: CEPHALIC Placental location: POSTERIOR. No evidence of previa. No evidence of placental abruption. Succenturiate lobe present at the fundus. BIOMETRIC DATA: BPD: 7.49cm, 30weeks HC: 27.67cm, 30weeks 2days AC: 25.17cm, 29weeks 3days FL: 5.42cm, 28weeks 5days EFW: 1,365.8g, 3lb 1.14oz, 58.6% Composite Age: 29weeks 4days KAYLAN: 01/17/2025 Heart Rate: 129bpm Amniotic fluid index: 19.83cm. Visually, amount of fluid is within normal limits. IMPRESSION: size and weight are within the expected range. The placenta appears intact. There is a succenturiate lobe present at the fundus. DATA REPOSITORY:
[2024-11-05 11:08] VITALS: BP 108/66; PULSE 86
[2024-11-05 11:10] VITALS: BP 108/66; PULSE 86; TEMP 36.8
--- NOTE | 2024-11-05 11:58 | W.PM.PROGNOT ---
Date of Service Date of service: 11/05/24 Time of Service: 11:58 Assessment and Plan Assessment and plan (1) Abdominal pain of right lower quadrant during , antepartum: Status: Acute Assessment and plan: A: 24 yo G1 @ 28+5 wks, s/p fall 5 days ago with negative evaluation, intermittent RLQ pain today RLQ pain consistent with round ligament pain, pt is calm, NAD, conversational Abd, pelvic and speculum exam are negative, no bleeding, white vaginal mucous, cvx closed NST is reactive, minimal uterine activity per toco, no labor RLQ pain consistent with round ligament pain P: VPS sent, will get ultrasound for placenta evaluation, EFW & OFELIA If results are reassuring will discharge pt with counseling on warning sx to watch for and report F/up at next scheduled appt and as needed Subjective Subjective Interval history since last seen: Pt woke up at 0500 to go to work and has been feeling RLQ sharp stabbing pains intermittently all day, saw a brown/red clot on post void wipe x1 right before she came to the L&D unit to be seen. No bleeding before that or since. No nausea or vomiting, lots of movement daily, good appetite, no other abdominal pain Sees a chiropractor for low back pain and sciatica. Pt states nml BM yesterday, takes colace for chronic constipation. Exam Narrative Exam Narrative: Well appearing Const General: cooperative, healthy appearing, comfortable, no acute distress, well developed and well groomed Nutritional Appearance: average body habitus and well nourished Orientation: alert, awake and oriented x3 Resp Effort & Inspection: normal respiratory effort and able to speak in complete sentences Cardio Rate: regular rate Rhythm: regular rhythm GI Inspection: normal to inspection Palpation: soft Other: unable to elicit RLQ pain with palpation External Female Exam: normal external appearance and normal appearance of the urethra Speculum Exam - Vagina: normal appearance of the vagina and normal vaginal discharge Speculum Exam - Cervix: normal appearance of the cervix and closed Skin General skin exam: no rashes or lesions noted and elasticity normal Extrem General: normal to inspection, full ROM and normal gait Psych Mood: congruent mood Affect: normal affect Attitude: cooperative Thought Process: normal Objective Last Vital Signs Pulse 86 11/05/24 11:08 BP 108/66 11/05/24 11:08 Reviewed Pertinent PMH: Yes Objective Narrative Objective Narrative: Hx significant for a fall 5 days ago from a chair. She had sat down but the chair was positioned on the edge of a patio and tipped over. Pt landed on her right hip and side. She was seen in L&D that day and was monitored for over 4 hours, no bleeding, no contractions, NST was reactive, and was discharged home. Blood type is Rh+. Time Spent with Patient Time Spent with Patient: <25 minutes Time was spent: preparing to see the patient(eg.review tests), obtaining and/or reviewing separately otained hiistory, ordering medications,tests, procedures and indepentently interpreting results
[2024-11-05 12:15] VITALS: BP 108/66; PULSE 86; TEMP 36.8
--- NOTE | 2024-11-05 12:15 | W.OBNST ---
Date of service: 11/05/24 Time of Service: 12:15 NST Evaluation Reason for NST Reasons for Nonstress Test: LABOR Reason for NST Other: R/O labor, bleeding Gestational Age Gestational Age in Weeks and Days: 28 Weeks and 6Days Test and Monitor Explained Test/Monitor Explained: Test Explained, Monitor Explained and Patient Verbalized Understanding Vital Signs Blood Pressure: 108/66 Pulse: 86 Temperature: 98.2 F Urine Results Urine Protein: Negative Urine Ketones: Negative Urine Glucose: Negative Urine Blood: Negative NST Information Date on Monitor: 11/05/24 Time on Monitor: 10:50 Date off Monitor: 11/05/24 Time off Monitor: 11:55 Total Time on Monitor: 65 NST Interventions: PO Hydration NST Evaluation Patient States Movement: Present FHR Baseline: 145 Variability: Moderate 6-25 bpm Accelerations: 15x15 Decelerations: None NST Results: Reactive Note Ultrasound Done: N/A (in the DI). NST Note NST Reviewed and Verified by: Coby Leo
== END 2024-11-05 13:53 | disposition other institution (70) ==
LOC: BCD 10:48 → OBS 11:01
PROVIDERS: PCP Nurse Practitioner Family; Visit Provider Advanced Practice Midwife
DX: O47.03 False labor before 37 completed weeks of gestation, third trimester (principal); Z3A.28 28 weeks gestation of pregnancy
CPT/HCPCS: 76816; 59025; 87480; 87510; 87660

== ENCOUNTER 2024-11-09 03:05 | Outpatient (CLI) | payer MEDICAID, SELFPAY ==
[2024-11-09 12:18] LABS: HCT 32.8 % (36.0-46.0); HGB 11.3 g/dL (11.2-15.7); MCH 28.8 pg (27.0-33.0); MCHC 34.5 % (32.0-36.0); MCV 84 fL (80-95); MPV 8.8 fL (8.0-11.0); Platelet Count 305 10^3/uL (130-400); RBC 3.93 10^6/uL (3.93-5.22); RDW 11.7 % (11.7-14.6); RDW-SD 35.8 fL; WBC 9.13 10^3/uL (4.4-10.8)
[2024-11-09 12:28] LABS: Glucose,1 Hr (Glucola) 128 mg/dL (80-140)
== END 2024-11-09 03:06 | disposition home or self-care (01) ==
PROVIDERS: PCP Nurse Practitioner Family; Visit Provider Advanced Practice Midwife
DX: Z34.93 Encounter for supervision of normal pregnancy, unspecified, third trimester (principal)
CPT/HCPCS: 36415; 82950; 85027

== ENCOUNTER 2024-11-17 01:57 | Outpatient (CLI) | payer MEDICAID, SELFPAY ==
--- NOTE | 2024-11-17 08:30 | DI.US_ITS ---
Exam(s) US OB OFELIA WEIGHT EXAM: US OB OFELIA WEIGHT CLINICAL HISTORY: bleeding in ,bilobed placenta,O43.199,O46.90. TECHNIQUE: Transabdominal obstetrical ultrasound was performed. COMPARISON: US US OB OFELIA WEIGHT from 11/05/2024 FINDINGS: There is a single viable intrauterine gestation with cardiac activity identified-129 bpm The fetus is presently in cephalic position . Amniotic fluid: There is a normal amount of amniotic fluid with an OFELIA of 14.31cm. Placental location: The placenta is predominately posterior, grade 1,and again noted is an anterior located succenturiate lobe at the fundus level. There is no evidence of placenta previa. Dating parameters place this at approximately 31 weeks and 3 days gestational age, implying KAYLAN of 01/16/2025. BPD measures 32 weeks and 3 days HC measures 32 weeks and 0 days AC measures 30 weeks and 4 days FL measures 30 weeks and 4 days Estimated weight is 1657 gm-3 pounds, 10 ounces Fetus is at the 53rd percentile on the Hadlock scale. IMPRESSION:: Viable 3rd trimester gestation, as described above. Previously described succenturiate placental lobe at the level the anterior fundus is again noted DATA REPOSITORY:
== END 2024-11-17 02:17 ==
LOC: DI 01:57
PROVIDERS: PCP Nurse Practitioner Family; Visit Provider Advanced Practice Midwife
DX: Z34.93 Encounter for supervision of normal pregnancy, unspecified, third trimester (principal); Z3A.31 31 weeks gestation of pregnancy; O43.199 Other malformation of placenta, unspecified trimester
CPT/HCPCS: 76816

== ENCOUNTER 2024-11-22 17:06 | Outpatient (CLI) | payer MEDICAID, SELFPAY ==
[2024-11-22 17:45] VITALS: BP 112/75; PULSE 84; TEMP 36.4
[2024-11-22 17:50] VITALS: BP 112/75; PULSE 84
[2024-11-22] MEDS: Acetaminophen 500 MG TAB 1000 MG PO (18:04)
--- NOTE | 2024-11-22 18:18 | W.OBNST ---
Date of service: 11/22/24 Time of Service: 18:18 NST Evaluation Reason for NST Reasons for Nonstress Test: OTHER, SEE COMMENT Reason for NST Other: well being Gestational Age Gestational Age in Weeks and Days: 31 Weeks and 1Days Test and Monitor Explained Test/Monitor Explained: Test Explained and Monitor Explained Vital Signs Blood Pressure: 112/75 Pulse: 84 Temperature: 97.5 F Urine Results Urine Protein: Positive Urine Ketones: Negative Urine Glucose: Negative Urine Blood: Negative NST Information Date on Monitor: 11/22/24 Time on Monitor: 17:30 Date off Monitor: 11/22/24 Time off Monitor: 18:09 Total Time on Monitor: 39 NST Interventions: PO Hydration NST Evaluation Patient States Movement: Present FHR Baseline: 135 Variability: Moderate 6-25 bpm Accelerations: 15x15 Decelerations: None NST Results: Reactive Note Ultrasound Done: N/A. NST Note Note: UA is neg, symptoms and pain consistent with right SI joint pain, musculoskeletal No labor, abd exam soft & benign, vtx palpable in lower abd Pt accepts tylenol 1 gm PO d/c to home, f/up as scheduled this week NST Reviewed and Verified by: Coby Leo
[2024-11-22 18:20] VITALS: BP 112/75; PULSE 84; TEMP 36.4
== END 2024-11-22 18:11 ==
LOC: BCD 17:08 → OBS 17:14
PROVIDERS: PCP Nurse Practitioner Family; Visit Provider Advanced Practice Midwife
DX: Z3A.31 31 weeks gestation of pregnancy (principal); O99.891 Other specified diseases and conditions complicating pregnancy; R10.9 Unspecified abdominal pain
CPT/HCPCS: 59025

== ENCOUNTER 2024-11-24 09:35 | Outpatient (REF) | payer MEDICAID, SELFPAY ==
[2024-11-24 11:59] LABS: Cannabinoids THC Negative (Negative); METHADONE URINE SCREEN Negative (Negative)
[2024-11-25 12:04] LABS: Fentanyl Scr w/Rfx Confirm Negative ng/mL (<1)
== END 2024-11-24 09:36 | disposition home or self-care (01) ==
LOC: LBN 09:35
PROVIDERS: Advanced Practice Midwife; PCP Nurse Practitioner Family; Visit Provider Advanced Practice Midwife
DX: Z34.93 Encounter for supervision of normal pregnancy, unspecified, third trimester (principal); F19.10 Other psychoactive substance abuse, uncomplicated; Z3A.31 31 weeks gestation of pregnancy
CPT/HCPCS: 80307; 80348

== ENCOUNTER 2024-12-12 12:02 | Outpatient (CLI) | payer MEDICAID, SELFPAY ==
[2024-12-12 12:21] VITALS: BP 124/70; PULSE 80
[2024-12-12 12:28] VITALS: BP 124/70; PULSE 80; TEMP 36.4
--- NOTE | 2024-12-12 13:09 | W.OBNST ---
Date of service: 12/12/24 Time of Service: 13:09 NST Evaluation Reason for NST Reasons for Nonstress Test: LABOR Gestational Age Gestational Age in Weeks and Days: 34 Weeks and 0Days Test and Monitor Explained Test/Monitor Explained: Test Explained, Monitor Explained and Patient Verbalized Understanding Vital Signs Blood Pressure: 124/70 Pulse: 80 Temperature: 97.5 F NST Information Date on Monitor: 12/12/24 Time on Monitor: 12:20 NST Interventions: PO Hydration NST Evaluation Patient States Movement: Present Note Ultrasound Done: N/A. NST Note Note: Ny is a 24 year old at 34 weeks gestational age who presents with onset of contractions at 0730. See Progress Note for full history and exam. NST today is reactice. baseline is 140s, moderate variability, + accels, no decels. Contractions are q 4-7 minutes, mild to palpation. NST Reviewed and Verified by: Cyn Wilburn
[2024-12-12 13:11] VITALS: BP 124/70; PULSE 80; TEMP 36.4
--- NOTE | 2024-12-12 13:11 | W.PM.PROGNOT ---
Date of Service Date of service: 12/12/24 Time of Service: 13:11 Assessment and Plan Assessment and plan (1) 34 weeks gestation of : Status: Acute (2) uterine contractions in third trimester, antepartum: Status: Acute Assessment and plan: Differential diagnosis included, PTL, false labor, uterine irritability. Abruption is not likely as she is not having abdominal pain that is excessive to the clinical picture and does not have any vaginal bleeding. Dehydration is unlikely as she has very dilute urine on inspection and maintains a rigorous hydration program. Infection is unlikely as she is afebrile and uterus is non-tender. fFN, GBS and vaginal GC/CT was obtained, and urine was sent for UA, with reflext to UC if indicated. Further plan pending these results. surveillance is reassuring. Subjective Subjective Interval history since last seen: Ny is a 24 year old at 34 weeks gestational age. She presents to L&D triage for evaluation of contractions. She first started to feel this rhythmic lower abdominal pain around 0730 today, and was unsure if it was contractions or the baby balling up. The pain has worsened since its inception. course is notable for: 1. Bleeding in first trimester - viable 6 +2 week IUP identified by US in ED 06/01/24 1a. 06/17/24 again confirms SIUP size consistent with dating, 8w3d, small sub chorionic hemorrhage 1b. 2nd trimester bleeding. No previa, cervical length 3.4, cervical length requested at level 2 US at [facility] [place]- normal anatomy 2. constipation - taking miralax daily. Stopped due to gassiness, now takes colace PO daily. 3. Flu and covid in 1st trimester. 4. Anxiety and depression-buspirone 5 mg QD. Takes 10 mg BID at times of stress. 5. cfDNA- low risk male; CF/SMA declined; AFP declined 6. FHx of congenital heart defects: Level 2 US @ 20 wks booked for 09/03/24 7. FHx Factor V Leiden (2 paternal aunts had Factor V Leiden, one had a blood clot); Factor V Mutation-neg 8. Tobacco use/vaping, has decreased from 1/day to 1 pod/wk : counseled 9. 5P's positive -stopped marijuana and alcohol 10/17/2023: UDS ordered- neg, 28 wk=negative 10. Pt's mother had gestational hypertension- ASA recommended daily. 11. Maternal fall at 28 wks, scan done 5 days later: 59th percentile, OFELIA 19, cephalic, no evidence of abruption, Succenturiate lobe present at the fundus. 11a. 30 wk growth: EFW 53rd %, OFELIA 14, cephalic, bi-lobed placenta noted again 12. Low back pain, sees a chiropractor- referral to PT 12a. Per PT, pt not to bend, lift or twist at work. Note given for light duty, 12/06 ROS: Constitutional: generally feels well, no fever, no aches, no chills GI: no abdominal trauma, no N/V/diarrhea/constipation : no dysuria, no hematuria, she hydrates with 120 oz of fluid per day OB: good FM, no LOF, no VB (last epidose of vaginal bleeding was about 1 month ago), + contractions as noted above HOME DAY CARE PROVIDER: no sexual intercourse in the past 24 hours Objective Last Vital Signs Pulse 80 12/12/24 12:21 BP 124/70 12/12/24 12:21 Constitutional: well-nourished, well-developed, alert Respiratory: effort is unlabored Gastrointestinal: non-tender to palpation, tone normal without rigidity or guarding, no masses Genitourinary: - external: no inflammation, no lesions - vagina: normal vault, no abnormal discharge, no inflammatory lesions, no masses - cervix: appearance healthy, no lesions, non-tender, no discharge, no bleeding, SVE: closed internal os, external os can admit fingertip, medium consistency, long - uterus: gravid, normal shape, contractions q 4-7 minutes, mild by palpation - anus: no lesions - perineum: within normal limits Skin and Subcutaneous Tissue: no rashes, no lesions, no areas of discoloration Time Spent with Patient Time Spent with Patient: 25-34 minutes Time was spent: preparing to see the patient(eg.review tests), obtaining and/or reviewing separately otained hiistory, ordering medications,tests, procedures, indepentently interpreting results and counseling the patient
[2024-12-12 13:55] LABS: Glucose Negative (Negative)
[2024-12-12 13:59] LABS: Fetal Fibronectin Positive (Negative)
--- NOTE | 2024-12-12 14:45 | W.PM.OBHPL1 ---
Date of service: 12/12/24 Time of Service: 14:45 Assessment and Plan Assessment and plan (1) contractions: Status: Acute Assessment and plan: Potentially related to underlying vulvovaginal candidiasis based on discharge on glove. Patient to receive 1 dose of Diflucan. (2) : Status: Acute Assessment and plan: 24-year-old -0-2-0 (SAB x 2) at 34 and 0/7 is dated by 6-week ultrasound (KAYLAN 01/23/2025) undergoing workup for contractions consulted to our services for positive FFN ? Rh+ / rub I / VZV I / GBS pending as of 12/12/2024 ? complicated bysuccenturiate lobe, intermittent episodes of bleeding (last episode 4 weeks ago), asthma, ADHD, and now contractions ? status reassuring ? SVE closed/thick/high as of 12/12/2024 ? BMZ administered 12/12/2024; second dose due 12/13/2024 at 1515 - - - - - - - - - - - - - - 12/12/2024 (Hernan): Patient consulted to our services for concerns of labor based on regular contractions in the setting of a positive FFN test. Patient appears clinically well and cervix does not show evidence of labor. Patient states the contractions are roughly the same as when they started this morning; she appears to be in good spirits and I do not appear to be causing her discomfort. She denies any leakage or bleeding. GBS is already collected as well as GCC and vaginitis screening per the lotus notes developer. I discussed administration of betamethasone with the patient in an abundance of caution and she is agreeable. We will continue to monitor for now; she was provided with the contraction indicator so she can show us on the monitor when she is feeling the contractions. We will reassess this evening. I do not feel as though her risk for labor is strong enough at this point to warrant transfer. - - - - - - - - - - - - - - (3) Bilobed placenta: Status: Acute (4) ADHD (attention deficit hyperactivity disorder): (5) Vulvovaginal candidiasis: Status: Acute (6) Asthma: Status: Chronic (7) Nicotine dependence: Status: Acute OB-HPI Labor/Delivery History of Present Illness Reason for Visit: NST Chief Complaint: Uterine Contractions. KAYLAN Calculator Estimated Delivery Date Method Current WG Current Estimate 01/23/25 Ultrasound #1 34w 0d Other Estimates 01/24/25 Ultrasound #2 33w 6d History of Present Expected Delivery Route/Plan - CNM FOB- Sukumar Luis (first baby) BB yes to circ team: FOB, Cher (cousin), & Ana Maria (sister) Not interested in nitrous, may choose epidural if needed Specific Issues/Plan 1. Bleeding in first trimester - viable 6 +2 week IUP identified by US in ED 06/01/24 1a. 06/17/24 again confirms SIUP size consistent with dating, 8w3d, small sub chorionic hemorrhage 1b. 2nd trimester bleeding. No previa, cervical length 3.4, cervical length requested at level 2 US at [facility] [place]- normal anatomy 2. constipation - taking miralax daily. Stopped due to gassiness, now takes colace PO daily. 3. Flu and covid in 1st trimester. 4. Anxiety and depression-buspirone 5 mg QD. Takes 10 mg BID at times of stress. 5. cfDNA- low risk male; CF/SMA declined; AFP declined 6. FHx of congenital heart defects: Level 2 US @ 20 wks booked for 09/03/24 7. FHx Factor V Leiden (2 paternal aunts had Factor V Leiden, one had a blood clot); Factor V Mutation-neg 8. Tobacco use/vaping, has decreased from 1/day to 1 pod/wk : counseled 9. 5P's positive -stopped marijuana and alcohol 10/17/2023: UDS ordered- neg, 28 wk=negative 10. Maternal history of gestational hypertension- ASA recommended daily. 11. Maternal fall at 28 wks, scan done 5 days later: 59th percentile, OFELIA 19, cephalic, no evidence of abruption, Succenturiate lobe present at the fundus. 11a. 30 wk growth: EFW 53rd %, OFELIA 14, cephalic, bi-lobed placenta noted again 12. Low back pain, sees a chiropractor- referral to PT 12a. Per PT, pt not to bend, lift or twist at work. Note given for light duty, 12/06 Narrative: This is a 24-year-old -0-2-0 (SAB x 2) at 34 weeks and 0 days dated by a 6-week ultrasound (KAYLAN of 01/23/2025) presenting to labor and delivery for onset of contractions since 730 this morning. Patient states that she was showering when she began to experience abnormally apparent contractions that were occurring about every 5 minutes. She denies any leakage or bleeding; however, she does report intermittent episodes of bleeding throughout her , most notably in the first trimester, but she does report a recent episode of isolated bleeding approximately 4 weeks ago (this occurred approximately 2 weeks after she was worked up for fall). She denies any leakage or bleeding and she reports good movement. She denies any urinary symptoms. Though, she does report a persistent white discharge noted throughout her . She was last sexually active well over a month ago. Her is complicated by succenturiate lobe placenta, and records indicate a history of asthma as well as ADHD. She does not appear to be on any medications for the ADHD. Review of Systems All systems reviewed & are unremarkable except as noted in HPI and below PFSH All Active Problems Nicotine dependence (Acute) Asthma (Chronic) Vulvovaginal candidiasis (Acute) contractions (Acute) uterine contractions in third trimester, antepartum (Acute) 34 weeks gestation of (Acute) Low back pain (Acute) Bilobed placenta (Acute) Abdominal pain of right lower quadrant during , antepartum (Acute) Pelvic pain affecting (Acute) Depression (Chronic) Anxiety (Chronic) (Acute) Smoker (Chronic 11/28/17) Vapes 1 pod per week (07/08/2024) Medical History Dysuria Second trimester bleeding Family history of congenital heart defect cousin and FOB's cousin Family history of factor V Leiden mutation Marijuana abuse Stopped 10/17/2023 Impingement syndrome of left shoulder SLAP lesion of right shoulder Tendinitis of long head of biceps brachii of both shoulders Otitis externa Scapular dyskinesis Adolescent idiopathic scoliosis of thoracolumbar region (08/23/16) ADHD (attention deficit hyperactivity disorder) (11/23/14) Moderate persistent asthma without complication (08/23/16) Hematuria seen by Urology but declined hematuria workup Concussion Chronic abdominal pain Acute neck pain Depot contraception Fracture of left wrist (08/23/09) Fracture of right clavicle (11/04/04) Sprain of medial collateral ligament of right knee, subsequent encounter (04/22/17) Eczema (11/23/14) Surgical History [place] teeth removed ROOF OF MOUTH RECONSTRUCTED Family History Mother Substance abuse Gestational hypertension several female relatives Neoplasm breast CA Paternal Grandmother Diabetes Paternal Cousin Diabetes Maternal Grandmother Breast cancer Social History Smoking/Tobacco Use Status: Never Smoking risk assessment performed?: Yes Alcohol Intake: former Drug use: Occasionally Substance use type: does not use Household members: family Housing: house Sexually active: Yes Do you think of yourself as: straight/heterosexual Current gender identity: female Seatbelt use: sometimes Do you feel safe at home: Yes Do you feel safe in your relationship?: Yes Female Reproductive History Menstrual control method: none History History 3 Para 0 Hx # Term Pregnancies 0 Multiple births 0 Hx # Pregnancies 0 Ectopic pregnancies 0 AB induced 0 Hx Number of Living Children 0 AB spontaneous 2 Meds Allergies and Home Medications Allergies Allergy/AdvReac Type Severity Reaction Status Date / Time shellfish derived Allergy Severe Anaphylaxis Verified 12/10/24 09:03 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 12/10/24 09:03 for tree nut allergy almond Allergy Intermediate Skin Rash Verified 12/10/24 09:03 acetylcysteine (From NAC) AdvReac Intermediate Other (See Verified 12/10/24 09:03 Comment) fluoxetine AdvReac Psychosis Verified 12/10/24 09:03 Home Medications ?Medication ?Instructions ?Recorded ?Confirmed ?Type inhalational spacing device #1 ea 02/14/20 11/24/24 Rx (Aerochamber MV spacer) epinephrine 0.3 mg/0.3 mL 0.3 mg (0.3 mL) IJ ONCE PRN 05/24/20 12/10/24 Rx injection, auto-injector (EpiPen) Anaphylaxis ##1 albuterol sulfate 90 mcg/actuation 1 - 2 puff inhalation DAILY ##1 10/04/20 12/10/24 Rx aerosol inhaler (ProAir HFA) albuterol sulfate 90 mcg/actuation 2 puff inhalation PRN PRN 06/16/22 12/10/24 History aerosol inhaler (Ventolin HFA) budesonide-formoterol HFA 80 1 puff inhalation BID 02/11/23 12/10/24 History mcg-4.5 mcg/actuation aerosol inhaler (Symbicort) polyethylene glycol 3350 17 17 g PO DAILY 12/16/23 12/10/24 History gram/dose oral powder (Miralax) omeprazole 40 mg capsule,delayed 40 mg PO DAILY 05/23/24 12/10/24 History release buspirone 5 mg tablet 5 mg PO BID 07/12/24 12/10/24 History docusate sodium 100 mg capsule 100 mg PO BID #60 caps 07/14/24 12/10/24 Rx (Colace) bisacodyl 10 mg rectal suppository 10 mg MD DAILY PRN constipation 07/16/24 12/10/24 Rx #12 ea metoclopramide HCl 10 mg tablet 10 mg PO Q6H PRN nausea and 07/16/24 12/10/24 Rx (Reglan) vomiting #20 tabs Exam Physical Exam Vital signs: Pulse BP 80 124/70 12/12/24 12:21 12/12/24 12:21 Narrative: General: Well-nourished female in no immediate distress; found resting comfortably on the gurney and in good spirits Pulmonary: No overt respiratory distress Abdomen: Gravid, nontender; tolerates deep palpation in all quadrants and over the suprapubic region. No fundal tenderness. Extremities: Trace edema noted equally bilaterally Psych: Congruent mood and affect; in good spirits and cooperative : SVE finds patient closed/thick/high/firm/posterior, cephalic presentation. White discharge on glove suspicious for possible yeast. No blood, odor, or abnormal discharge noted on glove. Detailed Labor and Delivery Exam Dilation: 0 Effacement (%): 0 station: -3 Cervix position: posterior Consistency: firm Redd Score: Cervical Points Exam 0 1 2 3 Dilation Closed 1-2cm 3-4 cm 5-6cm Effacement 0-30% 40-50% 60-70% 80% Consistency Firm Medium Soft Station -3 -2 -1,0 +1,+2 Position Posterior Mid Anterior REDD Score(Cervical Ripeness Score): 0 Fetus A Heart Rate Baseline: 130 Monitor Accelerations: Present Monitor Decelerations: None Variability: Moderate (6-25 BPM) Presentation: Cephalic Categories: Category I Results Results Group Beta Strep: pending Blood Type: A+ Rubella Status: Immune Varicella Immunity: Immune Abnormal Lab Findings: Abnormal Labs 12/12/24 12:50 Fibronectin Positive A Risk Assessment Risks Reviewed Risks Reviewed Upon Admission: Yes
[2024-12-12] MEDS: Betamet Acet/Betamet Na Ph Inj. 30 MG/5 ML 12 MG IM (15:20)
[2024-12-12] MEDS: Fluconazole 150 MG TAB PO (15:20)
[2024-12-12 15:47] VITALS: BP 119/77; PULSE 79
--- NOTE | 2024-12-12 17:46 | PGE_ITS ---
Date of Service Date of service: 12/12/24 Time of Service: 17:46 Assessment and Plan Assessment and plan (1) : Status: Acute Assessment and plan: 24-year-old -0-2-0 (SAB x 2) at 34 and 0/7 is dated by 6-week ultrasound (KAYLAN 01/23/2025) undergoing workup for contractions consulted to our services for positive FFN ? Rh+ / rub I / VZV I / GBS pending as of 12/12/2024 ? complicated bysuccenturiate lobe, intermittent episodes of bleeding (last episode 4 weeks ago), asthma, ADHD, and now contractions ? status reassuring ? SVE closed/thick/high as of 12/12/2024 ? BMZ administered 12/12/2024; second dose due 12/13/2024 at 1520 - - - - - - - - - - - - - - 12/12/2024 AM (Bryantmasoud): Patient consulted to our services for concerns of labor based on regular contractions in the setting of a positive FFN test. Patient appears clinically well and cervix does not show evidence of labor. Patient states the contractions are roughly the same as when they started this morning; she appears to be in good spirits and I do not appear to be causing her discomfort. She denies any leakage or bleeding. GBS is already collected as well as GCC and vaginitis screening per the family program specialist. I discussed administration of betamethasone with the patient in an abundance of caution and she is agreeable. We will continue to monitor for now; she was provided with the contraction indicator so she can show us on the monitor when she is feeling the contractions. We will reassess this evening. I do not feel as though her risk for labor is strong enough at this point to warrant transfer. 12/12/2024 PM (Rosalesvandana): Patient's contractions have dissipated and her cervix is unchanged. She has recieved one dose of BMZ and plans to return tomorrow for the second dose. She only lives 5 minutes from the hospital. We reviewed labor precautions and she was advised to have a very low threshold for seeking immediate medical evaluation if concerning symptoms arise. She was provided with a note to be off of work tomorrow. F/U in the clinic at her regularly scheduled weekly appt. - - - - - - - - - - - - - - (2) Pelvic pain affecting : Status: Acute (3) Vulvovaginal candidiasis: Status: Acute Assessment and plan: Tx'd with Diflucan (4) contractions: Status: Acute (5) Bilobed placenta: Status: Acute Subjective Subjective Patient reports: pain is less Interval history since last seen: Patient is found resting comfortably in her bed. Laughing with her partner. She reports the contractions have spaced out, and she feels well. She is requesting to go home. She lives 5 minutes from the hospital. Exam Narrative Exam Narrative: general: Well nourished female in no immediate distress pulm: No overt respiratory distress Abd: Gravid, non-tender Ext: Trace edema noted equally bilaterally Psych: Congruent, appropriate, and cooperative SVE: unchanged; intact. cephalic FHT: cat 1 [place]: Irregular Objective Last Vital Signs Pulse 79 12/12/24 15:47 BP 119/77 12/12/24 15:47 Laboratory Results - last 24 hr 12/12/24 12/12/24 12:35 12:50 Urine Color Yellow Urine Clarity Sl Cloudy Urine pH 7.5 Ur Specific Alligator 1.015 Urine Protein Negative Urine Ketones Negative Urine Blood Negative Urine Nitrite Negative Urine Bilirubin Negative Urine Urobilinogen 0.2 Ur Leukocyte Esterase Negative Urine Glucose Negative Fibronectin Positive A Time Spent with Patient Time Spent with Patient: 25-34 minutes Time was spent: preparing to see the patient(eg.review tests), obtaining and/or reviewing separately otained hiistory, ordering medications,tests, procedures, referring, communicating with other health ocular care technician, indepentently interpreting results and counseling the patient
[2024-12-14 13:52] LABS: Chlamydia Result Negative (Negative); GC Result Negative (Negative)
== END 2024-12-12 17:50 ==
LOC: BCD 12:06 → OBS 12:13
PROVIDERS: PCP Nurse Practitioner Family; Visit Provider Advanced Practice Midwife
DX: Z3A.34 34 weeks gestation of pregnancy (principal); O47.03 False labor before 37 completed weeks of gestation, third trimester
CPT/HCPCS: 87491; 87591; 96372; 59025; 81003; 82731; 87081; G0378; J0702

== ENCOUNTER 2024-12-13 07:37 | Outpatient (CLI) | payer MEDICAID, SELFPAY ==
[2024-12-13 15:05] VITALS: BP 118/79; PULSE 93; TEMP 36.6
[2024-12-13] MEDS: Betamet Acet/Betamet Na Ph Inj. 30 MG/5 ML 12 MG IM (15:48)
--- NOTE | 2024-12-13 16:13 | W.OBNST ---
Date of service: 12/13/24 Time of Service: 16:14 NST Evaluation Reason for NST Reasons for Nonstress Test: DECREASED MOVEMENT Gestational Age Gestational Age in Weeks and Days: 34 Weeks and 1Days Test and Monitor Explained Test/Monitor Explained: Test Explained, Monitor Explained and Patient Verbalized Understanding Vital Signs Blood Pressure: 118/79 Pulse: 93 Temperature: 97.9 F NST Information Date on Monitor: 12/13/24 Time on Monitor: 15:10 Date off Monitor: 12/13/24 Time off Monitor: 15:37 Total Time on Monitor: 27 NST Interventions: PO Hydration NST Evaluation Patient States Movement: Present FHR Baseline: 130 Variability: Moderate 6-25 bpm Accelerations: 15x15 Decelerations: None NST Results: Reactive Note Ultrasound Done: N/A. NST Note Note: Ny is here for 2nd celestone dose due to labor signs two days ago. She is having mild contractions which she is unable to feel. She reports that she experienced numbness and tingling in her hands after sleeping and her feet also after sleeping. She reports that the symptoms subsided with movement and walking. Signs of labor reviewed. Follow up care at the office. NST Reviewed and Verified by: Nisa Olguin
[2024-12-13 16:16] VITALS: BP 118/79; PULSE 93; TEMP 36.6
== END 2024-12-13 15:50 ==
LOC: BCD 07:37 → OBS 15:20
PROVIDERS: PCP Nurse Practitioner Family; Visit Provider Advanced Practice Midwife
DX: O36.8131 Decreased fetal movements, third trimester, fetus 1 (principal); Z3A.34 34 weeks gestation of pregnancy
CPT/HCPCS: 96372; 59025; J0702

== ENCOUNTER 2024-12-24 10:59 | Outpatient (CLI) | payer MEDICAID, SELFPAY ==
[2024-12-24 11:07] VITALS: BP 123/82; PULSE 111; TEMP 208.9; TEMP 98.3
[2024-12-24 11:09] VITALS: BP 123/82; PULSE 111
[2024-12-24 11:25] VITALS: BP 124/87; PULSE 101
[2024-12-24 11:27] VITALS: BP 123/93; PULSE 106
[2024-12-24 12:05] VITALS: BP 121/87; PULSE 94
[2024-12-24 12:11] LABS: HCT 31.1 % (36.0-46.0); HGB 10.6 g/dL (11.2-15.7); MCH 28.7 pg (27.0-33.0); MCHC 34.1 % (32.0-36.0); MCV 84 fL (80-95); MPV 8.8 fL (8.0-11.0); Platelet Count 295 10^3/uL (130-400); RBC 3.69 10^6/uL (3.93-5.22); RDW 12.6 % (11.7-14.6); RDW-SD 38.1 fL; WBC 9.07 10^3/uL (4.4-10.8)
[2024-12-24 12:20] LABS: PROTEIN 21.3 mg/dL; Prot/Crea Ur Ratio 0.28
[2024-12-24 12:32] LABS: ALT 23 U/L (14-59); AST 20 U/L (15-37); Albumin 2.5 g/dL (3.4-5.0); Alkaline Phosphatase 161 U/L (46-116); Anion Gap 11.6 mmol/L (3-11); BUN 4 mg/dL (7-18); Bilirubin, Total 0.3 mg/dL (0.2-1.0); CO2 23.4 mmol/L (21.0-32.0); Calcium 8.6 mg/dL (8.5-10.1); Chloride 102 mmol/L (98-107); Estimated GFR 142.54 (mL/min/1.73m2); Glucose 104 mg/dL (74-106); Potassium 3.1 mmol/L (3.5-5.1); Sodium 137 mmol/L (136-145); Total Protein 6.7 g/dL (6.4-8.2)
--- NOTE | 2024-12-24 13:49 | W.OBNST ---
Date of service: 12/24/24 Time of Service: 13:50 NST Evaluation Reason for NST Reasons for Nonstress Test: GESTATIONAL HYPERTENSION Gestational Age Gestational Age in Weeks and Days: 35 Weeks and 5Days Test and Monitor Explained Test/Monitor Explained: Test Explained, Monitor Explained and Patient Verbalized Understanding Vital Signs Blood Pressure: 123/82 Pulse: 111 Temperature: 208.9 F Urine Results Urine Protein: Negative Urine Ketones: Negative Urine Glucose: Negative Urine Blood: Negative NST Information Date on Monitor: 12/24/24 Time on Monitor: 11:04 Date off Monitor: 12/24/24 Time off Monitor: 12:22 Total Time on Monitor: 78 NST Interventions: PO Hydration NST Evaluation Patient States Movement: Present FHR Baseline: 135 Variability: Moderate 6-25 bpm Accelerations: 15x15 Decelerations: None NST Results: Reactive Note Ultrasound Done: N/A. NST Note Note: All labs are nml, 2 of 3 BP measurements were normotensive Pt denies severe features Will have pt return in 4 days for repeat BP check and NST NST Reviewed and Verified by: Coby Leo
[2024-12-24 13:51] VITALS: BP 123/82; PULSE 111; TEMP 208.9; TEMP 98.3
== END 2024-12-24 12:30 ==
LOC: BCD 11:01 → OBS 11:05
PROVIDERS: PCP Nurse Practitioner Family; Visit Provider Advanced Practice Midwife
DX: O13.3 Gestational [pregnancy-induced] hypertension without significant proteinuria, third trimester (principal); Z3A.35 35 weeks gestation of pregnancy
CPT/HCPCS: 36415; 80053; 85027; 59025; 82565; 84156

== ENCOUNTER 2024-12-24 11:02 | Outpatient (REF) | payer MEDICAID, SELFPAY | END 2024-12-24 11:03 | disposition home or self-care (01) | LOC: LBN 11:02 | PROVIDERS: PCP Nurse Practitioner Family; Visit Provider Advanced Practice Midwife | DX: B37.31 Acute candidiasis of vulva and vagina (principal) | CPT/HCPCS: 87480; 87510; 87660 ==

== ENCOUNTER 2024-12-29 08:29 | Outpatient (CLI) | payer MEDICAID, SELFPAY ==
[2024-12-29 13:37] VITALS: BP 126/80; PULSE 98
[2024-12-29 14:00] VITALS: BP 126/80; PULSE 98; RESP 16; TEMP 36.6
[2024-12-29 14:12] LABS: HCT 31.2 % (36.0-46.0); HGB 10.5 g/dL (11.2-15.7); MCH 28.2 pg (27.0-33.0); MCHC 33.7 % (32.0-36.0); MCV 84 fL (80-95); MPV 8.9 fL (8.0-11.0); Platelet Count 254 10^3/uL (130-400); RBC 3.72 10^6/uL (3.93-5.22); RDW 12.9 % (11.7-14.6); RDW-SD 38.8 fL; WBC 7.49 10^3/uL (4.4-10.8)
[2024-12-29 15:16] VITALS: BP 126/80; PULSE 98; TEMP 36.6
--- NOTE | 2024-12-29 15:16 | W.OBNST ---
Date of service: 12/29/24 Time of Service: 15:16 NST Evaluation Reason for NST Reasons for Nonstress Test: GESTATIONAL HYPERTENSION Gestational Age Gestational Age in Weeks and Days: 36 Weeks and 3Days Test and Monitor Explained Test/Monitor Explained: Test Explained, Monitor Explained and Patient Verbalized Understanding Vital Signs Blood Pressure: 126/80 Pulse: 98 Temperature: 97.9 F NST Information Date on Monitor: 12/29/24 Time on Monitor: 13:30 Date off Monitor: 12/29/24 Time off Monitor: 14:00 Total Time on Monitor: 30 NST Interventions: None Contraction Frequency: No ctx palpated / Irritability on monitor NST Evaluation Patient States Movement: Present FHR Baseline: 135 Variability: Moderate 6-25 bpm Accelerations: 15x15 Decelerations: None NST Results: Reactive Note Ultrasound Done: N/A. NST Note NST Reviewed and Verified by: Coby Leo
== END 2024-12-29 14:30 | disposition other institution (70) ==
LOC: BCD 08:33 → OBS 13:20
PROVIDERS: PCP Nurse Practitioner Family; Visit Provider Advanced Practice Midwife
DX: O13.3 Gestational [pregnancy-induced] hypertension without significant proteinuria, third trimester (principal); Z3A.36 36 weeks gestation of pregnancy
CPT/HCPCS: 85027; 59025

== ENCOUNTER 2025-01-10 11:50 | Outpatient (REF) | payer MEDICAID, SELFPAY | END 2025-01-10 11:51 | disposition home or self-care (01) | LOC: LBN 11:50 | PROVIDERS: PCP Nurse Practitioner Family; Visit Provider Advanced Practice Midwife | DX: Z34.93 Encounter for supervision of normal pregnancy, unspecified, third trimester (principal); Z3A.38 38 weeks gestation of pregnancy | CPT/HCPCS: 87081 ==

== ENCOUNTER 2025-01-13 09:04 | Outpatient (CLI) | payer MEDICAID, SELFPAY ==
[2025-01-13 12:07] VITALS: BP 128/82; PULSE 101; TEMP 37
[2025-01-13 12:19] VITALS: BP 128/82; PULSE 101
== END 2025-01-13 12:58 ==
LOC: BCD 09:06 → OBS 12:02
PROVIDERS: PCP Nurse Practitioner Family; Visit Provider Advanced Practice Midwife
DX: O47.1 False labor at or after 37 completed weeks of gestation (principal); R10.2 Pelvic and perineal pain; Z3A.38 38 weeks gestation of pregnancy
CPT/HCPCS: 59025

== ENCOUNTER 2025-01-14 16:41 | Observation (INO) | payer MEDICAID, SELFPAY ==
[2025-01-14 15:06] VITALS: BP 126/82; PULSE 95
[2025-01-14 15:14] VITALS: BP 126/82; PULSE 95
[2025-01-14 16:12] VITALS: BP 126/82; PULSE 95
--- NOTE | 2025-01-14 16:44 | W.PM.OBHPL1 ---
Date of service: 01/14/25 Time of Service: 16:44 Assessment and Plan Assessment and plan (1) Uterine contractions: Status: Acute Assessment and plan: A: 24 yo @ 38+5 wks, early labor, intact membranes, favorable cvx GBS negative, low risk for SD, increased risk PPH d/t known succenturiate placental lobe (fundal) Category 1 tracing, accel noted with scalp stim during cvx check Tobacco user during , hx depression/anxiety treated with buspirone 5P screen+, UDS negative x2 Treated for PTL @ 34 wks, was celestone complete P Outpatient observation, nml oral intake Ambulation and activity ad alexi, reassess labor status in 3-4 hrs Hand-off to oncoming shift CNM OB-HPI Labor/Delivery History of Present Illness Reason for Visit: r/o term labor Chief Complaint: Uterine Contractions. KAYLAN Calculator Estimated Delivery Date Method Current WG Current Estimate 01/23/25 Ultrasound #1 38w 5d Other Estimates 01/24/25 Ultrasound #2 38w 4d Comments: Pt reports prodromal sx all week, seen yesterday for labor check, contractions have intensified today. No bleeding, no ROM, some nausea this afternoon. History of Present Expected Delivery Route/Plan - CNM FOB- Sukumar Luis (first baby) BB yes to circ team: FOB, Cher (cousin), & Ana Maria (sister) Not interested in nitrous, may choose epidural if needed Mom Maria Bauer is not invited to visit [facility] [place] or the baby GBS neg 12/12- repeat after 4 wks: 01/10 negative Specific Issues/Plan 1. Bleeding in first trimester - viable 6 +2 week IUP identified by US in ED 06/01/24 1a. 06/17/24 again confirms SIUP size consistent with dating, 8w3d, small sub chorionic hemorrhage 1b. 2nd trimester bleeding. No previa, cervical length 3.4, cervical length requested at level 2 US at [facility] [place]- normal anatomy 2. constipation - taking miralax daily. Stopped due to gassiness, now takes colace PO daily. 3. Flu and covid in 1st trimester. 4. Anxiety and depression-buspirone 5 mg QD. Takes 10 mg BID at times of stress. 5. cfDNA- low risk male; CF/SMA declined; AFP declined 6. FHx of congenital heart defects: Level 2 US @ 20 wks booked for 09/03/24 7. FHx Factor V Leiden (2 paternal aunts had Factor V Leiden, one had a blood clot); Factor V Mutation-neg 8. Tobacco use/vaping, has decreased from 1/day to 1 pod/wk : counseled 9. 5P's positive -stopped marijuana and alcohol 10/17/2023: UDS ordered- neg, 28 wk=negative 10. Maternal history of gestational hypertension- ASA recommended daily. 11. Maternal fall at 28 wks, scan done 5 days later: 59th percentile, OFELIA 19, cephalic, no evidence of abruption, Succenturiate lobe present at the fundus. 11a. 30 wk growth: EFW 53rd %, OFELIA 14, cephalic, bi-lobed placenta noted again 12. Low back pain, sees a chiropractor- referral to PT 12a. Per PT, pt not to bend, lift or twist at work. Note given for light duty, 12/06 13. contractions at 34 + 1 wweks 13a. Triaged 12/12 for ctxns; +ffN. GBS- neg and BMZ administered and diflucan for yeast symptoms 13b. VPS JAZMIN 12/24:BV+, Rx'ed Flagyl 500 mg BID x7 days Assessment: History Reviewed & Current Review of Systems All systems reviewed & are unremarkable except as noted in HPI and below Constitutional Constitutional: Reports system reviewed and no additional complaints, except as documented PFSH All Active Problems Uterine contractions (Acute) Bacterial vaginosis in (Acute) Nicotine dependence (Acute) Asthma (Chronic) Vulvovaginal candidiasis (Acute) Low back pain (Acute) Bilobed placenta (Acute) Depression (Chronic) Anxiety (Chronic) (Acute) Smoker (Chronic 11/28/17) Vapes 1 pod per week (07/08/2024) Medical History (Updated 01/14/25 @ 16:49 by Coby Leo) Abdominal pain of right lower quadrant during , antepartum Pelvic pain affecting 34 weeks gestation of uterine contractions in third trimester, antepartum contractions Dysuria Second trimester bleeding Family history of congenital heart defect cousin and FOB's cousin Family history of factor V Leiden mutation Marijuana abuse Stopped 10/17/2023 Impingement syndrome of left shoulder SLAP lesion of right shoulder Tendinitis of long head of biceps brachii of both shoulders Otitis externa Scapular dyskinesis Adolescent idiopathic scoliosis of thoracolumbar region (08/23/16) ADHD (attention deficit hyperactivity disorder) (11/23/14) Moderate persistent asthma without complication (08/23/16) Hematuria seen by Urology but declined hematuria workup Concussion Chronic abdominal pain Acute neck pain Depot contraception Fracture of left wrist (08/23/09) Fracture of right clavicle (11/04/04) Sprain of medial collateral ligament of right knee, subsequent encounter (04/22/17) Eczema (11/23/14) Surgical History Celestine teeth removed ROOF OF MOUTH RECONSTRUCTED Family History (Updated 01/03/25 @ 16:03 by Nisa Olguin CNM) Mother Substance abuse Gestational hypertension several female relatives Neoplasm breast CA Paternal Grandmother Diabetes Heart disease MD 12/2024 Paternal Cousin Diabetes Maternal Grandmother Breast cancer Paternal Grandfather , 50 Cancer Father Hyperlipidemia Social History Smoking/Tobacco Use Status: Never Smoking risk assessment performed?: Yes Alcohol Intake: former Drug use: Occasionally Substance use type: does not use Household members: family Housing: house Sexually active: Yes Do you think of yourself as: straight/heterosexual Current gender identity: female Seatbelt use: sometimes Do you feel safe at home: Yes Do you feel safe in your relationship?: Yes Female Reproductive History Menstrual control method: none History History 3 Para 0 Hx # Term Pregnancies 0 Multiple births 0 Hx # Pregnancies 0 Ectopic pregnancies 0 AB induced 0 Hx Number of Living Children 0 AB spontaneous 2 Meds Allergies and Home Medications Allergies Allergy/AdvReac Type Severity Reaction Status Date / Time shellfish derived Allergy Severe Anaphylaxis Verified 01/10/25 11:24 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 01/10/25 11:24 for tree nut allergy almond Allergy Intermediate Skin Rash Verified 01/10/25 11:24 acetylcysteine (From NAC) AdvReac Intermediate Other (See Verified 01/10/25 11:24 Comment) fluoxetine AdvReac Psychosis Verified 01/10/25 11:24 Home Medications ?Medication ?Instructions ?Recorded ?Confirmed ?Type inhalational spacing device #1 ea 02/14/20 01/10/25 Rx (Aerochamber MV spacer) epinephrine 0.3 mg/0.3 mL 0.3 mg (0.3 mL) IJ ONCE PRN 05/24/20 01/10/25 Rx injection, auto-injector (EpiPen) Anaphylaxis ##1 albuterol sulfate 90 mcg/actuation 1 - 2 puff inhalation DAILY ##1 10/04/20 01/10/25 Rx aerosol inhaler (ProAir HFA) albuterol sulfate 90 mcg/actuation 2 puff inhalation PRN PRN 06/16/22 01/10/25 History aerosol inhaler (Ventolin HFA) budesonide-formoterol HFA 80 1 puff inhalation BID 02/11/23 01/10/25 History mcg-4.5 mcg/actuation aerosol inhaler (Symbicort) polyethylene glycol 3350 17 17 g PO DAILY 12/16/23 01/10/25 History gram/dose oral powder (Miralax) omeprazole 40 mg capsule,delayed 40 mg PO DAILY 05/23/24 01/10/25 History release docusate sodium 100 mg capsule 100 mg PO BID #60 caps 07/14/24 01/10/25 Rx (Colace) bisacodyl 10 mg rectal suppository 10 mg AL DAILY PRN constipation 07/16/24 01/10/25 Rx #12 ea metoclopramide HCl 10 mg tablet 10 mg PO Q6H PRN nausea and 07/16/24 01/10/25 Rx (Reglan) vomiting #20 tabs ferrous sulfate 325 mg (65 mg 325 mg PO DAILY #30 tabs 12/24/24 01/10/25 Rx iron) tablet buspirone 5 mg tablet 5 mg PO BID #60 tabs 01/07/25 01/10/25 Rx Exam Physical Exam Vital signs: Pulse BP 95 H 126/82 01/14/25 15:06 01/14/25 15:06 Vital Signs Reviewed: Yes Constitutional Constitutional: mild distress, average body habitus and cooperative Detailed Labor and Delivery Exam Dilation: 3.5 Effacement (%): 100 station: -2 Cervix position: anterior Consistency: soft REDD Score(Cervical Ripeness Score): 10 Amniotic Membrane Status: Intact Contraction Frequency(min): q3-4 Contraction Duration(sec): 60 Contraction Intensity: Mild/Moderate Fetus A Heart Rate Baseline: 140 Monitor Accelerations: Present Monitor Decelerations: None Variability: Moderate (6-25 BPM) Categories: Category I Est. Weight: 7 lb 2.64 oz Est. Weight: 3250 gms HEENT Exam HEENT Exam: Normal Neck Exam Neck Exam: Normal Chest/Brest/Axilla Exam Chest Exam: Normal Breast Exam Breast Exam: Not Done Respiratory Exam Respiratory Exam: Normal Cardiovascular Exam Cardiovascular Exam: Normal Abdominal Exam Abdominal Exam: Normal (Gravid, nontender) Rectal Exam Rectal Exam: Normal Exam Exam: Normal Extremities Exam Extremities Exam: Normal Back/Spine/Pelvis Exam Back Exam: Normal Pelvis Adequate: Yes Skin Exam Skin Exam: Normal Neurological Exam Neurological Exam: Normal Psychiatric Exam Psychiatric Exam: Normal Results Results Group Beta Strep: Negative Blood Type: A+ Rubella Status: Immune Varicella Immunity: Immune Risk Assessment Risk for Shoulder Dystocia Historical/Initial OB: NEGATIVE FOR: Pelvic Abnormality, Pre- BMI>30, Previous Shoulder Dystocia or Previous Macrosomia 36 Weeks: POSITIVE FOR: Maternal Weight Gain>40lbs; NEGATIVE FOR: Current Gestational DM or EFW>4500gms Increased Risk?: No Delivery Plan @ 36wks: Risk for Pre-Eclampsia Daily Dose ASA Indicated: No Yes, if one or more: NEGATIVE FOR: Hx Pre-E/Gest HTN, Chronic HTN, Multiple Gestation, Pre-gestational DM, Renal Disease, Systemic Lupus or APA Syndrome Yes, if 2 or more: POSITIVE FOR: Nulliparity; NEGATIVE FOR: Age>= 35 yrs, >10yr btwn pregnancies, BMI>30, ethinicty, Mother/Sister w/ Pre-E or Previous IUGR Risk for Post- Hemorrhage Initial: NEGATIVE FOR: Multiple Gestation, Previous PPH, Known Clotting Deficiency, Grand Multiparity or Anticoagulation 36 Weeks: NEGATIVE FOR: Anemia, hgb<10, Low platelets(thrombocytopenia), Gestational HTN or Pre-E, Polyhydraminios or EFW>4500gms At Risk?: No Counseled re: Active Management: Yes Risks Reviewed Risks Reviewed Upon Admission: Yes
--- NOTE | 2025-01-14 17:01 | W.OBNST ---
Date of service: 01/14/25 Time of Service: 17:02 NST Evaluation Reason for NST Reasons for Nonstress Test: OTHER, SEE COMMENT Reason for NST Other: rule out labor/pelvic pressure Gestational Age Gestational Age in Weeks and Days: 38 Weeks and 5Days Test and Monitor Explained Test/Monitor Explained: Test Explained, Monitor Explained and Patient Verbalized Understanding Vital Signs Blood Pressure: 126/82 Pulse: 95 Weight: 162 lb Urine Results Urine Protein: Negative Urine Ketones: Negative Urine Glucose: Negative Urine Blood: Negative NST Information Date on Monitor: 01/14/25 Time on Monitor: 15:04 Date off Monitor: 01/14/25 Time off Monitor: 15:45 Total Time on Monitor: 41 Contraction Frequency: q2-4 min lasting 60-80 seconds palpating mild NST Evaluation Patient States Movement: Present FHR Baseline: 130 Variability: Minimal <6 bpm Accelerations: 15x15 Decelerations: Variable NST Results: Questionable Note Ultrasound Done: N/A. NST Note NST Reviewed and Verified by: Coby eLo
[2025-01-14 17:04] VITALS: BP 126/82; PULSE 95
[2025-01-14 17:05] LABS: HCT 31.3 % (36.0-46.0); HGB 10.7 g/dL (11.2-15.7); MCH 28.8 pg (27.0-33.0); MCHC 34.2 % (32.0-36.0); MCV 84 fL (80-95); MPV 8.9 fL (8.0-11.0); Platelet Count 323 10^3/uL (130-400); RBC 3.72 10^6/uL (3.93-5.22); RDW 13.2 % (11.7-14.6); RDW-SD 40.1 fL; WBC 7.52 10^3/uL (4.4-10.8)
[2025-01-14 17:47] VITALS: BP 122/80; PULSE 85; RESP 18; TEMP 36.7
[2025-01-14] MEDS: Omeprazole 20 MG CAPCR 40 MG PO (18:06)
[2025-01-14] MEDS: busPIRone 5 MG TAB PO (18:07)
--- NOTE | 2025-01-14 19:50 | W.OBNST ---
Date of service: 01/14/25 Time of Service: 19:50 NST Evaluation Reason for NST Reasons for Nonstress Test: OTHER, SEE COMMENT Reason for NST Other: rule out labor/pelvic pressure Gestational Age Gestational Age in Weeks and Days: 38 Weeks and 5Days Test and Monitor Explained Test/Monitor Explained: Test Explained, Monitor Explained and Patient Verbalized Understanding Vital Signs Blood Pressure: 126/82 Pulse: 95 Weight: 162 lb Urine Results Urine Protein: Negative Urine Ketones: Negative Urine Glucose: Negative Urine Blood: Negative NST Information Date on Monitor: 01/14/25 Time on Monitor: 15:04 Date off Monitor: 01/14/25 Time off Monitor: 15:45 Total Time on Monitor: 41 Contraction Frequency: q2-4 min lasting 60-80 seconds palpating mild NST Evaluation Patient States Movement: Present FHR Baseline: 130 Variability: Moderate 6-25 bpm Accelerations: 15x15 Decelerations: Variable (isolated and small; prolonged monitoring reassuring) NST Results: Reactive Note Ultrasound Done: Biophysical Profile (/; OFELIA 11.9 (2.89 cm, 4.10 cm, 4.89 cm, 0 cm)) Reason for Biophysical Profile: Equivocal NST. Provider that performed the study: Carleen Becerra Is this a repeat study?: No Amniotic Fluid: 2 Largest Vertical Pocket: 4.89 Muscle Tone: 2 Body Movements: 2 Breathing Movements: 2 NST Results: Reactive Total Biophysical Profile Score: 10 Other Pertinent Findings: Presentation (cephalic) Coding for Biophysical Profile w/NST: Completed Exam. NST Note NST Reviewed and Verified by: Carleen Becerra
--- NOTE | 2025-01-14 19:51 | PGE_ITS ---
Date of Service Date of service: 01/14/25 Time of Service: 19:51 Assessment and Plan Assessment and plan (1) Uterine contractions: Status: Acute (2) 38 weeks gestation of : Status: Acute Assessment and plan: A: IUP at 38 week 5 day Reassuring surveillance (BPP 12/24) Prodromal labor, no cervical change in the past 4 hour interval P: - Consulted with Dr. Hanna regarding the NST, which has many reassuring elements, but also is notable for a variable decel and some periods of minimal variability. BPP done which is 8 out 8. - Discussed with Ny options for comfort during prodromal labor. She declines desire or need for therapeutic rest. She hopes labor will start soon, but does not want to be induced if it might involve Pitocin. We discussed that induction of labor prior to 39 weeks is reserved for medical indications. She was encouraged to stay hydrated and eat well, consider resting in the bathtub, or using Benadryl to help sleep tonight. - She was discharge home, and will follow-up in 2 days for routine care, or sooner as needed. She knows to call with intensifying contractions, L OF, VB or decreased FM. Subjective Subjective Interval history since last seen: Ny has been resting over the past four hours. Contractions have not intensified. She endorses good movement. She feels that her energy is sufficient, and she is not too depleted by having had contractions the past 2 nights. Objective Last Vital Signs Temp 98.1 F 01/14/25 17:47 Pulse 85 01/14/25 17:47 Resp 18 01/14/25 17:47 BP 122/80 01/14/25 17:47 Laboratory Results - last 24 hr 01/14/25 01/14/25 01/14/25 16:53 17:01 Unknown WBC 7.52 Cancelled RBC 3.72 L Cancelled Hgb 10.7 L Cancelled Hct 31.3 L Cancelled MCV 84 Cancelled MCH 28.8 Cancelled MCHC 34.2 Cancelled RDW 13.2 Cancelled Plt Count 323 Cancelled MPV 8.9 Cancelled ABO/Rh A Positive Cancelled Antibody Screen NEGATIVE Cancelled Objective Narrative Objective Narrative: UCs: 3-5 minutes, mild to palpation FHTs: 140s, moderate variability (periods of minimal), + accels, one variable decel SVE (at 4 hour interval): 3 cm / 90% / -2 / medium consistency BPP (by Dr. Hanna) 12/24 Time Spent with Patient Time Spent with Patient: >50 minutes Time was spent: preparing to see the patient(eg.review tests), obtaining and/or reviewing separately otained hiistory, ordering medications,tests, procedures, referring, communicating with other health anesthesiologist and critical care, indepentently interpreting results and counseling the patient
[2025-01-14 19:56] VITALS: BP 126/82; PULSE 95
== END 2025-01-14 19:54 ==
LOC: BCD 16:52 → OBS 16:52
PROVIDERS: Admitting Provider Advanced Practice Midwife; PCP Nurse Practitioner Family; Visit Provider Advanced Practice Midwife
DX: O47.1 False labor at or after 37 completed weeks of gestation (principal); Z3A.38 38 weeks gestation of pregnancy; O99.333 Smoking (tobacco) complicating pregnancy, third trimester; O99.613 Diseases of the digestive system complicating pregnancy, third trimester; F17.210 Nicotine dependence, cigarettes, uncomplicated; O99.343 Other mental disorders complicating pregnancy, third trimester; F41.8 Other specified anxiety disorders; K59.00 Constipation, unspecified; M54.50 Low back pain, unspecified; Z82.79 Family history of other congenital malformations, deformations and chromosomal abnormalities
CPT/HCPCS: 85027; 86850; 86900; 86901; G0378

== ENCOUNTER 2025-01-17 11:20 | Inpatient (IN) | payer MEDICAID, SELFPAY ==
[2025-01-17] VITALS (117 sets, daily range): BP systolic 111–133; BP diastolic 58–90; PULSE 82–126; RESP 16–18; TEMP 36.7–37.3; O2SAT 90–100; BMI 26.1
--- NOTE | 2025-01-17 11:22 | W.PM.OBHPL1 ---
Date of service: 01/17/25 Time of Service: 11:22 Assessment and Plan Assessment and plan (1) Normal labor: Status: Acute Assessment and plan: Assessment and Plan Assessment and plan (1) Uterine contractions: Status: Acute Assessment and plan: A: 24 yo @ 39+1 wks, spont labor after multiple days of prodromal sx and labor checks GBS negative, low risk for SD, increased risk PPH d/t known succenturiate placental lobe (fundal) Category 1 tracing, accel noted with scalp stim during cvx check Tobacco user during , hx depression/anxiety treated with buspirone 5P screen+, UDS negative x2 Treated for PTL @ 34 wks, was celestone complete P: Admit to L&D, CBC, T&S, pt consents to IV access as she anticipates epidural later Expectant management at this time, intermittent auscultation Pt does not desire nitrous or IV analgesia Anticipate (2) 38 weeks gestation of : (3) Uterine contractions: OB-HPI Labor/Delivery History of Present Illness Reason for Visit: Term labor Chief Complaint: Uterine Contractions (especially painful since 1700 last night, no ROM, no bleeding, slept hardly at all, lots of low back pain). KAYLAN Calculator Estimated Delivery Date Method Current WG Current Estimate 01/23/25 Ultrasound #1 39w 1d Other Estimates 01/24/25 Ultrasound #2 39w 0d History of Present Expected Delivery Route/Plan - CNM FOB- Sukumar Luis (first baby) BB yes to circ team: FOB, Cher (cousin), & Ana Maria (sister) Not interested in nitrous, may choose epidural if needed Mom Mraia Bauer is not invited to visit [place] or the baby GBS neg 12/12- repeat after 4 wks: 01/10 negative Specific Issues/Plan 1. Bleeding in first trimester - viable 6 +2 week IUP identified by US in ED 06/01/24 1a. 06/17/24 again confirms SIUP size consistent with dating, 8w3d, small sub chorionic hemorrhage 1b. 2nd trimester bleeding. No previa, cervical length 3.4, cervical length requested at [place] 2 [place] [facility] [place] 2. constipation - taking miralax daily. Stopped due to gassiness, now takes colace PO daily. 3. Flu and covid in 1st trimester. 4. Anxiety and depression-buspirone 5 mg QD. Takes 10 mg BID at times of stress. 5. cfDNA- low risk male; CF/SMA declined; AFP declined 6. FHx of congenital heart defects: Level 2 US @ 20 wks booked for 09/03/24 7. FHx Factor V Leiden (2 paternal aunts had Factor V Leiden, one had a blood clot); Factor V Mutation-neg 8. Tobacco use/vaping, has decreased from 1/day to 1 pod/wk : counseled 9. 5P's positive -stopped marijuana and alcohol 10/17/2023: UDS ordered- neg, 28 wk=negative 10. Maternal history of gestational hypertension- ASA recommended daily. 11. Maternal fall at 28 wks, scan done 5 days later: 59th percentile, OFELIA 19, cephalic, no evidence of abruption, Succenturiate lobe present at the fundus. 11a. 30 wk growth: EFW 53rd %, OFELIA 14, cephalic, bi-lobed placenta noted again 12. Low back pain, sees a chiropractor- referral to PT 12a. Per PT, pt not to bend, lift or twist at work. Note given for light duty, 12/06 13. contractions at 34 + 1 wweks 13a. Triaged 12/12 for ctxns; +ffN. GBS- neg and BMZ administered and diflucan for yeast symptoms 13b. VPS JAZMIN 12/24:BV+, Rx'ed Flagyl 500 mg BID x7 days Assessment: History Reviewed & Current Review of Systems All systems reviewed & are unremarkable except as noted in HPI and below Constitutional Constitutional: Reports as per HPI PFSH All Active Problems Normal labor (Acute) Nicotine dependence (Acute) Asthma (Chronic) Low back pain (Acute) Bilobed placenta (Acute) Depression (Chronic) Anxiety (Chronic) (Acute) Smoker (Chronic 11/28/17) Vapes 1 pod per week (07/08/2024) Medical History (Updated 01/17/25 @ 11:28 by Coby Leo) Vulvovaginal candidiasis Bacterial vaginosis in Uterine contractions 38 weeks gestation of Abdominal pain of right lower quadrant during , antepartum Pelvic pain affecting 34 weeks gestation of uterine contractions in third trimester, antepartum contractions Dysuria Second trimester bleeding Family history of congenital heart defect cousin and FOB's cousin Family history of factor V Leiden mutation Marijuana abuse Stopped 10/17/2023 Impingement syndrome of left shoulder SLAP lesion of right shoulder Tendinitis of long head of biceps brachii of both shoulders Otitis externa Scapular dyskinesis Adolescent idiopathic scoliosis of thoracolumbar region (08/23/16) ADHD (attention deficit hyperactivity disorder) (11/23/14) Moderate persistent asthma without complication (08/23/16) Hematuria seen by Urology but declined hematuria workup Concussion Chronic abdominal pain Acute neck pain Depot contraception Fracture of left wrist (08/23/09) Fracture of right clavicle (11/04/04) Sprain of medial collateral ligament of right knee, subsequent encounter (04/22/17) Eczema (11/23/14) Surgical History [place] teeth removed ROOF OF MOUTH RECONSTRUCTED Family History (Updated 01/03/25 @ 16:03 by Nisa Olguin CNM) Mother Substance abuse Gestational hypertension several female relatives Neoplasm breast CA Paternal Grandmother Diabetes Heart disease [place] 12/2024 Paternal Cousin Diabetes Maternal Grandmother Breast cancer Paternal Grandfather , 50 Cancer Father Hyperlipidemia Social History Smoking/Tobacco Use Status: Never Smoking risk assessment performed?: Yes Alcohol Intake: former Drug use: Occasionally Substance use type: does not use Household members: family Housing: house Sexually active: Yes Do you think of yourself as: straight/heterosexual Current gender identity: female Seatbelt use: sometimes Do you feel safe at home: Yes Do you feel safe in your relationship?: Yes Female Reproductive History Menstrual control method: none History History 3 Para 0 Hx # Term Pregnancies 0 Multiple births 0 Hx # Pregnancies 0 Ectopic pregnancies 0 AB induced 0 Hx Number of Living Children 0 AB spontaneous 2 Meds Allergies and Home Medications Allergies Allergy/AdvReac Type Severity Reaction Status Date / Time shellfish derived Allergy Severe Anaphylaxis Verified 01/14/25 17:36 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 01/14/25 17:36 for tree nut allergy almond Allergy Intermediate Skin Rash Verified 01/14/25 17:36 acetylcysteine (From NAC) AdvReac Intermediate Other (See Verified 01/14/25 17:36 Comment) fluoxetine AdvReac Psychosis Verified 01/14/25 17:36 Home Medications ?Medication ?Instructions ?Recorded ?Confirmed ?Type inhalational spacing device #1 ea 02/14/20 01/14/25 Rx (Aerochamber MV spacer) epinephrine 0.3 mg/0.3 mL 0.3 mg (0.3 mL) IJ ONCE PRN 05/24/20 01/14/25 Rx injection, auto-injector (EpiPen) Anaphylaxis ##1 albuterol sulfate 90 mcg/actuation 1 - 2 puff inhalation DAILY ##1 10/04/20 01/14/25 Rx aerosol inhaler (ProAir HFA) albuterol sulfate 90 mcg/actuation 2 puff inhalation PRN PRN 06/16/22 01/14/25 History aerosol inhaler (Ventolin HFA) budesonide-formoterol HFA 80 1 puff inhalation BID 02/11/23 01/14/25 History mcg-4.5 mcg/actuation aerosol inhaler (Symbicort) polyethylene glycol 3350 17 17 g PO DAILY 12/16/23 01/14/25 History gram/dose oral powder (Miralax) omeprazole 40 mg capsule,delayed 40 mg PO DAILY 05/23/24 01/14/25 History release docusate sodium 100 mg capsule 100 mg PO BID #60 caps 07/14/24 01/14/25 Rx (Colace) bisacodyl 10 mg rectal suppository 10 mg IN DAILY PRN constipation 07/16/24 01/14/25 Rx #12 ea metoclopramide HCl 10 mg tablet 10 mg PO Q6H PRN nausea and 07/16/24 01/14/25 Rx (Reglan) vomiting #20 tabs ferrous sulfate 325 mg (65 mg 325 mg PO DAILY #30 tabs 12/24/24 01/14/25 Rx iron) tablet buspirone 5 mg tablet 5 mg PO BID #60 tabs 01/07/25 01/14/25 Rx Exam Physical Exam Vital signs: Pulse BP 90 129/75 01/17/25 10:50 01/17/25 10:50 Vital Signs Reviewed: Yes Constitutional Constitutional: mild distress, average body habitus and cooperative Detailed Labor and Delivery Exam Dilation: 5 Effacement (%): 100 station: -1 Cervix position: anterior Consistency: soft Amniotic Membrane Status: Intact Contraction Frequency(min): q4 Contraction Duration(sec): 50-60 Contraction Intensity: Moderate Fetus A Heart Rate Baseline: 140 Monitor Accelerations: Present Monitor Decelerations: None Variability: Moderate (6-25 BPM) Categories: Category I Est. Weight: 7 lb 4.404 oz Est. Weight: 3300 gms HEENT Exam HEENT Exam: Normal Neck Exam Neck Exam: Normal Chest/Brest/Axilla Exam Chest Exam: Normal Breast Exam Breast Exam: Not Done Respiratory Exam Respiratory Exam: Normal Cardiovascular Exam Cardiovascular Exam: Normal Abdominal Exam Abdominal Exam: Normal (gravid, S=D) Rectal Exam Rectal Exam: Normal Exam Exam: Normal Extremities Exam Extremities Exam: Normal Back/Spine/Pelvis Exam Back Exam: Normal Pelvis Adequate: Yes Skin Exam Skin Exam: Normal Neurological Exam Neurological Exam: Normal Psychiatric Exam Psychiatric Exam: Normal Results Results Group Beta Strep: Negative Blood Type: A+ Rubella Status: Immune Varicella Immunity: Immune Risk Assessment Risk for Shoulder Dystocia Historical/Initial OB: NEGATIVE FOR: Pelvic Abnormality, Pre- BMI>30, Previous Shoulder Dystocia or Previous Macrosomia 36 Weeks: POSITIVE FOR: Maternal Weight Gain>40lbs; NEGATIVE FOR: Current Gestational DM or EFW>4500gms Increased Risk?: No Delivery Plan @ 36wks: Risk for Pre-Eclampsia Yes, if one or more: NEGATIVE FOR: Hx Pre-E/Gest HTN, Chronic HTN, Multiple Gestation, Pre-gestational DM, Renal Disease, Systemic Lupus or APA Syndrome Yes, if 2 or more: POSITIVE FOR: Nulliparity; NEGATIVE FOR: Age>= 35 yrs, >10yr btwn pregnancies, BMI>30, ethinicty, Mother/Sister w/ Pre-E or Previous IUGR Risk for Post- Hemorrhage Initial: NEGATIVE FOR: Multiple Gestation, Previous PPH, Known Clotting Deficiency, Grand Multiparity or Anticoagulation 36 Weeks: NEGATIVE FOR: Anemia, hgb<10, Low platelets(thrombocytopenia), Gestational HTN or Pre-E, Polyhydraminios or EFW>4500gms At Risk?: Yes (known succenturiate lobe) Counseled re: Active Management: Yes Risks Reviewed Risks Reviewed Upon Admission: Yes
[2025-01-17 11:42] LABS: HCT 30.7 % (36.0-46.0); HGB 10.5 g/dL (11.2-15.7); MCH 28.8 pg (27.0-33.0); MCHC 34.2 % (32.0-36.0); MCV 84 fL (80-95); MPV 8.9 fL (8.0-11.0); Platelet Count 280 10^3/uL (130-400); RBC 3.65 10^6/uL (3.93-5.22); RDW 13.4 % (11.7-14.6); RDW-SD 41.2 fL; WBC 10.42 10^3/uL (4.4-10.8)
[2025-01-17] MEDS: Normal Saline Flush 10 ML SYR IVP (12:15)
--- NOTE | 2025-01-17 15:56 | PGE_ITS ---
Date of service: 01/17/25 Time of Service: 15:56 Informed Consent Informed Consent: Regional Anesthesia and Risk,Benefits,Alternatives Discussed Pelvic Exam Comments: cvx exam unchanged from admission exam Contractions Monitor Mode: External Contraction Frequency(min): q4 Intensity: Moderate Fetus A Monitor: External (US) Heart Rate Baseline: 140 Variability: Moderate (6-25 BPM) Categories: Category I Decelerations: None Amniotic Membrane Status: Intact Assessment and Plan Assessment and plan (1) Normal labor: Status: Acute Assessment and plan: A: Maternal fatigue, slow labor progress Need for pain management Category 1 tracing P: Pt reviewed options with newspaper delivery driver and conferred with FOB and family She requests epidural now, then AROM, possibly pit augmentation if needed Risks and benefits discussed, [facility] sheet metal duct worker supervisor notified, HEEL LIFT GOUGER paged. Objective Abnormal lab results 01/17/25 Range/Units 11:35 RBC 3.65 L (3.93-5.22) 10^6/uL Hgb 10.5 L (11.2-15.7) g/dL Hct 30.7 L (36.0-46.0) % Temp Pulse Resp BP 98.1 F 92 H 18 111/58 L 01/17/25 11:35 01/17/25 14:12 01/17/25 14:12 01/17/25 14:12 Laboratory Results WBC 10.42 10^3/uL (4.4-10.8) 01/17/25 11:35 RBC 3.65 10^6/uL (3.93-5.22) L 01/17/25 11:35 Hgb 10.5 g/dL (11.2-15.7) L 01/17/25 11:35 Hct 30.7 % (36.0-46.0) L 01/17/25 11:35 MCV 84 fL (80-95) 01/17/25 11:35 MCH 28.8 pg (27.0-33.0) 01/17/25 11:35 MCHC 34.2 % (32.0-36.0) 01/17/25 11:35 RDW 13.4 % (11.7-14.6) 01/17/25 11:35 Plt Count 280 10^3/uL (130-400) 01/17/25 11:35 MPV 8.9 fL (8.0-11.0) 01/17/25 11:35 ABO/Rh A Positive 01/17/25 11:35 Antibody Screen NEGATIVE 01/17/25 11:35 Vital Signs Reviewed: Yes Objective Narrative Objective Narrative: Pt has ambulated, rested, changed positions, used physioball, and warm water immersion Breathing well through contractions, seems tired. Vital signs stable Reviewed options to continue expectantly, early epidural, and/or AROM to speed labor. Subjective Interval history since last seen: Contractions are not letting up, seem a bit stronger, feeling tired but unable to sleep. Tried the tub but it was not helpful. Breathing through contractions, feeling back pain and pelvic pressure with them. Not bleeding, no ROM, some nausea.
--- NOTE | 2025-01-17 16:17 | W.ANESPRE ---
General Info Date of Service Date Performed: 01/17/25 Height: 5 ft 6 in Weight: 73.482 kg Body Mass Index (BMI): 26.1 Meds Allergies and Home Medications Allergies Allergy/AdvReac Type Severity Reaction Status Date / Time shellfish derived Allergy Severe Anaphylaxis Verified 01/17/25 12:00 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 01/17/25 12:00 for tree nut allergy almond Allergy Intermediate Skin Rash Verified 01/17/25 12:00 acetylcysteine (From NAC) AdvReac Intermediate Other (See Verified 01/17/25 12:00 Comment) fluoxetine AdvReac Psychosis Verified 01/17/25 12:00 Home Medication ?Medication ?Instructions ?Recorded inhalational spacing device #1 ea 02/14/20 (Aerochamber MV spacer) epinephrine 0.3 mg/0.3 mL 0.3 mg (0.3 mL) IJ ONCE PRN 05/24/20 injection, auto-injector (EpiPen) Anaphylaxis ##1 albuterol sulfate 90 mcg/actuation 1 - 2 puff inhalation DAILY ##1 10/04/20 aerosol inhaler (ProAir HFA) albuterol sulfate 90 mcg/actuation 2 puff inhalation PRN PRN 06/16/22 aerosol inhaler (Ventolin HFA) budesonide-formoterol HFA 80 1 puff inhalation BID 02/11/23 mcg-4.5 mcg/actuation aerosol inhaler (Symbicort) polyethylene glycol 3350 17 17 g PO DAILY 12/16/23 gram/dose oral powder (Miralax) omeprazole 40 mg capsule,delayed 40 mg PO DAILY 05/23/24 release docusate sodium 100 mg capsule 100 mg PO BID #60 caps 07/14/24 (Colace) bisacodyl 10 mg rectal suppository 10 mg AR DAILY PRN constipation 07/16/24 #12 ea metoclopramide HCl 10 mg tablet 10 mg PO Q6H PRN nausea and 07/16/24 (Reglan) vomiting #20 tabs ferrous sulfate 325 mg (65 mg 325 mg PO DAILY #30 tabs 12/24/24 iron) tablet buspirone 5 mg tablet 5 mg PO BID #60 tabs 01/07/25 Current Visit Medications: Current Medications Generic Name Dose Route Start Last Admin Trade Name Freq PRN Reason Stop Dose Admin Buspirone HCl 5 mg 01/17/25 20:00 Buspirone 5 Mg Tab PO BID [facility] Fentanyl/Ropivacaine 200 ml 01/17/25 16:15 Fentanyl/Ropivacaine 2 Mcg/Ml And 0.1% 200 Ml [place] Cassette EP DIRECTED [facility] IV Miscellaneous Supplies 1 each 01/17/25 11:30 Iv Access IV DIRECTED [facility] Omeprazole 40 mg 01/18/25 07:30 Omeprazole 20 Mg Capcr PO DAILY@0730 [facility] Sodium Chloride 0 ml 01/17/25 11:20 01/17/25 12:15 Normal Saline Flush 10 Ml Syr IVP 10 ml PRN PRN Administration Sodium Chloride 0 ml 01/17/25 20:00 Normal Saline Flush 10 Ml Syr IVP BID [facility] Sodium Chloride 0 ml 01/17/25 11:20 Normal Saline 10 Ml Vial IJ DIRECTED PRN PFSH Active Problems Active Problems: Problem Status Onset Code Normal labor Acute O80, Z37.9 Nicotine dependence Acute F17.200 Asthma Chronic J45.909 Low back pain Acute M54.50 Bilobed placenta Acute O43.199 Depression Chronic F32.A Anxiety Chronic F41.9 Acute Z34.90 Smoker Chronic 11/28/17 F17.200 Medical History Medical History (Updated 01/17/25 @ 11:28 by Coby Leo) Vulvovaginal candidiasis Bacterial vaginosis in Uterine contractions 38 weeks gestation of Abdominal pain of right lower quadrant during , antepartum Pelvic pain affecting 34 weeks gestation of uterine contractions in third trimester, antepartum contractions Dysuria Second trimester bleeding Family history of congenital heart defect cousin and FOB's cousin Family history of factor V Leiden mutation Marijuana abuse Stopped 10/17/2023 Impingement syndrome of left shoulder SLAP lesion of right shoulder Tendinitis of long head of biceps brachii of both shoulders Otitis externa Scapular dyskinesis Adolescent idiopathic scoliosis of thoracolumbar region (08/23/16) ADHD (attention deficit hyperactivity disorder) (11/23/14) Moderate persistent asthma without complication (08/23/16) Hematuria seen by Urology but declined hematuria workup Concussion Chronic abdominal pain Acute neck pain Depot contraception Fracture of left wrist (08/23/09) Fracture of right clavicle (11/04/04) Sprain of medial collateral ligament of right knee, subsequent encounter (04/22/17) Eczema (11/23/14) Surgical History Surgical History [place] teeth removed ROOF OF MOUTH RECONSTRUCTED Tobacco Smoking/Tobacco Use Status: Never Alcohol Alcohol Intake: former Substance Use Substance use: Occasionally Substance use type: does not use Prental History History 3 Para 0 Hx # Term Pregnancies 0 Multiple births 0 Hx # Pregnancies 0 Ectopic pregnancies 0 AB induced 0 Hx Number of Living Children 0 AB spontaneous 2 Vital Signs and Lab Results Vital Signs Most Recent Vital Signs in EMR: Most Recent Vital Signs Temp Pulse Resp BP 36.7 C 92 H 18 111/58 L 01/17/25 11:35 01/17/25 14:12 01/17/25 14:12 01/17/25 14:12 Lab Results 01/17/25 11:35 Blood Type / Crossmatch: Antibody Screen NEGATIVE Today Complete Blood Count: WBC, (4.4-10.8) 10.42 10^3/uL Today, 11:35 RBC, (3.93-5.22) 3.65 10^6/uL L Today, 11:35 Hgb, (11.2-15.7) 10.5 g/dL L Today, 11:35 Hct, (36.0-46.0) 30.7 % L Today, 11:35 Plt Count, (130-400) 280 10^3/uL Today, 11:35 Complete Metabolic Panel: Sodium, (136-145) 137 mmol/L 12/24/24, 11:55 Potassium, (3.5-5.1) 3.1 mmol/L L 12/24/24, 11:55 Chloride, (98-107) 102 mmol/L 12/24/24, 11:55 Carbon Dioxide, (21.0-32.0) 23.4 mmol/L 12/24/24, 11:55 BUN, (7-18) 4 mg/dL L 12/24/24, 11:55 Creatinine, (0.55-1.02) 0.4 mg/dL L 12/24/24, 11:55 Est GFR (CKD-EPI 2020), (mL/min/1.73m2) 142.54 12/24/24, 11:55 Calcium, (8.5-10.1) 8.6 mg/dL 12/24/24, 11:55 Albumin, (3.4-5.0) 2.5 g/dL L 12/24/24, 11:55 Glucose, (74-106) 104 mg/dL 12/24/24, 11:55 Liver Function Panel: ALT, (14-59) 23 U/L 12/24/24, 11:55 AST, (15-37) 20 U/L 12/24/24, 11:55 Imaging and Studies Imaging and Studies Study information below may be from another EMR and interpreted by another provider. Please see original notes in EMR for more complete details. EKG Summary: EKG PATIENT NAME: Ny Short UNIT #: [id number] ORDERING PROVIDER: Ian Collazo PRIMARY CARE PROVIDER: JACKSON KLEIN NP DATE/TIME OF SERVICE: 06/01/24 1210 : 2000 PERFORMING LOCATION: ER APPROVED REPORT Exam: Resting ECG Reason for Exam: dizziness Patient Location: E HR:70 bpm ECG Measurements Heart Rate 70 AXIS AR 138 P 39 QRSd 79 QRS 54 QT 391 T31 QTc 424 Conclusion Sinus rhythm...normal P axis, V-rate 60- 99 No STEMI <Electronically signed by Chester Jeronimo M.D. in [place]> E-Sign Date: 06/01/24 E-Sign Time: 1706 ADDENDUM APPROVED REPORT Exam: Resting ECG Reason for Exam: dizziness Patient Location: E HR:70 bpm ECG Measurements Heart Rate 70 AXIS AR 138 P 39 QRSd 79 QRS 54 QT 391 T31 QTc 424 Conclusion Sinus rhythm...normal P axis, V-rate 60- 99 No STEMI I have reviewed and I agree with the emergency room physician's ECG interpretation. Electronically signed by: <Electronically signed by Awilda Whitfield M.D. in [place]> 06/03/24 0815 Cosigned by: Anesthesia Assessment and Plan Anesthesia History Personal History: No History of Anesthesia Complications Family History: No Family History of Anesthesia Complications Exercise Tolerance Exercise Tolerance: Metabolic Equivalents>4 Pertinent Negatives Pertinent Negatives: No Symptoms of GERD, No Major Cardiovascular Symptoms or Complaints and No History of CVA/TIA Cardiac & Pulmonary Exam Cardiac Exam: Normal S1/S2 Heart Sounds Pulmonary Exam: Clear Bilateral Breath Sounds Implantable Cardiac Device Does patient have a Pacemaker or an ICD?: No Airway Exam Known Difficult Airway: No Previous Airway Comments:: Per history roof of mouth has been reconstructed Mallampati Class: 2 Mouth Opening: Normal (> 3cm) Thyromental Distance: Greater than 3 cm Neck Range of Motion: Full ROM Neck Circumference: Normal Teeth Condition: Normal Dentition ASA Classification ASA Score: ASA 2 Emergency Case?: No NPO Status NPO Status: NPO Clears >2 hours, Solids >8 hours Status Status: Confirmed Anesthesia Plan Resuscitation Status: Full Code Anesthesia Technique: Epidural Anesthesia Airway Planned: Natural Airway Pain Management: Surgeon and patient request nerve block Monitors Used: Standard Monitors Preoperative Comments:: Discussed physiology of back, discussed epidural and the process of placement. Discussed elective nature of an epidural. Patient asked for 30 minutes to be free of intervention prior to placement. We did discuss the potential of me being hospital nurse liaison and that I might get pulled away depending on other patients needs; compromised on me checking back in with the patient on her decision in 20 minutes.
[2025-01-17] MEDS: Lactated Ringers 1,000 ML 500 ML IV (16:45)
[2025-01-17] MEDS: FentaNYL/ROPIvacaine 2 mcg/ml and 0.1% 200 ML CADD Cassette EP (17:05)
--- NOTE | 2025-01-17 17:13 | ANES.NEUR_ITS ---
Epidural/Spinal Catheter Date Performed: 01/17/25 Procedure Start: 16:50 Procedure Stop: 17:03 Requesting Provider: Coby Leo Procedure Location: Obstetrics Reason Performed: Labor Epidural Standard Monitors Applied: Blood Pressure, SpO2 and See EMR for corresponding vital signs Patient Position: Sitting Sedation Given (Indicate Dose Given): No Sedation given Patient Mental Status: Awake Sterility: Hand Hygiene, Surgical Cap, Surgical Mask, Sterile Gloves, Sterile Drape/Sheet and Chlorhexidine Procedure Location: L4-L5 Interspace Epidural Needle: Tuohy 17 Guage Needle Length: 3.5 Inch Needle Approach: Midline Epidural Procedure: Skin Prepped, Sterile Drape Placed, 1% Lidocaine to skin and subcutaneous tissue with 25G needle, Tuohy Needle placed, SOLEDAD to Saline Used, Epidural Catheter Placed, Negative Heme, Negative CSF Flow and Tuohy Needle Removed Catheter Placed?: Catheter Placed Test Dose (Indicate Dose Given): 5ml 1.5% Lidocaine with 1:200K Epinephrine Given and Negative Test Dose Loss of Resistance Depth (cm): 8 Catheter depth at skin (cm): 14 Dressing: [place]orbav[place] Dressing Placed, Mastisol Used and Dressing reinforced with Tape Epidural Provid er Bolus (Indicate Dose Given): Total Ropivacaine 0.1% with Fentanyl 2mcg/ml Given from pump. (ml) Dose:: 5 ml Additives (Indicate Dose Given ): None Infusion Medication: Medication Infusion Began Medication Infusion: Ropivacaine 0.1% with Fentanyl 2mcg/ml Maintenance Infusion Rate (ml/hour): 10 PCEA Bolus Dose (ml): 5 Block Level: N/A Paresthesia: Right Paresthesia Duration: Transient (Needle repositioned once to right, occured again. Needle removed and relocalized slightly left of percieved midline and reattempted with good result. ) Ultrasound: Not Used Number of Attempts (See previous attempts in note section): 2 Procedure Tolerated: No Complications and Patient tolerated well Procedure Outcome: Successful Performed By: Lon Don
--- NOTE | 2025-01-17 18:10 | W.PM.OBNL1 ---
Date of service: 01/17/25 Time of Service: 18:10 Informed Consent Informed Consent: Regional Anesthesia, Risk,Benefits,Alternatives Discussed and Other (AROM) Pelvic Exam Dilation: 6 Effacement (%): 100 station: -1 Cervix Position: anterior Consistency: soft Contractions Monitor Mode: External Contraction Frequency(min): q3-4 Intensity: Moderate Fetus A Monitor: External (US) Heart Rate Baseline: 150 Variability: Moderate (6-25 BPM) Categories: Category I Decelerations: None Amniotic Membrane Status: Ruptured Rupture Method: Artifical Amniotic Fluid: Meconium Amount: moderate Date of Membrane Rupture: 01/17/25 Time of Membrane Rupture: 18:02 Assessment and Plan Assessment and plan (1) Normal labor: Status: Acute Assessment and plan: A: Epidural anesthesia is effective, maternal exhaustion Meconium noted in fluid after AROM Category 1 tracing P: Position pt for comfort and encourage rest/sleep Continuous EFM, clear fluids orally Reassess progress, consider pitocin augmentation in 2-3 hrs Objective Vital Signs Reviewed: Yes Objective Narrative Objective Narrative: Pt sleepy, moving legs well, consents to AROM Vital signs stable Subjective Interval history since last seen: Epidural in effect and pt fell asleep immediately after placement for 20 minutes, pt able to move her legs well and she has some sensation of pressure, states her legs feel weird and she feels pressure on her bladder like she needs to urinate despite recent void.
[2025-01-17] MEDS: Omeprazole 20 MG CAPCR 40 MG PO (18:31)
[2025-01-17] MEDS: busPIRone 5 MG TAB PO (18:31)
--- NOTE | 2025-01-17 20:06 | W.OBCONSULT ---
Date of service: 01/17/25 Time of Service: 20:06 Assessment and Plan Assessment and plan (1) Category II heart rate tracing during labor and delivery: Status: Acute Assessment and plan: Patient has made significant progress since having her water broken; however, her entire labor process has been slow and her current contractions are spread apart and weak. Patient would prefer to continue to pursue a vaginal delivery at this point, which is reasonable given the overall reassuring nature of the strip and currently moderate variability. We discussed the potential utility of Pitocin for expediting the labor process as well as to be used as a form of contraction stress test. Remote Mortgage Underwriter discussing the plan with the patient. I will remain in house. Patient is noted to have a placental succenturiate lobe. History of Present Illness Narrative: 24-year-old -0-2-0 (SAB x 2) at 39 0/7 as dated by 6-week ultrasound (KAYLAN 01/23/2025) presented to labor and delivery this morning with complaints of persistent contractions. She was found to be 5 cm and was monitored for a few hours after which she made no change; therefore, she received an epidural and her water was broken around 5 PM to light meconium stained fluid. While reviewing the patient's progress and heart tones, I noticed a segment starting around 7:15 PM that presented some concern for degrading FHT quality. I reviewed the strip with the surgical coder and she noted a similar concern. She reexamined the patient and found her to be 7 cm; she had extensive discussion with the patient regarding our concerns as well as the potential utility of versus Pitocin versus expectant management. Review of Systems All systems reviewed & are unremarkable except as noted in HPI and below PFSH All Active Problems Category II heart rate tracing during labor and delivery (Acute) Normal labor (Acute) Nicotine dependence (Acute) Asthma (Chronic) Low back pain (Acute) Bilobed placenta (Acute) Depression (Chronic) Anxiety (Chronic) (Acute) Smoker (Chronic 11/28/17) Vapes 1 pod per week (07/08/2024) Medical History Vulvovaginal candidiasis Bacterial vaginosis in Uterine contractions Abdominal pain of right lower quadrant during , antepartum Pelvic pain affecting 34 weeks gestation of uterine contractions in third trimester, antepartum contractions Dysuria Second trimester bleeding Family history of congenital heart defect cousin and FOB's cousin Family history of factor V Leiden mutation Marijuana abuse Stopped 10/17/2023 Impingement syndrome of left shoulder SLAP lesion of right shoulder Tendinitis of long head of biceps brachii of both shoulders Otitis externa Scapular dyskinesis Adolescent idiopathic scoliosis of thoracolumbar region (08/23/16) ADHD (attention deficit hyperactivity disorder) (11/23/14) Moderate persistent asthma without complication (08/23/16) Hematuria seen by Urology but declined hematuria workup Concussion Chronic abdominal pain Acute neck pain Depot contraception Fracture of left wrist (08/23/09) Fracture of right clavicle (11/04/04) Sprain of medial collateral ligament of right knee, subsequent encounter (04/22/17) Eczema (11/23/14) Surgical History [place] teeth removed ROOF OF MOUTH RECONSTRUCTED Family History Mother Substance abuse Gestational hypertension several female relatives Neoplasm breast CA Paternal Grandmother Diabetes Heart disease [place] 12/2024 Paternal Cousin Diabetes Maternal Grandmother Breast cancer Paternal Grandfather , 50 Cancer Father Hyperlipidemia Social History Smoking/Tobacco Use Status: Never Smoking risk assessment performed?: Yes Alcohol Intake: former Drug use: Occasionally Substance use type: does not use Household members: family Housing: house Sexually active: Yes Do you think of yourself as: straight/heterosexual Current gender identity: female Seatbelt use: sometimes Do you feel safe at home: Yes Do you feel safe in your relationship?: Yes Female Reproductive History Menstrual control method: none History History 3 Para 0 Hx # Term Pregnancies 0 Multiple births 0 Hx # Pregnancies 0 Ectopic pregnancies 0 AB induced 0 Hx Number of Living Children 0 AB spontaneous 2 Exam Narrative Exam Narrative: General: Well-nourished female in no immediate distress Pulmonary: No overt respiratory distress Abdomen: Gravid; tolerating straps for monitoring well Extremities: Trace edema noted equally bilaterally : 7/100/0 station per surgical coder FHT: Category 2 for intermittent periods of prolonged minimal variability without accelerations; rare, mild variable decelerations noted intermittently. [place]: Poor tracing; however, nurse reports contractions are palpating every 4 to 5 minutes and are mild Results Last Vital Signs Temp 98.2 F 01/17/25 18:08 Pulse 103 H 01/17/25 20:03 Resp 16 01/17/25 18:23 BP 121/73 01/17/25 19:07 Pulse Ox 96 01/17/25 20:03 Labs 01/17/25 11:35 Labs: Laboratory Results - last 24 hr 01/17/25 11:35 WBC 10.42 RBC 3.65 L Hgb 10.5 L Hct 30.7 L MCV 84 MCH 28.8 MCHC 34.2 RDW 13.4 Plt Count 280 MPV 8.9 ABO/Rh A Positive Antibody Screen NEGATIVE
[2025-01-17] MEDS: Oxytocin/Normal Saline 30 UNIT/500 ML BAG 1 UNITS IV (20:33)
[2025-01-17] MEDS: Lactated Ringers 1,000 ML 125 ML IV (20:34)
--- NOTE | 2025-01-17 20:42 | W.PM.OBNL1 ---
Date of service: 01/17/25 Time of Service: 20:42 Informed Consent Informed Consent: Augmentation of Labor and Risk,Benefits,Alternatives Discussed Pelvic Exam Dilation: 8 Effacement (%): 100 station: +1 Position: ERNESTINA Contractions Monitor Mode: External Contraction Frequency(min): q3 Intensity: Moderate/Strong Fetus A Monitor: External (US) Heart Rate Baseline: 150 Variability: Moderate (6-25 BPM) Categories: Category I (improved variability noted in last 30 minutes) Decelerations: None Amniotic Membrane Status: Ruptured Assessment and Plan Assessment and plan (1) Normal labor: Status: Acute Assessment and plan: A: OB consult for category 2 tracing and slow progress rotation and descent currently evident with improvement in tracing pt more uncomfortable despite previously effective epidural low dose pitocin augmentation @ 2 u/min P: Monitoring progress and tolerance of labor Low threshold for category 2 tracing Peds aware of pt status, OB inhouse Subjective Interval history since last seen: Pt consents to pitocin augmentation after discussion with myself, Dr. Becerra, and family. She is also feeling increasing pelvic and rectal pressure and requests cvx exam.
--- NOTE | 2025-01-17 21:48 | W.PM.OBNL1 ---
Date of service: 01/17/25 Time of Service: 21:48 Pelvic Exam Dilation: 9 station: +2 Contractions Monitor Mode: External Contraction Frequency(min): q2-3 Fetus A Monitor: External (US) Heart Rate Baseline: 145 Variability: Moderate (6-25 BPM) (periods of sinusoidal-appearing FHT) Categories: Category II Decelerations: None Amniotic Membrane Status: Ruptured Assessment and Plan Assessment and plan (1) Normal labor: Status: Acute Assessment and plan: A: Pitocin off after 15 minutes at pt request Category 2 tracing d/t sinusoidal-appearing Has progressed to 9/+2 P: Encourage maternal position changes Planning for Peds to attend delivery Anticipate , Dr. Hernan apple (2) Category II heart rate tracing during labor and delivery: Status: Acute Objective Vital Signs Reviewed: Yes Subjective Interval history since last seen: Pt initially consented to pitocin augmentation but 15 minutes after starting infusion pt changed her mind and requested it be turned off. She continues to report vaginal and rectal pressure with contractions.
[2025-01-18] VITALS (12 sets, daily range): BP systolic 107–138; BP diastolic 62–77; PULSE 84–106; RESP 16–17; TEMP 37.3
--- NOTE | 2025-01-18 00:55 | PLAC_PTH ---
PATIENT: Ny Short LOC: OBS U#:[id number] AGE/SX: 24/F ROOM: OBS.301 RE01/17/[address]: Coby Leo CNM : 2000 BED: A DIS: 01/18/2025 SPEC #: [id number] RECD: 01/18/25 12:33 STATUS: KRISTI REQ #: [id number] MAURILIO: 01/18/25 00:[address]: Coby Leo DEPT: Surgical Specimen RECD BY: Carla Costa ENTERED: 01/18/25 12:33 SP TYPE: PLAC OTHR DR: Divine De Los Santos Tissues: 1 - PLACENTA (3RD TRIMESTER) Procedures: GROSS AND MICRO LEVEL 5 Comments: [id number]
--- NOTE | 2025-01-18 01:44 | W.OBDELIVERY ---
Date of service: 01/18/25 Time of Service: 01:45 OB Labor/ Delivery Information Baby A Delivery Delivery Method: Spontaneaous Presentation: Cephalic Cephalic Position: Vertex Vertex Position: Left Occipital Anterior Breech Position: N/A Cord Description-Baby A: 3 Vessels, Clamped/Cut and Other (cord looped tightly around left wrist) Cord Description Comment: thick and short cord Amniotic Fluid: Meconium Quantitative Blood Loss: 600 Delivery Outcome: Liveborn Transferred: Remains with Mother Note: Pt's labor progressed well without pitocin augmentation, found to be complete at +3 and feeling rectal and vaginal pressure. Coached pushing was begun after 2nd stage huddle was completed, category 2 tracing noted due to periods of sinusoidal pattern interspersed with periods of moderate variability, early decels noted with pushing efforts. Dr. Becerra in unit and available to assist in delivery if progress slowed or category status worsened. Second huddle held at 1 hr at which time significant progress had been made toward delivery, tracing status was stable, Peds was summoned to attend delivery d/t tracing status and meconium fluid. of an initially nonvigorous male infant over attempted intact perineum, shoulders delivered with ease, cord appeared thick and short with a loop tightly wound around left wrist, infant appeared pale and stunned with terminal meconium noted on field, initially placed on mother's abdomen for drying and stim, cord clamped by CNM, cut by FOB and transferred to warmer where Peds began any necessary resuscitative efforts. Arterial cord gas and cord blood collected and taken to lab. began crying within 1 minute of age in warmer and was placed in mother's arms by 5 minutes of age. pitocin bolus infusion begun, moderate gush of blood noted and cord lengthened, placenta palpable in upper vaginal vault and with maternal pushing efforts was gently manually lifted through vaginal vault without cord traction, Bean and complete. Succencuriate lobe noted in membranes, 3VC centrally inserted, placenta appears pale and anemic in color. Fundus palpated above umbilicus and to the maternal right, straight cath performed for 500 ml clear yellow urine, lochia minimal and fundus firm below umbilicus after bladder emptied. 1st degree perineal laceration with extension to left labia repaired with 3.0 Vicryl under epidural anesthesia. Lochia remained minimal, resting S2S on mother's chest, strong family bonding observed, apgars 7/8, weight 3170 gms. Providers Nurse Hospice Coordinator: Coby Leo Iphone Developer: Lon Don Mc Kay Machine Operator: Re Dao Nurse: Tena Interiano Nurse: Carmen Rivera Labor/Delivery Information Number of Babies in Womb: 1 Steroids Given: None Reason Steroids Not Administered: N/A Group Beta Strep: Negative Antibiotics Administered: No Rubella Status: Immune Blood Type: A+ Varicella Immunity: Immune Medication in Delivery: pitocin Shoulder Dystocia: No Stages of Labor Onset of Labor Date: 01/16/25 Onset of Labor Time: 17:00 Complete Dilatation Date: 01/17/25 Complete Dilatation Time: 22:48 Labor - Stage 1 Duration: 29 hours and 48 minutes ROM Baby A: 01/17/25 ROM Baby A: 18:02 ROM Total Time- Baby A: [id number] Delivery Date-Baby A: 01/18/25 Infant Delivery Time-Baby A: 00:55 Labor Stage 2 Duration: 2 hours and 7 minutes Placenta Delivery Date-Baby A: 01/18/25 Placenta Delivery Time-Baby A: 01:07 Labor-Stage 3 Duration: 12 minutes Total Length of Labor-Baby A: 31 hours and 55 minutes Placenta Cultured: No Placenta Status: Delivered Baby A Gender: Male Gestational Status: Term (39-41.6 wks) Gestational Age in Weeks/Days: 39 Weeks and 2 Days Score-1 Minute Interval(Baby A) Heart Rate-1 minute: 100 BPM or Greater Respiratory Effort- 1 minute: Slow Respiration/Weak Cry Muscle Tone-1 minute: Active Movement Reflex Response-1 minute: Prompt Response Color-1 minute: Pallor or Cyanosis Total Score-1 minute: 7 Score-5 Minute Interval(Baby A) Heart Rate- 5 minute: 100 BPM or Greater Respiratory Effort-5 minute: Spontaneous/Strong Cry Muscle Tone-5 minute: Active Movement Reflex Response-5 minute: Prompt Response Color-5 minute: Pallor or Cyanosis Total Score- 5 minute: 8
[2025-01-18 05:03] LABS: INR 1.0 (0.9-1.1); PTT Activated 28.9 sec (20.6-30.2); Prothrombin Time 9.9 sec (9.1-11.1)
[2025-01-18] MEDS: Ibuprofen 600 MG TAB PO (05:03)
[2025-01-18] MEDS: Acetaminophen 325 MG TAB 650 MG PO (05:04)
--- NOTE | 2025-01-18 05:16 | OBPPV_ITS ---
Date of service: 01/18/25 Time of Service: 05:17 Assessment and Plan Assessment and plan (1) care and examination immediately after delivery: Status: Acute Assessment and plan: A: 5 hours , nml recovery, being transferred to [facility] MFM accepts pt for care and NICU proximity Pt informed of plan of care and she is in agreement with transferring via ambulance P: Epidural and IV have been removed, pt has ambulated to and voided Transfer paperwork completed, awaiting ambulance for transfer Pt's questions answered as much as possible Subjective Subjective Patient comments: Pain well controlled Patient's Mood: tired, worried about baby baby status: Nursing well, Rooming in, Strong Bonding Observed and Other (pale, anemia, transferring to [facility] for NICU care) Exam Physical Exam Vital signs: Temp Pulse Resp BP Pulse Ox 99.2 F 87 17 138/69 98 01/18/25 01:10 01/18/25 05:01 01/18/25 01:28 01/18/25 05:01 01/17/25 22:48 Vital Signs Reviewed: Yes Constitutional Constitutional: mild distress (physical and emotional), average body habitus and cooperative HEENT Exam HEENT Exam: Normal Neck Exam Neck Exam: Normal Respiratory Exam Respiratory Exam: Normal Cardiovascular Exam Cardiovascular Exam: Normal Fundal Exam Fundus: Below Umbilicus and Firm Rectal Exam Rectal Exam: Normal Exam Perineum: Repair Intact Extremities Exam Extremity Exam: Normal, Full ROM and Warm to Touch Back/Spine/Pelvis Exam Back Exam: Normal (epidural site without redness) Skin Exam Skin Exam: Normal Neurological Exam Neurological Exam: Normal Psychiatric Exam Psychiatric Exam: Normal
[2025-01-18 05:24] LABS: Lab Add On Test DONE
[2025-01-18] MEDS: Hamamelis Leaf/Glycerin 100 EACH BOX PR (06:00)
[2025-01-18] MEDS: Dibucaine 1% 28 GM TUBE TP (06:00)
[2025-01-19 14:56] LABS: Dose of RhIg 7; Kleihauer Test Positive (Negative)
--- NOTE | 2025-01-19 15:00 | W.ANESPOSTOP ---
Postoperative Evaluation Date, Time and Location Date Performed: 01/19/25 Time Performed: 15:01 Patient Location: Other Vital Signs Most Recent Imported Vital Signs: Most Recent Vital Signs Temp Pulse Resp BP Pulse Ox 37.3 C 87 17 138/69 98 01/18/25 01:10 01/18/25 05:01 01/18/25 01:28 01/18/25 05:01 01/17/25 22:48 Pain Score Most Recent Pain Score: Most Recent Pain Score Pain Level 4 01/18/25 05:04 Assessment Mental Status: Awake (Alert & Oriented to Patient Baseline) Airway and Respiratory Function: Patent airway with normal (patient baseline) respiratory exam Cardiovascular Function: Hemodynamically Stable Hydration Status: Adequately Hydrated Nausea & Vomiting: No Nausea or Vomiting Pain: Pain is tolerable per patient Peripheral Nerve Block: Other (Epidural appropriately resolved, denied complaint, denied headache, denied backpain. Per RN catheter removed with tip intact.) Postoperative Comments:: Unable to see patient as discharged prior anesthesia being able to see her. Per RN Patient was doing well and epidural catheter removed intact.
[2025-01-19 16:43] LABS: mL F/M Hemorrhage 170.5 (0.0)
[2025-01-20 12:45] LABS: Parvovirus B19 Ab, IgG Negative (Negative); Parvovirus B19 Ab, IgM Negative (Negative)
== END 2025-01-18 07:20 | disposition short-term general hospital (02) | DRG 807 ==
LOC: BCD 11:26 → OBS 11:26
PROVIDERS: Obstetrics & Gynecology; Admitting Provider Advanced Practice Midwife; PCP Nurse Practitioner Family; Visit Provider Advanced Practice Midwife
DX: O43.193 Other malformation of placenta, third trimester (principal); Z37.0 Single live birth; O99.334 Smoking (tobacco) complicating childbirth; O76 Abnormality in fetal heart rate and rhythm complicating labor and delivery; O99.62 Diseases of the digestive system complicating childbirth; O99.52 Diseases of the respiratory system complicating childbirth; O77.0 Labor and delivery complicated by meconium in amniotic fluid; O69.3XX0 Labor and delivery complicated by short cord, not applicable or unspecified; O70.0 First degree perineal laceration during delivery; O99.344 Other mental disorders complicating childbirth; J45.909 Unspecified asthma, uncomplicated; Z3A.38 38 weeks gestation of pregnancy; F41.8 Other specified anxiety disorders; F17.290 Nicotine dependence, other tobacco product, uncomplicated; M54.50 Low back pain, unspecified; Z82.79 Family history of other congenital malformations, deformations and chromosomal abnormalities; Z83.2 Family history of diseases of the blood and blood-forming organs and certain disorders involving the immune mechanism; K59.00 Constipation, unspecified
CPT/HCPCS: 36415; 85027; 85384; 86850; 86900; 86901; 59200; 85460; 85610; 85730; 86747; 88307

== ENCOUNTER 2025-02-08 09:45 | Outpatient (CLI) | payer MEDICAID, SELFPAY ==
[2025-02-08 09:54] LABS: Abs Immature Grans 0.00 10^3/uL (0.0-0.06); HCT 41.0 % (36.0-46.0); HGB 13.3 g/dL (11.2-15.7); Immature Grans % 0.0 %; MCH 27.7 pg (27.0-33.0); MCHC 32.4 % (32.0-36.0); MCV 85 fL (80-95); MPV 8.3 fL (8.0-11.0); Platelet Count 457 10^3/uL (130-400); RBC 4.81 10^6/uL (3.93-5.22); RDW 12.4 % (11.7-14.6); RDW-SD 38.8 fL; WBC 5.64 10^3/uL (4.4-10.8)
[2025-02-08 13:47] LABS: ALT 22 U/L (14-59); AST 21 U/L (15-37); Albumin 3.6 g/dL (3.4-5.0); Alkaline Phosphatase 101 U/L (46-116); Anion Gap 10.1 mmol/L (3-11); BUN 8 mg/dL (7-18); Bilirubin, Total 0.3 mg/dL (0.2-1.0); CO2 26.9 mmol/L (21.0-32.0); Calcium 9.3 mg/dL (8.5-10.1); Chloride 105 mmol/L (98-107); Estimated GFR 106.11 (mL/min/1.73m2); Glucose 84 mg/dL (74-106); Potassium 3.6 mmol/L (3.5-5.1); Sodium 142 mmol/L (136-145); TSH (W/Ref FT4) 2.18 uIU/mL (0.36-3.74); Total Protein 7.7 g/dL (6.4-8.2)
[2025-02-08 15:46] LABS: Iron 73 ug/dL (50-170); Total Iron Binding Capacity 327 ug/dL (250-450); Transferrin Sat 22 % (15-50)
[2025-02-08 15:50] LABS: Ferritin 30 ng/mL (8-252)
== END 2025-02-08 09:46 | disposition home or self-care (01) ==
LOC: LBO 09:45
PROVIDERS: PCP Nurse Practitioner Family; Visit Provider Nurse Practitioner Family
DX: R51.9 Headache, unspecified (principal)
CPT/HCPCS: 36415; 80053; 82728; 83540; 83550; 84443; 85025

== ENCOUNTER 2025-03-12 10:41 | Emergency (ER) | payer MEDICAID, SELFPAY ==
[2025-03-12 10:43] VITALS: BP 174/110; PULSE 75; RESP 16; TEMP 36.3; O2SAT 100
--- NOTE | 2025-03-12 10:45 | DI.CT_ITS ---
Exam(s) CT ABDOMEN PELVIS W EXAM: CT ABDOMEN PELVIS W CLINICAL HISTORY: Abdominal pain, 7 weeks TECHNIQUE: Imaging Protocol: Axial computed tomography images with coronal and sagittal reformatted images were created and reviewed. CONTRAST MATERIAL: Intravenous: Omnipaque 350 Contrast volume:75 mL Oral: No COMPARISON: CT CT ABDOMEN PELVIS W from 04/19/[address] ABDOMEN PELVIS W from 10/21/[address] CHEST/ABD/PEL W from 03/24/2022 FINDINGS: ABDOMEN: Lung Bases: No acute abnormality. Liver: Normal density. No measurable mass. Portal, Superior Mesenteric, and Splenic Veins: Unremarkable. Gallbladder and Biliary Tract: Gallstones are present. There is no biliary ductal dilatation. Pancreas: Normal density, no abnormal calcifications or inflammatory process. Spleen: Normal. Adrenals: No masses seen. Kidneys: Normal size, contour and axis. No radiodense stones or obstructive uropathy. No masses seen. Abdominal Aorta: Abdominal portion non-dilated. Bowel: There is no evidence of bowel obstruction. There is mild thickening of the wall of the rectum and questionable infiltration of the surrounding soft tissues. The rectum is collapsed which can limit the evaluation. There is a normal appendix present. Peritoneal Cavity: No ascites, collection or mesenteric inflammatory response. No free air. Lymph Nodes: Within normal limits. Bones: Within normal limits for the patient's age. Soft Tissues: Unremarkable. PELVIS: Bladder: Symmetric distention, no gross wall thickening. Reproductive Organs: Unremarkable as visualized. Lymph Nodes: Within normal limits. Bones: Within normal limits for the patient's age. IMPRESSION: 1. Question of mild thickening seen in the rectum which may represent proctitis. Please correlate clinically. 2. Cholelithiasis without CT evidence of acute cholecystitis. 3. Normal appendix. 4. The uterus and ovaries are grossly unremarkable on this examination. If there is further concern about the reproductive organs, pelvic ultrasound may be obtained. RADIATION DOSE DELIVERED: 351.7mGy.cm Total DLP DATA REPOSITORY: All CT scans at this facility are submitted to the National Radiology Data Registry (NRDR) Dose Index Registry (DIR) with the [employer] (ACR). RADIATION OPTIMIZATION: All CT scans at this facility use at least one of these dose optimization techniques: automated exposure control; mA and/or kV adjustment per patient size (includes targeted exams where dose is matched to clinical indication); or iterative reconstruction.
[2025-03-12 10:50] VITALS: BP 174/110; PULSE 75; RESP 16; TEMP 36.3; O2SAT 100
--- NOTE | 2025-03-12 10:56 | W.ED.GENAD ---
Discharge Plan Disposition Patient Disposition: Home Condition: Stable Discharge Details Clinical Impression: Gallstones Primary Care Provider: Divine De Los Santos ED Provider: Colleen Nobles Home Meds and New Rx's Prescriptions: Continued albuterol sulfate [ProAir HFA] 90 mcg/actuation HFA aerosol inhaler 1 - 2 puff Inhalation DAILY Qty: 1 2RF omeprazole 20 mg capsule,delayed release(DR/EC) 20 mg PO DAILY Qty: 14 0RF omeprazole 10 mg capsule,delayed release(DR/EC) 10 mg PO DAILY Qty: 14 0RF epinephrine [EpiPen] 0.3 mg/0.3 mL auto-injector 0.3 mg IJ ONCE PRN (Reason: Anaphylaxis) Qty: 1 1RF (DME) Aerochamber MV Spacer See Rx Instructions .ROUTE .MEDSUPPLY Qty: 1 0RF Rx Instructions: As directed docusate sodium [Colace] 100 mg capsule 100 mg PO BID Qty: 60 6RF buspirone 5 mg tablet 5 mg PO BID Qty: 60 3RF medroxyprogesterone [Depo-Provera] 150 mg/mL syringe 150 mg IM Q12W Qty: 1 5RF albuterol sulfate [Ventolin HFA] 90 mcg/actuation HFA aerosol inhaler 2 puff INHALATION PRN PRN Patient Comments: INHALE ONE TO TWO PUFFS BY MOUTH EVERY DAY NEEDED budesonide-formoterol [Symbicort] 80-4.5 mcg/actuation HFA aerosol inhaler 1 puff INHALATION BID Patient Comments: INHALE 1 PUFF BY MOUTH TWICE A DAY Discharge Instructions Instructions: Clear Liquid Diet, Gallstones ED Additional Instructions: CT does show some gallstones, no evidence of appendicitis or infection in your gallbladder. You are prescribed some medication called Bentyl which will help with the stomach cramps. You may also try Tylenol and ibuprofen. Please get some simethicone which you can get [id number] and take as directed. Please practice clear liquid diet over the next 24 to 48 hours advance as tolerated with a bland diet. Stay away from anything that is fried fatty spicy or dairy. Follow up with primary care provider in 3-5 days. Return to ED sooner if any worsening pain, vomiting, fever over 100.8 or concerns. Please take Tylenol or Ibuprofen with food every 4-6 hours as needed for pain and swelling. Referrals: Divine De Los Santos [Primary Care Provider, Medicine] - 5 days HPI General Mode of arrival: ambulatory. Date/Time Provider Initiated Documentation: 03/12/25 10:41. Limitations to Documentation: no limitations. Information obtained by: patient, family, RN notes reviewed and old records reviewed. HPI Narrative: 44-year-old female who is approximately 7 weeks after a vaginal delivery who is breast-feeding presents to the ER with a chief complaint of generalized abdominal pain that began around 2 AM this morning. Patient recently had a Depo-Provera injection 3 days ago with her [employer]. She reports that she has had this injection previously. She does have a history of constipation. She does endorse nausea vomiting. Last normal bowel movement was 2 to 3 days ago. She describes the pain as gas like. She is tearful and curled up in a ball very tender to palpation on exam. Abdomen is nondistended and soft. No other abdominal surgeries. Related Data Home Medications ?Medication ?Instructions ?Recorded ?Confirmed inhalational spacing device #1 ea 02/14/20 03/09/25 (Aerochamber MV spacer) epinephrine 0.3 mg/0.3 mL 0.3 mg (0.3 mL) IJ ONCE PRN 05/24/20 03/12/25 injection, auto-injector (EpiPen) Anaphylaxis ##1 albuterol sulfate 90 mcg/actuation 1 - 2 puff inhalation DAILY ##1 10/04/20 03/12/25 aerosol inhaler (ProAir HFA) albuterol sulfate 90 mcg/actuation 2 puff inhalation PRN PRN 06/16/22 03/12/25 aerosol inhaler (Ventolin HFA) budesonide-formoterol HFA 80 1 puff inhalation BID 02/11/23 03/12/25 mcg-4.5 mcg/actuation aerosol inhaler (Symbicort) docusate sodium 100 mg capsule 100 mg PO BID #60 caps 07/14/24 03/12/25 (Colace) buspirone 5 mg tablet 5 mg PO BID #60 tabs 01/07/25 03/12/25 omeprazole 10 mg capsule,delayed 10 mg PO DAILY #14 caps 03/02/25 03/12/25 release omeprazole 20 mg capsule,delayed 20 mg PO DAILY #14 caps 03/02/25 03/12/25 release medroxyprogesterone 150 mg/mL 150 mg IM Q12W #1 mL 03/03/25 03/12/25 intramuscular syringe (Depo-Provera) Previous Rx's ?Medication ?Instructions ?Recorded inhalational spacing device #1 ea 02/14/20 (Aerochamber MV spacer) epinephrine 0.3 mg/0.3 mL 0.3 mg (0.3 mL) IJ ONCE PRN 05/24/20 injection, auto-injector (EpiPen) Anaphylaxis ##1 albuterol sulfate 90 mcg/actuation 1 - 2 puff inhalation DAILY ##1 10/04/20 aerosol inhaler (ProAir HFA) docusate sodium 100 mg capsule 100 mg PO BID #60 caps 07/14/24 (Colace) buspirone 5 mg tablet 5 mg PO BID #60 tabs 01/07/25 omeprazole 10 mg capsule,delayed 10 mg PO DAILY #14 caps 03/02/25 release omeprazole 20 mg capsule,delayed 20 mg PO DAILY #14 caps 03/02/25 release medroxyprogesterone 150 mg/mL 150 mg IM Q12W #1 mL 03/03/25 intramuscular syringe (Depo-Provera) Allergies Allergy/AdvReac Type Severity Reaction Status Date / Time shellfish derived Allergy Severe Anaphylaxis Verified 03/12/25 10:46 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 Appears stated age. Normal body habitus. Tearful, curled up in a ball. Head: Normocephalic, no trauma. Eyes: Pupils PERRL, Red reflex noted, EOM's intact. Eyelids symmetrical without lesions, discharge, or swelling. ENT: Bilateral TM's WNL, External ear normal to inspection, no mastoid TTP, swelling, or erythema, Nasal turbinates WNL, no nasal discharge. Normal dentition, Posterior pharynx WNL, no exudate. Chest: RRR, Normal S1, S2, distal pulses intact. Resp: Lungs clear to auscultation bilaterally, no wheezes, rales, or rhonchi. Abdomen: Soft, non-distended, Normoactive bowel sounds all 4 quads. Tender with palpation all 4 quadrants. Musculoskeletal: Normal gait, Moves all 4 extremities without difficulty. Skin: No suspicious rashes or lesions. Capillary refill less than 2 sec. Neurologic: Cranial nerves II-XII intact. Alert and oriented x 3. Motor: No deficits noted. Sensory: Intact bilaterally all 4 extremities. Hematologic/Lymphatic: No ecchymosis, no lymphadenopathy. Course Vital Signs Vital signs: Vital Signs Temperature 36.3 C L 03/12/25 10:43 Pulse 75 03/12/25 10:43 Respiratory Rate 16 03/12/25 10:43 Blood Pressure 174/110 H 03/12/25 10:43 Pulse Oximetry 100 03/12/25 10:43 Temperature 36.3 C L 03/12/25 10:50 Temperature Source Temporal Artery Scan 03/12/25 10:43 Pulse 75 03/12/25 10:50 Respiratory Rate 16 03/12/25 10:50 Blood Pressure 174/110 H 03/12/25 10:50 Blood Pressure Position Supine 03/12/25 10:43 Pulse Oximetry 100 03/12/25 10:50 Oxygen Delivery Method Room Air 03/12/25 10:43 Oxygen Flow Rate 0 03/12/25 10:43 Pain Level 10 03/12/25 10:50 Medical Decision Making 44-year-old female who is approximately 7 weeks after a vaginal delivery who is breast-feeding presents to the ER with a chief complaint of generalized abdominal pain that began around 2 AM this morning. Patient recently had a Depo-Provera injection 3 days ago with her [employer]. She reports that she has had this injection previously. She does have a history of constipation. She does endorse nausea vomiting. Last normal bowel movement was 2 to 3 days ago. She describes the pain as gas like. She is tearful and curled up in a ball very tender to palpation on exam. Abdomen is nondistended and soft. No other abdominal surgeries. Workup ordered including CBC CMP lipase urinalysis CT abdomen pelvis, Zofran 0.5 of Dilaudid and 500 cc normal saline. Differential diagnosis include nominative to constipation, appendicitis, cholecystitis, gastroenteritis, UTI, pyelonephritis. 1228: On patient reevaluation she appears to be feeling much better, discussed CT results with her, home care including diet for clear liquids and then a bland diet. She does endorse eating a fried fatty meal recently prior to the onset of her symptoms. She reports that she does have a small amount of rectal pain due to straining with bowel movements and she does report having a hemorrhoid. This could explain the CT results. Will give patient a simethicone and a Bentyl for the stomach symptoms and instructions to follow-up and change her diet she verbalized understanding. This text was generated using [employer] system, please disregard any oddities of phrase or misspellings. Medical Records Medical records reviewed: Yes I reviewed the patient's medical records. Imaging Data Radiologic Study: Imaging: CT Scan Radiologist's impression: IMPRESSION: 1. Question of mild thickening seen in the rectum which may represent proctitis. Please correlate clinically. 2. Cholelithiasis without CT evidence of acute cholecystitis. 3. Normal appendix. 4. The uterus and ovaries are grossly unremarkable on this examination. If there is further concern about the reproductive organs, pelvic ultrasound may be obtained. Lab Data Lab results reviewed: Yes I reviewed the patient's lab results. Labs: Laboratory Tests Range/Units 03/12/25 03/12/25 11:00 12:31 WBC (4.4-10.8) 10^3/uL 9.81 RBC (3.93-5.22) 10^6/uL 5.10 Hgb (11.2-15.7) g/dL 13.9 Hct (36.0-46.0) % 42.2 MCV (80-95) fL 83 MCH (27.0-33.0) pg 27.3 MCHC (32.0-36.0) % 32.9 RDW (11.7-14.6) % 11.5 L Plt Count (130-400) 10^3/uL 396 MPV (8.0-11.0) fL 8.3 Immature Gran % % 0.3 Neutrophils % % 86.8 Lymphocytes % % 8.3 Monocytes % % 4.3 Eosinophils % % 0.1 Basophils % % 0.2 Nucleated RBC % (0.0-0.3) % 0.0 Absolute Neutrophils (1.2-6.7) 10^3/uL 8.52 H Absolute Lymphocytes (1.2-3.4) 10^3/uL 0.81 L Absolute Monocytes (0.1-0.8) 10^3/uL 0.42 Absolute Eosinophils (0.0-0.7) 10^3/uL 0.01 Absolute Basophils (0.0-0.2) 10^3/uL 0.02 Sodium (136-145) mmol/L 142 Potassium (3.5-5.1) mmol/L 3.1 L Chloride (98-107) mmol/L 103 Carbon Dioxide (21.0-32.0) mmol/L 27.2 Anion Gap (3-11) mmol/L 11.8 H BUN (7-18) mg/dL 6 L Creatinine (0.55-1.02) mg/dL 0.8 Est GFR (CKD-EPI 2020) (mL/min/1.73m2) 106.11 Glucose (74-106) mg/dL 94 Calcium (8.5-10.1) mg/dL 8.7 Magnesium (1.8-2.4) mg/dL 1.4 L Total Bilirubin (0.2-1.0) mg/dL 0.4 AST (15-37) U/L 27 ALT (14-59) U/L 39 Alkaline Phosphatase (46-116) U/L 122 H Total Protein (6.4-8.2) g/dL 8.4 H Albumin (3.4-5.0) g/dL 4.1 Lipase (<78) U/L 28 Urine Color (Yellow) Yellow Urine Clarity (Clear) Clear Urine pH (5-8) 7.5 Ur Specific [place] (1.005-1.025) 1.015 Urine Protein (Neg-Trace) mg/dL Negative Urine Ketones (Negative) mg/dL 40 H Urine Blood (Negative) Trace-intact H Urine Nitrite (Negative) Negative Urine Bilirubin (Negative) Negative Urine Urobilinogen (Up to 0.2) mg/dL 0.2 Ur Leukocyte Esterase (Negative) Negative Urine RBC (0-2) HPF 0-2 Urine WBC (0-5) HPF 3-5 Ur Epithelial Cells (Negative) HPF Rare Urine Crystals (Negative) HPF Negative Urine Bacteria (Negative) HPF Negative Urine Casts (Negative) LPF Negative Urine Mucus (Negative) Negative Ur Culture Indicated? No Urine Glucose (Negative) mg/dL Negative PFSH All Active Problems Gallstones (Acute) Care and examination of lactating mother (Acute) Nicotine dependence (Acute) Asthma (Chronic) Low back pain (Acute) Depression (Chronic) Anxiety (Chronic) Smoker (Chronic 11/28/17) Vapes 1 pod per week (07/08/2024) Medical History Encounter for management and injection of depo-Provera Bilobed placenta Normal labor Category II heart rate tracing during labor and delivery care and examination immediately after delivery Vulvovaginal candidiasis Bacterial vaginosis in Uterine contractions Abdominal pain of right lower quadrant during , antepartum Pelvic pain affecting uterine contractions in third trimester, antepartum contractions Dysuria Second trimester bleeding Family history of congenital heart defect cousin and FOB's cousin Family history of factor V Leiden mutation Marijuana abuse Stopped 10/17/2023 Impingement syndrome of left shoulder SLAP lesion of right shoulder Tendinitis of long head of biceps brachii of both shoulders Otitis externa Scapular dyskinesis Adolescent idiopathic scoliosis of thoracolumbar region (08/23/16) ADHD (attention deficit hyperactivity disorder) (11/23/14) Moderate persistent asthma without complication (08/23/16) Hematuria seen by Urology but declined hematuria workup Concussion Chronic abdominal pain Acute neck pain Depot contraception Fracture of left wrist (08/23/09) Fracture of right clavicle (11/04/04) Sprain of medial collateral ligament of right knee, subsequent encounter (04/22/17) Eczema (11/23/14) Surgical History [place] teeth removed ROOF OF MOUTH RECONSTRUCTED Family History Mother Substance abuse Gestational hypertension several female relatives Neoplasm breast CA Paternal Grandmother Diabetes Heart disease PR 12/2024 Paternal Cousin Diabetes Maternal Grandmother Breast cancer Paternal Grandfather , 50 Cancer Father Hyperlipidemia Social History Smoking/Tobacco Use Status: Never Smoking risk assessment performed?: Yes Alcohol Intake: former Drug use: Occasionally Substance use type: does not use Household members: family Housing: house Sexually active: Yes Do you think of yourself as: straight/heterosexual Current gender identity: female Seatbelt use: sometimes Do you feel safe at home: Yes Do you feel safe in your relationship?: Yes Female Reproductive History Menstrual control method: none History History 3 Para 0 Hx # Term Pregnancies 1 Multiple births 0 Hx # Pregnancies 0 Ectopic pregnancies 0 AB induced 0 Hx Number of Living Children 1 AB spontaneous 2 Past Pregnancies Del. Date GA/Weeks # Preg Succ Route Wgt Sex Labor Lgth Anesthesia Location [facility] 01/18/25 39 No Yes vaginal 3175.147 g Male Marie Leo
[2025-03-12 11:06] LABS: Abs Immature Grans 0.03 10^3/uL (0.0-0.06); HCT 42.2 % (36.0-46.0); HGB 13.9 g/dL (11.2-15.7); Immature Grans % 0.3 %; MCH 27.3 pg (27.0-33.0); MCHC 32.9 % (32.0-36.0); MCV 83 fL (80-95); MPV 8.3 fL (8.0-11.0); Platelet Count 396 10^3/uL (130-400); RBC 5.10 10^6/uL (3.93-5.22); RDW 11.5 % (11.7-14.6); RDW-SD 34.8 fL; WBC 9.81 10^3/uL (4.4-10.8)
[2025-03-12] MEDS: Normal Saline 500 ML IV (11:17)
[2025-03-12] MEDS: HYDROmorphone 2 MG/ML SYR 0.5 MG IVP (11:18)
[2025-03-12] MEDS: Ondansetron 4 MG/2 ML VIAL IVP (11:19)
[2025-03-12 11:22] LABS: ALT 39 U/L (14-59); AST 27 U/L (15-37); Albumin 4.1 g/dL (3.4-5.0); Alkaline Phosphatase 122 U/L (46-116); Anion Gap 11.8 mmol/L (3-11); BUN 6 mg/dL (7-18); Bilirubin, Total 0.4 mg/dL (0.2-1.0); CO2 27.2 mmol/L (21.0-32.0); Calcium 8.7 mg/dL (8.5-10.1); Chloride 103 mmol/L (98-107); Estimated GFR 106.11 (mL/min/1.73m2); Glucose 94 mg/dL (74-106); Lipase 28 U/L (<78); Magnesium 1.4 mg/dL (1.8-2.4); Potassium 3.1 mmol/L (3.5-5.1); Sodium 142 mmol/L (136-145); Total Protein 8.4 g/dL (6.4-8.2)
[2025-03-12] MEDS: Normal Saline - Diluent 50 ML VIAL IJ (11:26)
[2025-03-12] MEDS: Normal Saline Flush 10 ML SYR IVP (11:26)
[2025-03-12] MEDS: Omnipaque 350 MG/ML 100 ML BTL IJ (11:27)
[2025-03-12] MEDS: MAGNESIUM SULFATE 1 GM/100 ML BAG IV_INF (11:47)
[2025-03-12 12:47] LABS: Glucose Negative (Negative)
[2025-03-12] MEDS: Simethicone 80 MG CHEW 40 MG PO (12:53)
[2025-03-12 13:00] LABS: RBC 0-2 HPF (0-2)
[2025-03-12 13:01] LABS: C & S Indicated? No
== END 2025-03-12 13:02 | disposition home or self-care (01) ==
PROVIDERS: Emergency Provider Registered Nurse Emergency; PCP Nurse Practitioner Family
DX: K80.20 Calculus of gallbladder without cholecystitis without obstruction (principal); R10.84 Generalized abdominal pain; R11.2 Nausea with vomiting, unspecified
CPT/HCPCS: 80053; 83690; 96365; 96375; 99285; 74177; 81003; 81015; 83735; 85025; 99284; J1171; J2405; J3475; J3490

== ENCOUNTER 2025-03-14 14:15 | Observation (INO) | payer MEDICAID, SELFPAY ==
[2025-03-14 14:19] VITALS: BP 131/80; PULSE 80; RESP 16; TEMP 36.9; O2SAT 98
[2025-03-14 15:05] LABS: Abs Immature Grans 0.02 10^3/uL (0.0-0.06); HCT 36.3 % (36.0-46.0); HGB 12.1 g/dL (11.2-15.7); Immature Grans % 0.3 %; MCH 27.6 pg (27.0-33.0); MCHC 33.3 % (32.0-36.0); MCV 83 fL (80-95); MPV 8.3 fL (8.0-11.0); Platelet Count 354 10^3/uL (130-400); RBC 4.38 10^6/uL (3.93-5.22); RDW 11.5 % (11.7-14.6); RDW-SD 34.9 fL; WBC 7.17 10^3/uL (4.4-10.8)
--- NOTE | 2025-03-14 15:21 | W.ED.GENAD ---
Discharge Plan Disposition Patient Disposition: Admit to [facility] Condition: Stable Discharge Details Clinical Impression: Gallstones, Hypokalemia Primary Care Provider: Divine De Los Santos ED Provider: Dianna Purcell Home Meds and New Rx's Prescriptions: No Action albuterol sulfate [ProAir HFA] 90 mcg/actuation HFA aerosol inhaler 1 - 2 puff Inhalation DAILY Qty: 1 2RF omeprazole 20 mg capsule,delayed release(DR/EC) 20 mg PO DAILY Qty: 14 0RF omeprazole 10 mg capsule,delayed release(DR/EC) 10 mg PO DAILY Qty: 14 0RF epinephrine [EpiPen] 0.3 mg/0.3 mL auto-injector 0.3 mg IJ ONCE PRN (Reason: Anaphylaxis) Qty: 1 1RF (DME) Aerochamber MV Spacer See Rx Instructions .ROUTE .MEDSUPPLY Qty: 1 0RF Rx Instructions: As directed docusate sodium [Colace] 100 mg capsule 100 mg PO BID Qty: 60 6RF buspirone 5 mg tablet 5 mg PO BID Qty: 60 3RF medroxyprogesterone [Depo-Provera] 150 mg/mL syringe 150 mg IM Q12W Qty: 1 5RF albuterol sulfate [Ventolin HFA] 90 mcg/actuation HFA aerosol inhaler 2 puff INHALATION PRN PRN Patient Comments: INHALE ONE TO TWO PUFFS BY MOUTH EVERY DAY NEEDED budesonide-formoterol [Symbicort] 80-4.5 mcg/actuation HFA aerosol inhaler 1 puff INHALATION BID Patient Comments: INHALE 1 PUFF BY MOUTH TWICE A DAY HPI General Mode of arrival: ambulatory. Date/Time Provider Initiated Documentation: 03/14/25 14:19. Limitations to Documentation: no limitations. Information obtained by: patient, family and old records reviewed. HPI Narrative: This is a 24-year-old female patient, 7 weeks , with a history of gallstones and a recent visit for epigastric abdominal pain, nausea, presenting for evaluation of ongoing pain. She reports that when she was seen she had a CT scan that showed the gallstones but no evidence of infection or inflammation in her gallbladder. She was started on Bentyl which she has been taking without improvement. She was counseled on a clear liquid diet which she has been adhering to, states that today she tried to eat a piece of toast, and this caused a significant flare in her pain. She is currently breast-feeding, and is concerned that her low oral intake is going to make it difficult for her to continue to feed her baby. The patient states that she has otherwise been in her normal state of health without fever or chills, diarrhea, constipation, dysuria. She states that her pain starts in the epigastric region and radiates around the right greater than left side, and seems to sometimes radiate into her shoulders or back. Related Data Home Medications Medication Instructions Recorded Confirmed inhalational spacing device #1 ea 02/14/20 03/14/25 (Aerochamber MV spacer) epinephrine 0.3 mg/0.3 mL 0.3 mg (0.3 mL) IJ ONCE PRN 05/24/20 03/14/25 injection, auto-injector (EpiPen) Anaphylaxis ##1 albuterol sulfate 90 mcg/actuation 1 - 2 puff inhalation DAILY ##1 10/04/20 03/14/25 aerosol inhaler (ProAir HFA) albuterol sulfate 90 mcg/actuation 2 puff inhalation PRN PRN 06/16/22 03/14/25 aerosol inhaler (Ventolin HFA) budesonide-formoterol HFA 80 1 puff inhalation BID 02/11/23 03/14/25 mcg-4.5 mcg/actuation aerosol inhaler (Symbicort) docusate sodium 100 mg capsule 100 mg PO BID #60 caps 07/14/24 03/14/25 (Colace) buspirone 5 mg tablet 5 mg PO BID #60 tabs 01/07/25 03/14/25 omeprazole 10 mg capsule,delayed 10 mg PO DAILY #14 caps 03/02/25 03/14/25 release omeprazole 20 mg capsule,delayed 20 mg PO DAILY #14 caps 03/02/25 03/14/25 release medroxyprogesterone 150 mg/mL 150 mg IM Q12W #1 mL 03/03/25 03/14/25 intramuscular syringe (Depo-Provera) Previous Rx's Medication Instructions Recorded inhalational spacing device #1 ea 02/14/20 (Aerochamber MV spacer) epinephrine 0.3 mg/0.3 mL 0.3 mg (0.3 mL) IJ ONCE PRN 05/24/20 injection, auto-injector (EpiPen) Anaphylaxis ##1 albuterol sulfate 90 mcg/actuation 1 - 2 puff inhalation DAILY ##1 10/04/20 aerosol inhaler (ProAir HFA) docusate sodium 100 mg capsule 100 mg PO BID #60 caps 07/14/24 (Colace) buspirone 5 mg tablet 5 mg PO BID #60 tabs 01/07/25 omeprazole 10 mg capsule,delayed 10 mg PO DAILY #14 caps 03/02/25 release omeprazole 20 mg capsule,delayed 20 mg PO DAILY #14 caps 03/02/25 release medroxyprogesterone 150 mg/mL 150 mg IM Q12W #1 mL 03/03/25 intramuscular syringe (Depo-Provera) Allergies Allergy/AdvReac Type Severity Reaction Status Date / Time shellfish derived Allergy Severe Anaphylaxis Verified 03/14/25 14:21 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 CV: Appears well perfused, strong distal pulses Abdomen: Non-distended soft, tender to palpation in the epigastric and right upper quadrant without rigidity, rebound, or guarding MSK: Moves 4 extremities without apparent limitation in ROM Skin: Visualized skin without rashes, cyanosis. Neuro: Normal Gait, no obvious focal deficits or facial asymmetry. Speaks in full, clear sentences. Psych: Appropriate for situation. Course Vital Signs Vital signs: Vital Signs Temperature 36.9 C 03/14/25 14:19 Pulse 80 03/14/25 14:19 Respiratory Rate 16 03/14/25 14:19 Blood Pressure 131/80 03/14/25 14:19 Pulse Oximetry 98 03/14/25 14:19 Temperature 36.9 C 03/14/25 14:19 Pulse 80 03/14/25 14:19 Respiratory Rate 16 03/14/25 14:19 Blood Pressure 131/80 03/14/25 14:19 Blood Pressure Position Supine 03/14/25 14:19 Pulse Oximetry 98 03/14/25 14:19 Pain Level 6 03/14/25 14:19 Lab/Test Results Lab/Test Results: Laboratory Tests Range/Units 03/14/25 14:58 WBC (4.4-10.8) 10^3/uL 7.17 RBC (3.93-5.22) 10^6/uL 4.38 Hgb (11.2-15.7) g/dL 12.1 Hct (36.0-46.0) % 36.3 MCV (80-95) fL 83 MCH (27.0-33.0) pg 27.6 MCHC (32.0-36.0) % 33.3 RDW (11.7-14.6) % 11.5 L Plt Count (130-400) 10^3/uL 354 MPV (8.0-11.0) fL 8.3 Immature Gran % % 0.3 Neutrophils % % 64.7 Lymphocytes % % 23.6 Monocytes % % 9.3 Eosinophils % % 1.7 Basophils % % 0.4 Nucleated RBC % (0.0-0.3) % 0.0 Absolute Neutrophils (1.2-6.7) 10^3/uL 4.64 Absolute Lymphocytes (1.2-3.4) 10^3/uL 1.69 Absolute Monocytes (0.1-0.8) 10^3/uL 0.67 Absolute Eosinophils (0.0-0.7) 10^3/uL 0.12 Absolute Basophils (0.0-0.2) 10^3/uL 0.03 Medical Decision Making This is a 24-year-old female patient presenting for evaluation of abdominal pain. My differential includes, but is not limited to, gastritis/PUD, gastroenteritis, pancreatitis, cholecystitis and gallbladder pathology, hepatitis, appendicitis, diverticulitis, small bowel obstruction. Considered urinary pathology including UTI, nephrolithiasis. Considered mesenteric ischemia, aortic pathology, though this is less concerning based on the patient's history and physical exam. Considered ectopic , PID/TOA, ovarian cyst, ovarian torsion though the patient is reassuringly without pelvic symptoms, vaginal symptoms, and has received the Depo-Provera since her recent delivery. I reviewed the patient's previous workup and CT imaging. We will repeat labs to include CBC, CMP, magnesium, lipase, and urinalysis. Bedside ultrasound performed above, with gallstones without evidence of fulminant cholecystitis. The patient reports that she wants to hold on any medications at this time, but if her pain significantly worsens she will trial Dilaudid given its safety and breast-feeding. -I reviewed the patient's laboratory studies, which show no leukocytosis, anemia or thrombocytopenia. Chemistry panel is notable for a hypokalemia to 2.8 which was repleted orally. No evidence of kidney dysfunction, bilirubin is not elevated but she does have a slightly elevated alkaline phosphatase to 221, and AST of 42. Lipase is low. I discussed the patient's case and the bedside ultrasound with Dr. Rascon with general surgery. I do not feel that this patient would benefit from a repeat CT scan. Though there are other etiologies which may explain the patient's postprandial epigastric and right upper quadrant abdominal pain, the presence of gallstones and ongoing pain is concerning for cholecystitis and biliary colic. Dr. Rascon is graciously accepted this patient for admission with a plan for surgical intervention tomorrow. The patient remained hemodynamically appropriate while under my care and was transferred from our department without incident. Dianna Purcell MD [facility] All Active Problems Hypokalemia (Acute) Gallstones (Acute) Care and examination of lactating mother (Acute) Nicotine dependence (Acute) Asthma (Chronic) Low back pain (Acute) Depression (Chronic) Anxiety (Chronic) Smoker (Chronic 11/28/17) Vapes 1 pod per week (07/08/2024) Medical History Encounter for management and injection of depo-Provera Bilobed placenta Normal labor Category II heart rate tracing during labor and delivery care and examination immediately after delivery Vulvovaginal candidiasis Bacterial vaginosis in Uterine contractions Abdominal pain of right lower quadrant during , antepartum Pelvic pain affecting uterine contractions in third trimester, antepartum contractions Dysuria Second trimester bleeding Family history of congenital heart defect cousin and FOB's cousin Family history of factor V Leiden mutation Marijuana abuse Stopped 10/17/2023 Impingement syndrome of left shoulder SLAP lesion of right shoulder Tendinitis of long head of biceps brachii of both shoulders Otitis externa Scapular dyskinesis Adolescent idiopathic scoliosis of thoracolumbar region (08/23/16) ADHD (attention deficit hyperactivity disorder) (11/23/14) Moderate persistent asthma without complication (08/23/16) Hematuria seen by Urology but declined hematuria workup Concussion Chronic abdominal pain Acute neck pain Depot contraception Fracture of left wrist (08/23/09) Fracture of right clavicle (11/04/04) Sprain of medial collateral ligament of right knee, subsequent encounter (04/22/17) Eczema (11/23/14) Surgical History [place] teeth removed ROOF OF MOUTH RECONSTRUCTED Family History Mother Substance abuse Gestational hypertension several female relatives Neoplasm breast CA Paternal Grandmother Diabetes Heart disease ID 12/2024 Paternal Cousin Diabetes Maternal Grandmother Breast cancer Paternal Grandfather , 50 Cancer Father Hyperlipidemia Social History Smoking/Tobacco Use Status: Never Smoking risk assessment performed?: Yes Alcohol Intake: former Drug use: Occasionally Substance use type: does not use Household members: family Housing: house Sexually active: Yes Do you think of yourself as: straight/heterosexual Current gender identity: female Seatbelt use: sometimes Do you feel safe at home: Yes Do you feel safe in your relationship?: Yes Female Reproductive History Menstrual control method: none History History 3 Para 0 Hx # Term Pregnancies 1 Multiple births 0 Hx # Pregnancies 0 Ectopic pregnancies 0 AB induced 0 Hx Number of Living Children 1 AB spontaneous 2 Past Pregnancies Del. Date GA/Weeks # Preg Succ Route Wgt Sex Labor Lgth Anesthesia Location Prov Complic 01/18/25 39 No Yes vaginal 3175.147 g Male Marie Leo POCUS Exam (ED) Limited Gallbladder Exam DATE OF EXAM: 03/14/25 TIME OF EXAM: 14:35 PROVIDER THAT PERFORMED THE STUDY: Dianna Purcell REASON FOR VISIT: Nausea/vomiting and RUQ pain VISUALIZED STRUCTURES: Gallbladder, Gallbladder wall and Liver PERTINENT FINDINGS/IMPRESSION: Gallstones; No Pericholecystic fluid and No thickening of the gallbladder wall Exam complete
[2025-03-14 15:25] LABS: ALT 48 U/L (14-59); AST 42 U/L (15-37); Albumin 3.9 g/dL (3.4-5.0); Alkaline Phosphatase 221 U/L (46-116); Anion Gap 15.4 mmol/L (3-11); BUN 12 mg/dL (7-18); Bilirubin, Total 0.6 mg/dL (0.2-1.0); CO2 21.6 mmol/L (21.0-32.0); Calcium 8.6 mg/dL (8.5-10.1); Chloride 105 mmol/L (98-107); Glucose 76 mg/dL (74-106); Lipase 26 U/L (<78); Magnesium 1.8 mg/dL (1.8-2.4); Sodium 142 mmol/L (136-145); Total Protein 7.8 g/dL (6.4-8.2)
[2025-03-14 15:46] LABS: Potassium 2.8 mmol/L (3.5-5.1)
--- NOTE | 2025-03-14 16:29 | HPE_ITS ---
Date of service: 03/15/25 Time of Service: 06:55 Assessment and Plan Assessment and plan (1) Cholecystitis: Status: Acute Assessment and plan: With increased postprandial abdominal discomfort, mid epigastric and right upper quadrant tenderness, and the presence of gallstones as well as the elevated alk phos, I think all of this does seem consistent with acute cholecystitis. At this point, I think laparoscopic cholecystectomy is most reasonable course of action. I explained the nature of the operation to Ny and her , and I think both of them have a very good understanding of this. She is able to provide informed consent, and we will plan for cholecystectomy as soon as possible today History of Present Illness History of Present Illness Chief Complaint: abdominal pain Narrative: Ny is 24 years old. She began experiencing some mid epigastric abdominal discomfort sometime towards the end of her last . More recently, the symptoms have become more intense. She has longstanding mild gastrointestinal discomfort mostly in form of constipation, and she specked some of the symptoms may be related to that. Towards the end of last week, however, she began to experience more intense postprandial midepigastric pain. It radiated through the right and left subcostal regions. She describes it as sharp, stabbing, and mildly waxing and waning in nature typically lasting a few hours to as long as 12 to 14 hours. She was seen in the emergency department on the with similar symptoms. White blood cell count was normal, and alk phos was mildly elevated. She underwent a CAT scan that confirmed the presence of a distended gallbladder and gallstones. Bedside ultrasound was generally reassuring, and she was discharged with symptomatic biliary colic with basic dietary strategy to see if that would change her symptoms. Unfortunately, she has not really been able to tolerate any type of food beyond even mild liquids. She came back to the emergency department Friday afternoon with worsening pain. Alk phos was increased compared to the previous visit, although white blood cell count was still normal. At this point, this history seem most consistent with acute cholecystitis. Review of Systems Constitutional Constitutional: Reports fatigue, Denies fever(s) and Reports poor appetite Eyes Eyes: Reports system reviewed and no additional complaints, except as documented ENT Ears, Nose, Mouth, and Throat: Reports system reviewed and no additional complaints, except as documented Cardiovascular Cardiovascular: Denies chest pain and Denies dyspnea Respiratory Respiratory: Denies chest congestion, Denies cough and Denies dyspnea Gastrointestinal Gastrointestinal: Reports abdominal pain, Reports bloating and Reports nausea Genitourinary Genitourinary: Reports system reviewed and no additional complaints, except as documented Musculoskeletal Musculoskeletal: Reports system reviewed and no additional complaints, except as documented Endocrine Endocrine: Reports fatigue Hematologic/Lymphatic Hematologic/Lymphatic: Denies easy bleeding and Denies easy bruising PFSH All Active Problems Cholecystitis (Acute) Hypokalemia (Acute) Gallstones (Acute) Care and examination of lactating mother (Acute) Nicotine dependence (Acute) Asthma (Chronic) Low back pain (Acute) Depression (Chronic) Anxiety (Chronic) Smoker (Chronic 11/28/17) Vapes 1 pod per week (07/08/2024) Medical History Encounter for management and injection of depo-Provera Bilobed placenta Normal labor Category II heart rate tracing during labor and delivery care and examination immediately after delivery Vulvovaginal candidiasis Bacterial vaginosis in Uterine contractions Abdominal pain of right lower quadrant during , antepartum Pelvic pain affecting uterine contractions in third trimester, antepartum contractions Dysuria Second trimester bleeding Family history of congenital heart defect cousin and FOB's cousin Family history of factor V Leiden mutation Marijuana abuse Stopped 10/17/2023 Impingement syndrome of left shoulder SLAP lesion of right shoulder Tendinitis of long head of biceps brachii of both shoulders Otitis externa Scapular dyskinesis Adolescent idiopathic scoliosis of thoracolumbar region (08/23/16) ADHD (attention deficit hyperactivity disorder) (11/23/14) Moderate persistent asthma without complication (08/23/16) Hematuria seen by Urology but declined hematuria workup Concussion Chronic abdominal pain Acute neck pain Depot contraception Fracture of left wrist (08/23/09) Fracture of right clavicle (11/04/04) Sprain of medial collateral ligament of right knee, subsequent encounter (04/22/17) Eczema (11/23/14) Surgical History [place] teeth removed ROOF OF MOUTH RECONSTRUCTED Family History Mother Substance abuse Gestational hypertension several female relatives Neoplasm breast CA Paternal Grandmother Diabetes Heart disease [place] 12/2024 Paternal Cousin Diabetes Maternal Grandmother Breast cancer Paternal Grandfather , 50 Cancer Father Hyperlipidemia Social History Smoking/Tobacco Use Status: Never Smoking risk assessment performed?: Yes Alcohol Intake: former Drug use: Occasionally Substance use type: does not use Household members: family Housing: house Sexually active: Yes Do you think of yourself as: straight/heterosexual Current gender identity: female Seatbelt use: sometimes Do you feel safe at home: Yes Do you feel safe in your relationship?: Yes Female Reproductive History Menstrual control method: none History History 2 3 Para 0 Hx # Term Pregnancies 1 Multiple births 0 Hx # Pregnancies 0 Ectopic pregnancies 0 AB induced 0 Hx Number of Living Children 1 AB spontaneous 2 Past Pregnancies Del. 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 03/14/25 14:21 for tree nut allergy almond Allergy Intermediate Skin Rash Verified 03/14/25 14:21 acetylcysteine (From NAC) AdvReac Intermediate Other (See Verified 03/14/25 14:21 Comment) fluoxetine AdvReac Psychosis Verified 03/14/25 14:21 Home Medications Medication Instructions Recorded Confirmed Type inhalational spacing device #1 ea 02/14/20 03/14/25 Rx (Aerochamber MV spacer) epinephrine 0.3 mg/0.3 mL 0.3 mg (0.3 mL) IJ ONCE PRN 05/24/20 03/14/25 Rx injection, auto-injector (EpiPen) Anaphylaxis ##1 albuterol sulfate 90 mcg/actuation 1 - 2 puff inhalati on DAILY ##1 10/04/20 03/14/25 Rx aerosol inhaler (ProAir HFA) albuterol sulfate 90 mcg/actuation 2 puff inhalation P RN PRN 06/16/22 03/14/25 History aerosol inhaler (Ventolin HFA) budesonide-formoterol HFA 80 1 puff inhalation BID 03/14/25 History mcg-4.5 mcg/actuation aerosol inhaler (Symbicort) docusate sodium 100 mg capsule 100 mg PO BID #60 caps 07/14/24 03/14/25 Rx (Colace) buspirone 5 mg tablet 5 mg PO BID #60 tabs 5 03/14/25 Rx omeprazole 10 mg capsule,delayed 10 mg PO DAILY #14 ca ps 03/02/25 03/14/25 Rx release omeprazole 20 mg capsule,delayed 20 mg PO DAILY #14 ca ps 03/02/25 03/14/25 Rx release medroxyprogesterone 150 mg/mL 150 mg IM Q12W #1 mL 03/14/25 Rx intramuscular syringe (Depo-Provera) Exam Const General: cooperative, healthy appearing and comfortable Orientation: alert, awake and oriented x3 HENMT Head: normal to inspection Eyes General: appearance normal, both eyes and all related structures Neck Neck: normal visual inspection, full ROM and no lymphadenopathy Resp Effort & Inspection: normal respiratory effort Auscultation: clear to auscultation bilaterally Cardio Rate: regular rate Rhythm: regular rhythm Heart Sounds: S1 normal and S2 normal GI Inspection: normal to inspection and non-distended Palpation: soft, no hernias, no masses and tender (Mid epigastrium) Results Imaging Abdomen CT scan report/results: report reviewed and image reviewed CT scan - pelvis: report reviewed and image reviewed Labs 03/14/25 14:58 03/15/25 06:03 Labs: Laboratory Results - last 24 hr 03/14/25 14:58 WBC 7.17 RBC 4.38 Hgb 12.1 Hct 36.3 MCV 83 MCH 27.6 MCHC 33.3 RDW 11.5 L Plt Count 354 MPV 8.3 Immature Gran % 0.3 Neutrophils % 64.7 Lymphocytes % 23.6 Monocytes % 9.3 Eosinophils % 1.7 Basophils % 0.4 Nucleated RBC % 0.0 Absolute Neutrophils 4.64 Absolute Lymphocytes 1.69 Absolute Monocytes 0.67 Absolute Eosinophils 0.12 Absolute Basophils 0.03 Sodium 142 Potassium 2.8 L* Chloride 105 Carbon Dioxide 21.6 Anion Gap 15.4 H BUN 12 Creatinine 0.7 Est GFR (CKD-EPI 2020) 124.55 Glucose 76 Calcium 8.6 Magnesium 1.8 Total Bilirubin 0.6 AST 42 H ALT 48 Alkaline Phosphatase 221 H Total Protein 7.8 Albumin 3.9 Lipase 26 Last Vital Signs Temp 98.4 F 03/14/25 14:19 Pulse 80 03/14/25 14:19 Resp 16 03/14/25 14:19 BP 131/80 03/14/25 14:19 Pulse Ox 98 03/14/25 14:19 Time Spent Time spent with Patient: 40-54 minutes Time was spent: preparing to see the patient(eg.review tests), obtaining and/or reviewing separately otained hiistory, referring, communicating with other health home care coordinator, indepentently interpreting results, counseling the patient and care coordination
[2025-03-14] MEDS: Potassium Chloride 20 MEQ TABCR 40 MEQ PO (17:46)
[2025-03-14 18:31] VITALS: BP 122/83; PULSE 81; RESP 14; TEMP 36.4; O2SAT 98
[2025-03-14] MEDS: busPIRone 5 MG TAB PO (19:15)
[2025-03-14] MEDS: PIPERACILLIN/TAZO 3.375 GM in Normal Saline 50 ML IVPB (19:43)
[2025-03-14] MEDS: Lactated Ringers 1,000 ML 75 ML IV (19:44)
[2025-03-14] MEDS: Normal Saline Flush 10 ML SYR IVP (19:50)
[2025-03-15] VITALS (30 sets, daily range): BP systolic 110–158; BP diastolic 66–105; PULSE 58–111; RESP 14–28; TEMP 36.4–37.2; O2SAT 79–100; BMI 21.7
[2025-03-15] MEDS: PIPERACILLIN/TAZO 3.375 GM in Normal Saline 50 ML IVPB ×2 (01:26→08:10)
[2025-03-15 06:45] LABS: ALT 40 U/L (14-59); AST 27 U/L (15-37); Albumin 3.5 g/dL (3.4-5.0); Alkaline Phosphatase 189 U/L (46-116); Anion Gap 22.0 mmol/L (3-11); BUN 12 mg/dL (7-18); Bilirubin, Direct 0.2 mg/dL (0.0-0.2); Bilirubin, Total 0.6 mg/dL (0.2-1.0); CO2 14.0 mmol/L (21.0-32.0); Calcium 9.1 mg/dL (8.5-10.1); Chloride 106 mmol/L (98-107); Lipase 18 U/L (<78); Potassium 3.6 mmol/L (3.5-5.1); Sodium 142 mmol/L (136-145); Total Protein 7.4 g/dL (6.4-8.2)
[2025-03-15 06:53] LABS: Glucose 46 mg/dL (74-106)
[2025-03-15] MEDS: DEXTROSE 5%-LACTATED RINGERS 1,000 ML 75 ML IV (07:11)
[2025-03-15] MEDS: Acetaminophen 325 MG TAB 650 MG PO (07:33)
[2025-03-15] MEDS: Docusate Sodium 100 MG CAP PO (07:33)
[2025-03-15] MEDS: busPIRone 5 MG TAB PO ×2 (08:09→19:30)
[2025-03-15] MEDS: Enoxaparin 40 MG/0.4 ML SYR SC (08:12)
--- NOTE | 2025-03-15 12:42 | ANES.PREOP_ITS ---
General Info Date of Service Date Performed: 03/15/25 Height: 5 ft 6 in Weight: 61.235 kg Body Mass Index (BMI): 21.7 Surgical Procedure: Operation Date: 03/15/25 14:10 Proposed Procedure Side Surgeon p Cholecystectomy Laparoscopic Washington Rascon MD Meds Allergies and Home Medications Allergies Allergy/AdvReac Type Severity Reaction Status Date / Time shellfish derived Allergy Severe Anaphylaxis Verified 03/14/25 14:21 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 03/14/25 14:21 for tree nut allergy almond Allergy Intermediate Skin Rash Verified 03/14/25 14:21 acetylcysteine (From NAC) AdvReac Intermediate Other (See Verified 03/14/25 14:21 Comment) fluoxetine AdvReac Psychosis Verified 03/14/25 14:21 Home Medication Medication Instructions Recorded inhalational spacing device #1 ea 02/14/20 (Aerochamber MV spacer) epinephrine 0.3 mg/0.3 mL 0.3 mg (0.3 mL) IJ ONCE PRN 05/24/20 injection, auto-injector (EpiPen) Anaphylaxis ##1 albuterol sulfate 90 mcg/actuation 1 - 2 puff inhalati on DAILY ##1 10/04/20 aerosol inhaler (ProAir HFA) albuterol sulfate 90 mcg/actuation 2 puff inhalation P RN PRN 06/16/22 aerosol inhaler (Ventolin HFA) budesonide-formoterol HFA 80 1 puff inhalation BID mcg-4.5 mcg/actuation aerosol inhaler (Symbicort) docusate sodium 100 mg capsule 100 mg PO BID #60 caps 07/14/24 (Colace) buspirone 5 mg tablet 5 mg PO BID #60 tabs 5 omeprazole 10 mg capsule,delayed 10 mg PO DAILY #14 ca ps 03/02/25 release omeprazole 20 mg capsule,delayed 20 mg PO DAILY #14 ca ps 03/02/25 release medroxyprogesterone 150 mg/mL 150 mg IM Q12W #1 mL intramuscular syringe (Depo-Provera) Current Visit Medications: Current Medications Generic Name Dose Route Start Last Admin Trade Name Freq PRN Reason Stop Dose Admin Acetaminophen 650 mg 03/14/25 18:22 03/15/25 07:33 Acetaminophen 325 Mg Tab PO 650 mg Q6H PRN PRN Administration Abdominal Pain Albuterol Sulfate 2 puff 03/15/25 07:18 Albuterol Hfa 8 Gm 60 Puff Inh IH Q4H PRN PRN Budesonide/Formoterol Fumarate 0 puff 03/14/25 20:00 03/15/25 07:24 Budesonide/Formoterol 80/4.5 6.9 Gm 60 Puff Inh IH Not Given BID ALICE Buspirone HCl 5 mg 03/14/25 20:00 03/15/25 08:09 Buspirone 5 Mg Tab PO 5 mg BID ALICE Administration Diphenhydramine HCl 25 mg 03/14/25 19:29 Diphenhydramine 25 Mg Cap PO Q6H PRN PRN Docusate Sodium 100 mg 03/14/25 20:00 03/15/25 07:33 Docusate Sodium 100 Mg Cap PO 100 mg BID ALICE Administration Enoxaparin Sodium 40 mg 03/15/25 08:30 03/15/25 08:12 Enoxaparin 40 Mg/0.4 Ml Syr SC 40 mg DAILY ALICE Administration Hydromorphone HCl 0.5 mg 03/14/25 18:22 Hydromorphone 2 Mg/Ml Syr IVP Q4H PRN PRN Piperacillin Sod/Tazobactam 50 mls @ 100 mls/hr 03/14/25 18:00 03/15/25 08:10 Sod 3.375 gm/ Sodium Chloride IVPB 100 mls/hr Q6H ALICE Administration Dextrose/Lactated Ringer's 1,000 mls @ 75 mls/hr 03/15/25 07:00 03/15/25 07:11 Dextrose 5%-Lr IV 75 mls/hr INFUSION ALICE Administration Dextrose/Lactated Ringer's 1,000 mls @ 75 mls/hr 03/15/25 07:00 Dextrose 5%-Lr IV INFUSION [facility] IV Miscellaneous Supplies 1 each 03/14/25 18:22 Iv Access IV DIRECTED ALICE Omeprazole 20 mg 03/15/25 07:30 03/15/25 07:25 Omeprazole 20 Mg Capcr PO Not Given 30 ALICE Sodium Chloride 0 ml 03/14/25 18:22 Normal Saline Flush 10 Ml Syr IVP PRN PRN Sodium Chloride 0 ml 03/14/25 20:00 03/15/25 07:25 Normal Saline Flush 10 Ml Syr IVP Not Given BID ALICE Sodium Chloride 0 ml 03/14/25 18:22 Normal Saline 10 Ml Vial IJ DIRECTED PRN PFSH Active Problems Active Problems: Problem Status Onset Code Hypokalemia Acute E87.6 Gallstones Acute K80.20 Care and examination of lactating mother Acute Z39.1 Nicotine dependence Acute F17.200 Asthma Chronic J45.909 Low back pain Acute M54.50 Depression Chronic F32.A Anxiety Chronic F41.9 Smoker Chronic 11/28/17 F17.200 Medical History Medical History Encounter for management and injection of depo-Provera Bilobed placenta Normal labor Category II heart rate tracing during labor and delivery care and examination immediately after delivery Vulvovaginal candidiasis Bacterial vaginosis in Uterine contractions Abdominal pain of right lower quadrant during , antepartum Pelvic pain affecting uterine contractions in third trimester, antepartum contractions Dysuria Second trimester bleeding Family history of congenital heart defect cousin and FOB's cousin Family history of factor V Leiden mutation Marijuana abuse Stopped 10/17/2023 Impingement syndrome of left shoulder SLAP lesion of right shoulder Tendinitis of long head of biceps brachii of both shoulders Otitis externa Scapular dyskinesis Adolescent idiopathic scoliosis of thoracolumbar region (08/23/16) ADHD (attention deficit hyperactivity disorder) (11/23/14) Moderate persistent asthma without complication (08/23/16) Hematuria seen by Urology but declined hematuria workup Concussion Chronic abdominal pain Acute neck pain Depot contraception Fracture of left wrist (08/23/09) Fracture of right clavicle (11/04/04) Sprain of medial collateral ligament of right knee, subsequent encounter (04/22/17) Eczema (11/23/14) Surgical History Surgical History [place] teeth removed ROOF OF MOUTH RECONSTRUCTED Tobacco Smoking/Tobacco Use Status: Never Alcohol Alcohol Intake: former Substance Use Substance use: Occasionally Substance use type: does not use Prental History History 2 3 Para 0 Hx # Term Pregnancies 1 Multiple births 0 Hx # Pregnancies 0 Ectopic pregnancies 0 AB induced 0 Hx Number of Living Children 1 AB spontaneous 2 Past Pregnancies Del. Date GA/Weeks # Preg Succ Route Wgt Sex Labor Lgth Anesth esia Location Prov [facility] 01/18/25 39 No Yes vaginal 3175.147 g Male Marie Leo Vital Signs and Lab Results Vital Signs Most Recent Vital Signs in EMR: Most Recent Vital Signs Temp Pulse Resp BP Pulse Ox 36.5 C 92 H 24 110/66 99 03/15/25 07:25 03/15/25 07:25 03/15/25 07:25 03/15/25 07:25 03/15/25 07:25 Point of Care Results Point of Care Results: Finger Stick Blood Glucose 59 03/15/25 10:46 Lab Results 03/14/25 14:58 03/15/25 06:03 Complete Blood Count: 2 WBC, (4.4-10.8) 7.17 10^3/uL 03/14/25, 14:58 RBC, (3.93-5.22) 4.38 10^6/uL 03/14/25, 14:58 Hgb, (11.2-15.7) 12.1 g/dL 03/14/25, 14:58 Hct, (36.0-46.0) 36.3 % 03/14/25, 14:58 Plt Count, (130-400) 354 10^3/uL 03/14/25, 14:58 Complete Metabolic Panel: 2 Sodium, (136-145) 142 mmol/L Today, 06:03 Potassium, (3.5-5.1) 3.6 mmol/L Today, 06:03 Chloride, (98-107) 106 mmol/L Today, 06:03 Carbon Dioxide, (21.0-32.0) 14.0 mmol/L L Today, 06:03 BUN, (7-18) 12 mg/dL Today, 06:03 Creatinine, (0.55-1.02) 0.8 mg/dL Today, 06:03 Est GFR (CKD-EPI 2020), (mL/min/1.73m2) 106.11 Today, 06:03 Magnesium, (1.8-2.4) 1.8 mg/dL 03/14/25, 14:58 Calcium, (8.5-10.1) 9.1 mg/dL Today, 06:03 Albumin, (3.4-5.0) 3.5 g/dL Today, 06:03 Glucose, (74-106) 46 mg/dL L* Today, 06:03 Liver Function Panel: 2 ALT, (14-59) 40 U/L Today, 06:03 AST, (15-37) 27 U/L Today, 06:03 Pancreas Panel: 2 Lipase, (<78) 18 U/L Today, 06:03 Panel: 2 Urine HCG, Qual Negative 03/09/25, 13:12 Imaging and Studies Imaging and Studies Study information below may be from another EMR and interpreted by another provider. Please see original notes in EMR for more complete details. EKG Summary: EKG PATIENT NAME: Ny Short UNIT #: [id number] ORDERING PROVIDER: Ian Collazo PRIMARY CARE PROVIDER: JACKSON KLEIN NP DATE/TIME OF SERVICE: 06/01/24 1210 : 2000 PERFORMING LOCATION: ER APPROVED REPORT Exam: Resting ECG Reason for Exam: dizziness Patient Location: E HR:70 bpm ECG Measurements Heart Rate 70 AXIS NH 138 P 39 QRSd 79 QRS 54 QT 391 T31 QTc 424 Conclusion Sinus rhythm...normal P axis, V-rate 60- 99 No STEMI - <Electronically signed by Chester Jeronimo M.D. in [place]> E-Sign Date: 06/01/24 E-Sign Time: 1706 ADDENDUM APPROVED REPORT Exam: Resting ECG Reason for Exam: dizziness Patient Location: E HR:70 bpm ECG Measurements Heart Rate 70 AXIS NH 138 P 39 QRSd 79 QRS 54 QT 391 T31 QTc 424 Conclusion Sinus rhythm...normal P axis, V-rate 60- 99 No STEMI I have reviewed and I agree with the emergency room physician's ECG interpretation. Electronically signed by: <Electronically signed by Awilda Whitfield M.D. in [place]> 06/03/24 0815 Cosigned by: Anesthesia Assessment and Plan Anesthesia History Personal History: No History of Anesthesia Complications Family History: No Family History of Anesthesia Complications Exercise Tolerance Exercise Tolerance: Metabolic Equivalents>4 Pertinent Negatives Pertinent Negatives: No Symptoms of GERD, No Major Cardiovascular Symptoms or Complaints and No History of CVA/TIA Cardiac & Pulmonary Exam Cardiac Exam: Normal S1/S2 Heart Sounds Pulmonary Exam: Clear Bilateral Breath Sounds Implantable Cardiac Device Does patient have a Pacemaker or an ICD?: No Airway Exam Known Difficult Airway: No Previous Airway Comments:: Per history roof of mouth has been reconstructed Mallampati Class: 2 Mouth Opening: Normal (> 3cm) Thyromental Distance: Greater than 3 cm Neck Range of Motion: Full ROM Neck Circumference: Normal Teeth Condition: Normal Dentition ASA Classification ASA Score: ASA 2 Emergency Case?: No NPO Status NPO Status: NPO Clears >2 hours, Solids >8 hours Status Status: Negative HCG Anesthesia Plan Resuscitation Status: Full Code Anesthesia Technique: General Anesthesia Airway Planned: Endotracheal Tube Monitors Used: Standard Monitors Preoperative Comments:: 24 yo patient here for Laparoscopic cholecystectomy (Gallstones). 8 weeks . Hx of asthma, well controlled. Vapes 1 pod per week. PSH: Roof of mouth reconstructed, wisdom tooth removal, epidural.
[2025-03-15] MEDS: Indocyanine green 25 MG VIAL (14:30)
--- NOTE | 2025-03-15 15:11 | GB_PTH ---
PATIENT: Ny Short LOC: OBS U#:[id number] AGE/SX: 24/F ROOM: OBS.300 RE03/14/[address]: Washington Rascon MD : 2000 BED: A DIS: 03/15/2025 SPEC #: [id number] RECD: 03/16/25 12:38 STATUS: KRISTI REQ #: [id number] MAURILIO: 03/15/25 15:[address]: Washington Rascon DEPT: Surgical Specimen RECD BY: Carla Costa ENTERED: 03/16/25 12:39 SP TYPE: GB OTHR DR: Divine De Los Santos Tissues: 1 - GALLBLADDER Procedures: GROSS AND MICRO LEVEL 3 Comments: [id number]
[2025-03-15] MEDS: Bupivacaine 0.25% Pres-Free W/EPI 30 ML VIAL (15:22)
[2025-03-15] MEDS: ACETAMINOPHEN 1,000 MG/100 ML BAG 400 MG IVPB (15:42)
--- NOTE | 2025-03-15 15:42 | ROE_ITS ---
Operative Note Operative Note PRE-OP DIAGNOSIS: Acute cholecystitis POST-OP DIAGNOSIS: same PROCEDURE: Laparoscopic cholecystectomy SURGEON: Washington Rascon CONTRACTOR BUYER: Dari Mahajan ANESTHESIA TYPE: General LMA/ETT Refer to Anesthesia Record ESTIMATED BLOOD LOSS: 25 PATHOLOGY: other (Gallbladder) COMPLICATIONS: None Patient was transported to: PACU Patient's condition: stable Indications: Renata is a 24-year-old woman with midepigastric and right upper quadrant pain, and history, physical, and laboratory studies consistent with acute cholecystitis. Findings: Acute calculous cholecystitis Procedure Description: After satisfactory induction of general anesthesia, I prepped and draped the abdomen in usual fashion. I established a generous field block above the umbilicus, made a midline incision. Then, using a 5 mm optical viewing port, establish pneumoperitoneum. There was no evidence of any injury from trocar advancement. Then, under the vision of the laparoscope, and with local anesthetic, I inserted a 5 mm port in the right anterior axillary line. The camera was moved to this position, and the umbilical port was upsized to 12 mm. Another 5 mm port was placed in the mid epigastrium, and one last 5 mm port was placed in the right mid abdomen. Reverse Trendelenburg with the left side down positioning was then utilized. The dome of the gallbladder did appear little bit edematous, there was some inflammation along the main body of the gallbladder. The dome was grasped, and elevated cephalad. Indocyanine green was administered, and we began dissecting some adhesions along the cystic neck, working in a lateral to medial fashion. Dissection was carried down onto the cystic duct, staying well away from the area of the common bile duct. These adhesions did extend down onto the first portion of the duodenum, which required some dissection of the overlying serosa, but the underlying duodenum looked fine. As the dissection came along the triangle like the Thuan, the cystic artery was identified, and the critical view of safety was obtained. I then doubly clipped and divided the cystic duct and artery. Electrocautery was then used to take down the gallbladder fossa. High on the cystic neck, I did encounter a diminutive branch of a posterior cystic artery. After ensuring this was not an aberrant or replaced right hepatic artery, this was clipped and divided. Once the gallbladder was completely from the fossa, it was placed in Endo Catch bag, by way of the 12 mm port. The surgical site was then carefully examined. It was hemostatic. There was no evidence of any bile leakage. The serosa of the duodenum looked fine, with no evidence of any significant compromise. The 12 mm port in the specimen bag were then removed, and a Ty Marshall wound closure device was used to reapproximate the umbilical fascia. The remaining 5 mm ports were removed. There was no evidence of any bleeding. Skin and subcutaneous tissues were irrigated and closed with subcuticular stitches. Bandages were applied, and Ny was awoken from the anesthetic, extubated, transferred to the recovery unit. Date of Procedure: 03/15/25
[2025-03-15] MEDS: Ketorolac 30 MG/ML VIAL IVP (15:44)
[2025-03-15] MEDS: HYDROmorphone 2 MG/ML SYR IVP ×2 (16:09→16:26)
--- NOTE | 2025-03-15 16:28 | W.ANESPOSTOP ---
Postoperative Evaluation Date, Time and Location Date Performed: 03/15/25 Time Performed: 16:28 Patient Location: PACU Vital Signs Most Recent Imported Vital Signs: Most Recent Vital Signs Temp Pulse Resp BP Pulse Ox 37.2 C 81 19 133/79 99 03/15/25 16:15 03/15/25 16:11 03/15/25 16:11 03/15/25 16:10 03/15/25 16:11 Pain Score Most Recent Pain Score: Most Recent Pain Score Pain Level 0 03/15/25 16:00 Assessment Mental Status: Awake (Alert & Oriented to Patient Baseline) Airway and Respiratory Function: Patent airway with normal (patient baseline) respiratory exam Cardiovascular Function: Hemodynamically Stable Hydration Status: Adequately Hydrated Nausea & Vomiting: No Nausea or Vomiting Pain: Pain is tolerable per patient Peripheral Nerve Block: Patient did not receive a nerve block
--- NOTE | 2025-03-15 16:48 | W.PM.DSUDISC ---
Date of service: 03/15/25 Discharge Plan Disposition Patient Disposition: Home Condition: Improving Discharge Details Reason For Visit: Cholecystitis Admit Date/Time: 03/14/25 16:37 Admit Provider: Washington Rascon Attending Provider: Washington Rascon Primary Care Provider: Divine De Los Santos Hospital Course Hospital Course: Ny is a 24-year-old woman with recurrent midepigastric and right upper quadrant pain in the setting of known cholelithiasis. She failed a trial of nonoperative management and had recrudescence of her symptoms almost immediately after discharge from the emergency department. Repeat labs demonstrated an increasing alk phos consistent with cholecystitis. I recommended laparoscopic cholecystectomy, and she agreed. She underwent this procedure on the afternoon of 03/15/2025. Diet was advanced after surgery, she was tolerating liquids and food with good pain control and discharged home with outpatient follow-up. Home Meds and New Rx's Prescriptions: Continued albuterol sulfate [ProAir HFA] 90 mcg/actuation HFA aerosol inhaler 1 - 2 puff Inhalation DAILY Qty: 1 2RF omeprazole 20 mg capsule,delayed release(DR/EC) 20 mg PO DAILY Qty: 14 0RF omeprazole 10 mg capsule,delayed release(DR/EC) 10 mg PO DAILY Qty: 14 0RF epinephrine [EpiPen] 0.3 mg/0.3 mL auto-injector 0.3 mg IJ ONCE PRN (Reason: Anaphylaxis) Qty: 1 1RF (DME) Aerochamber MV Spacer See Rx Instructions .ROUTE .MEDSUPPLY Qty: 1 0RF Rx Instructions: As directed docusate sodium [Colace] 100 mg capsule 100 mg PO BID Qty: 60 6RF buspirone 5 mg tablet 5 mg PO BID Qty: 60 3RF medroxyprogesterone [Depo-Provera] 150 mg/mL syringe 150 mg IM Q12W Qty: 1 5RF albuterol sulfate [Ventolin HFA] 90 mcg/actuation HFA aerosol inhaler 2 puff INHALATION PRN PRN Patient Comments: INHALE ONE TO TWO PUFFS BY MOUTH EVERY DAY NEEDED budesonide-formoterol [Symbicort] 80-4.5 mcg/actuation HFA aerosol inhaler 1 puff INHALATION BID Patient Comments: INHALE 1 PUFF BY MOUTH TWICE A DAY Discharge Instructions Instructions: Cholecystectomy (DC), Cholecystectomy, Laparoscopic Surgery Additional Instructions: Ny it was nice to meet you and your growing family. I am sorry that you found herself in the hospital but this should serve you well in the long run. Hopefully, you will make a quick and uneventful recovery as you transition home. As am sure you recall, you came to the hospital because of pain in your abdomen. The gallstones seen on your CAT scan, as well as your ultrasound, and your symptoms and blood work suggested cholecystitis as a source of your pain. You underwent laparoscopic removal of your gallbladder, known as cholecystectomy. At the time of surgery, there was evidence of inflammation of the gallbladder, and I suspect this has been the source of your discomfort. There was some inflammation around the bottom portion of the gallbladder next to your duodenum, consistent with stones in this portion of the gallbladder. I was able to get this all freed up, and remove the gallbladder just as we discussed before surgery. Patient to have the gallbladder removed laparoscopically typically have pain often times focused at the bellybutton, and occasionally up into the right shoulder. That is extremely common and nothing to worry about. You may also get some bruising around the incisions. Using ice packs over the incisions can help quite a bit with pain and swelling after the surgery. If you notice any of the incision sites turning bright red, please let my office know. I do recommend that you alternate [id number] Tylenol and ibuprofen every 6 hours for the first 2 days. Then transition to using them as needed. I am certainly happy to prescribe a stronger pain medication if you need it, but all of those medications are secreted in breastmilk, and although they are largely thought to be safe, minimizing exposure to a is always the best option. We can see how it the next 24 hours ago. If you are uncomfortable, please call my office and I we will arrange for prescription. Like we discussed beforehand, be a little careful with your activity over the next few days. You should be up and walking around a little bit more more each day. Keep the lifting less than 10 pounds, or about a gallon of milk. Using a pillow over the incisions for coughing and sneezing can help provide some relief. And it may take some adjusting to continue with breast-feeding in the first few days. Beginning on the , you should remove all of the bandages, and wash all of the incisions with warm soapy water. You are welcome to replace Band-Aids if you find that most comfortable. I will have my office call you tomorrow to set up a follow-up appointment. If you need anything at all, please do not hesitate to call us at [phone] Referrals: Washington Rascon MD [ [facility] STAFF PHYSICIAN, Surgery] Activity:: No heavy lifting Equipment/Supplies:: No Equipment Needed Diet:: As Tolerated DS: Diagnosis Discharge Diagnosis (1) Cholecystitis: Status: Acute Asessment and Plan: Status post laparoscopic cholecystectomy; discharge home with outpatient follow-up
--- NOTE | 2025-03-15 18:22 | DSE_ITS ---
Date of service: 03/15/25 Time of Service: 18:22 DS: Diagnosis Discharge Diagnosis (1) Cholecystitis: Status: Acute Asessment and Plan: Discharge home with outpatient follow-up Discharge Plan Disposition Patient Disposition: Home Condition: Improving Discharge Details Reason For Visit: Cholecystitis Admit Date/Time: 03/14/25 16:37 Admit Provider: Washington Rascon Attending Provider: Washington Rascon Primary Care Provider: Divine De Los Santos Hospital Course Hospital Course: Ny is a 24-year-old woman with recurrent midepigastric and right upper quadrant pain in the setting of known cholelithiasis. She failed a trial of nonoperative management and had recrudescence of her symptoms almost immediately after discharge from the emergency department. Repeat labs demonstrated an increasing alk phos consistent with cholecystitis. I recommended laparoscopic cholecystectomy, and she agreed. She underwent this procedure on the afternoon of 03/15/2025. Diet was advanced after surgery, she was tolerating liquids and food with good pain control and discharged home with outpatient follow-up. Home Meds and New Rx's Prescriptions: Continued albuterol sulfate [ProAir HFA] 90 mcg/actuation HFA aerosol inhaler 1 - 2 puff Inhalation DAILY Qty: 1 2RF omeprazole 20 mg capsule,delayed release(DR/EC) 20 mg PO DAILY Qty: 14 0RF omeprazole 10 mg capsule,delayed release(DR/EC) 10 mg PO DAILY Qty: 14 0RF epinephrine [EpiPen] 0.3 mg/0.3 mL auto-injector 0.3 mg IJ ONCE PRN (Reason: Anaphylaxis) Qty: 1 1RF (DME) Aerochamber MV Spacer See Rx Instructions .ROUTE .MEDSUPPLY Qty: 1 0RF Rx Instructions: As directed docusate sodium [Colace] 100 mg capsule 100 mg PO BID Qty: 60 6RF buspirone 5 mg tablet 5 mg PO BID Qty: 60 3RF medroxyprogesterone [Depo-Provera] 150 mg/mL syringe 150 mg IM Q12W Qty: 1 5RF albuterol sulfate [Ventolin HFA] 90 mcg/actuation HFA aerosol inhaler 2 puff INHALATION PRN PRN Patient Comments: INHALE ONE TO TWO PUFFS BY MOUTH EVERY DAY NEEDED budesonide-formoterol [Symbicort] 80-4.5 mcg/actuation HFA aerosol inhaler 1 puff INHALATION BID Patient Comments: INHALE 1 PUFF BY MOUTH TWICE A DAY Discharge Instructions Instructions: Cholecystectomy (DC), Cholecystectomy, Laparoscopic Surgery Additional Instructions: yN it was nice to meet you and your growing family. I am sorry that you found herself in the hospital but this should serve you well in the long run. Hopefully, you will make a quick and uneventful recovery as you transition home. As am sure you recall, you came to the hospital because of pain in your abdomen. The gallstones seen on your CAT scan, as well as your ultrasound, and your symptoms and blood work suggested cholecystitis as a source of your pain. You underwent laparoscopic removal of your gallbladder, known as cholecystectomy. At the time of surgery, there was evidence of inflammation of the gallbladder, and I suspect this has been the source of your discomfort. There was some inflammation around the bottom portion of the gallbladder next to your duodenum, consistent with stones in this portion of the gallbladder. I was able to get this all freed up, and remove the gallbladder just as we discussed before surgery. Patient to have the gallbladder removed laparoscopically typically have pain often times focused at the bellybutton, and occasionally up into the right shoulder. That is extremely common and nothing to worry about. You may also get some bruising around the incisions. Using ice packs over the incisions can help quite a bit with pain and swelling after the surgery. If you notice any of the incision sites turning bright red, please let my office know. I do recommend that you alternate [id number] Tylenol and ibuprofen every 6 hours for the first 2 days. Then transition to using them as needed. I am certainly happy to prescribe a stronger pain medication if you need it, but all of those medications are secreted in breastmilk, and although they are largely thought to be safe, minimizing exposure to a is always the best option. We can see how it the next 24 hours ago. If you are uncomfortable, please call my office and I we will arrange for prescription. Like we discussed beforehand, be a little careful with your activity over the next few days. You should be up and walking around a little bit more more each day. Keep the lifting less than 10 pounds, or about a gallon of milk. Using a pillow over the incisions for coughing and sneezing can help provide some relief. And it may take some adjusting to continue with breast-feeding in the first few days. Beginning on the , you should remove all of the bandages, and wash all of the incisions with warm soapy water. You are welcome to replace Band-Aids if you find that most comfortable. I will have my office call you tomorrow to set up a follow-up appointment. If you need anything at all, please do not hesitate to call us at [phone] Referrals: Washington Rascon MD [ [facility] STAFF PHYSICIAN, Surgery] Activity:: No heavy lifting Equipment/Supplies:: No Equipment Needed Diet:: As Tolerated DS: Summary Time Spent with Patient providing and/or coordinating discharge services: Less than 30 minutes Status at Discharge Functional status at discharge: independent ambulation Overall status at discharge: patient is progressing back to baseline Mental Status: mental status grossly normal Speech and Movement: speech and movement normal Mood: congruent mood Affect: normal affect Exam Psych Mental Status: mental status grossly normal Speech and Movement: speech and movement normal Mood: congruent mood Affect: normal affect DS: Data Vitals/I&O Vitals and I&O: Vital Signs Temperature 97.7 F 03/15/25 16:50 Temperature Source Oral 03/15/25 16:50 Pulse 72 03/15/25 18:07 Pulse 61 03/15/25 16:31 Respiratory Rate 16 03/15/25 18:07 Blood Pressure 136/91 H 03/15/25 18:07 Blood Pressure Mean 106 03/15/25 18:07 Blood Pressure Position Supine 03/14/25 14:19 Pulse Oximetry 100 03/15/25 18:07 Respiratory End-tidal CO2 34 03/15/25 16:31 Oxygen Delivery Method Room Air 03/15/25 18:07 Oxygen Flow Rate 0 03/15/25 18:07 Pain Level 4 03/15/25 18:07 Intake & Output 03/14/25 03/15/25 03/15/25 23:59 11:59 23:59 Intake Total 50 / 50 50 / 1050 1000 / 1050 Output Total 725 / 725 Balance 50 / 50 50 / 325 275 / 325 Weight 135 lb 135 lb Intake: IV 50 / 50 50 / 1050 1000 / 1050 Output: Urine 700 / 700 Estimated Blood Loss Other: Urine Color Yellow Urine Appearance Clear Urine Odor None Comment PT VOIDED ON A BEDPAN. PACU. Emesis Description None Data Completed and Pending Pending Labs at Discharge: 03/14/25 03/15/25 14:58 06:03 WBC 7.17 RBC 4.38 Hgb 12.1 Hct 36.3 MCV 83 MCH 27.6 MCHC 33.3 RDW 11.5 L Plt Count 354 MPV 8.3 Immature Gran % 0.3 Neutrophils % 64.7 Lymphocytes % 23.6 Monocytes % 9.3 Eosinophils % 1.7 Basophils % 0.4 Nucleated RBC % 0.0 Absolute Neutrophils 4.64 Absolute Lymphocytes 1.69 Absolute Monocytes 0.67 Absolute Eosinophils 0.12 Absolute Basophils 0.03 Sodium 142 142 Potassium 2.8 L* 3.6 Chloride 105 106 Carbon Dioxide 21.6 14.0 L Anion Gap 15.4 H 22.0 H BUN 12 12 Creatinine 0.7 0.8 Est GFR (CKD-EPI 2020) 124.55 106.11 Glucose 76 46 L* Calcium 8.6 9.1 Magnesium 1.8 Total Bilirubin 0.6 0.6 Conjugated Bilirubin 0.2 AST 42 H 27 ALT 48 40 Alkaline Phosphatase 221 H 189 H Total Protein 7.8 7.4 Albumin 3.9 3.5 Lipase 26 18 PFSH All Active Problems Cholecystitis (Acute) Hypokalemia (Acute) Gallstones (Acute) Care and examination of lactating mother (Acute) Nicotine dependence (Acute) Asthma (Chronic) Low back pain (Acute) Depression (Chronic) Anxiety (Chronic) Smoker (Chronic 11/28/17) Vapes 1 pod per week (07/08/2024) Medical History Encounter for management and injection of depo-Provera Bilobed placenta Normal labor Category II heart rate tracing during labor and delivery care and examination immediately after delivery Vulvovaginal candidiasis Bacterial vaginosis in Uterine contractions Abdominal pain of right lower quadrant during , antepartum Pelvic pain affecting uterine contractions in third trimester, antepartum contractions Dysuria Second trimester bleeding Family history of congenital heart defect cousin and FOB's cousin Family history of factor V Leiden mutation Marijuana abuse Stopped 10/17/2023 Impingement syndrome of left shoulder SLAP lesion of right shoulder Tendinitis of long head of biceps brachii of both shoulders Otitis externa Scapular dyskinesis Adolescent idiopathic scoliosis of thoracolumbar region (08/23/16) ADHD (attention deficit hyperactivity disorder) (11/23/14) Moderate persistent asthma without complication (08/23/16) Hematuria seen by Urology but declined hematuria workup Concussion Chronic abdominal pain Acute neck pain Depot contraception Fracture of left wrist (08/23/09) Fracture of right clavicle (11/04/04) Sprain of medial collateral ligament of right knee, subsequent encounter (04/22/17) Eczema (11/23/14) Surgical History [place] teeth removed ROOF OF MOUTH RECONSTRUCTED Family History Mother Substance abuse Gestational hypertension several female relatives Neoplasm breast CA Paternal Grandmother Diabetes Heart disease SD 12/2024 Paternal Cousin Diabetes Maternal Grandmother Breast cancer Paternal Grandfather , 50 Cancer Father Hyperlipidemia Social History Smoking/Tobacco Use Status: Never Smoking risk assessment performed?: Yes Alcohol Intake: former Drug use: Occasionally Substance use type: does not use Household members: family Housing: house Sexually active: Yes Do you think of yourself as: straight/heterosexual Current gender identity: female Seatbelt use: sometimes Do you feel safe at home: Yes Do you feel safe in your relationship?: Yes Female Reproductive History Menstrual control method: none History History 3 Para 0 Hx # Term Pregnancies 1 Multiple births 0 Hx # Pregnancies 0 Ectopic pregnancies 0 AB induced 0 Hx Number of Living Children 1 AB spontaneous 2 Past Pregnancies Del. Date GA/Weeks # Preg Succ Route Wgt Sex Labor Lgth Anesth esia Location Prov [facility] 01/18/25 39 No Yes vaginal 7 lb Male [place] an Time Spent with Patient Time Spent with Patient: <45 minutes Time was spent: referring, communicating with other health patient care nursing assistant and care coordination
== END 2025-03-15 19:30 | disposition home or self-care (01) ==
LOC: ER 17:49 → OBS 03-15 03:30
PROVIDERS: Admitting Provider Surgery; Emergency Provider Emergency Medicine; PCP Nurse Practitioner Family; Responsible Provider Surgery; Visit Provider Surgery
PROC: 0FT44ZZ Resection of Gallbladder, Percutaneous Endoscopic Approach (ICD-10-PCS; CPT 47562; principal; 2025-03-15 14:00)
DX: K80.00 Calculus of gallbladder with acute cholecystitis without obstruction (principal); J45.909 Unspecified asthma, uncomplicated; E87.6 Hypokalemia; F41.9 Anxiety disorder, unspecified; F32.A Depression, unspecified; F90.9 Attention-deficit hyperactivity disorder, unspecified type; F17.210 Nicotine dependence, cigarettes, uncomplicated; M54.50 Low back pain, unspecified
CPT/HCPCS: 47562; 36415; 76705; 80048; 80053; 80076; 83690; 99285; J1650; 83735; 85025; 88304; G0378; J0131; J1100; J1171; J1885; J2003; J2250; J2405; J2543; J2704; J3475